=== PATIENT | female | born 1955 | race Caucasian/White ===

== ENCOUNTER 2024-11-07 11:38 | Emergency (ER) | payer MEDICARE, OTHER, SELFPAY ==
[2024-11-07 11:49] VITALS: BP 132/75; PULSE 93; RESP 18; TEMP 36.9; O2SAT 95; BMI 27.3
--- NOTE | 2024-11-07 11:53 | EKG_ITS ---
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
--- NOTE | 2024-11-07 11:53 | XR_ITS ---
Examination: AP lateral chest 2 views TECHNIQUE: Portable AP lateral chest 2 views Exam date and time: hours INDICATIONS: Shortness of breath coughing 3 months. FINDINGS: Mild accentuation basilar bronchovascular markings Normal heart size No pneumonia IMPRESSION:: Mild bibasilar bronchitis pattern
--- NOTE | 2024-11-07 11:54 | XR_ITS ---
Examination: Abdomen sonogram, Limited Date and time of exam: November 07, 2024 1227 hours INDICATIONS: Liver disease diagnosis, abdominal distention 2 months Technique: Real-time barros scale transabdominal sonographic images of the abdomen obtained. Findings: Minimal ascitic fluid IMPRESSION: Minimal ascitic fluid
--- NOTE | 2024-11-07 11:55 | XR_ITS ---
Examination: Venous duplex lower extremity sonogram, bilateral. Date and time of exam: November 07, 2024 1231 hours INDICATIONS: Bilateral leg swelling beginning 2 months ago Technique: Multiple sonographic images of the deep venous system have been obtained. B-mode/2-D grayscale imaging of vascular structures and Doppler spectral analysis (waveforms) and color performed Both legs are examined. Findings: Deep venous systems do not demonstrate abnormal echogenicity. All visualized deep veins exhibit compressibility. All visualized deep veins exhibit augmentation. Impression: Negative for deep vein thrombosis
--- NOTE | 2024-11-07 11:55 | PD.EDRME ---
Rapid Medical Screening Exam RME Arrival date/time: 11/07/24 11:38 69-year-old female presents emergency department complains of shortness of breath ongoing for months Chief Complaint: Shortness of Breath/Dyspnea Vital signs: Vital Signs Temperature 98.5 F 11/07/24 11:49 Pulse Rate 93 11/07/24 11:49 Respiratory Rate 18 11/07/24 11:49 Blood Pressure 132/75 H 11/07/24 11:49 Pulse Oximetry (%) 95 11/07/24 11:49 Oxygen Delivery Method Room Air 11/07/24 11:49
[2024-11-07 12:47] LABS: Basophils # (Auto) 0.1 Thou/mm3 (0.0-0.2); Basophils % (Auto) 1 % (0-2.5); Eosinophils # (Auto) 0.2 Thou/mm3 (0.0-0.5); Eosinophils % (Auto) 2 % (0-10); Hematocrit 39.3 % (36.0-46.0); Hemoglobin 14.2 g/dL (12.0-16.0); Immature Granulocytes % (Auto) 0 % (0-0); Immature Granulocytes Auto 0.03 Thou/mm3 (0.00-0.00); Lymphocytes # (Auto) 1.4 Thou/mm3 (1.0-4.8); Lymphocytes % (Auto) 17 % (10-50); Mean Corpuscular HGB Conc 36.1 g/dl (31.0-37.0); Mean Corpuscular Hemoglobin 32.9 pg (25.0-35.0); Mean Corpuscular Volume 91 fL (80-100); Monocytes # (Auto) 0.7 Thou/mm3 (0.0-0.8); Monocytes % (Auto) 8 % (0-12); Neutrophils # (Auto) 5.9 Thou/mm3 (1.8-7.7); Neutrophils % (Auto) 72 % (37-80); Nucleated Red Blood Cell % 0 /100 WBC (0); Platelet Count 263 Thou/mm3 (140-440); RDW Standard Deviation 43.8 fL (36.4-46.3); Red Blood Count 4.32 Miln/mm3 (4.00-5.20); White Blood Count 8.2 Thou/mm3 (3.6-11.0)
[2024-11-07 12:54] LABS: INR 1.2 (0.9-1.3); Partial Thromboplastin Time 35.5 Seconds (22.0-36.0); Prothrombin Time 12.7 Seconds (9.0-12.2)
[2024-11-07 13:09] LABS: Alanine Aminotransferase 22 U/L (10-49); Albumin, Serum 3.1 gm/dL (3.4-4.8); Albumin/Globulin Ratio 0.9 (1.2-2.2); Alkaline Phosphatase 177 U/L (46-116); Anion Gap 9 (7-16); Aspartate Amino Transferase 94 U/L (0-34); BUN/Creatinine Ratio 8 Ratio (12-20); Bilirubin,Total 2.9 mg/dL (0.3-1.2); Blood Urea Nitrogen < 5 mg/dL (9-23); Calcium 8.1 mg/dL (8.3-10.6); Calcium (Corrected) 8.8 mg/dL (8.5-10.1); Carbon Dioxide 26.4 mMol/L (20.0-31.0); Chloride 87 mMol/L (98-107); Creatinine (Component) 0.6 mg/dL (0.6-1.3); Estimated Creatinine Clearance 71.5 mL/min (>60); Globulin 3.5 gm/dL (2.3-3.5); Glucose 100 mg/dL (74-106); Magnesium 1.4 mg/dL (1.6-2.6); Osmolality,Calculated 243 (275-295); Potassium 3.3 mMol/L (3.4-5.1); Sodium 122 mMol/L (136-145); Total Protein 6.6 gm/dL (5.7-8.2); Troponin I < 0.002 ng/mL (0.0-0.045); eGFR > 60 See Note
[2024-11-07 13:47] LABS: Hepatitis A Antibody IgM Non Reactive (Non React); Hepatitis B Core Antibody IgM Non Reactive (Non React); Hepatitis B Surface Antigen Non Reactive (Non React); Hepatitis C Antibody Non Reactive (Non React)
[2024-11-07 14:02] LABS: Collection Type, Urine Clean Catch
[2024-11-07 14:13] LABS: Amphetamine/Methamp Scrn,U Negative (Negative); Barbiturate Screen,Urine Negative (Negative); Benzodiazepines Screen,Urine Negative (Negative); Benzoylecgonine Screen, Ur Negative (Negative); Fentanyl Screen,Urine Negative (Negative); Opiate Screen,Urine Negative (Negative); THC Screen,Urine Negative (Negative)
[2024-11-07 14:29] LABS: Bacteria,Urine 1+; Bilirubin,Urine Negative (Negative); Blood,Urine Negative (Negative); Clarity,Urine Clear (Clear/Hazy); Color,Urine Colorless (Lt Yel-Yel); Glucose, Urine Negative (Negative); Ketones,Urine Negative (Negative); Leukocyte Esterase,Urine Negative (Negative); Nitrite,Urine Negative (Negative); Protein,Urine Negative (Neg - Trace); RBC,Urine < 1 /hpf (0-3); Specific Gravity,Urine 1.005 (1.001-1.035); Squamous Epithelial Cell,Urine 1 /hpf (0-5); Urobilinogen,Urine Negative mg/dL (0.0-1.0); WBC,Urine < 1 /hpf (0-5)
[2024-11-07 14:47] LABS: B-Type Natriuretic Peptide 63 pg/mL (0-100)
--- NOTE | 2024-11-07 15:47 | PD.EDSOB ---
ED SOB =RME/HPI General Chief Complaint: Shortness of Breath/Dyspnea Stated Complaint: SHORTNESS OF BREATH Time Seen by Provider: 11/07/24 15:12 Arrival date/time: 11/07/24 11:38 RME / HPI RME / HPI Narrative: 69-year-old female patient with significant history of chronic alcoholism, currently drinking alcohol, came in for evaluation regarding worsening abdominal distention and shortness of breath severity mild. Patient denies any cough denies any other complaints except for bilateral lower extremity edema. Patient last alcohol intake was last night. Was seen by PCP and was given Lasix. Related Data Previous Rx's ?Medication ?Instructions ?Recorded magnesium oxide 500 mg capsule 500 mg PO BID #30 caps 11/07/24 sodium chloride 1,000 mg soluble 1,000 mg PO QDAY #14 tabs 11/07/24 tablet Allergies Allergy/AdvReac Type Severity Reaction Status Date / Time codeine Allergy Verified 11/07/24 11:43 Review of Systems Review of Systems Narrative Review of Systems: Review of system reviewed and within normal limits except mentioned in HPI ED Exam Narrative Physical exam: VITAL SIGNS: Reviewed. GENERAL APPEARANCE: Alert and interactive, follows commands, no acute distress, HEAD AND FACE: Non-traumatic. ENT: PERRL, pink conjunctivitis, eyelid no trauma, Mucous membrane moist. NECK: Supple, nontender, no nuchal rigidity. CHEST: No tenderness, no crepitus, no paradoxical movement, no retractions. LUNGS: Clear, well ventilated, symmetric, no rales, no wheezing, no ronchi, no stridor, good breath sounds bilaterally. HEART: Regular rate, regular rhythm, no murmur, no gallops. ABDOMEN: Soft, positive bowel sounds, abdominal slightly distended, nontender, negative fluid wave test no guarding, no rebound, no masses, RECTAL: Deferred. GENITAL: Deferred. NEUROLOGICAL: Gross motor function intact sensory function intact, Appropriate for age. MUSCULOSKELETAL: low back nontender, full range of motion. EXTREMITIES:+2 pitting edema, nontender, full range of motion. SKIN: Color pink, dry, no rash, no lacerations, no abrasions, no contusions. LYMPHATICS: Deferred. Course Quality Measures none Orders Category Date Time Status EKG (ED ONLY) *Do not use* NOW Care 11/07/24 11:53 Completed EKG (ED Only) Stat Exams 11/07/24 11:53 Draft US abdomen limited Stat Exams 11/07/24 11:54 Completed US venous doppler LE BI Stat Exams 11/07/24 11:55 Completed XR chest 2V Stat Exams 11/07/24 11:53 Completed B-Type Natriuretic Peptide Stat Lab 11/07/24 12:24 Completed CBC Stat Lab 11/07/24 12:24 Completed Comprehensive Metabolic Panel Stat Lab 11/07/24 12:24 Completed Drug Screen,Urine Stat Lab 11/07/24 13:43 Completed Hepatitis Acute Panel Stat Lab 11/07/24 12:24 Completed Magnesium Stat Lab 11/07/24 12:24 Completed Partial Thromboplastin Time Stat Lab 11/07/24 12:24 Completed Prothrombin Time with INR Stat Lab 11/07/24 12:24 Completed Troponin I Stat Lab 11/07/24 12:24 Completed Urinalysis Stat Lab 11/07/24 13:43 Completed Vital Signs Vital signs: Vital Signs Temperature 98.5 F 11/07/24 11:49 Pulse Rate 93 11/07/24 11:49 Respiratory Rate 18 11/07/24 11:49 Blood Pressure 132/75 H 11/07/24 11:49 Pulse Oximetry (%) 95 11/07/24 11:49 Oxygen Delivery Method Room Air 11/07/24 11:49 Shortness of Breath / Dyspnea MDM Narrative MDM Narrative:: 69-year-old female patient with significant history of chronic alcoholism, currently drinking alcohol, came in for evaluation regarding worsening abdominal distention and shortness of breath severity mild. Patient denies any cough denies any other complaints except for bilateral lower extremity edema. Patient last alcohol intake was last night. Was seen by PCP and was given Lasix. Patient has significant electrolyte abnormalities probably secondary to chronic alcoholism, sodium 122, magnesium 1.4. Potassium of 3.3. Total bili was also noted to be 2.9. AST of 94 ALT of 22. Alkaline phos 177. Urinalysis no UTI. Case discussed with my ED MD, Dr. Hicks, who told me electrolyte abnormalities is secondary to chronic alcoholism. Okay to be discharged home safely. advised the patient to stop drinking alcohol, and can be discharged home on sodium salt and magnesium. Plan of care discussed with the patient including stopping alcohol intake, due to liver abnormalities secondary to alcoholic liver cirrhosis. Patient agrees with the plan. Chest x-ray showed no infiltrates. Ultrasound of the extremity is negative for DVT. EKG shows sinus rhythm, ventricular rate of 88 bpm, no ST segment elevation depression noted. Patient data External records reviewed:: None Clinical information provided by:: patient Social determinants that could affect healthcare access:: none Patient has the following chronic illnesses:: Chronic alcohol abuse, alcohol liver cirrhosis How is presenting disease/condition affected by chronic disease/condition?: caused by Evaluation data The following diagnostics were reviewed and interpreted by me:: lab results, radiology exam(s) and EKG tracing(s) Lab and/or radiology exams considered but not ordered:: None Interpretation Summary: See results in MDM Medications / Prescriptions Medications or Prescriptions considered but not ordered:: None Medication administrations:: None Consultations Consultation(s) initiated? (list below): No Diagnosis Shortness of Breath Differential Diagnosis: acute exacerbation of chronic obstructive airways disease, congestive heart failure and community acquired pneumonia Most likely diagnosis given after review of the tests above:: Hyponatremia hypomagnesemia alcoholic liver cirrhosis Admission Indicated Admission indicated?: not indicated Explain why admission is indicated or not indicated:: None Admission Request Was there a request for admission?: No Disposition Plan Disposition Plan: Discharge Discharge Attestation Discharge Attestation: The patient was given an opportunity to ask questions and understood the discharge instructions. Discharge instructions specifically effects, indications for sooner follow up or return to the emergency department, and the expected course of current diagnosis. Patient condition: Stable Discharge Plan Plan Patient Disposition: HOME (Self Care) Disposition Comment: Stable Prescriptions/Referrals Prescriptions/Med Rec: New magnesium oxide 500 mg capsule 500 mg PO BID Qty: 30 0RF sodium chloride 1,000 mg tablet,soluble 1,000 mg PO QDAY Qty: 14 0RF Referrals: Deon Rushing NP [Primary Care Provider] - In 1 week Outpatient Orders: Sodium (Routine) Location: None Selected Ordered By: Kerry Fortune Problem List Clinical Impression: Alcoholic cirrhosis of liver, Hyponatremia Patient/Caregiver Discharge Instructions Discharge Activity: activity as tolerated Education Materials: Treating Cirrhosis, ED Hyponatremia Additional Instructions: Thank you for the opportunity for serving you today. You are stable for discharged . You are advised to: Follow-up with your PCP in 1 to 2 days Return to ED for worsening of symptoms Please stop drinking alcohol. As your PCP to refer you to a liver specialist Print Language: Amharic Stand Alone Forms: Mayuri Award Info., Patient Portal Info Letter
== END 2024-11-07 15:50 | disposition home or self-care (01) ==
PROVIDERS: Nurse Practitioner Primary Care; Emergency Provider Emergency Medicine; PCP Nurse Practitioner Adult Health
DX: K70.30 Alcoholic cirrhosis of liver without ascites (principal); E87.1 Hypo-osmolality and hyponatremia; R06.02 Shortness of breath; R05.9 Cough, unspecified; R94.31 Abnormal electrocardiogram [ECG] [EKG]; R60.0 Localized edema
CPT/HCPCS: 36415; 71046; 76705; 80053; 80074; 80307; 81001; 83735; 83880; 84484; 85025; 85610; 85730; 93005; 93970; 99284

== ENCOUNTER 2024-12-30 09:35 | Inpatient (IN) | payer MEDICARE, OTHER, SELFPAY ==
[2024-12-30] VITALS (9 sets, daily range): BP systolic 120–139; BP diastolic 76–94; PULSE 93–122; RESP 15–96; TEMP 36.5–37.1; O2SAT 94–98; BMI 26.4; BMI 27.3; BMI 36.2
--- NOTE | 2024-12-30 10:35 | PD.EDRME ---
Rapid Medical Screening Exam RME Arrival date/time: 12/30/24 09:35 69-year-old female with no known medical history presents to the emergency room with a chief complaint of generalized weakness and exhaustion x 1 month I have greeted and performed a focused initial assessment of this patient. A comprehensive ED assessment and evaluation of the patient, analysis of all test results, and completion of the medical decision making process will be conducted by additional ED providers. Chief Complaint: Weakness Vital signs reviewed by provider: Yes
[2024-12-30 11:04] LABS: Basophils % (Auto) 0 % (0-2.5); Eosinophils % (Auto) 0 % (0-10); Hematocrit 41.1 % (36.0-46.0); Hemoglobin 15.2 g/dL (12.0-16.0); Immature Granulocytes % (Auto) 1 % (0-0); Immature Granulocytes Auto 0.05 Thou/mm3 (0.00-0.00); Lymphocytes # (Auto) 1.3 Thou/mm3 (1.0-4.8); Lymphocytes % (Auto) 13 % (10-50); Mean Corpuscular Hemoglobin 33.2 pg (25.0-35.0); Mean Corpuscular Volume 90 fL (80-100); Monocytes # (Auto) 0.9 Thou/mm3 (0.0-0.8); Monocytes % (Auto) 9 % (0-12); Neutrophils # (Auto) 7.7 Thou/mm3 (1.8-7.7); Neutrophils % (Auto) 77 % (37-80); Nucleated Red Blood Cell % 0 /100 WBC (0); Platelet Count 177 Thou/mm3 (140-440); RDW Standard Deviation 41.9 fL (36.4-46.3); Red Blood Count 4.58 Miln/mm3 (4.00-5.20)
[2024-12-30 12:19] LABS: Alanine Aminotransferase 11 U/L (10-49); Albumin, Serum 2.9 gm/dL (3.4-4.8); Albumin/Globulin Ratio 0.9 (1.2-2.2); Alkaline Phosphatase 177 U/L (46-116); Anion Gap 8 (7-16); Aspartate Amino Transferase 37 U/L (0-34); BUN/Creatinine Ratio 8 Ratio (12-20); Bilirubin,Total 4.5 mg/dL (0.3-1.2); Blood Urea Nitrogen 5 mg/dL (9-23); Calcium 8.2 mg/dL (8.3-10.6); Calcium (Corrected) 9.1 mg/dL (8.5-10.1); Carbon Dioxide 37.1 mMol/L (20.0-31.0); Chloride 80 mMol/L (98-107); Creatine Kinase 50 U/L (34-171); Creatinine (Component) 0.6 mg/dL (0.6-1.3); Estimated Creatinine Clearance 74.7 mL/min (>60); Globulin 3.1 gm/dL (2.3-3.5); Glucose 108 mg/dL (74-106); Lipase 60 U/L (12-53); Osmolality,Calculated 249 (275-295); Sodium 125 mMol/L (136-145); eGFR > 60 See Note
[2024-12-30 12:22] LABS: Potassium 2.7 mMol/L (3.4-5.1)
--- NOTE | 2024-12-30 13:31 | EKG_ITS ---
[facility] Test Date: 2024-12-30 Pat Name: LISSETT EDWARDS Department: Room: - Gender: Female Cop: : 1955 Requested By: Roberto Dacosta Order Number: [id number] Reading MD: Roberto Dacosta Measurements Intervals [place] Rate: 115 P: AL: QRS: 10 QRSD: 72 T: 26 QT: 377 QTc: 523 Interpretive Statements ATRIAL FIBRILLATION WITH RAPID VENTRICULAR RESPONSE LOW QRS VOLTAGE IN PRECORDIAL LEADS [QRS DEFLECTION < 1.0 mV IN CHEST LEADS] POSSIBLE ANTERIOR MYOCARDIAL INFARCTION , PROBABLY OLD [30 ms Q WAVE IN V3/V4, OR R < 0.2 mV IN V4] ABNORMAL RHYTHM ECG Compared to ECG 11/07/2024 11:58:00 Sinus rhythm no longer present Myocardial infarct finding still present /store/S0/[id number]/ecg/[id number].pdf
--- NOTE | 2024-12-30 13:39 | EDNOTE_ITS ---
ED General RME/HPI General Chief complaint: Weakness Stated complaint: WEAKNESS [id number]; UNABLE TO WALK; NEEDS MRI Time Seen by Provider: 12/30/24 13:29 Arrival date/time: 12/30/24 09:35 CC: Acute on chronic fatigue HPI ongoing for the past 4 months with progressive increase in severity. The patient denies chest pain shortness of breath difficulty breathing nausea vomiting painful urination bloody urination. Patient admits to drinking wine on a daily basis. Patient noted, when asked, that the swelling in her lower extremities is the worst its ever been. Patient has no other complaints stating that she sleeps well at night but wakes up with no energy. RME / HPI RME / HPI narrative: 12/30/24 09:35 69-year-old female with no known medical history presents to the emergency room with a chief complaint of generalized weakness and exhaustion x 1 month I have greeted and performed a focused initial assessment of this patient. A comprehensive ED assessment and evaluation of the patient, analysis of all test results, and completion of the medical decision making process will be conducted by additional ED providers. Related Data Previous Rx's ?Medication ?Instructions ?Recorded magnesium oxide 500 mg capsule 500 mg PO BID #30 caps 11/07/24 sodium chloride 1,000 mg soluble 1,000 mg PO QDAY #14 tabs 11/07/24 tablet Allergies Allergy/AdvReac Type Severity Reaction Status Date / Time codeine Allergy Verified 12/30/24 09:39 Review of Systems Review of Systems Narrative Review of Systems: GEN: No fever, no chills, no weight loss EYES: No discharge, no visual changes, no pain HEENT: No ear pain, no congestion, no sore throat PULM: No shortness of breath, no cough, no congestion CV: No chest pain, no dyspnea on exertion, no palpitations GI: No nausea, no vomiting, no diarrhea, no pain, no constipation : No frequency, no urgency, no dysuria MUSC/SKEL: No joint pain, no back pain SKIN: No rash PSYCH: No hallucinations, no depression HEME/LYMPH: No easy bleeding or bruising tendencies NEURO: No weakness, no headache, + fatigue Past Medical History Social History SMOKING STATUS: Never smoker ED Exam Narrative Physical exam: [General: Anasarca not in any acute distress Head normocephalic HEENT: Eyes pupils are PERRLA EOMs are intact mouth pink moist membranes uvula is midline swallow symmetrical phonation is normal all other subsystems of HEENT are within acceptable limits Neck is supple nontender no JVD no edema Chest equal chest rise nontender to palpation Respiratory: Clear to auscultation no wheezes crackles or rubs CV: Rate rhythm is regular no murmurs rubs or clicks Abdomen is distended secondary to body habitus, with pitting edema, soft nonte nder no masses positive bowel sounds all 4 quadrants large surgical scars to the abdomen secondary to multiple surgeries for diverticulitis. Back: No CVA tenderness no spinous process tenderness from cervical spine thoracic and lumbar spine Skin: Intact no petechiae rash induration ulceration or crepitus Extremities: Moving all extremity against resistance cap refill less than 2 seconds neurosensory intact Neuro: Awake alert oriented x3 Glascow coma 15 no focal deficits] Course Course Course Narrative: Patient is hyponatremic hypokalemic, with a lower extremity edema as well as anasarca in the abdomen patient could benefit from diuresis even though she does not have any congestive heart failure however her potassium is 2.7, spoke to the resident for Dr. Tello, regarding the patient's condition At 1751 contacted the resident as I had not heard confirmation of admission. They are now recommending the patient get a CT abdomen pelvis to rule out the volume of ascites and to see if the patient had a biliary obstruction at which time the patient can be admitted if there is no biliary obstruction otherwise they recommend the patient be transferred for MRCP Quality Measures none Orders Category Date Time Status Place in Observation Status Routine Admission 12/30/24 20:48 Active COVID-19 Screening Questionnaire NOW Care 12/30/24 20:40 Active Decision to Admit X1 Care 12/30/24 20:39 Completed EKG (ED ONLY) *Do not use* NOW Care 12/30/24 13:31 Completed EKG (ED ONLY) *Do not use* NOW Care 12/30/24 15:33 Completed [place] [Insert IV] NOW Care 12/30/24 13:[address] abdomen pelvis wo con Stat Exams 12/30/24 17:50 Completed EKG (ED Only) Stat Exams 12/30/24 13:31 Draft EKG (ED Only) Stat Exams 12/30/24 15:32 Draft Alcohol, Blood Medical Stat Lab 12/30/24 16:15 Completed B-Type Natriuretic Peptide Stat Lab 12/30/24 10:47 Completed CBC Stat Lab 12/30/24 10:47 Completed CK [Creatine Kinase] Stat Lab 12/30/24 10:47 Completed CMP [Comprehensive Metabolic Panel] Stat Lab 12/30/24 10:47 Completed Drug Screen,Urine Stat Lab 12/30/24 14:18 Completed LDH (Lactate Dehydrogenase) Stat Lab 12/30/24 10:47 Completed Lipase Stat Lab 12/30/24 10:47 Completed Magnesium Stat Lab 12/30/24 10:47 Completed Partial Thromboplastin Time Stat Lab 12/30/24 10:47 Completed Prothrombin Time with INR Stat Lab 12/30/24 10:47 Completed Troponin I Stat Lab 12/30/24 10:47 Completed UA [Urinalysis] Stat Lab 12/30/24 10:35 Ordered Urinalysis Stat Lab 12/30/24 14:18 Completed Urine Culture Stat Lab 12/30/24 14:18 Received KCL 10% Liq UDC 15 ML Med 12/30/24 13:31 Discontinued 40 meq GT X1 ONE POTASSIUM CHL 10 mEq IVPB [Kcl Ivpb] Med 12/30/24 13:32 Discontinued 10 meq in 100 ml IV Q1H Vital Signs Vital signs: Vital Signs Temperature 98.0 F 12/30/24 10:44 Pulse Rate 112 H 12/30/24 10:44 Respiratory Rate 20 12/30/24 10:44 Blood Pressure 122/82 12/30/24 10:44 Pulse Oximetry (%) 97 12/30/24 10:44 Oxygen Delivery Method Room Air 12/30/24 10:44 Discharge Plan Plan Patient Disposition: Other Care w/in Hosp ([facility]Y) Patient condition on transfer: Stable Problem List Clinical Impression: Hypokalemia, Hyponatremia, Bilateral edema of lower extremity 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 EKG Interpretation EKG #1: EKG Interpretation: EKG performed 1342 shows a ventricular rate 115 QRS of 72 QTc 445 there is A-fib with RVR. When compared to old EKGs of August and September 2024 at that time it was sinus tachycardia EKG #2: EKG Interpretation: Performed at 1538 shows a ventricular rate of 110 IN interval 155 QRS of 63 QTc of 405 this shows clear P waves and is a sinus tachycardia Medication Administration(s) Medication Administration History Acetaminophen (Acetaminophen 325 Mg Tablet) 650 mg PO Q6H PRN PRN Reason: PAIN 1-3 OR FEVER > 101 Stop: 01/29/25 20:48 Furosemide (Furosemide Inj 10 Mg/Ml 4ml Vial) 40 mg IVP QDAY CHASIDY Stop: 01/30/25 08:59 Magnesium Sulfate (Magnesium Sulfate Ivpb) 2 gm in 50 mls @ 25 mls/hr IV X1 ONE Stop: 12/30/24 22:50 Last Admin: 12/30/24 21:42 Dose: 25 mls/hr Documented By: TOSIN Lorazepam (Lorazepam 0.5 Mg Tablet) 0.5 mg PO Q4HR PRN PRN Reason: CIWA Score 2-6 Stop: 01/04/25 21:50 Lorazepam (Lorazepam 2 Mg/Ml Vial) 1 mg IV X1 PRN PRN Reason: Breakthrough Agitation Lorazepam (Lorazepam 0.5 Mg Tablet) 1 mg PO Q4HR PRN PRN Reason: CIWA SCORE 7-11 Stop: 01/04/25 21:50 Lorazepam (Lorazepam 0.5 Mg Tablet) 2 mg PO Q4HR PRN PRN Reason: CIWA SCORE 12-15 Stop: 01/04/25 21:50 Ondansetron HCl (Ondansetron Inj 2 Mg/Ml Inj 2 Ml) 4 mg IV Q6H PRN; Protocol PRN Reason: NAUSEA OR VOMITING Stop: 01/29/25 20:48 Pantoprazole Sodium (Pantoprazole 40 Mg Tablet) 40 mg PO QDAY CHASIDY Stop: 01/30/25 08:59 Sennosides (Senna Tablet) 2 tab PO BID PRN; Protocol PRN Reason: CONSTIPATION Stop: 01/29/25 20:48 Sodium Chloride (Sodium Chloride 1 Gm Tablet) 1 gm PO QID CHASIDY Stop: 01/30/25 05:59 Discontinued Medications Alprazolam (Alprazolam 0.25 Mg Tablet) 1 mg PO X1 ONE Stop: 12/30/24 21:52 Potassium Chloride (Kcl Ivpb) 10 meq in 100 mls @ 100 mls/hr IV Q1H CHASIDY Stop: 12/30/24 15:31 Last Infusion: 12/30/24 17:52 Dose: Infused Documented By: Admin: 12/30/24 16:52 Dose: 100 mls/hr Documented By: Infusion: 12/30/24 15:03 Dose: Infused Documented By: Admin: 12/30/24 14:03 Dose: 100 mls/hr Documented By: DANIAL Potassium Chloride (Potassium Chloride 10% 20 Meq/15 Ml Udc) 40 meq GT X1 ONE Stop: 12/30/24 13:32 Last Admin: 12/30/24 14:22 Dose: 40 meq Documented By: DANIAL
[2024-12-30 14:00] LABS: INR 1.2 (0.9-1.3); Partial Thromboplastin Time 31.7 Seconds (22.0-36.0); Prothrombin Time 12.7 Seconds (9.0-12.2)
[2024-12-30 14:02] LABS: B-Type Natriuretic Peptide 71 pg/mL (0-100)
[2024-12-30] MEDS: POTASSIUM CHL 10 mEq IVPB 10 MEQ/100 ML BAG 100 MEQ IV ×2 (14:03→16:52)
[2024-12-30 14:13] LABS: Magnesium 1.5 mg/dL (1.6-2.6); Troponin I < 0.020 ng/mL (0.0-0.045)
[2024-12-30] MEDS: POTASSIUM CHLORIDE 10% 20 MEQ/15 ML UDC 40 MEQ GT (14:22)
[2024-12-30 14:29] LABS: Collection Type, Urine Clean Catch
[2024-12-30 14:30] LABS: LDH (Lactate Dehydrogenase) 240 U/L (120-246)
[2024-12-30 14:43] LABS: Bilirubin,Urine Negative (Negative); Blood,Urine 1+ (Negative); Clarity,Urine Clear (Clear/Hazy); Color,Urine Yellow (Lt Yel-Yel); Glucose, Urine Negative (Negative); Ketones,Urine Negative (Negative); Leukocyte Esterase,Urine Negative (Negative); Nitrite,Urine Negative (Negative); PH,Urine 5.5 (5.0-7.0); Protein,Urine Negative (Neg - Trace); RBC,Urine 1 /hpf (0-3); Squamous Epithelial Cell,Urine 1 /hpf (0-5); Urobilinogen,Urine Negative mg/dL (0.0-1.0); WBC,Urine 6 /hpf (0-5)
[2024-12-30 14:58] LABS: Amphetamine/Methamp Scrn,U Negative (Negative); Barbiturate Screen,Urine Negative (Negative); Benzodiazepines Screen,Urine Positive (Negative); Benzoylecgonine Screen, Ur Negative (Negative); Fentanyl Screen,Urine Negative (Negative); Opiate Screen,Urine Negative (Negative); THC Screen,Urine Negative (Negative)
--- NOTE | 2024-12-30 15:32 | EKG_ITS ---
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: : 1955 Requested By: Roberto Dacosta Order Number: [id number] Reading MD: Roberto Dacosta Measurements Intervals [place] Rate: 110 P: 26 MT: 155 QRS: -12 QRSD: 63 T: -6 QT: 340 QTc: 461 Interpretive Statements SINUS TACHYCARDIA WITH OCCASIONAL SUPRAVENTRICULAR PREMATURE COMPLEXES LOW QRS VOLTAGE IN PRECORDIAL LEADS [QRS DEFLECTION < 1.0 mV IN CHEST LEADS] ANTEROSEPTAL MYOCARDIAL INFARCTION , PROBABLY OLD [40+ ms Q WAVE IN V1-V4] Compared to ECG 12/30/2024 13:42:43 Atrial fibrillation no longer present Myocardial infarct finding still present /store/S0/[id number]/ecg/[id number].pdf
--- NOTE | 2024-12-30 16:41 | EVENTNT_ITS ---
Documentation for date of: 12/30/24 Event Note Event Note: Received call from ER 4 PM Attempted to reach back however unsuccessful. Vitals and labs reviewed, given the patient's history of liver disease and elevated T. bili 4.[address] abdomen pelvis to rule out any lauren lithiasis or CBD obstruction. Will review after imaging studies completed. Case discussed with my attending Dr. Elisha Becerra MD PGY-1
[2024-12-30 17:03] LABS: Alcohol, Blood Medical < 3.0 mg/dL (0-10.0)
--- NOTE | 2024-12-30 17:50 | XR_ITS ---
Examination: CT abdomen and pelvis without contrast. Coronal 3-D reconstructions. Sagittal 2-D reconstructions. Date and time of exam:December 30, 2024 1800 hours INDICATIONS: Mid abdominal pain beginning 2 months ago CTDI: vol (mGy): 9.36 DLP: (mGycm): 524 Technique: Axial images of the abdomen have been obtained, 3 mm slice thickness Intravenous contrast material has not been administered. Low dose protocols were performed. One or more of the following dose reduction techniques were used; automated exposure control, adjustment of the mA and/or KV according to patient size, use of iterative reconstruction technique. Findings: Cirrhosis, liver nodular in contour, 16 mm 8 mm 6 mm liver lesions Prominent ascites Absent gallbladder No splenomegaly No pancreatic or adrenal mass Upper pole 25 mm right renal cyst No renal or ureteral calculi, no hydronephrosis Normal appendix No bowel obstruction Anasarca Atrophic uterus No pelvic mass Urinary bladder is intact Advanced degenerative disc disease L3 L4, L4-L5 IMPRESSION: Cirrhosis, focal liver lesions, recommend MRI abdomen follow up pre and postcontrast to assess these liver lesions Prominent ascites Normal appendix No bowel obstruction
--- NOTE | 2024-12-30 20:53 | ESHP_ITS ---
<Statement entered by Alexx Dillard MD - 12/31/24 13:23> I have discussed and was present for the essential components of the history, physical examination, diagnosis, and treatment plan with the resident. I agree with the patient's care as documented by the resident and amended herein by me. Alexx Dillard MD FACP. Documentation for date of: 12/30/24 HPI History of Present Illness History of present illness: Patient is 69-year-old female with a past medical history of chronic lymphedema, alcohol abuse disorder, anxiety, who was directed to go to the emergency room by her primary care physician due to complaint of generalized weakness, The patient is complaining of chronic fatigue and difficulty walking for the past few months, but stated it has been getting worse now. Patient takes Lasix 40 mg every day for bilateral lower extremity swelling, there is also prescribed p.o. potassium but she takes it occasionally. Patient also admits to drinking wine on a daily basis, reported that she used to drink heavily in the past. Patient has a medical history of anxiety, and gets teary-eyed multiple times during the encounter, states he takes alprazolam at home for anxiety, has never been formally evaluated by psychiatrist for depression. Patient is unfamiliar with diagnosis of cirrhosis. Labs :CBC unremarkable, CMP shows hyponatremia, hypokalemia, metabolic alkalosis, and hypomagnesemia. Labs show hyperbilirubinemia, imaging Shows cirrhosis focal liver lesions, recommended MRI abdomen pre and postcontrast to assess these lesions, prominent ascites. Patient will be admitted to medical floor for observation, IV diuresis and electrolyte replacement. Past medical history: As noted above Social history: Denies smoking, reports excessive alcohol use. Review of Systems Review of Systems Narrative Review of Systems: General: Denies fevers or chills, patient is anxious, gets teary-eyed multiple times during the encounter, complaining of generalized weakness. HEENT: Denies congestion or sore throat Heart: Denies chest pain or palpitations Lungs: Denies shortness of breath or cough Abdomen: Denies diarrhea, nausea, vomiting, constipation, bright red blood per rectum or melena Genitourinary: Denies frequency, urgency, dysuria, or hematuria Musculoskeletal: Denies joint pain, denies muscular pain Neurology: Denies any numbness, tingling, complains of generalized weakness no focal neurological deficits. Review of systems otherwise negative except what is mentioned above. Past Medical History Past Medical History NEUROLOGIC: Negative Neurological Disorders CARDIAC: Negative Cardiac Disorders or Congestive Heart Failure RESPIRATORY: Positive Asthma; Negative Chronic Obstructive Pulmonary Disease (COPD) GASTROINTESTINAL: Negative Gastrointestinal Disorders GENITOURINARY: Negative Genitourinary Disorders or Renal Disease MUSCULOSKELETAL: Negative Musculoskeletal Disorders ENT: Negative History of ENT Problems ENDOCRINE: Negative Endocrine Disorders, Diabetes Mellitus Type 1 or Diabetes Mellitus Type 2 HEMATOLOGIC: Negative Blood Disorders OTHER HISTORY: Negative Autoimmune Disease, Organ Transplant, Clostridium Difficile or Cancer Family History FAMILY HISTORY: Negative Family Respiratory Disorders, Family Cardiac Disorders or Family Gastrointestinal Problems Surgical History SURGICAL: Negative Cardiac Surgery, Endocrine Surgery, Ear Surgery, Abdominal Surgery, Nephrectomy, Joint Replacement, Neurologic Surgery, Lumpectomy or Organ Transplant Social History SMOKING STATUS: Never smoker Exam Vital Signs Temp Pulse Resp BP Pulse Ox O2 Del Method 98.0 F 115 H 18 133/76 H 96 Room Air 12/30/24 20:39 12/30/24 20:39 12/30/24 20:39 12/30/24 20:39 12/30/24 20:39 12/30/24 20:39 Narrative Exam General: AOx3, cooperative but anxious, anasarca Skin: Intact, no cyanosis. 3+ pitting edema noted bilateral lower extremities extending up to lower abdomen. HEENT: Atraumatic/normocephalic, SEBAS, neck supple Heart: RRR, S1 and S2 without clicks or murmurs Lungs: Clear on auscultation bilaterally, no difficulty breathing Abdomen: Soft, nontender. Distended, bowel sounds present . Vascular: Peripheral pulses palpable Neuro: No focal neurological deficits noted. Results: Labs 12/30/24 10:47 12/30/24 10:47 Labs: Short CBC 12/30/24 Range/Units 10:47 WBC 10.0 (3.6-11.0) Thou/mm3 Hgb 15.2 (12.0-16.0) g/dL Hct 41.1 (36.0-46.0) % Plt Count 177 (140-440) Thou/mm3 BMP 12/30/24 10:47 Sodium 125 L Potassium 2.7 L* Chloride 80 L Carbon Dioxide 37.1 H BUN 5 L Creatinine 0.6 Glucose 108 H Calcium 8.2 L Cardiac Enzymes 12/30/24 Range/Units 10:47 Total Creatine Kinase 50 (34-171) U/L Troponin I < 0.020 (0.0-0.045) ng/mL Liver Function 12/30/24 Range/Units 10:47 Total Bilirubin 4.5 H (0.3-1.2) mg/dL AST 37 H (0-34) U/L ALT 11 (10-49) U/L Alkaline Phosphatase 177 H (46-116) U/L Albumin 2.9 L (3.4-4.8) gm/dL Urine 12/30/24 Range/Units 14:18 Urine Color Yellow (Lt Yel-Yel) Urine Clarity Clear (Clear/Hazy) Urine pH 5.5 (5.0-7.0) Ur Specific Alicia 1.010 (1.001-1.035) Urine Protein Negative (Neg - Trace) Urine Glucose (UA) Negative (Negative) Quality Measures Quality Measures VTE prophylaxis Advance care planning discussed with:: patient Medications Home Medications and Allergies Allergies Allergy/AdvReac Type Severity Reaction Status Date / Time codeine Allergy Verified 12/30/24 09:39 Visit Medications Acetaminophen (Acetaminophen 325 Mg Tablet) 650 mg PO Q6H PRN PRN Reason: PAIN 1-3 OR FEVER > 101 Stop: 01/29/25 20:48 Magnesium Sulfate (Magnesium Sulfate Ivpb) 2 gm in 50 mls @ 25 mls/hr IV X1 ONE Stop: 12/30/24 22:50 Ondansetron HCl (Ondansetron Inj 2 Mg/Ml Inj 2 Ml) 4 mg IV Q6H PRN; Protocol PRN Reason: NAUSEA OR VOMITING Stop: 01/29/25 20:48 Sennosides (Senna Tablet) 2 tab PO BID PRN; Protocol PRN Reason: CONSTIPATION Stop: 01/29/25 20:48 Discontinued Medications Potassium Chloride (Kcl Ivpb) 10 meq in 100 mls @ 100 mls/hr IV Q1H CHASIDY Stop: 12/30/24 15:31 Last Infusion: 12/30/24 17:52 Dose: Infused Potassium Chloride (Potassium Chloride 10% 20 Meq/15 Ml Udc) 40 meq GT X1 ONE Stop: 12/30/24 13:32 Last Admin: 12/30/24 14:22 Dose: 40 meq Assessment & Plan Plan Patient is 69-year-old female with a past medical history of chronic lymphedema, alcohol abuse disorder, anxiety, who was directed to go to the emergency room by her primary care physician due to complaint of generalized weakness, The patient is complaining of chronic fatigue and difficulty walking for the past few months, but stated it has been getting worse now. Patient will be admitted to medical floor for observation, IV diuresis and electrolyte replacement. #Anasarca #Bilateral lower extremity edema #Chronic lymphedema Patient reported history of chronic lymphedema since age 10, no worsening bilateral lower extreme edema, he is on p.o. diuresis at home, now worsening weakness and difficulty walking. Less likely concern for DVT, likely chronic lymphedema and cirrhosis leading to bilateral lower extremity swelling. Will get echocardiogram to rule out CHF. ? IV Lasix 40 mg daily ? Input output monitoring #Alcohol abuse disorder #Decompensated cirrhosis with ascites Madrey's discriminant function score 9, good prognosis no indications for steroids. no hepatic encephalopathy , ao x 3 ? Ordered ultrasound-guided paracentesis in the a.m. ? Following peritoneal fluid analysis ? Follow vital hepatitis panel. ? CIWA protocol ordered #Hyponatremia #Hypokalemia Hyponatremia likely secondary to hypervolemic status secondary to cirrhosis, hypokalemia likely secondary to diuretics. ? IV KCl replacement ? Fluid restriction ordered 1200 cc daily. Plan of care discussed with attending Dr. Rosa Dawkins PGY 2
[2024-12-30] MEDS: Magnesium Sulfate 2 GM Ivpb 2 GM/50 ML BAG IV (21:42)
--- NOTE | 2024-12-30 21:45 | ECHO_ITS ---
Transthoracic Echo Report Ht (in): 61 Wt (lb): 145 Exam Location: Echo Lab Status: Emergency Hide Inspector And Sorter: Cecilia Garcia Indications: Procedure Performed: BP: / HR: Technical Quality: Technically difficult study MEASUREMENTS (Male / Female) Normal Values 2D ECHO LV Diastolic Diameter PLAX 4.4 cm 4.2 - 5.9 / 3.9 - 5.3 cm LV Systolic Diameter PLAX 2.9 cm IVS Diastolic Thickness 1.0 cm 0.6 - 1.0 / 0.6 - 0.9 cm LVPW Diastolic Thickness 1.3 cm 0.6 - 1.0 / 0.6 - 0.9 cm LV Relative Wall Thickness 0.5 LVOT Diameter 1.5 cm Aortic Root Diameter 3.2 cm LA Systolic Diameter LX 2.9 cm 3.0 - 4.0 / 2.7 - 3.8 cm M-MODE AV Cusp Separation MM 1.2 cm DOPPLER AV Peak Velocity 257.0 cm/s AV Peak Gradient 26.4 mmHg AV Mean Gradient 13.3 mmHg AV Velocity Time Integral 46.0 cm LVOT Peak Velocity 121.0 cm/s LVOT Peak Gradient 5.9 mmHg LVOT Velocity Time Integral 26.3 cm AV Area Cont Eq vti 1.0 cm? AV Area Cont Eq pk 0.8 cm? MV Area PHT 4.6 cm? MR Peak Velocity 220.0 cm/s MR Peak Gradient 19.4 mmHg Mitral E Point Velocity 72.8 cm/s Mitral A Point Velocity 99.9 cm/s Mitral E to A Ratio 0.7 LV E' Lateral Velocity 6.6 cm/s Mitral E to LV E' Lateral Ratio 11.0 LV E' Septal Velocity 6.7 cm/s Mitral E to LV E' Septal Ratio 10.8 TR Peak Velocity 229.0 cm/s TR Peak Gradient 21.0 mmHg PV Peak Velocity 153.0 cm/s PV Peak Gradient 9.4 mmHg FINDINGS Left Ventricle Normal left ventricular size. Mild LVH. Hyperdynamic LV. There is grade I diastolic dysfunction of the left ventricle (impaired relaxation pattern). The ejection fraction is visually estimated at 75 %. Right Ventricle The right ventricle is normal in size and systolic function. Left Atrium The left atrium is normal by two-dimensional, color flow and Doppler imaging with no structural abnormalities, no thrombus formation present. Right Atrium The right atrium is normal by two-dimensional imaging, color flow and Doppler imaging with no structural abnormalities, no thrombus formation present. Atrial Septum The interatrial septum appears normal with no evidence of a shunt. Aorta The aorta is normal by two-dimensional, color flow and Doppler interrogation. Mitral Valve Mild mitral annular calcification. Trace mitral regurgitation. Aortic Valve Mild aortic valve regurgitation. Mild thickening of the aortic valve leaflets. Tricuspid Valve The tricuspid valve is normal by two-dimensional, color flow and Doppler interrogation. There is no significant tricuspid valve regurgitation. Pulmonic Valve The pulmonic valve is not well visualized. There is no significant pulmonic valve regurgitation. Vessels The pulmonary artery appears normal. The inferior vena cava pulmonary and hepatic veins appear normal. Pericardium The pericardium is normal by two-dimensional imaging. There is no significant pericardial effusion. CONCLUSIONS Indication: Lower extemity edema Normal LV size. Mild LVH. Hyperdynamic LV. Grade I diastolic dysfunction. Estimated EF > 70%. Normal RV size and systolic function. Trace TR and cannot estimate RVSP. Mild MAC. Trace MR. Mild AI. Mild AV sclerosis without stenosis. No evidence of any pericardial effusion. Renan Gardner (Electronically Signed) Final Date: 02 Jan 2025 00:56
[2024-12-30 22:17] LABS: Albumin, Serum 2.7 gm/dL (3.4-4.8); Anion Gap 8 (7-16); BUN/Creatinine Ratio 12 Ratio (12-20); Blood Urea Nitrogen 6 mg/dL (9-23); Calcium 7.5 mg/dL (8.3-10.6); Calcium (Corrected) 8.5 mg/dL (8.5-10.1); Carbon Dioxide 33.9 mMol/L (20.0-31.0); Chloride 82 mMol/L (98-107); Creatinine (Component) 0.5 mg/dL (0.6-1.3); Estimated Creatinine Clearance 89.6 mL/min (>60); Glucose 102 mg/dL (74-106); Osmolality,Calculated 247 (275-295); Phosphorous 2.5 mg/dL (2.4-5.1); Potassium 2.8 mMol/L (3.4-5.1); Sodium 124 mMol/L (136-145); eGFR > 60 See Note
[2024-12-30] MEDS: ALPRazoLAM 0.25 MG TABLET 1 MG PO (22:36)
[2024-12-30 23:18] LABS: Hepatitis A Antibody IgM Non Reactive (Non React); Hepatitis B Core Antibody IgM Non Reactive (Non React); Hepatitis B Surface Antigen Non Reactive (Non React); Hepatitis C Antibody Non Reactive (Non React)
[2024-12-31] VITALS (12 sets, daily range): BP systolic 115–131; BP diastolic 70–90; PULSE 88–143; RESP 17–96; TEMP 36.1–37.2; O2SAT 93–97; BMI 34.0
[2024-12-31] MEDS: POTASSIUM CHL 10 mEq IVPB 10 MEQ/100 ML BAG 100 MEQ IV ×4 (00:08→04:09)
[2024-12-31] MEDS: ACETAMINOPHEN 325 MG TABLET 650 MG PO (01:12)
[2024-12-31] MEDS: LORazepam 2 MG/ML VIAL 1 MG IV (01:23)
[2024-12-31 05:52] LABS: Basophils % (Auto) 0 % (0-2.5); Eosinophils # (Auto) 0.1 Thou/mm3 (0.0-0.5); Eosinophils % (Auto) 1 % (0-10); Hematocrit 35.6 % (36.0-46.0); Immature Granulocytes % (Auto) 0 % (0-0); Immature Granulocytes Auto 0.04 Thou/mm3 (0.00-0.00); Lymphocytes # (Auto) 1.6 Thou/mm3 (1.0-4.8); Lymphocytes % (Auto) 17 % (10-50); Mean Corpuscular HGB Conc 36.5 g/dl (31.0-37.0); Mean Corpuscular Hemoglobin 33.8 pg (25.0-35.0); Mean Corpuscular Volume 93 fL (80-100); Monocytes # (Auto) 0.9 Thou/mm3 (0.0-0.8); Monocytes % (Auto) 9 % (0-12); Neutrophils # (Auto) 6.9 Thou/mm3 (1.8-7.7); Neutrophils % (Auto) 72 % (37-80); Nucleated Red Blood Cell % 0 /100 WBC (0); Platelet Count 151 Thou/mm3 (140-440); RDW Standard Deviation 43.8 fL (36.4-46.3); Red Blood Count 3.85 Miln/mm3 (4.00-5.20); White Blood Count 9.6 Thou/mm3 (3.6-11.0)
[2024-12-31 06:29] LABS: INR 1.2 (0.9-1.3); Prothrombin Time 13.1 Seconds (9.0-12.2)
[2024-12-31 07:13] LABS: Albumin, Serum 2.4 gm/dL (3.4-4.8); Anion Gap 6 (7-16); Aspartate Amino Transferase 31 U/L (0-34); BUN/Creatinine Ratio 10 Ratio (12-20); Bilirubin,Direct 1.9 mg/dL (0.0-0.3); Bilirubin,Total 4.6 mg/dL (0.3-1.2); Blood Urea Nitrogen 5 mg/dL (9-23); Calcium 7.1 mg/dL (8.3-10.6); Carbon Dioxide 32.8 mMol/L (20.0-31.0); Cardiac Risk Estimate 3.1 RATIO (3.7-5.6); Chloride 84 mMol/L (98-107); Cholesterol 123 mg/dL (132-200); Creatinine (Component) 0.5 mg/dL (0.6-1.3); Estimated Creatinine Clearance 99.9 mL/min (>60); Glucose 93 mg/dL (74-106); HDL Cholesterol 40 mg/dL (40-60); LDL Cholesterol,Calculated 70 mg/dL (0-130); Magnesium 1.4 mg/dL (1.6-2.6); Osmolality,Calculated 244 (275-295); Phosphorous 2.5 mg/dL (2.4-5.1); Potassium 3.1 mMol/L (3.4-5.1); Sodium 123 mMol/L (136-145); Thyroid Stimulating Hormone 5.47 uIU/mL (0.55-4.78); Triglycerides 65 mg/dL (30-150); eGFR > 60 See Note
[2024-12-31 07:14] LABS: Alanine Aminotransferase 9 U/L (10-49); Alkaline Phosphatase 143 U/L (46-116)
--- NOTE | 2024-12-31 07:30 | PC.NURSE ---
MD frye notified of pts current HR of 127. Per MD will be changed to a higher level of care Telemetry
--- NOTE | 2024-12-31 08:00 | XR_ITS ---
Examination: Ultrasound-guided paracentesis Abdominal sonogram limited Date and time of exam: December 31, 2024 1338 hours INDICATIONS: Cirrhosis, increasing ascites and abdominal distention this week Informed consent provided. A timeout was completed verifying correct patient, procedure, site, positioning, and special adequate movement if applicable. Technique: Multiple sonographic images of the abdomen have been obtained. Appropriate area for paracentesis was marked. Local anesthesia is obtained with 1% lidocaine. Yueh catheter is successfully introduced. Findings: Abdominal sonographic images demonstrate sufficient ascitic fluid for paracentesis. After placing the Yueh catheter, 2950 cc of fluid were successfully removed. During and after completion of the procedure the patient appear in satisfactory and stable condition with no complications observed. Estimated blood loss 0 cc Impression: Abdominal ascites Successful ultrasound-guided paracentesis as described above
[2024-12-31] MEDS: Magnesium Sulfate 4 GM Ivpb 4 GM/50 ML BAG IV (08:37)
[2024-12-31] MEDS: FUROSEMIDE INJ 10 MG/ML 4ML VIAL 40 MG IVP (08:38)
--- NOTE | 2024-12-31 09:48 | ESPR_ITS ---
<Statement entered by Sara Tello MD - 01/10/25 14:59> I reviewed above note and agree with findings and plans. I have also personally examined the patient with medicine team and went over assessment and plan with medical team including data analysis intern and resident physician. <Statement entered by Jimy Mosher MD - 12/31/24 16:18> Patient examined and case discussed with the team including attending physician. Note reviewed, I agree with the care plan as documented. S/p Paracentesis 2.95L output. Albumin 25g x1 ordered for oncotic repletion. Diet resumed. EKG shows sinus tachycardia, low CIWA -> transfered to telemetry for closer monitoring. Please refer to the note below for further details. - Jimy Mosher MD, PGY 2 Disclaimer: The document may contain phonetic/typographic errors due to voice recognition software. These errors are purely due to imperfections in the software program and should not be misconstrued in any way to compromise the substance of the patient's medical care during this visit. Documentation for date of: 12/31/24 Subjective Subjective Interval history: Patient seen today at the bedside found awake, alert, orientedx3. No overnight events reported. No active complaints at this time. Vital signs and labs reviewed. Patient is pending paracentesis by IR services. Ammonia lvls ordered. Will continue to monitor. Exam Vital Signs Temp Pulse Resp BP Pulse Ox O2 Del Method 97.2 F 88 18 119/88 H 93 L Room Air 12/31/24 07:55 12/31/24 08:38 12/31/24 07:55 12/31/24 08:38 12/31/24 07:55 12/31/24 07:55 Narrative Exam Physical Exam GENERAL: NAD, AAOx3 HEENT: Moist mucosa. Eyes open, symmetrical, & clear CARDIO: Heart RRR, no obvious murmurs PULM: No noted coughing/dyspnea CTA B/L, no R/W/R GI: Abdomen soft, nondistended, no pain on palpation. BSx4 SKIN/MSK/EXT: No wounds/rashes/edema/amputations, no pain on palpation. Pedal pulses present B/L NEURO: AAOx3, no focal neuro deficits, able to move all 4 extremities Objective Labs 12/31/24 04:52 12/31/24 04:52 Labs: Laboratory Results - last 24 hr 12/30/24 12/30/24 12/30/24 10:47 14:18 16:15 WBC 10.0 RBC 4.58 Hgb 15.2 Hct 41.1 MCV 90 MCH 33.2 MCHC 37.0 RDW Std Deviation 41.9 Plt Count 177 Neut % (Auto) 77 Lymph % (Auto) 13 [place] % (Auto) 9 Eos % (Auto) 0 Baso % (Auto) 0 Neut # (Auto) 7.7 Lymph # (Auto) 1.3 [place] # (Auto) 0.9 H Eos # (Auto) 0.0 Baso # (Auto) 0.0 Immature Gran # (Auto) 0.05 H Absolute Nucleated RBC 0.00 Immature Gran % 1 H Nucleated RBC % 0 PT 12.7 H INR 1.2 APTT 31.7 Sodium 125 L Potassium 2.7 L* Chloride 80 L Carbon Dioxide 37.1 H Anion Gap 8 BUN 5 L Creatinine 0.6 Estim Creat Clear Calc 74.7 eGFR > 60 BUN/Creatinine Ratio 8 L Glucose 108 H Calculated Osmolality 249 L Calcium 8.2 L Corrected Calcium 9.1 Phosphorus Magnesium 1.5 L Total Bilirubin 4.5 H Direct Bilirubin AST 37 H ALT 11 Alkaline Phosphatase 177 H Lactate Dehydrogenase 240 Total Creatine Kinase 50 Troponin I < 0.020 B-Natriuretic Peptide 71 Total Protein 6.0 Albumin 2.9 L Globulin 3.1 Albumin/Globulin Ratio 0.9 L Triglycerides Cholesterol LDL Cholesterol, Calc HDL Cholesterol Cholesterol/HDL Ratio Lipase 60 H Tumor Marker AFP TSH Ur Collection Type Clean Catch Urine Color Yellow Urine Clarity Clear Urine pH 5.5 Ur Specific Mccloud 1.010 Urine Protein Negative Urine Glucose (UA) Negative Urine Ketones Negative Urine Blood 1+ A Urine Nitrite Negative Urine Bilirubin Negative Urine Urobilinogen (Auto) Negative Ur Leukocyte Esterase Negative Urine RBC 1 Urine WBC 6 H Ur Squamous Epith Cells 1 Urine Bacteria None Urine Opiates Screen Negative Urine Fentanyl Screen Negative Ur Barbiturates Screen Negative U Amphetamin/Meth Scrn Negative U Benzodiazepines Scrn Positive A U Cocaine Metab Screen Negative U Marijuana (THC) Screen Negative Ethyl Alcohol < 3.0 Hepatitis A IgM Ab Hep Bs Antigen Hep B Core IgM Ab Hepatitis C Antibody 12/30/24 12/31/24 21:35 04:52 WBC 9.6 RBC 3.85 L Hgb 13.0 D Hct 35.6 L MCV 93 MCH 33.8 MCHC 36.5 RDW Std Deviation 43.8 Plt Count 151 Neut % (Auto) 72 Lymph % (Auto) 17 [place] % (Auto) 9 Eos % (Auto) 1 Baso % (Auto) 0 Neut # (Auto) 6.9 Lymph # (Auto) 1.6 [place] # (Auto) 0.9 H Eos # (Auto) 0.1 Baso # (Auto) 0.0 Immature Gran # (Auto) 0.04 H Absolute Nucleated RBC 0.00 Immature Gran % 0 Nucleated RBC % 0 PT 13.1 H INR 1.2 APTT Sodium 124 L 123 L Potassium 2.8 L 3.1 L Chloride 82 L 84 L Carbon Dioxide 33.9 H 32.8 H Anion Gap 8 6 L BUN 6 L 5 L Creatinine 0.5 L 0.5 L Estim Creat Clear Calc 89.6 99.9 eGFR > 60 > 60 BUN/Creatinine Ratio 12 10 L Glucose 102 93 Calculated Osmolality 247 L 244 L Calcium 7.5 L 7.1 L Corrected Calcium 8.5 Phosphorus 2.5 2.5 Magnesium 1.4 L Total Bilirubin 4.6 H Direct Bilirubin 1.9 H AST 31 ALT 9 L Alkaline Phosphatase 143 H D Lactate Dehydrogenase Total Creatine Kinase Troponin I B-Natriuretic Peptide Total Protein 5.0 L Albumin 2.7 L 2.4 L Globulin Albumin/Globulin Ratio Triglycerides 65 Cholesterol 123 L LDL Cholesterol, Calc 70 HDL Cholesterol 40 Cholesterol/HDL Ratio 3.1 L Lipase Tumor Marker AFP 9.70 H TSH 5.47 H Ur Collection Type Urine Color Urine Clarity Urine pH Ur Specific Mccloud Urine Protein Urine Glucose (UA) Urine Ketones Urine Blood Urine Nitrite Urine Bilirubin Urine Urobilinogen (Auto) Ur Leukocyte Esterase Urine RBC Urine WBC Ur Squamous Epith Cells Urine Bacteria Urine Opiates Screen Urine Fentanyl Screen Ur Barbiturates Screen U Amphetamin/Meth Scrn U Benzodiazepines Scrn U Cocaine Metab Screen U Marijuana (THC) Screen Ethyl Alcohol Hepatitis A IgM Ab Non Reactive Hep Bs Antigen Non Reactive Hep B Core IgM Ab Non Reactive Hepatitis C Antibody Non Reactive Quality Measures Quality Measures none Advance care planning discussed with:: patient Assessment & Plan Assessment Current Active Medications: Generic Name Dose Route Start Last Admin Trade Name Freq PRN Reason Stop Dose Admin Acetaminophen 650 mg 12/30/24 20:49 12/31/24 01:12 Acetaminophen 325 Mg Tablet PO 01/29/25 20:48 650 mg Q6H PRN Administration PAIN 1-3 OR FEVER > 101 Furosemide 40 mg 12/31/24 09:00 12/31/24 08:38 Furosemide Inj 10 Mg/Ml 4ml Vial IVP 01/30/25 08:59 40 mg QDAY CHASIDY Administration Heparin Sodium (Porcine) 5,000 unit 12/31/24 14:00 Heparin Sod Inj 5000 Unit/Ml Vial SC 01/14/25 13:59 Q8HR CHASIDY Magnesium Sulfate 4 gm in 50 mls @ 12.5 mls/hr 12/31/24 07:55 12/31/24 08:37 Magnesium Sulfate Ivpb IV 12/31/24 11:54 12.5 mls/hr X1 ONE Administration Lorazepam 0.5 mg 12/30/24 21:51 Lorazepam 0.5 Mg Tablet PO 01/04/25 21:50 Q4HR PRN CIWA Score 2-6 Lorazepam 1 mg 12/30/24 21:51 Lorazepam 0.5 Mg Tablet PO 01/04/25 21:50 Q4HR PRN CIWA SCORE 7-11 Lorazepam 2 mg 12/30/24 21:51 Lorazepam 0.5 Mg Tablet PO 01/04/25 21:50 Q4HR PRN CIWA SCORE 12-15 Ondansetron HCl 4 mg 12/30/24 20:49 Ondansetron Inj 2 Mg/Ml Inj 2 Ml IV 01/29/25 20:48 Q6H PRN NAUSEA OR VOMITING Protocol Pantoprazole Sodium 40 mg 12/31/24 09:00 12/31/24 08:40 Pantoprazole 40 Mg Tablet PO 01/30/25 08:59 Not Given QDAY [facility] Sennosides 2 tab 12/30/24 20:49 Senna Tablet PO 01/29/25 20:48 BID PRN CONSTIPATION Protocol Sodium Chloride 1 gm 12/31/24 06:00 12/31/24 05:46 Sodium Chloride 1 Gm Tablet PO 01/30/25 05:59 Not Given QID CHASIDY Plan 69-year-old female with a past medical history of chronic lymphedema, alcohol abuse disorder, anxiety, who was directed to go to the emergency room by her primary care physician due to complaint of generalized weakness, The patient is complaining of chronic fatigue and difficulty walking for the past few months, but stated it has been getting worse now. Patient will be admitted to medical floor for observation, IV diuresis and electrolyte replacement. #Acute decompensated liver disease #Anasarca #Alcohol abuse disorder #Bilateral lower extremity edema #Chronic lymphedema Patient reported history of chronic lymphedema since age 10, no worsening bilateral lower extreme edema, he is on p.o. diuresis at home, now worsening weakness and difficulty walking. Less likely concern for DVT, likely chronic lymphedema and cirrhosis leading to bilateral lower extremity swelling. Will get echocardiogram to rule out CHF. Madrey's discriminant function score 9, good prognosis no indications for steroids. no hepatic encephalopathy Hepatitis panel negative ? IV Lasix 40 mg daily ? Input output monitoring ? pending paracentesis ? f/u ammonia lvls ? Following peritoneal fluid analysis ? CIWA protocol ordered #Hyponatremia #Hypokalemia Hyponatremia likely secondary to hypervolemic status secondary to cirrhosis, hypokalemia likely secondary to diuretics. ? IV KCl replacement ? Fluid restriction ordered 1200 cc daily ? on salt tabs Disposition: telemetry, ciwa, pending paracentesis Fluids: None Feeding: NPO Thrombo prophylaxis: heparin Gastric Ulcer prophylaxis: Pantoprazole CODE STATUS: Full code Case discussed with my senior Dr. Mosher and my attending Dr. Elisha Becerra MD PGY-1
[2024-12-31 11:07] LABS: Free T4 (Free Thyroxine) 0.96 ng/dL (0.89-1.76)
--- NOTE | 2024-12-31 11:18 | PC.SS ---
Initial assessment: patient is a 69 year old female. Patient was able to confirm demographic information. Patient informs she lives with spouse Jorge. Patient identified her as her emergency contact. Patient utilizes a walker to assist with ambulation at home. Patient followed by dwayne Burnett for primary care. Patient aligned with [facility] for pharmacy needs. Patient to return home upon discharge, inform her is able to transport home. No needs identified at this time. Community resource handout provided to the patient. D/c plan: Home Next of kin: spouse, Jorge
--- NOTE | 2024-12-31 12:01 | PC.NURSE ---
Dr. Mosher notified pt sustaining in the 130s new orders given for EKG. Pt comfortable no visible distress noted. Per pt no complains of chest pain or distress.
--- NOTE | 2024-12-31 12:11 | EKG_ITS ---
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
--- NOTE | 2024-12-31 12:48 | PC.NURSE ---
RR called due to pts current HR in the 140s sustaining. Pt comfortable no complains of chest pain or respiratory distress. Vs within normal range.
[2024-12-31] MEDS: LORazepam 0.5 MG TABLET PO (12:56)
--- NOTE | 2024-12-31 13:05 | PD.RESEVENT ---
Documentation for date of: 12/31/24 Event Note Event Note: rapid response called around noon due to tachycardia with rate in the 150s, was instructed to blow on a syringe which decreased rate to 100s-109s Patient denies chest pain, palpitations, shortness of breath. EKG showed sinus rhythm with some PVCs, adittional electrolyte replacement given as well. Case discussed with my attending Dr. Elisha Becerra MD PGY-1
[2024-12-31 13:07] LABS: Ammonia 28 uMol/L (11-32)
[2024-12-31] MEDS: SODIUM CHLORIDE 1 GM TABLET PO ×3 (13:15→21:40)
[2024-12-31] MEDS: POTASSIUM CHLORIDE 20 mEq TABCR 40 MEQ PO ×2 (13:15→22:13)
--- NOTE | 2024-12-31 13:18 | PC.NURSE ---
Dr Mosher updated on pts current HR 117 and status per MD cont with Paracenthesis procedure today. Will cont with MD orders.
--- NOTE | 2024-12-31 13:51 | PC.NURSE ---
Report given to Huma PEPE receiving telemetry. Pt will be transferred to tele after the paracenthesis.
--- NOTE | 2024-12-31 14:52 | PC.NURSE ---
PT trasferred via hospital bed to telemetry floor. Pt situated in room 260 aaox4 and stable. Receiving MY tucker.
[2024-12-31] MEDS: ALBUMIN HUMAN 25% IVPB 25 GM/100 ML BTL IV (16:07)
[2024-12-31 17:42] LABS: Albumin, Peritoneal Fluid < 1.0 gm/dL; Glucose,Peritoneal Fluid 99 mg/dL; LDH,Peritoneal Fluid 71 IU/L; Protein Total,Peritoneal Fluid < 2 g/dL
[2024-12-31 17:56] LABS: Peritoneal Fluid WBC 80 /cmm
[2024-12-31 17:58] LABS: Peritoneal Fluid Appearance Hazy; Peritoneal Fluid Color Yellow; RBC,Peritoneal Fluid 48 /cmm
[2024-12-31 17:59] LABS: Peritoneal Fluid Mononuclear 84 %; Peritoneal Fluid Polynuclear 16 %
[2024-12-31] MEDS: LORazepam 0.5 MG TABLET 1 MG PO (20:03)
[2024-12-31] MEDS: HEPARIN SOD INJ 5000 UNIT/ML VIAL SC (22:12)
[2024-12-31] MEDS: GABAPENTIN 100 MG CAPSULE 200 MG PO (22:13)
[2025-01-01] VITALS (8 sets, daily range): BP systolic 111–138; BP diastolic 77–93; PULSE 96–122; RESP 15–95; TEMP 36.6–37.1; O2SAT 96–97
[2025-01-01] MEDS: SODIUM CHLORIDE 1 GM TABLET PO ×3 (05:42→16:13)
[2025-01-01] MEDS: HEPARIN SOD INJ 5000 UNIT/ML VIAL SC ×2 (05:42→14:52)
[2025-01-01 05:51] LABS: Basophils # (Auto) 0.1 Thou/mm3 (0.0-0.2); Basophils % (Auto) 1 % (0-2.5); Eosinophils # (Auto) 0.1 Thou/mm3 (0.0-0.5); Eosinophils % (Auto) 2 % (0-10); Hematocrit 32.4 % (36.0-46.0); Hemoglobin 12.1 g/dL (12.0-16.0); Immature Granulocytes % (Auto) 0 % (0-0); Immature Granulocytes Auto 0.02 Thou/mm3 (0.00-0.00); Lymphocytes # (Auto) 1.5 Thou/mm3 (1.0-4.8); Lymphocytes % (Auto) 20 % (10-50); Mean Corpuscular HGB Conc 37.3 g/dl (31.0-37.0); Mean Corpuscular Hemoglobin 33.4 pg (25.0-35.0); Mean Corpuscular Volume 90 fL (80-100); Monocytes # (Auto) 0.8 Thou/mm3 (0.0-0.8); Monocytes % (Auto) 10 % (0-12); Neutrophils # (Auto) 5.3 Thou/mm3 (1.8-7.7); Neutrophils % (Auto) 68 % (37-80); Nucleated Red Blood Cell % 0 /100 WBC (0); Platelet Count 155 Thou/mm3 (140-440); Red Blood Count 3.62 Miln/mm3 (4.00-5.20); White Blood Count 7.7 Thou/mm3 (3.6-11.0)
[2025-01-01 06:38] LABS: Alanine Aminotransferase < 7 U/L (10-49); Albumin, Serum 2.6 gm/dL (3.4-4.8); Albumin/Globulin Ratio 1.1 (1.2-2.2); Alkaline Phosphatase 123 U/L (46-116); Anion Gap 7 (7-16); Aspartate Amino Transferase 25 U/L (0-34); BUN/Creatinine Ratio 10 Ratio (12-20); Bilirubin,Total 4.6 mg/dL (0.3-1.2); Blood Urea Nitrogen 6 mg/dL (9-23); Calcium 7.2 mg/dL (8.3-10.6); Calcium (Corrected) 8.3 mg/dL (8.5-10.1); Carbon Dioxide 34.8 mMol/L (20.0-31.0); Chloride 88 mMol/L (98-107); Creatinine (Component) 0.6 mg/dL (0.6-1.3); Estimated Creatinine Clearance 83.3 mL/min (>60); Globulin 2.3 gm/dL (2.3-3.5); Glucose 89 mg/dL (74-106); Magnesium 1.7 mg/dL (1.6-2.6); Osmolality,Calculated 257 (275-295); Phosphorous 2.6 mg/dL (2.4-5.1); Potassium 2.9 mMol/L (3.4-5.1); Sodium 130 mMol/L (136-145); Total Protein 4.9 gm/dL (5.7-8.2); eGFR > 60 See Note
--- NOTE | 2025-01-01 07:19 | XR_ITS ---
Examination: Abdomen sonogram, Limited Date and time of exam: January 01, 2025 0954 hours INDICATIONS: Elevated total bilirubin on laboratory examination today Technique: Real-time barros scale transabdominal sonographic images of the upper abdomen obtained. Findings: Gallbladder not visualized Common bile duct 0.3 cm Pancreas obscured by bowel gas Liver 15.1 cm nodular contour 18 mm left lobe liver cyst Moderate ascites Normal hepatopedal portal venous flow Patent IVC IMPRESSION: Normal common bile duct Cirrhosis Moderate ascites
[2025-01-01] MEDS: Magnesium Sulfate 4 GM Ivpb 4 GM/50 ML BAG IV (08:33)
[2025-01-01] MEDS: PANTOPRAZOLE 40 MG TABLET PO (08:33)
--- NOTE | 2025-01-01 08:38 | ESPR_ITS ---
<Statement entered by Sara Tello MD - 01/10/25 15:00> I reviewed above note and agree with findings and plans. I have also personally examined the patient with medicine team and went over assessment and plan with medical team including manufacturing intern and resident physician. Documentation for date of: 01/01/25 Subjective Subjective Interval history: Patient seen today at the bedside found awake, alert, orientedx3. No active complaints at this time. No overnight events reported. Vitals and labs reviewed. Patient is status post paracentesis with 3 L removal, pending fluid analysis. Abdomen on physical exam stills feels tense ordered KUB which showed mild small bowel ileus, however patient is having bowel movements. Liver ultrasound was ordered which showed cirrhosis and moderate ascites. Patient also encouraged to be up to chair with assistance. Exam Vital Signs Temp Pulse Resp BP Pulse Ox O2 Del Method 97.8 F 117 H 15 111/88 H 96 Room Air 01/01/25 08:00 01/01/25 08:00 01/01/25 08:00 01/01/25 08:00 01/01/25 08:00 01/01/25 08:00 Narrative Exam Physical Exam GENERAL: NAD, AAOx3 HEENT: Moist mucosa. Eyes open, symmetrical, & clear CARDIO: Heart RRR, no obvious murmurs PULM: No noted coughing/dyspnea CTA B/L, no R/W/R GI: Abdomen soft, distended some tension, no pain on palpation. BS+ SKIN/MSK/EXT: No wounds/rashes/edema/amputations, no pain on palpation. Pedal pulses present B/L NEURO: AAOx3, no focal neuro deficits, able to move all 4 extremities Objective Labs 01/01/25 05:15 01/01/25 05:15 Labs: Laboratory Results - last 24 hr 12/31/24 12/31/24 12/31/24 04:52 12:36 13:45 WBC RBC Hgb Hct MCV MCH MCHC RDW Std Deviation Plt Count Neut % (Auto) Lymph % (Auto) [place] % (Auto) Eos % (Auto) Baso % (Auto) Neut # (Auto) Lymph # (Auto) [place] # (Auto) Eos # (Auto) Baso # (Auto) Immature Gran # (Auto) Absolute Nucleated RBC Immature Gran % Nucleated RBC % Sodium Potassium Chloride Carbon Dioxide Anion Gap BUN Creatinine Estim Creat Clear Calc eGFR BUN/Creatinine Ratio Glucose Calculated Osmolality Calcium Corrected Calcium Phosphorus Magnesium Total Bilirubin AST ALT Alkaline Phosphatase Ammonia 28 Total Protein Albumin Globulin Albumin/Globulin Ratio Free T4 0.96 Peritoneal Color Yellow Peritoneal Appearance Hazy Peritoneal WBC 80 Peritoneal RBC 48 Periton Polynucl WBCs 16 Periton Mononucl WBCs 84 Peritoneal Tot Protein < 2 Peritoneal Albumin < 1.0 Peritoneal LDH 71 Peritoneal Glucose 99 01/01/25 05:15 WBC 7.7 RBC 3.62 L Hgb 12.1 Hct 32.4 L MCV 90 MCH 33.4 MCHC 37.3 H RDW Std Deviation 43.0 Plt Count 155 Neut % (Auto) 68 Lymph % (Auto) 20 [place] % (Auto) 10 Eos % (Auto) 2 Baso % (Auto) 1 Neut # (Auto) 5.3 Lymph # (Auto) 1.5 [place] # (Auto) 0.8 Eos # (Auto) 0.1 Baso # (Auto) 0.1 Immature Gran # (Auto) 0.02 H Absolute Nucleated RBC 0.00 Immature Gran % 0 Nucleated RBC % 0 Sodium 130 L Potassium 2.9 L Chloride 88 L Carbon Dioxide 34.8 H Anion Gap 7 BUN 6 L Creatinine 0.6 Estim Creat Clear Calc 83.3 eGFR > 60 BUN/Creatinine Ratio 10 L Glucose 89 Calculated Osmolality 257 L Calcium 7.2 L Corrected Calcium 8.3 L Phosphorus 2.6 Magnesium 1.7 Total Bilirubin 4.6 H AST 25 ALT < 7 L Alkaline Phosphatase 123 H D Ammonia Total Protein 4.9 L Albumin 2.6 L Globulin 2.3 Albumin/Globulin Ratio 1.1 L Free T4 Peritoneal Color Peritoneal Appearance Peritoneal WBC Peritoneal RBC Periton Polynucl WBCs Periton Mononucl WBCs Peritoneal Tot Protein Peritoneal Albumin Peritoneal LDH Peritoneal Glucose Quality Measures Quality Measures none Advance care planning discussed with:: patient Assessment & Plan Assessment Current Active Medications: Generic Name Dose Route Start Last Admin Trade Name Freq PRN Reason Stop Dose Admin Acetaminophen 650 mg 12/30/24 20:49 12/31/24 01:12 Acetaminophen 325 Mg Tablet PO 01/29/25 20:48 650 mg Q6H PRN Administration PAIN 1-3 OR FEVER > 101 Furosemide 40 mg 12/31/24 09:00 12/31/24 08:38 Furosemide Inj 10 Mg/Ml 4ml Vial IVP 01/30/25 08:59 40 mg QDAY CHASIDY Administration Heparin Sodium (Porcine) 5,000 unit 12/31/24 14:00 01/01/25 05:42 Heparin Sod Inj 5000 Unit/Ml Vial SC 01/14/25 13:59 5,000 unit Q8HR CHASIDY Administration Magnesium Sulfate 4 gm in 50 mls @ 12.5 mls/hr 01/01/25 07:16 01/01/25 08:33 Magnesium Sulfate Ivpb IV 01/01/25 11:15 12.5 mls/hr X1 ONE Administration Lorazepam 0.5 mg 12/30/24 21:51 12/31/24 12:56 Lorazepam 0.5 Mg Tablet PO 01/04/25 21:50 0.5 mg Q4HR PRN Administration CIWA Score 2-6 Lorazepam 1 mg 12/30/24 21:51 12/31/24 20:03 Lorazepam 0.5 Mg Tablet PO 01/04/25 21:50 1 mg Q4HR PRN Administration CIWA SCORE 7-11 Lorazepam 2 mg 12/30/24 21:51 Lorazepam 0.5 Mg Tablet PO 01/04/25 21:50 Q4HR PRN CIWA SCORE 12-15 Ondansetron HCl 4 mg 12/30/24 20:49 Ondansetron Inj 2 Mg/Ml Inj 2 Ml IV 01/29/25 20:48 Q6H PRN NAUSEA OR VOMITING Protocol Pantoprazole Sodium 40 mg 12/31/24 09:00 01/01/25 08:33 Pantoprazole 40 Mg Tablet PO 01/30/25 08:59 40 mg QDAY CHASIDY Administration Potassium Chloride 40 meq 01/01/25 11:00 Potassium Chloride 20 Meq Tabcr PO 01/01/25 11:01 X1 ONE Sennosides 2 tab 12/30/24 20:49 Senna Tablet PO 01/29/25 20:48 BID PRN CONSTIPATION Protocol Sodium Chloride 1 gm 12/31/24 06:00 01/01/25 05:42 Sodium Chloride 1 Gm Tablet PO 01/30/25 05:59 1 gm QID CHASIDY Administration Plan 69-year-old female with a past medical history of chronic lymphedema, alcohol abuse disorder, anxiety, who was directed to go to the emergency room by her primary care physician due to complaint of generalized weakness, The patient is complaining of chronic fatigue and difficulty walking for the past few months, but stated it has been getting worse now. Patient will be admitted to medical floor for observation, IV diuresis and electrolyte replacement. #Acute decompensated liver disease #Anasarca #Alcohol abuse disorder #Bilateral lower extremity edema #Chronic lymphedema Patient reported history of chronic lymphedema since age 10, no worsening bilateral lower extreme edema, he is on p.o. diuresis at home, now worsening weakness and difficulty walking. Less likely concern for DVT, likely chronic lymphedema and cirrhosis leading to bilateral lower extremity swelling. Will get echocardiogram to rule out CHF. Madrey's discriminant function score 9, good prognosis no indications for steroids. no hepatic encephalopathy Hepatitis panel negative Paracentesis was done and 3 L were removed, was given 25 g of albumin x 1 Ammonia levels negative ? IV Lasix 40 mg daily ? Input output monitoring ? Follow up peritoneal fluid analysis ? CIWA protocol ordered #Hyponatremia #Hypokalemia Hyponatremia likely secondary to hypervolemic status secondary to cirrhosis, hypokalemia likely secondary to diuretics. ? replete as necessary ? Fluid restriction ordered 1200 cc daily ? on salt tabs Disposition: telemetry, ciwa, pending fluid analysis Fluids: None Feeding: NPO Thrombo prophylaxis: heparin Gastric Ulcer prophylaxis: Pantoprazole CODE STATUS: Full code Case discussed with my attending Dr. Elisha Becerra MD PGY-1
[2025-01-01] MEDS: ONDANSETRON INJ 2 MG/ML INJ 2 ML 4 MG IV ×2 (09:02→16:31)
--- NOTE | 2025-01-01 11:20 | XR_ITS ---
Examination: Abdomen AP single view Technique: AP portable supine abdomen, single view Exam date and time: January 01, 2025 1131 hours INDICATIONS: Abdominal pain this week. FINDINGS: Mild small bowel ileus Multiple surgical clips right abdomen and pelvis No free air IMPRESSION: Small bowel ileus
[2025-01-01] MEDS: FUROSEMIDE INJ 10 MG/ML 4ML VIAL 40 MG IVP (11:23)
[2025-01-01] MEDS: POTASSIUM CHLORIDE 20 mEq TABCR 40 MEQ PO (11:23)
[2025-01-01] MEDS: LORazepam 0.5 MG TABLET PO ×2 (11:42→16:20)
--- NOTE | 2025-01-01 14:19 | PC.SS ---
Rounding Note: Physical therapy evaluation is pending. Patient might require SNF placement.
--- NOTE | 2025-01-01 17:56 | PC.NURSE ---
PATIENT ADAMANT ABOUT LEAVING AGAINST MEDICAL ADVICE. PATIENT IS AWAKE, ALERT AND ORIENTED TO PERSON, PLACE, AND SITUATION. PATIENT STATES I JUST WANT TO BE HOME WITH MY . PATIENT'S CARMINE AWARE OF HER DECISION AND HE ALSO TRIED TO TALK HER OUT OF IT, BUT PATIENT STILL WANTS TO GO HOME, CARMINE STATED HE WILL COME PICK HER UP. PATIENT WAS EXPLAINED THE CONSEQUENCE OF LEAVING AMA INCLUDING . PATIENT AND PATIENT VERBALIZED UNDERSTANDING. PATIENT AGAIN ENCOURAGED TO STAY, AND PATIENT CONTINUE TO REFUSE MEDICAL CARE. PATIENT ENCOURAGED TO RETURN TO NEAREST EMERGENCY ROOM AND SERVICES.
== END 2025-01-01 18:45 | disposition left against medical advice (07) | DRG 433 ==
LOC: SERX 17:41 → SERHOLD 12-31 07:42 → S3NX 12-31 07:42 → S2NX 12-31 15:07
PROVIDERS: Nurse Practitioner Family; Registered Nurse General Practice; Student in an Organized Health Care Education/Training Program; Admitting Provider Internal Medicine; Emergency Provider Emergency Medicine; PCP Family Medicine; Referring Provider Emergency Medicine; Visit Provider Internal Medicine
DX: K74.60 Unspecified cirrhosis of liver (principal); E87.1 Hypo-osmolality and hyponatremia; R18.8 Other ascites; K57.32 Diverticulitis of large intestine without perforation or abscess without bleeding; I48.91 Unspecified atrial fibrillation; F10.10 Alcohol abuse, uncomplicated; F41.9 Anxiety disorder, unspecified; E87.6 Hypokalemia; E83.42 Hypomagnesemia; E87.70 Fluid overload, unspecified; I89.0 Lymphedema, not elsewhere classified; R00.0 Tachycardia, unspecified; I49.3 Ventricular premature depolarization; Z88.5 Allergy status to narcotic agent
CPT/HCPCS: 36415; 74018; 74176; 76705; 80048; 80053; 80061; 80069; 80074; 80076; 80307; 80320; 81001; 82042; 82105; 82140; 82550; 82945; 83615; 83690; 83735; 83880; 84100; 84157; 84439; 84443; 84484; 85025; 85610; 85730; 87070; 87075; 87081; 87086; 87205; 89051; 93005; 93306; 96365; 96366; 96367; 99285; C1729; G0378; J1644; J1938; J2060; J2405; J3475; J3480; P9047; A9270; G0480

== ENCOUNTER 2025-01-11 04:11 | Inpatient (IN) | payer MEDICARE, OTHER, SELFPAY ==
[2025-01-11] VITALS (39 sets, daily range): BP systolic 96–139; BP diastolic 65–93; PULSE 98–153; RESP 13–21; TEMP 36.4–36.9; O2SAT 92–100; BMI 33.6
--- NOTE | 2025-01-11 05:04 | EDNOTE_ITS ---
ED Abdominal Pain RME/HPI General Chief Complaint: Abdominal Pain Stated complaint: ABD PAIN Time seen by provider: 01/11/25 05:04 Arrival date/time: 01/11/25 04:11 RME / HPI RME / HPI narrative: This section includes all my notes and documentations, including HPI, PE, and ED course. Cr Lo MD HPI: 69 y/o female with Hx of severe liver cirrhosis, Asthma and HTN presents to ED BIBA from home c/o worsening BLE swelling and abdominal pain and distention and dyspnea. Has history of heavy alcohol use in the past. Currently she reports drinking only a glass of wine daily. No fever. Has severe headache with slight nausea. No other complaints. ROS: All negative except as documented in HPI. Physical Exam: General: Alert and oriented. Appears uncomfortable. Eyes: Conjunctivae and lids clear. EOMI. PERRL. ENT: No nasal congestion. Pharynx normal. Tympanic membrane normal bilaterally. Neck: Supple. No carotid bruit. No JVD. Heart: Tachycardia noted. Lungs: No respiratory distress. Good air movement with bibasilar rales. Abdomen: Soft with diffuse tenderness and distention. Normal bowel sounds. No rebound or guarding. Back: No CVA tenderness. Legs: Severe edema bilaterally. Skin: Warm and dry. Neuro: Alert and oriented X 3. I reviewed EMS. I ordered Lasix 40 mg IV and Zofran 4 mg IV and morphine 4 mg IV and diagnostic tests. At 6 AM on 01/11/2025, the care of the patient was transferred to Dr. FLAHERTY. Cr Lo MD Related Data Home Medications ?Medication ?Instructions ?Recorded ?Confirmed alprazolam 0.5 mg tablet 0.5 mg PO HS 12/31/24 furosemide 20 mg tablet 20 mg PO QDAY 12/31/2412/31 Allergies Allergy/AdvReac Type Severity Reaction Status Date / Time codeine Allergy Verified 12/30/24 09:39 Review of Systems Review of Systems Systems Reviewed: All systems reviewed, normal except as documented Past Medical History Past Medical History CARDIAC: Positive Cardiac Disorders and Hypertension RESPIRATORY: Positive Asthma Surgical History SURGICAL: Positive Hysterectomy ED Exam Narrative Physical exam: Refer to HPI above Course Quality Measures none Orders Category Date Time Status Bedside COVID-19 Antigen Test NOW Care 01/11/25 05:13 Active Bedside Influenza A&B Antigen Test NOW Care 01/11/25 05:[address] Screening NOW Care 01/11/25 05:15 Active EKG (ED ONLY) *Do not use* NOW Care 01/11/25 05:14 Active Saline [Insert IV] NOW Care 01/11/25 05:13 Active Straight [In and Out Catheter] X1 Care 01/11/25 05:[address] abdomen pelvis w con Stat Exams 01/11/25 05:[address] angio chest Stat Exams 01/11/25 05:[address] head/brain wo con Stat Exams 01/11/25 05:15 Ordered EKG (ED Only) Stat Exams 01/11/25 05:14 Ordered US abdomen Stat Exams 01/11/25 05:14 Ordered XR chest 1V portable Stat Exams 01/11/25 05:14 Ordered Alcohol, Blood Medical Stat Lab 01/11/25 05:16 Ordered Amylase Stat Lab 01/11/25 05:16 Ordered BNP [B-Type Natriuretic Peptide] Stat Lab 01/11/25 05:16 Ordered Bilirubin,Direct Stat Lab 01/11/25 05:16 Ordered Blood Culture (Lab) Stat Lab 01/11/25 05:16 Ordered CBC Stat Lab 01/11/25 05:16 Ordered CMP [Comprehensive Metabolic Panel] Stat Lab 01/11/25 05:16 Ordered CRP [C-Reactive Protein] Stat Lab 01/11/25 05:16 Ordered D-Dimer Stat Lab 01/11/25 05:16 Ordered Drug Screen,Urine Stat Lab 01/11/25 05:16 Ordered ESR [Sed Rate (ESR)] Stat Lab 01/11/25 05:16 Ordered Free T4 (Free Thyroxine) Stat Lab 01/11/25 05:16 Ordered Lactate (Lactic Acid) Stat Lab 01/11/25 05:16 Ordered Lipase Stat Lab 01/11/25 05:16 Ordered Magnesium Stat Lab 01/11/25 05:16 Ordered PT [Prothrombin Time with INR] Stat Lab 01/11/25 05:16 Ordered PTT [Partial Thromboplastin Time] Stat Lab 01/11/25 05:16 Ordered Procalcitonin Stat Lab 01/11/25 05:16 Ordered TSH [Thyroid Stimulating Hormone] Stat Lab 01/11/25 05:16 Ordered Troponin I Stat Lab 01/11/25 05:16 Ordered UA, C/S IF [Urinalysis, C/S if Indicated] Stat Lab 01/11/25 05:16 Ordered Furosemide Inj [Lasix Inj] Med 01/11/25 05:13 Discontinued 40 mg IVP X1 ONE Morphine Inj Med 01/11/25 05:13 Pending 4 mg IVP X1 ONE Ondansetron Inj [Zofran Inj] Med 01/11/25 05:13 Discontinued 4 mg IVP X1 ONE Vital Signs Vital signs: Vital Signs Temperature 98.4 F 01/11/25 04:22 Pulse Rate 119 H 01/11/25 04:22 Respiratory Rate 17 01/11/25 04:22 Blood Pressure 121/85 H 01/11/25 04:22 Pulse Oximetry (%) 97 01/11/25 04:22 Oxygen Delivery Method Room Air 01/11/25 04:22 Abdominal Pain MDM MDM Narrative MDM Narrative:: Scribe Attestation: Maryam Hill am scribing for and in the presence of Dr. Lo. Provider Notation: Although this document has been carefully reviewed, there may still be some phonetic and other typographical errors.? These errors are purely grammatical due to imperfections in the software program and should not be construed in any way to? compromise the substance of the patient's medical care during this visit. 69 y/o female with Hx of severe liver cirrhosis, Asthma and HTN presents to ED BIBA from home c/o BLE swelling and abdominal pain and distention. Patient is more short of breath than usual and has a splitting headache. Patient normally retains fluid and was drained approximately 1 week ago. No other complaints. Patient data External records reviewed:: [facility] previous records (Reviewed prior ED records from 12/30/24. Patient was seen for Bilateral edema of lower extremity.) and EMS form Clinical information provided by:: patient and EMS Social determinants that could affect healthcare access:: none Patient has the following chronic illnesses:: Asthma, Liver Cirrhosis, HTN How is presenting disease/condition affected by chronic disease/condition?: exacerbated by Evaluation data The following diagnostics were reviewed and interpreted by me:: lab results, radiology exam(s) and EKG tracing(s) Lab and/or radiology exams considered but not ordered:: None Interpretation Summary: Diagnostic tests pending Medications / Prescriptions Medications or Prescriptions considered but not ordered:: None Medication administrations:: Medication Administration History Morphine Sulfate (Morphine Sulf Inj 10 Mg/Ml Vial) 4 mg IVP X1 ONE Stop: 01/11/25 05:14 Discontinued Medications Furosemide (Furosemide Inj 10 Mg/Ml 4ml Vial) 40 mg IVP X1 ONE Stop: 01/11/25 05:14 Ondansetron HCl (Ondansetron Inj 2 Mg/Ml Inj 2 Ml) 4 mg IVP X1 ONE; Protocol Stop: 01/11/25 05:14 I ordered Zofran, Morphine, Lasix. Consultations Consultation(s) initiated? (list below): No Diagnosis Differential diagnosis abdominal pain: abdominal pain, acute appendicitis, calculus of kidney, constipation, diverticulitis, gastroenteritis, pancreatitis, small bowel obstruction and other (CHF, COPD, CO, ascites) Most likely diagnosis given after review of the tests above:: Diagnostic tests are pending. Admission Indicated Admission indicated?: not indicated Explain why admission is indicated or not indicated:: Diagnostic tests are pending. Admission Request Was there a request for admission?: No Disposition Plan Disposition Plan: other (specify) (Care of the patient was transferred to Dr. FLAHERTY.) Discharge Plan Prescriptions/Referrals Prescriptions/Med Rec: No Action alprazolam 0.5 mg tablet 0.5 mg PO HS Patient Comments: TAKE 1 TABLET BY MOUTH EVERY DAY FOR 30 DAYS furosemide 20 mg tablet 20 mg PO QDAY Problem List Clinical Impression: Abdominal pain Patient/Caregiver Discharge Instructions Print Language: Australian
--- NOTE | 2025-01-11 05:14 | XR_ITS ---
Examination: Abdomen sonogram, complete Date and time of exam: January 11, 2025 0720 hours INDICATIONS: Cirrhosis, ascites, history liver lesions. Technique: Multiple real-time grayscale transabdominal sonographic images of the abdomen have been obtained. Findings: Hands and gallbladder Normal common bile duct 0.4 cm Pancreatic head 2.0 cm Aorta proximally visualized nonenlarged Liver lobulated in contour with multiple cysts Normal hepatopedal portal venous flow Patent IVC Right kidney 10.1 cm cortex 1.8 cm 9 mm mid pole calculus 22 mm upper pole cyst Left kidney 8.7 cm renal cortex 2.8 cm Spleen 9.8 cm Mild ascites IMPRESSION: Cirrhosis Liver cysts Small left kidney with moderate left renal parenchymal scar formation Mild ascites
--- NOTE | 2025-01-11 05:14 | XR_ITS ---
Examination: AP chest single view TECHNIQUE: Upright AP portable chest single view Exam date and time: 83, 2024, 0550 hours INDICATIONS: Abdominal pain and dyspnea today. FINDINGS: Minimal opacity left base obscuring detail of left hemidiaphragm No pulmonary edema Normal heart size The osseous structures are intact IMPRESSION: Suspicious for mild left base pneumonia
--- NOTE | 2025-01-11 05:15 | XR_ITS ---
Examination: CT abdomen with intravenous contrast CT pelvis with intravenous contrast 2-D coronal reconstructions 2-D sagittal reconstructions Date and time of exam:January 11, 2025, 0757 hrs. Abdominal pain and distention several days. CTDI: vol (mGy) 27.7 DLP: (mGycm) 607 Technique: Multiple axial sections of the abdomen and pelvis have been obtained. 64 slice high-resolution scanner used. 3 mm axial sections have been obtained, post intravenous injection 100 cc Isovue-370 2-D sagittal, coronal reconstructions obtained. Low dose protocols were performed. One or more of the following dose reduction techniques were used; automated exposure control, adjustment of the mA and/or KV according to patient size, use of iterative reconstruction technique. Findings: Cirrhosis, 15 mm 6 mm low-density liver lesions Prominent ascites Absent gallbladder Spleen not enlarged No pancreatic mass Significant scarring both kidneys No bowel obstruction Diffuse thickening of the colonic hernandez No pelvic mass Urinary bladder intact Advanced degenerative disc disease upper 4 lumbar levels Impression: Cirrhosis, focal low-density liver lesions, recommend elective MRI abdomen liver follow-up pre and postcontrast Prominent ascites No bowel obstruction Hepatic colopathy
--- NOTE | 2025-01-11 05:15 | XR_ITS ---
Examination: CT brain head without contrast. 2-D sagittal coronal reconstructions Date and time of exam:January 11, 2025 0755 hrs. Indications: Onset severe headache beginning last night CTDI: vol (mGy):49.4 DLP: (mGycm):985 Technique: Multiple CT axial sections of the brain have been obtained, 5 mm slice thickness. Contrast has not been administered. 2-D sagittal, coronal reconstructions have been obtained Low dose protocols were performed. One or more of the following dose reduction techniques were used; automated exposure control, adjustment of the mA and/or KV according to patient size, use of iterative reconstruction technique. Findings: No significant ventricular enlargement. Intra-axial or extra-axial hemorrhage density is not seen. No mass effect or midline shift Basal cisterns are not remarkable. Fourth ventricle is midline. Cranial vault intact. Impression: Negative for acute hemorrhage, mass effect or midline shift
--- NOTE | 2025-01-11 05:15 | XR_ITS ---
Examination: CTA chest with intravenous contrast 2-D reconstructions 3-D reconstructions, vascular Date and time of exam: January 11, 2025 0757 hrs. Indications: Chest and abdominal pain today CTDI: vol (mGy) 12.58 DLP: (mGycm) 380 Technique: Multiple axial sections of the thorax have been obtained. 3 mm slice thickness, from below the hemidiaphragms to above the apices of the lungs. Mediastinal and lung density settings have been obtained. 2-D sagittal and coronal reconstructions. 3-D angiographic renderings, 3-D volume renderings, 3D post processing, vascular maximum intensity projections obtained. Contrast administered is 100 cc Isovue-370. Low dose protocols were performed. One or more of the following dose reduction techniques were used; automated exposure control, adjustment of the mA and/or KV according to patient size, use of iterative reconstruction technique. Findings: AP dimension ascending thoracic aorta 3.9 cm No pulmonary artery filling defects No paratracheal tracheobronchial or bronchopulmonary adenopathy Moderate vascular congestion No lobar pneumonia or pulmonary edema Impression: Negative for pulmonary artery emboli No mediastinal lymphadenopathy Moderate vascular congestion. No pneumonia, pulmonary edema or pleural disease
[2025-01-11 05:54] LABS: Lactate (Lactic Acid) 1.3 mMol/L (0.4-2.0)
[2025-01-11 06:19] LABS: Basophils # (Auto) 0.1 Thou/mm3 (0.0-0.2); Basophils % (Auto) 0 % (0-2.5); Eosinophils # (Auto) 0.1 Thou/mm3 (0.0-0.5); Eosinophils % (Auto) 1 % (0-10); Hematocrit 39.5 % (36.0-46.0); Hemoglobin 14.7 g/dL (12.0-16.0); Immature Granulocytes % (Auto) 1 % (0-0); Immature Granulocytes Auto 0.06 Thou/mm3 (0.00-0.00); Lymphocytes # (Auto) 1.8 Thou/mm3 (1.0-4.8); Lymphocytes % (Auto) 15 % (10-50); Mean Corpuscular HGB Conc 37.2 g/dl (31.0-37.0); Mean Corpuscular Hemoglobin 33.9 pg (25.0-35.0); Mean Corpuscular Volume 91 fL (80-100); Monocytes # (Auto) 1.1 Thou/mm3 (0.0-0.8); Monocytes % (Auto) 9 % (0-12); Neutrophils # (Auto) 9.1 Thou/mm3 (1.8-7.7); Neutrophils % (Auto) 75 % (37-80); Nucleated Red Blood Cell % 0 /100 WBC (0); Platelet Count 291 Thou/mm3 (140-440); RDW Standard Deviation 43.8 fL (36.4-46.3); Red Blood Count 4.33 Miln/mm3 (4.00-5.20); White Blood Count 12.1 Thou/mm3 (3.6-11.0)
[2025-01-11 06:26] LABS: INR 1.2 (0.9-1.3); Partial Thromboplastin Time 32.8 Seconds (22.0-36.0)
[2025-01-11 06:40] LABS: Alanine Aminotransferase 12 U/L (10-49); Albumin, Serum 2.8 gm/dL (3.4-4.8); Alcohol, Blood Medical < 3.0 mg/dL (0-10.0); Alkaline Phosphatase 171 U/L (46-116); Amylase 48 U/L (30-118); Anion Gap 10 (7-16); Aspartate Amino Transferase 39 U/L (0-34); BUN/Creatinine Ratio 10 Ratio (12-20); Bilirubin,Direct 1.5 mg/dL (0.0-0.3); Bilirubin,Total 3.2 mg/dL (0.3-1.2); Blood Urea Nitrogen 6 mg/dL (9-23); C-Reactive Protein 5.8 mg/dL (0.0-0.9); Calcium 7.6 mg/dL (8.3-10.6); Calcium (Corrected) 8.6 mg/dL (8.5-10.1); Carbon Dioxide 31.4 mMol/L (20.0-31.0); Chloride 87 mMol/L (98-107); Creatinine (Component) 0.6 mg/dL (0.6-1.3); Estimated Creatinine Clearance 79.5 mL/min (>60); Free T4 (Free Thyroxine) 1.13 ng/dL (0.89-1.76); Globulin 2.7 gm/dL (2.3-3.5); Glucose 87 mg/dL (74-106); Lipase 66 U/L (12-53); Magnesium 1.4 mg/dL (1.6-2.6); Osmolality,Calculated 253 (275-295); Sodium 128 mMol/L (136-145); Thyroid Stimulating Hormone 5.31 uIU/mL (0.55-4.78); Total Protein 5.5 gm/dL (5.7-8.2); Troponin I < 0.020 ng/mL (0.0-0.045); eGFR > 60 See Note
[2025-01-11 06:41] LABS: Potassium 2.6 mMol/L (3.4-5.1)
[2025-01-11 06:43] LABS: Sed Rate (ESR) 19 mm/hr (0-30)
[2025-01-11 06:45] LABS: B-Type Natriuretic Peptide 55 pg/mL (0-100)
[2025-01-11 06:54] LABS: Collection Type, Urine Clean Catch
[2025-01-11 06:59] LABS: Bilirubin,Urine Negative (Negative); Blood,Urine Negative (Negative); Clarity,Urine Clear (Clear/Hazy); Color,Urine Yellow (Lt Yel-Yel); Culture Indicated,Urine Not Indicated; Glucose, Urine Negative (Negative); Hyaline Casts,Urine < 1 /hpf (0-1); Ketones,Urine Negative (Negative); Leukocyte Esterase,Urine Negative (Negative); Nitrite,Urine Negative (Negative); Protein,Urine Negative (Neg - Trace); RBC,Urine < 1 /hpf (0-3); Specific Gravity,Urine 1.008 (1.001-1.035); Squamous Epithelial Cell,Urine 1 /hpf (0-5); Urobilinogen,Urine Negative mg/dL (0.0-1.0); WBC,Urine 1 /hpf (0-5)
[2025-01-11 07:03] LABS: D-Dimer 1420 ng/mL (<600)
[2025-01-11 07:07] LABS: Amphetamine/Methamp Scrn,U Negative (Negative); Barbiturate Screen,Urine Negative (Negative); Benzodiazepines Screen,Urine Positive (Negative); Benzoylecgonine Screen, Ur Negative (Negative); Fentanyl Screen,Urine Negative (Negative); Opiate Screen,Urine Negative (Negative); THC Screen,Urine Negative (Negative)
[2025-01-11] MEDS: ONDANSETRON INJ 2 MG/ML INJ 2 ML 4 MG IVP ×2 (07:49→18:47)
[2025-01-11] MEDS: fentaNYL CIT INJ 50 mCg/ML AMP 2ML IVP ×2 (07:49→11:54)
--- NOTE | 2025-01-11 08:45 | PRELIM_ITS ---
CT scan of the head without intravenous contrast (axial sections with sagittal and coronal reformats) January 11, 2025 0755 hours Clinical history: severe headache Comparison: No prior study is available for comparison. Findings: There is no evidence of intracranial hemorrhage, mass effect or midline shift. There are periventricular white matter hypodensities, compatible with chronic small vessel ischemia. There is moderate volume loss. The calvarium is unremarkable. The mastoid air cells and the visualized paranasal sinuses are clear. Impression: No evidence of intracranial hemorrhage, mass effect or midline shift. Periventricular chronic small vessel ischemia and volume loss. Report Electronically Signed By: Berry Lopez 01/11/2025 8:45:18 AM [EST]
[2025-01-11] MEDS: SPIRONOLACTONE 25 MG TABLET PO (09:00)
[2025-01-11] MEDS: POTASSIUM CHL 10 mEq IVPB 10 MEQ/100 ML BAG 100 MEQ IV ×3 (09:15→12:02)
[2025-01-11] MEDS: Magnesium Sulfate 2 GM Ivpb 2 GM/50 ML BAG IV ×2 (09:16→19:35)
[2025-01-11] MEDS: POTASSIUM CHL 10 mEq IVPB 10 MEQ/100 ML BAG IV (10:01)
[2025-01-11] MEDS: POTASSIUM CHLORIDE 10% 20 MEQ/15 ML UDC 40 MEQ PO (10:03)
--- NOTE | 2025-01-11 13:48 | PC.NURSE ---
Lasix was given by previous nurse on facility designer
--- NOTE | 2025-01-11 14:19 | EDNOTE_ITS ---
Emergency Room Addendum Addendum Narrative: 0600: Care assumed from Dr. Lo, the previous shift emergency physician. Past medical, surgical, social and family history reviewed. Vitals and home medications reviewed. I will assume the care of the patient at this time, pending CT reports. Please refer to the emergency department record for history and examination from initial visit.?The following addendum documentation note is intended to reflect any pending information, findings, or radiology results not included in the patient?s initial chart. 1048: On reassessment, the patient complains of abdominal pain. 1552: We reviewed all the results. Patient reports feeling shaky and concerned she may start withdrawing from alcohol. States her last drink was last night. Denies any history of withdrawal seizures. Patient additionally complains of abdominal discomfort and last paracentesis was 3 weeks ago. 1618: I spoke with resident Dr. East working with Dr. Santiago regarding admission. Discussed patients PMHx, HPI, ED course, exam findings, labs, and radiology results. The hospitalist agree to accept the patient for admission. RADIOLOGY Ordering Physician: Cr Lo MD Date of Service: 01/11/25 Procedure(s): US abdomen Accession Number(s): [id number] cc: Cr Lo MD; Jackson Berumen MD; Ted Burnett MD~ Examination: Abdomen sonogram, complete Date and time of exam: January 11, 2025 0720 hours INDICATIONS: Cirrhosis, ascites, history liver lesions. Technique: Multiple real-time grayscale transabdominal sonographic images of the abdomen have been obtained. Findings: Hands and gallbladder Normal common bile duct 0.4 cm Pancreatic head 2.0 cm Aorta proximally visualized nonenlarged Liver lobulated in contour with multiple cysts Normal hepatopedal portal venous flow Patent IVC Right kidney 10.1 cm cortex 1.8 cm 9 mm mid pole calculus 22 mm upper pole cyst Left kidney 8.7 cm renal cortex 2.8 cm Spleen 9.8 cm Mild ascites IMPRESSION: Cirrhosis Liver cysts Small left kidney with moderate left renal parenchymal scar formation Mild ascites Dictated By: Jackson Berumen MD Signed By: <Electronically signed by Jackson Berumen MD in OV> 01/11/25 0756 Ordering Physician: Cr Lo MD Date of Service: 01/11/25 Procedure(s): XR chest 1V portable Accession Number(s): [id number] cc: Cr Lo MD; Jackson Berumen MD; Ted Burnett MD~ Examination: AP chest single view TECHNIQUE: Upright AP portable chest single view Exam date and time: 831, 2025, 0550 hours INDICATIONS: Abdominal pain and dyspnea today. FINDINGS: Minimal opacity left base obscuring detail of left hemidiaphragm No pulmonary edema Normal heart size The osseous structures are intact IMPRESSION: Suspicious for mild left base pneumonia Dictated By: Jackson Berumen MD Signed By: <Electronically signed by Jackson Berumen MD in OV> 01/11/25 0639 ===== Ordering Physician: Cr Lo MD Date of Service: 01/11/25 Procedure(s): CT abdomen pelvis w con Accession Number(s): [id number] cc: Cr Lo MD; Jackson Berumen MD; Ted Burnett MD~ Examination: CT abdomen with intravenous contrast CT pelvis with intravenous contrast 2-D coronal reconstructions 2-D sagittal reconstructions Date and time of exam:January 11, 2025, 0757 hrs. Abdominal pain and distention several days. CTDI: vol (mGy) 27.7 DLP: (mGycm) 607 Technique: Multiple axial sections of the abdomen and pelvis have been obtained. 64 slice high-resolution scanner used. 3 mm axial sections have been obtained, post intravenous injection 100 cc Isovue-370 2-D sagittal, coronal reconstructions obtained. Low dose protocols were performed. One or more of the following dose reduction techniques were used; automated exposure control, adjustment of the mA and/or KV according to patient size, use of iterative reconstruction technique. Findings: Cirrhosis, 15 mm 6 mm low-density liver lesions Prominent ascites Absent gallbladder Spleen not enlarged No pancreatic mass Significant scarring both kidneys No bowel obstruction Diffuse thickening of the colonic hernandez No pelvic mass Urinary bladder intact Advanced degenerative disc disease upper 4 lumbar levels Impression: Cirrhosis, focal low-density liver lesions, recommend elective MRI abdomen liver follow-up pre and postcontrast Prominent ascites No bowel obstruction Hepatic colopathy Dictated By: Jackson Berumen MD Signed By: <Electronically signed by Jackson Berumen MD in OV> 01/11/25 1006 Ordering Physician: Cr Lo MD Date of Service: 01/11/25 Procedure(s): CT angio chest Accession Number(s): [id number] cc: Cr Lo MD; Jackson Berumen MD; Ted Burnett MD~ Examination: CTA chest with intravenous contrast 2-D reconstructions 3-D reconstructions, vascular Date and time of exam: January 11, 2025 0757 hrs. Indications: Chest and abdominal pain today CTDI: vol (mGy) 12.58 DLP: (mGycm) 380 Technique: Multiple axial sections of the thorax have been obtained. 3 mm slice thickness, from below the hemidiaphragms to above the apices of the lungs. Mediastinal and lung density settings have been obtained. 2-D sagittal and coronal reconstructions. 3-D angiographic renderings, 3-D volume renderings, 3D post processing, vascular maximum intensity projections obtained. Contrast administered is 100 cc Isovue-370. Low dose protocols were performed. One or more of the following dose reduction techniques were used; automated exposure control, adjustment of the mA and/or KV according to patient size, use of iterative reconstruction technique. Findings: AP dimension ascending thoracic aorta 3.9 cm No pulmonary artery filling defects No paratracheal tracheobronchial or bronchopulmonary adenopathy Moderate vascular congestion No lobar pneumonia or pulmonary edema Impression: Negative for pulmonary artery emboli No mediastinal lymphadenopathy Moderate vascular congestion. No pneumonia, pulmonary edema or pleural disease Dictated By: Jackson Berumen MD Signed By: <Electronically signed by Jackson Berumen MD in OV> 01/11/25 1008 Ordering Physician: Cr Lo MD Date of Service: 01/11/25 Procedure(s): CT head/brain wo [facility] Accession Number(s): [id number] cc: Cr Lo MD; Jackson Berumen MD; Ted Burnett MD~ Examination: CT brain head without contrast. 2-D sagittal coronal reconstructions Date and time of exam:January 11, 2025 0755 hrs. Indications: Onset severe headache beginning last night CTDI: vol (mGy):49.4 DLP: (mGycm):985 Technique: Multiple CT axial sections of the brain have been obtained, 5 mm slice thickness. Contrast has not been administered. 2-D sagittal, coronal reconstructions have been obtained Low dose protocols were performed. One or more of the following dose reduction techniques were used; automated exposure control, adjustment of the mA and/or KV according to patient size, use of iterative reconstruction technique. Findings: No significant ventricular enlargement. Intra-axial or extra-axial hemorrhage density is not seen. No mass effect or midline shift Basal cisterns are not remarkable. Fourth ventricle is midline. Cranial vault intact. Impression: Negative for acute hemorrhage, mass effect or midline shift Dictated By: Jackson Berumen MD Signed By: <Electronically signed by Jackson Berumen MD in OV> 01/11/25 1007
--- NOTE | 2025-01-11 17:14 | PD.RESHP ---
Documentation for date of: 01/11/25 HPI History of Present Illness Chief complaint: Abdominal pain History of present illness: 69-year-old female with a past medical history of decompensated liver cirrhosis with ascites, chronic lymphedema, alcohol use disorder, psychiatric disorders including anxiety presenting to the ED on 01/11 with episodes of abdominal pain and distention. Of note, patient recently left [facility] from the hospital for similar presentation. Patient states that for the past several days she has not been able to take her prescription medications and has continued drinking alcohol but has cut down on her usual amount. Patient states that her last drink was on 01/10 when she drank 1 glass of wine. Patient denies any chest pain, shortness of breath, palpitations, dizziness or new headaches. During interview process, patient is emotional and states that she does not know what is wrong with her and that she is trying to quit alcohol but it is very hard. Patient does not follow GI specialist outpatient for her liver cirrhosis and has not followed up with PCP since leaving [facility] from the hospital. Medical history: As stated above Surgical history: Denies Allergies: Codeine Medications: Pending official med rec Family history: Noncontributory Social history: Patient actively drinks alcohol 2 to 3 glasses of wine a day, denies any tobacco or illicit substance use. Patient currently unemployed and lives with her ROS: All 12 systems assessed and the patient denies unless otherwise stated in HPI In the ED, patient presented mildly hypertensive 121/85, tachycardic heart rate of 119, respiratory 17, afebrile satting 97 on room air. Pertinent lab findings include WBC 12.1, hemoglobin 14.7 with MCV of 91, PT of 13.0 seconds, sodium 128, potassium 2.6, BUN 6, creatinine 0.6, lactic acid 1.3, magnesium 1.4, T. bili 1.5, AST 39, T. bili 32, ALT 812, alk phos 171, troponin within normal limits and BNP of 55. Patient's lipase is 66 TSH 5.31 with a free T4 of 1.13, urinalysis shows no signs of infection. U tox is positive for benzodiazepines. Head CT shows no acute findings, chest CTA positive for moderate vascular congestion otherwise negative, CT abdomen pelvis shows cirrhosis, prominent ascites but no obstruction, chest x-ray shows mild left base pneumonia abdominal ultrasound confirms cirrhosis, liver cysts, small left kidney with moderate left renal parenchymal scar formation and mild ascites. Patient will be admitted for decompensated liver cirrhosis requiring paracentesis on 01/13 along with [facility] protocol for anxiety secondary to alcohol use disorder. Exam Vital Signs Temp Pulse Resp BP Pulse Ox O2 Del Method 98.4 F 106 H 16 124/88 H 96 Room Air 01/11/25 14:16 01/11/25 14:16 01/11/25 14:16 01/11/25 14:16 01/11/25 14:16 01/11/25 14:16 Narrative Exam Physical Exam: GENERAL: Awake, emotional, answering questions appropriately, appears stated age HEENT: Moist mucosa. Eyes open, symmetrical, & clear CARDIO: Heart RRR, no obvious murmurs PULM: No noted coughing/dyspnea CTA B/L, no R/W/R GI: Abdomen soft, markedly distended some tension, no pain on palpation. BS+ SKIN/MSK/EXT: No wounds/rashes/edema/amputations, no pain on palpation. Pedal pulses present B/L NEURO: AAOx3, no focal neuro deficits, able to move all 4 extremities Results: Labs 01/12/25 04:42 01/12/25 04:42 Labs: Short CBC 01/11/25 Range/Units 05:45 WBC 12.1 H (3.6-11.0) Thou/mm3 Hgb 14.7 (12.0-16.0) g/dL Hct 39.5 (36.0-46.0) % Plt Count 291 D (140-440) Thou/mm3 BMP 01/11/25 05:45 Sodium 128 L Potassium 2.6 L* Chloride 87 L Carbon Dioxide 31.4 H BUN 6 L Creatinine 0.6 Glucose 87 Calcium 7.6 L Cardiac Enzymes 01/11/25 Range/Units 05:45 Troponin I < 0.020 (0.0-0.045) ng/mL Liver Function 01/11/25 Range/Units 05:45 Total Bilirubin 3.2 H (0.3-1.2) mg/dL Direct Bilirubin 1.5 H (0.0-0.3) mg/dL AST 39 H (0-34) U/L ALT 12 (10-49) U/L Alkaline Phosphatase 171 H (46-116) U/L Albumin 2.8 L (3.4-4.8) gm/dL Urine 01/11/25 Range/Units 06:03 Urine Color Yellow (Lt Yel-Yel) Urine Clarity Clear (Clear/Hazy) Urine pH 5.0 (5.0-7.0) Ur Specific [place] 1.008 (1.001-1.035) Urine Protein Negative (Neg - Trace) Urine Glucose (UA) Negative (Negative) Quality Measures Quality Measures none Advance care planning discussed with:: patient Medications Home Medications and Allergies Home Medications ?Medication ?Instructions ?Recorded ?Confirmed ?Type alprazolam 0.5 mg tablet 0.5 mg PO HS 12/31/24 01/12/25 History furosemide 20 mg tablet 20 mg PO QDAY 12/31/24 01/12/25 History buspirone 10 mg tablet 10 mg PO QDAY 01/12/25 01/12/25 History estradiol 0.05 mg/24 hr semiweekly 0.05 mg topical .twice a week 01/12/25 01/12/25 History transdermal patch metoprolol tartrate 25 mg tablet 25 mg PO BID 01/12/25 01/12/25 History thyroid (pork) 120 mg tablet 120 mg PO QDAY 01/12/25 01/12/25 History ([place] Thyroid) Allergies Allergy/AdvReac Type Severity Reaction Status Date / Time codeine Allergy Verified 12/30/24 09:39 Visit Medications Folic Acid (Folic Acid 1 Mg Tablet) 1 mg PO BID [facility] Stop: 01/16/25 20:59 Lactulose (Lactulose Syrup 20 Gm/30 Ml Udc) 10 gm PO QDAY CHAS[facility]; Protocol Stop: 02/11/25 08:59 Lorazepam (Lorazepam 0.5 Mg Tablet) 0.5 mg PO Q4HR PRN PRN Reason: CIWA Score 2-6 Stop: 01/16/25 17:09 Lorazepam (Lorazepam 0.5 Mg Tablet) 1 mg PO Q4HR PRN PRN Reason: CIWA SCORE 7-11 Stop: 01/16/25 17:09 Lorazepam (Lorazepam 0.5 Mg Tablet) 2 mg PO Q4HR PRN PRN Reason: CIWA SCORE 12-15 Stop: 01/16/25 17:09 Lorazepam (Lorazepam 2 Mg/Ml Vial) 1 mg IV Q2HR PRN PRN Reason: CIWA SCORE 16-19 Stop: 01/16/25 17:09 Lorazepam (Lorazepam 2 Mg/Ml Vial) 2 mg IV Q2HR PRN PRN Reason: CIWA SCORE 20-25 Stop: 01/16/25 17:09 Ondansetron HCl (Ondansetron Inj 2 Mg/Ml Inj 2 Ml) 4 mg IVP Q6H PRN; Protocol PRN Reason: NAUSEA OR VOMITING Stop: 02/10/25 17:09 Thiamine HCl (Thiamine 100 Mg Tablet) 100 mg PO BID [facility] Stop: 01/16/25 20:59 Discontinued Medications Fentanyl Citrate (Fentanyl Cit Inj 50 Mcg/Ml Amp 2ml) 50 mcg IVP X1 ONE Stop: 01/11/25 07:29 Last Admin: 01/11/25 07:49 Dose: 50 mcg Fentanyl Citrate (Fentanyl Cit Inj 50 Mcg/Ml Amp 2ml) 50 mcg IVP X1 ONE Stop: 01/11/25 10:27 Last Admin: 01/11/25 11:54 Dose: 50 mcg Furosemide (Furosemide Inj 10 Mg/Ml 4ml Vial) 40 mg IVP X1 ONE Stop: 01/11/25 05:14 Last Admin: 01/11/25 13:47 Dose: Not Given Potassium Chloride (Kcl Ivpb) 10 meq in 100 mls @ 100 mls/hr IV Q1H CHASIDY Stop: 01/11/25 10:46 Last Infusion: 01/11/25 13:16 Dose: Infused Magnesium Sulfate (Magnesium Sulfate Ivpb) 2 gm in 50 mls @ 25 mls/hr IV X1 ONE Stop: 01/11/25 08:47 Last Infusion: 01/11/25 10:15 Dose: Infused Morphine Sulfate (Morphine Sulf Inj 10 Mg/Ml Vial) 4 mg IVP X1 ONE Stop: 01/11/25 05:14 Last Admin: 01/11/25 13:46 Dose: Not Given Ondansetron HCl (Ondansetron Inj 2 Mg/Ml Inj 2 Ml) 4 mg IVP X1 ONE; Protocol Stop: 01/11/25 05:14 Last Admin: 01/11/25 07:49 Dose: 4 mg Potassium Chloride (Potassium Chloride 10% 20 Meq/15 Ml Udc) 40 meq PO X1 ONE Stop: 01/11/25 06:45 Last Admin: 01/11/25 10:03 Dose: 40 meq Spironolactone (Spironolactone 25 Mg Tablet) 25 mg PO X1 ONE Stop: 01/11/25 06:46 Last Admin: 01/11/25 09:00 Dose: 25 mg Assessment & Plan Plan 69-year-old female with a past medical history of decompensated liver cirrhosis with ascites, chronic lymphedema, alcohol use disorder, psychiatric disorders including anxiety presenting to the ED on 01/11 with episodes of abdominal pain and distention will be admitted for decompensated liver cirrhosis requiring paracentesis on 01/13 along with [facility] protocol for anxiety secondary to alcohol use disorder. #Acute decompensated liver disease #Anasarca #Alcohol use disorder Patient presenting with abdominal distention and pain History of alcohol induced liver cirrhosis with decompensation 10?points Child Class C Life Expectancy : 1-3 years Abdominal surgery trevor-operative mortality: 82% Madrey's discriminant function score 12.4, good prognosis no indications for steroids. no hepatic encephalopathy Hepatitis panel negative from prior visit Lipase mildly elevated at 66 Urine alcohol less than 3.0, U tox positive for benzodiazepine Head CT shows no acute findings, chest CTA positive for moderate vascular congestion otherwise negative CT abdomen pelvis shows cirrhosis, prominent ascites but no obstruction Abdominal ultrasound confirms cirrhosis, liver cysts, small left kidney with moderate left renal parenchymal scar formation and mild ascites. Plan: IV Lasix 40 mg twice daily IV ceftriaxone 1 g for SBP prophylaxis Spironolactone 25 mg IV daily Coreg 3.125 twice daily for esophageal varices prophylaxis Strict I's and O's To order paracentesis to be completed on 01/13, may consult registered diet technician on 01/12 if possible [facility] protocol ordered Thiamine and folate supplementation #Pneumonia? Patient on minimal supplemental oxygen, denies having any cough, shortness of breath WBC of 12.1 Chest x-ray shows mild left base pneumonia Plan: On IV ceftriaxone as above Initiated IV azithromycin for 3 days as well for pneumonia coverage #Electrolyte abnormalities Presenting to the ED with multiple electrolyte derangements likely secondary to decompensated liver cirrhosis Plan: Replete electrolytes as necessary Follow-up morning labs #Bilateral lower extremity edema #Chronic lymphedema Patient reported history of chronic lymphedema since age 10, no worsening bilateral lower extreme edema On p.o. diuresis at home, now worsening weakness and difficulty walking. Less likely concern for DVT, likely chronic lymphedema and cirrhosis leading to bilateral lower extremity swelling ECHO from 12/30/24 shows: Normal LV size. Mild LVH. Hyperdynamic LV. Grade I diastolic dysfunction. Estimated EF > 70%. Normal RV size and systolic function. Trace TR and cannot estimate RVSP. Mild MAC. Trace MR. Mild AI. Mild AV sclerosis without stenosis. No evidence of any pericardial effusion. Plan: Monitor for any acute changes Health Maintenance: Lines: PIV Diet: Cardiac Bowel: Lactulose GI prophylaxis: Not needed DVT prophylaxis: SCD Dispo: Pending paracentesis on 01/13, [facility] protocol, IV diuretics for anasarca and ascites Code: Full Patient seen and assessed with attending Dr. Pamela East, PGY-1 Internal Medicine - [facility] Attending Provider Attestation/Addendum I attest that I was physically present for the evaluation, physical examination, lab and imaging review of the patient with the residents. I discussed the case with the residents and agree with the findings and plans of care as documented above. Patient is a 69 years old female with past medical history of liver cirrhosis with ascites, chronic lymphedema, alcohol use disorder, psychiatric disorders including anxiety who presented to the ED with complaint of abdominal pain and distention. Patient had recently left [facility] after being managed for similar symptoms. Following her discharge, patient had patient has continued to drink alcohol but states that she has been trying to cut down. She also has not been able to take all her prescription medications. At bedside, she complains of abdominal pain, discomfort but denied any chest pain, shortness of breath, palpitations, dizziness or headache. On exam, patient has abdominal distention with tenderness, she also has 3+ bilateral pedal edema. Her vitals are significant for tachycardia. Lab results show WBC of 12.1, sodium 128, potassium 2.6, magnesium 1.4, total bilirubin 1.5. Urine toxicology is positive for benzodiazepines. Head CT was obtained, negative for acute hemorrhage, mass effect or midline shift. Chest CTA showed moderate vascular congestion. CT abdomen/pelvis shows cirrhosis, prominent ascites. After examination of the patient and review of the clinical data I feel that this patient needs admission to the hospital for further treatment/evaluation of anasarca likely secondary to acute decompensated liver cirrhosis in setting of chronic alcohol abuse. We will start her on IV Lasix, spironolactone, Coreg. Patient has abdominal pain and tenderness, we will start IV Rocephin with concern for SBP. We will obtain paracentesis. Also started CIWA protocol in anticipation of alcohol withdrawal. Patient's chest x-ray was concerning for mild left base pneumonia, we will add azithromycin. Patient has multiple electrolyte imbalances, which were repleted accordingly. Mihir Santiago MD
[2025-01-11] MEDS: cefTRIAXone/D5w 1gm IV premix 1 GM/50 ML BAG IV (18:16)
[2025-01-11] MEDS: AZITHROMYCIN INJ 500 MG in SODIUM CHLORIDE 0.9% 250 ML 250 ML 250 MG IV (18:16)
[2025-01-11] MEDS: FUROSEMIDE INJ 10 MG/ML 4ML VIAL 40 MG IVP (18:17)
[2025-01-11 18:32] LABS: Albumin, Serum 2.8 gm/dL (3.4-4.8); Anion Gap 10 (7-16); BUN/Creatinine Ratio 12 Ratio (12-20); Blood Urea Nitrogen 6 mg/dL (9-23); Calcium 7.8 mg/dL (8.3-10.6); Calcium (Corrected) 8.8 mg/dL (8.5-10.1); Carbon Dioxide 29.2 mMol/L (20.0-31.0); Chloride 88 mMol/L (98-107); Creatinine (Component) 0.5 mg/dL (0.6-1.3); Estimated Creatinine Clearance 95.4 mL/min (>60); Glucose 83 mg/dL (74-106); Osmolality,Calculated 251 (275-295); Phosphorous 3.5 mg/dL (2.4-5.1); Potassium 3.4 mMol/L (3.4-5.1); Sodium 127 mMol/L (136-145); eGFR > 60 See Note
[2025-01-11] MEDS: LORazepam 2 MG/ML VIAL IV (18:48)
[2025-01-11] MEDS: FOLIC ACID 1 MG TABLET PO (20:37)
[2025-01-11] MEDS: THIAMINE 100 MG TABLET PO (20:37)
[2025-01-11] MEDS: POTASSIUM CHLORIDE 20 mEq TABCR 40 MEQ PO (20:37)
[2025-01-12] VITALS (15 sets, daily range): BP systolic 88–124; BP diastolic 66–90; PULSE 83–127; RESP 14–20; TEMP 36.3–36.8; O2SAT 93–97; BMI 33.3
[2025-01-12] MEDS: FUROSEMIDE INJ 10 MG/ML 4ML VIAL 40 MG IVP ×2 (05:16→17:13)
[2025-01-12 06:28] LABS: Basophils # (Auto) 0.1 Thou/mm3 (0.0-0.2); Basophils % (Auto) 1 % (0-2.5); Eosinophils # (Auto) 0.1 Thou/mm3 (0.0-0.5); Eosinophils % (Auto) 1 % (0-10); Hematocrit 36.9 % (36.0-46.0); Hemoglobin 13.2 g/dL (12.0-16.0); Immature Granulocytes % (Auto) 1 % (0-0); Immature Granulocytes Auto 0.06 Thou/mm3 (0.00-0.00); Lymphocytes # (Auto) 1.2 Thou/mm3 (1.0-4.8); Lymphocytes % (Auto) 12 % (10-50); Mean Corpuscular HGB Conc 35.8 g/dl (31.0-37.0); Mean Corpuscular Hemoglobin 33.9 pg (25.0-35.0); Mean Corpuscular Volume 95 fL (80-100); Monocytes % (Auto) 9 % (0-12); Neutrophils # (Auto) 7.9 Thou/mm3 (1.8-7.7); Neutrophils % (Auto) 77 % (37-80); Nucleated Red Blood Cell % 0 /100 WBC (0); Platelet Count 283 Thou/mm3 (140-440); RDW Standard Deviation 48.2 fL (36.4-46.3); Red Blood Count 3.89 Miln/mm3 (4.00-5.20); White Blood Count 10.3 Thou/mm3 (3.6-11.0)
[2025-01-12 06:42] LABS: INR 1.2 (0.9-1.3)
[2025-01-12 06:58] LABS: Glucose Estimated Average 80 mg/dL (80-131); Hemoglobin A1C 4.4 % Hgb (4.8-6.0)
[2025-01-12 07:21] LABS: Alanine Aminotransferase 10 U/L (10-49); Albumin, Serum 2.4 gm/dL (3.4-4.8); Alkaline Phosphatase 146 U/L (46-116); Anion Gap 12 (7-16); Aspartate Amino Transferase 34 U/L (0-34); BUN/Creatinine Ratio 11 Ratio (12-20); Bilirubin,Total 3.2 mg/dL (0.3-1.2); Blood Urea Nitrogen 8 mg/dL (9-23); Calcium 7.7 mg/dL (8.3-10.6); Carbon Dioxide 28.7 mMol/L (20.0-31.0); Chloride 92 mMol/L (98-107); Creatinine (Component) 0.7 mg/dL (0.6-1.3); Estimated Creatinine Clearance 67.8 mL/min (>60); Globulin 2.5 gm/dL (2.3-3.5); Glucose 70 mg/dL (74-106); Magnesium 1.9 mg/dL (1.6-2.6); Osmolality,Calculated 262 (275-295); Phosphorous 3.6 mg/dL (2.4-5.1); Potassium 3.9 mMol/L (3.4-5.1); Sodium 133 mMol/L (136-145); Total Protein 4.9 gm/dL (5.7-8.2); eGFR > 60 See Note
--- NOTE | 2025-01-12 07:46 | ESPR_ITS ---
<Statement entered by Tushar Aggarwal MD - 01/13/25 07:26> I discussed with and supervised the business services intern physician involved in the care of this patient. Patient assessment and plan was discussed with entire medicine team, including my attending. I agree with the assessment and plan as documented by business services intern doctor. Patient care was discussed with my attending physician Dr.Bishwakarma Tushar Aggarwal, PGY-2 Documentation for date of: 01/12/25 Subjective Subjective Interval history: No acute overnight events. Examined at bedside. Denies fever, chills, headaches, chest pain, sob, cough, GI or urinary symptoms. Has moderate abdominal pain to palpitation throughout. Afebrile, vitals stable. Labs stable, no leukocytosis. GI on board for liver cirrhosis, currently pending paracentesis. Exam Vital Signs Temp Pulse Resp BP Pulse Ox O2 Del Method 97.3 F 120 H 19 98/69 97 Room Air 01/12/25 07:27 01/12/25 07:27 01/12/25 07:27 01/12/25 07:27 01/12/25 07:27 01/12/25 07:27 Narrative Exam GENERAL * Normal appearing adult female, NAD HEENT * NCAT.?SEBAS. Oral mucosa is moist. Patent Nares NECK * Supple, nontender, no thyromegaly, no meningismus, no JVD, no step offs CHEST * RRR, no m/g/r * CTAB, no w/r/r. Symmetrical chest rise. No intercostal subcostal retraction * Atraumatic, nontender, no crepitus, symmetrical expansion. ABDOMEN * Moderately tender throughout, soft, tender to palpation throughout * Bowel sounds presents EXTREMITIES * 2+ bilateral lower extremity edema SKIN * Warm and dry, no jaundice/rashes. NEUROMUSCULAR * No lumbar or midline, no CVA, no paraspinal muscle spasm or tenderness. * Moves all 4 extremities well, with full ROM and good CSM. * STREETER x4, CN II-XII grossly intact. * No focal neurologic deficits. PSYCHIATRY * Normal mood and affect, cooperative, no SI or HI or hallucinations. Objective Labs 01/13/25 04:37 01/13/25 04:37 Labs: Laboratory Results - last 24 hr 01/11/25 01/12/25 17:50 04:42 WBC 10.3 RBC 3.89 L Hgb 13.2 Hct 36.9 MCV 95 MCH 33.9 MCHC 35.8 RDW Std Deviation 48.2 H Plt Count 283 Neut % (Auto) 77 Lymph % (Auto) 12 [place] % (Auto) 9 Eos % (Auto) 1 Baso % (Auto) 1 Neut # (Auto) 7.9 H Lymph # (Auto) 1.2 [place] # (Auto) 1.0 H Eos # (Auto) 0.1 Baso # (Auto) 0.1 Immature Gran # (Auto) 0.06 H Absolute Nucleated RBC 0.00 Immature Gran % 1 H Nucleated RBC % 0 PT 13.0 H INR 1.2 Sodium 127 L 133 L Potassium 3.4 D 3.9 D Chloride 88 L 92 L Carbon Dioxide 29.2 28.7 Anion Gap 10 12 BUN 6 L 8 L Creatinine 0.5 L 0.7 Estim Creat Clear Calc 95.4 67.8 eGFR > 60 > 60 BUN/Creatinine Ratio 12 11 L Glucose [address] Glu mg/dL 80 Hemoglobin A1c 4.4 L Calculated Osmolality 251 L 262 L Calcium 7.8 L 7.7 L Corrected Calcium 8.8 9.0 Phosphorus 3.5 3.6 Magnesium 1.9 Total Bilirubin 3.2 H AST 34 ALT 10 Alkaline Phosphatase 146 H D Total Protein 4.9 L Albumin 2.8 L 2.4 L Globulin 2.5 Albumin/Globulin Ratio 1.0 L Quality Measures Quality Measures none Advance care planning discussed with:: patient Assessment & Plan Assessment Current Active Medications: Generic Name Dose Route Start Last Admin Trade Name Freq PRN Reason Stop Dose Admin Carvedilol 3.125 mg 01/12/25 08:00 Carvedilol 3.125 Mg Tablet PO 02/11/25 07:59 BIDWM CHASIDY Folic Acid 1 mg 01/11/25 21:00 01/11/25 20:37 Folic Acid 1 Mg Tablet PO 01/16/25 20:59 1 mg BID CHASIDY Administration Furosemide 40 mg 01/11/25 18:00 01/12/25 05:16 Furosemide Inj 10 Mg/Ml 4ml Vial IVP 02/10/25 17:59 40 mg BIDD CHASIDY Administration Ceftriaxone Sodium/Dextrose 1 gm in 50 mls @ 100 mls/hr 01/11/25 17:40 01/11/25 19:16 Rocephin/D5w 1gm Iv Premix IV 01/18/25 17:39 Infused QDAY CHASIDY Infusion Azithromycin 500 mg/ Sodium 250 mls @ 250 mls/hr 01/12/25 09:00 Chloride IV 01/19/25 08:59 QDAY CHASIDY Lactulose 10 gm 01/12/25 09:00 Lactulose Syrup 20 Gm/30 Ml Udc PO 02/11/25 08:59 QDAY CHASIDY Protocol Lorazepam 0.5 mg 01/11/25 17:10 Lorazepam 0.5 Mg Tablet PO 01/16/25 17:09 Q4HR PRN CIWA Score 2-6 Lorazepam 1 mg 01/11/25 17:10 Lorazepam 0.5 Mg Tablet PO 01/16/25 17:09 Q4HR PRN CIWA SCORE 7-11 Lorazepam 2 mg 01/11/25 17:10 Lorazepam 0.5 Mg Tablet PO 01/16/25 17:09 Q4HR PRN CIWA SCORE 12-15 Lorazepam 1 mg 01/11/25 17:10 Lorazepam 2 Mg/Ml Vial IV 01/16/25 17:09 Q2HR PRN CIWA SCORE 16-19 Lorazepam 2 mg 01/11/25 17:10 01/11/25 18:48 Lorazepam 2 Mg/Ml Vial IV 01/16/25 17:09 2 mg Q2HR PRN Administration CIWA SCORE 20-25 Ondansetron HCl 4 mg 01/11/25 17:10 01/11/25 18:47 Ondansetron Inj 2 Mg/Ml Inj 2 Ml IVP 02/10/25 17:09 4 mg Q6H PRN Administration NAUSEA OR VOMITING Protocol Spironolactone 25 mg 01/12/25 09:00 Spironolactone 25 Mg Tablet PO 02/11/25 08:59 QDAY CHASIDY Thiamine HCl 100 mg 01/11/25 21:00 01/11/25 20:37 Thiamine 100 Mg Tablet PO 01/16/25 20:59 100 mg BID CHASIDY Administration Plan 68-year-old female with PMHx of liver cirrhosis with recurrent ascites, chronic lymphedema, alcohol use disorder, psych and anxiety disorder, presented on 01/11 with abdominal pain and distention, admitted for decompensated liver cirrhosis with significant ascites, continued on CIWA protocol. Appreciate recommendations from GI team. Acute decompensated liver disease Anasarca Alcohol use disorder Presented with abdominal distention and pain. Has chronic alcohol related liver cirrhosis with recurrent decompensation. CT abdomen redemonstrated cirrhosis along with prominent ascites, no bowel obstruction. Normal ultrasound also showed liver cirrhosis with prominent cystic liver, small left kidneys and moderate left renal parenchymal scarring, as well as ascites. TB 3.2, AST 34, ALT 10, ALP 146, ALBUMIN 2.4. Lipase negative. U tox positive for alcohol. 10?points Child Class C Life Expectancy : 1-3 years Abdominal surgery trevor- operative mortality: 82% Madrey's discriminant function score 12.4, good prognosis no indications for steroids. No signs or symptoms of hepatic encephalopathy. Hepatitis panel negative on previous visit. Continued on LASIX 40 mg and SPIRONOLACTONE 25 mg daily, urine output poor, 400 cc. ? Continue LASIX 40 mg BID ? Continue SPIRONOLACTONE 25 mg IV daily ? Continue COREG 3.125 mg daily for variceal prophylaxis. ? Continue CEFTRIAXONE 1 g for SBP prophylaxis (01/12 to present) ? Continue CIWA protocol ? THIAMINE and folate supplements on board ? Pending paracentesis on 01/13 Pneumonia? He is on minimal oxygen supplement, denies cough or shortness of breath. Came with mild leukocytosis which has resolved since. CXR showed mild left base pneumonia. Remains asymptomatic. ? Continue CEFTRIAXONE as above ? Continue AZITHROMYCIN (01/12 to present) Electrolyte abnormalities Presenting to the ED with multiple electrolyte derangements likely secondary to decompensated liver cirrhosis ? Daily labs ? Replete as needed Bilateral lower extremity edema Chronic lymphedema Patient reported history of chronic lymphedema since age 10, no worsening bilateral lower extreme edema On p.o. diuresis at home, now worsening weakness and difficulty walking. Less likely concern for DVT, likely chronic lymphedema and cirrhosis leading to bilateral lower extremity swelling ECHO from 12/30/24 shows: Normal LV size. Mild LVH. Hyperdynamic LV. Grade I diastolic dysfunction. Estimated EF > 70%. Normal RV size and systolic function. Trace TR and cannot estimate RVSP. Mild MAC. Trace MR. Mild AI. Mild AV sclerosis without stenosis. No evidence of any pericardial effusion. ? Continue monitoring Health maintenance Diet: Cardiac GI prophylaxis: LACTULOSE DVT prophylaxis: SCD Antibiotics: CEFTRIAXONE, AZITHROMYCIN CODE STATUS: Full code Disposition: Pending paracentesis Case was discussed with attending physician and senior resident. Abdi Hanoun, DO PGYI Attending Provider Attestation/Addendum I attest that I was physically present for the evaluation, physical examination, lab and imaging review of the patient with the residents. I discussed the case with the residents and agree with the findings and plans of care as documented above. At bedside today, patient states she feels similar to yesterday. Continues to have abdominal distention and discomfort. Vital signs are stable. Lab results show WBC of 10.3 from 12.1 yesterday. Awaiting paracentesis with IR. Sodium level has improved to 133, potassium to 3.9. Liver function is stable, bilirubin 3.2 today. Gastroenterology consulted, agrees with large-volume paracentesis, recommended to start patient on IV Lasix, spironolactone and fluid restriction, appreciate recommendations. Continues to be on azithromycin and Rocephin for pneumonia and possible SBP. Continues to be on CIWA protocol, score of 9 this afternoon. Will continue to monitor closely. Mihir Santiago MD
[2025-01-12] MEDS: cefTRIAXone/D5w 1gm IV premix 1 GM/50 ML BAG IV (08:13)
[2025-01-12] MEDS: LACTULOSE SYRUP 20 GM/30 ML UDC 10 GM PO (08:14)
[2025-01-12] MEDS: THIAMINE 100 MG TABLET PO ×2 (08:14→20:17)
[2025-01-12] MEDS: SPIRONOLACTONE 25 MG TABLET PO (08:14)
[2025-01-12] MEDS: FOLIC ACID 1 MG TABLET PO ×2 (08:14→20:17)
[2025-01-12] MEDS: LORazepam 0.5 MG TABLET 1 MG PO ×2 (08:31→12:13)
[2025-01-12] MEDS: AZITHROMYCIN INJ 500 MG in SODIUM CHLORIDE 0.9% 250 ML 250 ML 250 MG IV (09:23)
--- NOTE | 2025-01-12 10:51 | PC.SS ---
BUSINESS INVESTOR conducted bedside contact with the patient to conduct initial assessment and to discuss discharge planning.? Patient resides at home with spouse, Jorge King .? Patient is retired.? Patient utilizes a walker to assist with ambulation.? Patient does not utilize home oxygen.? Patient describes ability to complete ADL?s independently.? Patient identified spouse, Jorge King; as surrogate medical decision maker.? Patient?s PCP is Dr. Carlee Burnett.? The patient does not possess any specialty providers.? Patient does not participate with dialysis.? Patient possesses a history of anxiety.? Medication includes Xanax.? Patient possesses history of alcohol use disorder.? surgical services assistant to provide community resources to patient prior to discharge.? Patient utilizes [facility] for medication services.? Plan is for the patient to return home at the time of discharge.? Spouse will provide transportation on behalf of the patient. ?No further discharge needs identified by the patient.? No further intervention required at this time, renal social worker will be available to address any further concerns.? Next of Kin: Jorge King D/C Plan: Home
--- NOTE | 2025-01-12 12:09 | PD.IMCONS ---
HPI Data of Consult Requesting Physician: Mihir Santiago MD Primary Care Provider: Ted Burnett MD Consult Narrative Reason for consult: Pain abdomen abdominal distention History of present illness: 69 years old female presented to the hospital with chief complaints abdominal pain abdominal distention she continues to drink about 2 to [address] glasses of wine daily CT scan of the abdomen pelvis with contrast showed cirrhotic liver disease primarily ascites and 2 lesions in the liver 15 mm and 16 mm CTA chest was negative CT head was negative Patient was subsequently admitted cc:: cc: Mihir Santiago MD Review of Systems Review of Systems Systems Reviewed: All systems reviewed, normal except as documented Meds Home Medications and Allergies Home Medications ?Medication ?Instructions ?Recorded ?Confirmed ?Type alprazolam 0.5 mg tablet 0.5 mg PO HS 12/31/24 01/12/25 History furosemide 20 mg tablet 20 mg PO QDAY 12/31/24 01/12/25 History buspirone 10 mg tablet 10 mg PO QDAY 01/12/25 01/12/25 History estradiol 0.05 mg/24 hr semiweekly 0.05 mg topical .twice a week 01/12/25 01/12/25 History transdermal patch metoprolol tartrate 25 mg tablet 25 mg PO BID 01/12/25 01/12/25 History thyroid (pork) 120 mg tablet 120 mg PO QDAY 01/12/25 01/12/25 History ([place] Thyroid) Allergies Allergy/AdvReac Type Severity Reaction Status Date / Time codeine Allergy Verified 12/30/24 09:39 Exam Vital Signs Temp Pulse Resp BP Pulse Ox O2 Del Method 97.3 F 98 19 118/90 H 97 Room Air 01/12/25 12:00 01/12/25 12:00 01/12/25 12:00 01/12/25 12:00 01/12/25 12:00 01/12/25 12:00 Constitutional Comments: Chronically ill-appearing Routine Respiratory Exam Comments: Normal to auscultation Routine Abdominal Exam Comments: Distended with ascites Results Labs 01/12/25 04:42 01/12/25 04:42 Labs: Short CBC 01/12/25 Range/Units 04:42 WBC 10.3 (3.6-11.0) Thou/mm3 Hgb 13.2 (12.0-16.0) g/dL Hct 36.9 (36.0-46.0) % Plt Count 283 (140-440) Thou/mm3 BMP 01/11/25 01/12/25 17:50 04:42 Sodium 127 L 133 L Potassium 3.4 D 3.9 D Chloride 88 L 92 L Carbon Dioxide 29.2 28.7 BUN 6 L 8 L Creatinine 0.5 L 0.7 Glucose 83 70 L Calcium 7.8 L 7.7 L Liver Function 01/11/25 01/12/25 Range/Units 17:50 04:42 Total Bilirubin 3.2 H (0.3-1.2) mg/dL AST 34 (0-34) U/L ALT 10 (10-49) U/L Alkaline Phosphatase 146 H D (46-116) U/L Albumin 2.8 L 2.4 L (3.4-4.8) gm/dL Assessment and Plan Additional Assessment & Plan Additional Plan: # Decompensated liver disease secondary to alcohol with advanced portal hypertension intractable ascites in a noncompliant patient plan recommend large-volume paracentesis ultrasound-guided IV Lasix 40 mg once a day Spironolactone p.o. 25 mg twice daily Strict input and output chart 1 L p.o. fluid restriction in 24 hours Daily weight Advised the patient to be completely abstain from alcohol Prognosis is guarded and poor Will do an upper endoscopy prior to discharge once patient's ascites and other medical issues are taken care of Thank you very much for the opportunity to participate in care of this patient Other medical problems include IDDM Hypothyroidism
--- NOTE | 2025-01-12 15:41 | PC.NURSE ---
Patient on THERON SURE for safety. Found patient hanging off the bed, screaming had to use the restroom. BSC used patient had a bowel movement.
[2025-01-12] MEDS: carVEDILOL 3.125 MG TABLET PO (17:13)
[2025-01-12] MEDS: LORazepam 0.5 MG TABLET PO (20:17)
[2025-01-12] MEDS: ONDANSETRON INJ 2 MG/ML INJ 2 ML 4 MG IVP (20:17)
[2025-01-13] VITALS (13 sets, daily range): BP systolic 97–119; BP diastolic 68–80; PULSE 78–106; RESP 17–30; TEMP 36.1–36.8; O2SAT 93–98; BMI 33.2; BMI 33.4
[2025-01-13] MEDS: LORazepam 0.5 MG TABLET PO ×3 (04:50→18:40)
[2025-01-13] MEDS: FUROSEMIDE INJ 10 MG/ML 4ML VIAL 40 MG IVP ×2 (05:09→17:22)
[2025-01-13 05:37] LABS: Basophils # (Auto) 0.1 Thou/mm3 (0.0-0.2); Basophils % (Auto) 1 % (0-2.5); Eosinophils # (Auto) 0.3 Thou/mm3 (0.0-0.5); Eosinophils % (Auto) 3 % (0-10); Hematocrit 33.8 % (36.0-46.0); Hemoglobin 12.4 g/dL (12.0-16.0); Immature Granulocytes % (Auto) 1 % (0-0); Immature Granulocytes Auto 0.06 Thou/mm3 (0.00-0.00); Lymphocytes # (Auto) 1.7 Thou/mm3 (1.0-4.8); Lymphocytes % (Auto) 18 % (10-50); Mean Corpuscular HGB Conc 36.7 g/dl (31.0-37.0); Mean Corpuscular Hemoglobin 33.5 pg (25.0-35.0); Mean Corpuscular Volume 91 fL (80-100); Monocytes # (Auto) 1.1 Thou/mm3 (0.0-0.8); Monocytes % (Auto) 12 % (0-12); Neutrophils % (Auto) 65 % (37-80); Nucleated Red Blood Cell % 0 /100 WBC (0); Platelet Count 288 Thou/mm3 (140-440); RDW Standard Deviation 44.9 fL (36.4-46.3); White Blood Count 9.1 Thou/mm3 (3.6-11.0)
[2025-01-13 06:00] LABS: Alanine Aminotransferase 8 U/L (10-49); Albumin, Serum 2.3 gm/dL (3.4-4.8); Alkaline Phosphatase 130 U/L (46-116); Anion Gap 9 (7-16); Aspartate Amino Transferase 29 U/L (0-34); BUN/Creatinine Ratio 13 Ratio (12-20); Bilirubin,Total 2.2 mg/dL (0.3-1.2); Blood Urea Nitrogen 9 mg/dL (9-23); Calcium 7.3 mg/dL (8.3-10.6); Calcium (Corrected) 8.7 mg/dL (8.5-10.1); Carbon Dioxide 31.4 mMol/L (20.0-31.0); Chloride 91 mMol/L (98-107); Creatinine (Component) 0.7 mg/dL (0.6-1.3); Estimated Creatinine Clearance 67.8 mL/min (>60); Globulin 2.3 gm/dL (2.3-3.5); Glucose 82 mg/dL (74-106); Magnesium 1.4 mg/dL (1.6-2.6); Osmolality,Calculated 260 (275-295); Phosphorous 3.3 mg/dL (2.4-5.1); Potassium 2.8 mMol/L (3.4-5.1); Sodium 131 mMol/L (136-145); Total Protein 4.6 gm/dL (5.7-8.2); eGFR > 60 See Note
--- NOTE | 2025-01-13 07:55 | ESPR_ITS ---
Documentation for date of: 01/13/25 Subjective Subjective Interval history: No acute overnight events. Denies new symptoms or worsening of symptoms. Vitals are stable. Labs relatively stable with exception of calcium 2.8, magnesium 1.4 which were repleted. Exam Vital Signs Temp Pulse Resp BP Pulse Ox O2 Del Method 98.3 F 84 17 102/80 94 L Room Air 01/13/25 04:00 01/13/25 05:09 01/13/25 04:00 01/13/25 05:09 01/13/25 04:00 01/13/25 04:00 Narrative Exam GENERAL * Normal appearing adult female, NAD HEENT * NCAT.?SEBAS. Oral mucosa is moist. Patent Nares NECK * Supple, nontender, no thyromegaly, no meningismus, no JVD, no step offs CHEST * RRR, no m/g/r * CTAB, no w/r/r. Symmetrical chest rise. No intercostal subcostal retraction * Atraumatic, nontender, no crepitus, symmetrical expansion. ABDOMEN * Moderately tender throughout, soft, tender to palpation throughout * Bowel sounds presents EXTREMITIES * 2+ bilateral lower extremity edemaSKIN * Warm and dry, no jaundice/rashes. NEUROMUSCULAR * No lumbar or midline, no CVA, no paraspinal muscle spasm or tenderness. * Moves all 4 extremities well, with full ROM and good CSM. * STREETER x4, CN II-XII grossly intact. * No focal neurologic deficits. PSYCHIATRY * Normal mood and affect, cooperative, no SI or HI or hallucinations. Objective Labs 01/13/25 04:37 01/13/25 04:37 Labs: Laboratory Results - last 24 hr 01/13/25 04:37 WBC 9.1 RBC 3.70 L Hgb 12.4 Hct 33.8 L MCV 91 MCH 33.5 MCHC 36.7 RDW Std Deviation 44.9 Plt Count 288 Neut % (Auto) 65 Lymph % (Auto) 18 [place] % (Auto) 12 Eos % (Auto) 3 Baso % (Auto) 1 Neut # (Auto) 6.0 Lymph # (Auto) 1.7 [place] # (Auto) 1.1 H Eos # (Auto) 0.3 Baso # (Auto) 0.1 Immature Gran # (Auto) 0.06 H Absolute Nucleated RBC 0.00 Immature Gran % 1 H Nucleated RBC % 0 Sodium 131 L Potassium 2.8 L D Chloride 91 L Carbon Dioxide 31.4 H Anion Gap 9 BUN 9 Creatinine 0.7 Estim Creat Clear Calc 67.8 eGFR > 60 BUN/Creatinine Ratio 13 Glucose 82 Calculated Osmolality 260 L Calcium 7.3 L Corrected Calcium 8.7 Phosphorus 3.3 Magnesium 1.4 L Total Bilirubin 2.2 H D AST 29 ALT 8 L Alkaline Phosphatase 130 H Total Protein 4.6 L Albumin 2.3 L Globulin 2.3 Albumin/Globulin Ratio 1.0 L Quality Measures Quality Measures none Advance care planning discussed with:: patient Assessment & Plan Assessment Current Active Medications: Generic Name Dose Route Start Last Admin Trade Name Freq PRN Reason Stop Dose Admin Carvedilol 3.125 mg 01/12/25 08:00 01/12/25 17:13 Carvedilol 3.125 Mg Tablet PO 02/11/25 07:59 3.125 mg BIDWM CHASIDY Administration Folic Acid 1 mg 01/11/25 21:00 01/12/25 20:17 Folic Acid 1 Mg Tablet PO 01/16/25 20:59 1 mg BID CHASIDY Administration Furosemide 40 mg 01/11/25 18:00 01/13/25 05:09 Furosemide Inj 10 Mg/Ml 4ml Vial IVP 02/10/25 17:59 40 mg BIDD CHASIDY Administration Ceftriaxone Sodium/Dextrose 1 gm in 50 mls @ 100 mls/hr 01/11/25 17:40 01/12/25 08:13 Rocephin/D5w 1gm Iv Premix IV 01/18/25 17:39 100 mls/hr QDAY CHASIDY Administration Azithromycin 500 mg/ Sodium 250 mls @ 250 mls/hr 01/12/25 09:00 01/12/25 09:23 Chloride IV 01/19/25 08:59 250 mls/hr QDAY CHASIDY Administration Lactulose 10 gm 01/12/25 09:00 01/12/25 08:14 Lactulose Syrup 20 Gm/30 Ml Udc PO 02/11/25 08:59 10 gm QDAY CHASIDY Administration Protocol Lorazepam 0.5 mg 01/11/25 17:10 01/12/25 20:17 Lorazepam 0.5 Mg Tablet PO 01/16/25 17:09 0.5 mg Q4HR PRN Administration CIWA Score 2-6 Lorazepam 1 mg 01/11/25 17:10 01/12/25 12:13 Lorazepam 0.5 Mg Tablet PO 01/16/25 17:09 1 mg Q4HR PRN Administration CIWA SCORE 7-11 Lorazepam 2 mg 01/11/25 17:10 Lorazepam 0.5 Mg Tablet PO 01/16/25 17:09 Q4HR PRN CIWA SCORE 12-15 Lorazepam 1 mg 01/11/25 17:10 Lorazepam 2 Mg/Ml Vial IV 01/16/25 17:09 Q2HR PRN CIWA SCORE 16-19 Lorazepam 2 mg 01/11/25 17:10 01/11/25 18:48 Lorazepam 2 Mg/Ml Vial IV 01/16/25 17:09 2 mg Q2HR PRN Administration CIWA SCORE 20-25 Ondansetron HCl 4 mg 01/11/25 17:10 01/12/25 20:17 Ondansetron Inj 2 Mg/Ml Inj 2 Ml IVP 02/10/25 17:09 4 mg Q6H PRN Administration NAUSEA OR VOMITING Protocol Spironolactone 25 mg 01/12/25 09:00 01/12/25 08:14 Spironolactone 25 Mg Tablet PO 02/11/25 08:59 25 mg QDAY CHASIDY Administration Thiamine HCl 100 mg 01/11/25 21:00 01/12/25 20:17 Thiamine 100 Mg Tablet PO 01/16/25 20:59 100 mg BID CHASIDY Administration Plan 68-year-old female with PMHx of liver cirrhosis with recurrent ascites, chronic lymphedema, alcohol use disorder, psych and anxiety disorder, presented on 01/11 with abdominal pain and distention, admitted for decompensated liver cirrhosis with significant ascites, continued on CIWA protocol. vitals ok, urine 930, K 2.8, mag 1.4 repleated remainder labs including CBC stable NPO for paracentesis today Appreciate recommendations from GI team. Acute decompensated liver disease Anasarca Alcohol use disorder Presented with abdominal distention and pain. Has chronic alcohol related liver cirrhosis with recurrent decompensation. CT abdomen redemonstrated cirrhosis along with prominent ascites, no bowel obstruction. Normal ultrasound also showed liver cirrhosis with prominent cystic liver, small left kidneys and moderate left renal parenchymal scarring, as well as ascites. TB 3.2, AST 34, ALT 10, ALP 146, ALBUMIN 2.4. Lipase negative. U tox positive for alcohol. 10?points Child Class C Life Expectancy : 1-3 years Abdominal surgery trevor- operative mortality: 82% Madrey's discriminant function score 12.4, good prognosis no indications for steroids. No signs or symptoms of hepatic encephalopathy. Hepatitis panel negative on previous visit. Continued on LASIX 40 mg and SPIRONOLACTONE 25 mg daily, urine output poor but acceptable Completed uncomplicated paracentesis with 2600 cc fluid removed. ? Continue LASIX 40 mg BID ? Continue SPIRONOLACTONE 25 mg IV daily ? Continue COREG 3.125 mg daily for variceal prophylaxis. ? Continue CEFTRIAXONE 1 g for SBP prophylaxis (01/12 to present) ? Continue CIWA protocol ? THIAMINE and folate supplements on board Pneumonia He is on minimal oxygen supplement, denies cough or shortness of breath. Came with mild leukocytosis which has resolved since. CXR showed mild left base pneumonia. Remains asymptomatic, afebrile, no leukocytosis, 48H blood cx negative, MRSA swap neg. ? Continue CEFTRIAXONE as above ? Continue AZITHROMYCIN (01/12 to present) Electrolyte abnormalities Presenting to the ED with multiple electrolyte derangements likely secondary to decompensated liver cirrhosis ? Daily labs ? Replete as needed Bilateral lower extremity edema Chronic lymphedema Patient reported history of chronic lymphedema since age 10, no worsening bilateral lower extreme edema On p.o. diuresis at home, now worsening weakness and difficulty walking. Less likely concern for DVT, likely chronic lymphedema and cirrhosis leading to bilateral lower extremity swelling ECHO from 12/30/24 shows: Normal LV size. Mild LVH. Hyperdynamic LV. Grade I diastolic dysfunction. Estimated EF > 70%. Normal RV size and systolic function. Trace TR and cannot estimate RVSP. Mild MAC. Trace MR. Mild AI. Mild AV sclerosis without stenosis. No evidence of any pericardial effusion. ? Continue monitoring Health maintenance Diet: Cardiac GI prophylaxis: LACTULOSE DVT prophylaxis: SCD Antibiotics: CEFTRIAXONE, AZITHROMYCIN CODE STATUS: Full code Disposition: Pending paracentesis Case was discussed with attending physician and senior resident. Abdi Dowell DO PGYI Attending Provider Attestation/Addendum I have discussed and was present for the essential components of the history, physical examination, diagnosis, and treatment plan with the resident. I agree with the patient's care as documented by the resident and amended herein by me. Melchor Mcelroy DO. Patient scheduled for paracentesis today, will need outpatient follow-up for MRI for incidental finding of liver lesions. Will continue on CIWA protocol, likely DC home in 1 to 2 days. I strenuously counseled the patient on the need to follow-up with hepatobiliary specialist and complete cessation of alcohol, she was emotional however understood the end, her was at bedside and also understood. Although this document has been carefully reviewed, there may still be some phonetic and other typographical errors. These errors are purely grammatical due to imperfections in the software program and should not be construed in any way to compromise the substance of the patient's medical care during this visit.
[2025-01-13] MEDS: POTASSIUM CHLORIDE 20 mEq TABCR 40 MEQ PO (08:22)
[2025-01-13] MEDS: THIAMINE 100 MG TABLET PO ×2 (08:23→20:44)
[2025-01-13] MEDS: SPIRONOLACTONE 25 MG TABLET PO (08:23)
[2025-01-13] MEDS: FOLIC ACID 1 MG TABLET PO ×2 (08:23→20:44)
[2025-01-13] MEDS: carVEDILOL 3.125 MG TABLET PO ×2 (08:23→17:21)
[2025-01-13] MEDS: LACTULOSE SYRUP 20 GM/30 ML UDC 10 GM PO (08:24)
[2025-01-13] MEDS: cefTRIAXone/D5w 1gm IV premix 1 GM/50 ML BAG IV (08:25)
[2025-01-13] MEDS: Magnesium Sulfate 4 GM Ivpb 4 GM/50 ML BAG IV (08:29)
[2025-01-13] MEDS: POTASSIUM CHL 10 mEq IVPB 10 MEQ/100 ML BAG 100 MEQ IV ×2 (08:30→10:06)
--- NOTE | 2025-01-13 09:41 | ESPR_ITS ---
Documentation for date of: 01/13/25 Subjective Subjective Interval history: Patient underwent large-volume paracentesis 2600 cc of fluid was obtained Patient on diuretics Will schedule upper endoscopy for tomorrow morning for prophylactic band ligation of esophageal varices Exam Vital Signs Temp Pulse Resp BP Pulse Ox O2 Del Method 97.6 F 85 18 111/70 93 L Room Air 01/13/25 08:00 01/13/25 08:23 01/13/25 08:00 01/13/25 08:23 01/13/25 08:00 01/13/25 08:00 Objective Labs 01/13/25 04:37 01/13/25 04:37 Labs: Laboratory Results - last 24 hr 01/13/25 04:37 WBC 9.1 RBC 3.70 L Hgb 12.4 Hct 33.8 L MCV 91 MCH 33.5 MCHC 36.7 RDW Std Deviation 44.9 Plt Count 288 Neut % (Auto) 65 Lymph % (Auto) 18 [place] % (Auto) 12 Eos % (Auto) 3 Baso % (Auto) 1 Neut # (Auto) 6.0 Lymph # (Auto) 1.7 [place] # (Auto) 1.1 H Eos # (Auto) 0.3 Baso # (Auto) 0.1 Immature Gran # (Auto) 0.06 H Absolute Nucleated RBC 0.00 Immature Gran % 1 H Nucleated RBC % 0 Sodium 131 L Potassium 2.8 L D Chloride 91 L Carbon Dioxide 31.4 H Anion Gap 9 BUN 9 Creatinine 0.7 Estim Creat Clear Calc 67.8 eGFR > 60 BUN/Creatinine Ratio 13 Glucose 82 Calculated Osmolality 260 L Calcium 7.3 L Corrected Calcium 8.7 Phosphorus 3.3 Magnesium 1.4 L Total Bilirubin 2.2 H D AST 29 ALT 8 L Alkaline Phosphatase 130 H Total Protein 4.6 L Albumin 2.3 L Globulin 2.3 Albumin/Globulin Ratio 1.0 L Impressions Impression: Decompensated liver disease secondary to alcohol Advanced portal hypertension with intractable ascites Plan Fiberoptic esophagogastroduodenoscopy with possible therapeutic intervention under intravenous moderate sedation scheduled for a.m. Consent obtained . N.p.o. midnight tonight Assessment & Plan A&P Narrative # Decompensated liver disease secondary to alcohol with advanced portal hypertension intractable ascites in a noncompliant patient plan recommend large-volume paracentesis ultrasound-guided IV Lasix 40 mg once a day Spironolactone p.o. 25 mg twice daily Strict input and output chart 1 L p.o. fluid restriction in 24 hours Daily weight Advised the patient to be completely abstain from alcohol Prognosis is guarded and poor Will do an upper endoscopy prior to discharge once patient's ascites and other medical issues are taken care of Thank you very much for the opportunity to participate in care of this patient Other medical problems include IDDM Hypothyroidism Time Spent With Patient Time: Total time spent is greater than 50% in coordination of care (as documented) at patient's floor/unit and/or counseling patient:
--- NOTE | 2025-01-13 10:10 | PC.NURSE ---
's Navi, Jasen Dowell, & Dmitry in to see pt and pt
[2025-01-13] MEDS: AZITHROMYCIN INJ 500 MG in SODIUM CHLORIDE 0.9% 250 ML 250 ML 250 MG IV (10:11)
[2025-01-13] MEDS: ACETAMINOPHEN 325 MG TABLET PO (11:33)
[2025-01-13] MEDS: POTASSIUM CHL 10 mEq IVPB 10 MEQ/100 ML BAG 75 MEQ IV ×2 (11:34→15:09)
--- NOTE | 2025-01-13 13:54 | XR_ITS ---
Examination: Ultrasound-guided paracentesis Abdominal sonogram limited Date and time of exam: January 13, 2025 1409 hours INDICATIONS: Cirrhosis, increasing ascites and abdominal distention history Informed consent provided. A timeout was completed verifying correct patient, procedure, site, positioning, and special adequate movement if applicable. Technique: Multiple sonographic images of the abdomen have been obtained. Appropriate area for paracentesis was marked. Local anesthesia is obtained with 1% lidocaine. Yueh catheter is successfully introduced. Findings: Abdominal sonographic images demonstrate sufficient ascitic fluid for paracentesis. After placing the Yueh catheter, 2600 cc of fluid were successfully removed. During and after completion of the procedure the patient appear in satisfactory and stable condition with no complications observed. Estimated blood loss 0 cc Impression: Abdominal ascites Successful ultrasound-guided paracentesis as described above
[2025-01-13 15:21] LABS: Albumin, Peritoneal Fluid < 1.0 gm/dL; Amylase,Peritoneal Fluid < 20 IU/L; Glucose,Peritoneal Fluid 131 mg/dL; LDH,Peritoneal Fluid 64 IU/L; Protein Total,Peritoneal Fluid < 2 g/dL
[2025-01-13 15:32] LABS: Peritoneal Fluid WBC 70 /cmm; RBC,Peritoneal Fluid 0 /cmm
[2025-01-13 15:44] LABS: Peritoneal Fluid Appearance Clear; Peritoneal Fluid Color Yellow; Peritoneal Fluid Mononuclear 86 %; Peritoneal Fluid Polynuclear 14 %
--- NOTE | 2025-01-13 16:07 | PC.SS ---
rounding note: Patient pending a paracentesis. D/c 1-2 days
[2025-01-14] VITALS (19 sets, daily range): BP systolic 99–126; BP diastolic 56–88; PULSE 71–97; RESP 15–19; TEMP 36.1–36.8; O2SAT 94–99; BMI 32.6
[2025-01-14 05:41] LABS: Basophils # (Auto) 0.1 Thou/mm3 (0.0-0.2); Basophils % (Auto) 1 % (0-2.5); Eosinophils # (Auto) 0.2 Thou/mm3 (0.0-0.5); Eosinophils % (Auto) 3 % (0-10); Hematocrit 34.4 % (36.0-46.0); Hemoglobin 12.6 g/dL (12.0-16.0); Immature Granulocytes % (Auto) 1 % (0-0); Immature Granulocytes Auto 0.04 Thou/mm3 (0.00-0.00); Lymphocytes # (Auto) 1.8 Thou/mm3 (1.0-4.8); Lymphocytes % (Auto) 21 % (10-50); Mean Corpuscular HGB Conc 36.6 g/dl (31.0-37.0); Mean Corpuscular Volume 93 fL (80-100); Monocytes % (Auto) 11 % (0-12); Neutrophils # (Auto) 5.6 Thou/mm3 (1.8-7.7); Neutrophils % (Auto) 65 % (37-80); Nucleated Red Blood Cell % 0 /100 WBC (0); Platelet Count 250 Thou/mm3 (140-440); RDW Standard Deviation 44.5 fL (36.4-46.3); Red Blood Count 3.71 Miln/mm3 (4.00-5.20); White Blood Count 8.7 Thou/mm3 (3.6-11.0)
[2025-01-14] MEDS: FUROSEMIDE INJ 10 MG/ML 4ML VIAL 40 MG IVP ×2 (05:56→17:38)
[2025-01-14 06:13] LABS: Alanine Aminotransferase < 7 U/L (10-49); Albumin, Serum 2.1 gm/dL (3.4-4.8); Alkaline Phosphatase 121 U/L (46-116); Anion Gap 10 (7-16); Aspartate Amino Transferase 29 U/L (0-34); BUN/Creatinine Ratio 13 Ratio (12-20); Blood Urea Nitrogen 8 mg/dL (9-23); Calcium 7.2 mg/dL (8.3-10.6); Calcium (Corrected) 8.7 mg/dL (8.5-10.1); Carbon Dioxide 30.4 mMol/L (20.0-31.0); Chloride 92 mMol/L (98-107); Creatinine (Component) 0.6 mg/dL (0.6-1.3); Estimated Creatinine Clearance 78.2 mL/min (>60); Globulin 2.2 gm/dL (2.3-3.5); Glucose 81 mg/dL (74-106); Magnesium 1.6 mg/dL (1.6-2.6); Osmolality,Calculated 261 (275-295); Phosphorous 3.2 mg/dL (2.4-5.1); Sodium 132 mMol/L (136-145); Total Protein 4.3 gm/dL (5.7-8.2); eGFR > 60 See Note
[2025-01-14] MEDS: LACTULOSE SYRUP 20 GM/30 ML UDC 10 GM PO (08:40)
[2025-01-14] MEDS: cefTRIAXone/D5w 1gm IV premix 1 GM/50 ML BAG IV (08:40)
[2025-01-14] MEDS: POTASSIUM CHL 10 mEq IVPB 10 MEQ/100 ML BAG 100 MEQ IV (08:40)
[2025-01-14] MEDS: SPIRONOLACTONE 25 MG TABLET 100 MG PO (08:41)
[2025-01-14] MEDS: FOLIC ACID 1 MG TABLET PO ×2 (08:41→20:46)
[2025-01-14] MEDS: THIAMINE 100 MG TABLET PO ×2 (08:41→20:46)
[2025-01-14] MEDS: carVEDILOL 3.125 MG TABLET PO (08:41)
[2025-01-14] MEDS: AZITHROMYCIN 250 MG TABLET 500 MG PO (08:41)
[2025-01-14] MEDS: ACETAMINOPHEN 325 MG TABLET PO (08:51)
[2025-01-14] MEDS: Magnesium Sulfate 4 GM Ivpb 4 GM/50 ML BAG IV (08:51)
[2025-01-14] MEDS: ONDANSETRON INJ 2 MG/ML INJ 2 ML 4 MG IVP (08:52)
[2025-01-14] MEDS: POTASSIUM CHLORIDE 20 mEq TABCR 40 MEQ PO (08:52)
[2025-01-14] MEDS: LORazepam 0.5 MG TABLET PO ×2 (09:04→15:49)
[2025-01-14] MEDS: POTASSIUM CHL 10 mEq IVPB 10 MEQ/100 ML BAG 75 MEQ IV ×3 (11:17→14:28)
--- NOTE | 2025-01-14 11:46 | ESPR_ITS ---
<Statement entered by Tushar Aggarwal MD - 01/15/25 07:19> I discussed with and supervised the international guest coordinator physician involved in the care of this patient. Patient assessment and plan was discussed with entire medicine team, including my attending. I agree with the assessment and plan as documented by international guest coordinator doctor. Patient care was discussed with my attending physician Dr. Navi Aggarwal, PGY-2 Documentation for date of: 01/14/25 Subjective Subjective Interval history: No acute overnight events. Feels better today. Denies new symptoms or worsening of symptoms. Vitals remained stable. Labs remarkable for potassium 3.0, magnesium 1.6 which were repleted. Remainder CMP relatively unchanged. CBC stable, no leukocytosis. Paracentesis yesterday 2.6 L removed, tolerated well. Peritoneal fluid analysis suggest portal hypertension versus cirrhosis, WBC/PMN relatively low. Abdomen is soft, nontender, lower extremity edema appears slightly worse, urine output 550 cc despite diuresis. Currently n.p.o. for EGD later today to evaluate for esophageal varices. Exam Vital Signs Temp Pulse Resp BP Pulse Ox O2 Del Method 97.4 F 79 17 105/68 99 Room Air 01/14/25 08:00 01/14/25 08:41 01/14/25 08:00 01/14/25 08:41 01/14/25 08:00 01/14/25 08:00 Narrative Exam GENERAL * Normal appearing adult female, NAD HEENT * NCAT.?SEBAS. Oral mucosa is moist. Patent Nares NECK * Supple, nontender, no thyromegaly, no meningismus, no JVD, no step offs CHEST * RRR, no m/g/r * CTAB, no w/r/r. Symmetrical chest rise. No intercostal subcostal retraction * Atraumatic, nontender, no crepitus, symmetrical expansion. ABDOMEN * Minimally tender throughout, soft, minimally distended. * Bowel sounds presents EXTREMITIES * 3+ bilateral lower extremity edema SKIN * Warm and dry, no jaundice/rashes. NEUROMUSCULAR * No lumbar or midline, no CVA, no paraspinal muscle spasm or tenderness. * Moves all 4 extremities well, with full ROM and good CSM. * STREETER x4, CN II-XII grossly intact. * No focal neurologic deficits. PSYCHIATRY * Normal mood and affect, cooperative, no SI or HI or hallucinations. Objective Labs 01/14/25 04:57 01/14/25 04:57 Labs: Laboratory Results - last 24 hr 01/13/25 01/14/25 14:23 04:57 WBC 8.7 RBC 3.71 L Hgb 12.6 Hct 34.4 L MCV 93 MCH 34.0 MCHC 36.6 RDW Std Deviation 44.5 Plt Count 250 D Neut % (Auto) 65 Lymph % (Auto) 21 [place] % (Auto) 11 Eos % (Auto) 3 Baso % (Auto) 1 Neut # (Auto) 5.6 Lymph # (Auto) 1.8 [place] # (Auto) 1.0 H Eos # (Auto) 0.2 Baso # (Auto) 0.1 Immature Gran # (Auto) 0.04 H Absolute Nucleated RBC 0.00 Immature Gran % 1 H Nucleated RBC % 0 Sodium 132 L Potassium 3.0 L Chloride 92 L Carbon Dioxide 30.4 Anion Gap 10 BUN 8 L Creatinine 0.6 Estim Creat Clear Calc 78.2 eGFR > 60 BUN/Creatinine Ratio 13 Glucose 81 Calculated Osmolality 261 L Calcium 7.2 L Corrected Calcium 8.7 Phosphorus 3.2 Magnesium 1.6 Total Bilirubin 2.0 H AST 29 ALT < 7 L Alkaline Phosphatase 121 H Total Protein 4.3 L Albumin 2.1 L Globulin 2.2 L Albumin/Globulin Ratio 1.0 L Peritoneal Color Yellow Peritoneal Appearance Clear Peritoneal WBC 70 Peritoneal RBC 0 Periton Polynucl WBCs 14 Periton Mononucl WBCs 86 Peritoneal Tot Protein < 2 Peritoneal Albumin < 1.0 Peritoneal LDH 64 Peritoneal Glucose 131 Peritoneal Amylase < 20 Quality Measures Quality Measures none Advance care planning discussed with:: patient Assessment & Plan Assessment Current Active Medications: Generic Name Dose Route Start Last Admin Trade Name Freq PRN Reason Stop Dose Admin Acetaminophen 325 mg 01/13/25 11:26 01/14/25 08:51 Acetaminophen 325 Mg Tablet PO 02/12/25 11:24 325 mg Q4HR PRN Administration MILD PAIN 1-3 Azithromycin 500 mg 01/14/25 09:00 01/14/25 08:41 Azithromycin 250 Mg Tablet PO 01/19/25 08:59 500 mg QDAY CHASIDY Administration Carvedilol 3.125 mg 01/12/25 08:00 01/14/25 08:41 Carvedilol 3.125 Mg Tablet PO 02/11/25 07:59 3.125 mg BIDWM CHASIDY Administration Folic Acid 1 mg 01/11/25 21:00 01/14/25 08:41 Folic Acid 1 Mg Tablet PO 01/16/25 20:59 1 mg BID CHASIDY Administration Furosemide 40 mg 01/11/25 18:00 01/14/25 05:56 Furosemide Inj 10 Mg/Ml 4ml Vial IVP 02/10/25 17:59 40 mg BIDD CHASIDY Administration Ceftriaxone Sodium/Dextrose 1 gm in 50 mls @ 100 mls/hr 01/11/25 17:40 01/14/25 08:40 Rocephin/D5w 1gm Iv Premix IV 01/18/25 17:39 100 mls/hr QDAY CHASIDY Administration Potassium Chloride 10 meq in 100 mls @ 100 mls/hr 01/14/25 08:00 01/14/25 11:17 Kcl Ivpb IV 01/14/25 11:59 75 mls/hr Q1H CHASIDY Administration Magnesium Sulfate 4 gm in 50 mls @ 12.5 mls/hr 01/14/25 07:57 01/14/25 08:51 Magnesium Sulfate Ivpb IV 01/14/25 11:56 12.5 mls/hr X1 ONE Administration Albumin Human 25 gm in 100 mls @ 100 mls/hr 01/14/25 10:52 Albuminar-25 Ivpb IV 01/14/25 11:51 QDAY ONE Lactulose 10 gm 01/12/25 09:00 01/14/25 08:40 Lactulose Syrup 20 Gm/30 Ml Udc PO 02/11/25 08:59 10 gm QDAY CHASIDY Administration Protocol Lorazepam 0.5 mg 01/11/25 17:10 01/14/25 09:04 Lorazepam 0.5 Mg Tablet PO 01/16/25 17:09 0.5 mg Q4HR PRN Administration CIWA Score 2-6 Lorazepam 1 mg 01/11/25 17:10 01/12/25 12:13 Lorazepam 0.5 Mg Tablet PO 01/16/25 17:09 1 mg Q4HR PRN Administration CIWA SCORE 7-11 Lorazepam 2 mg 01/11/25 17:10 Lorazepam 0.5 Mg Tablet PO 01/16/25 17:09 Q4HR PRN CIWA SCORE 12-15 Lorazepam 1 mg 01/11/25 17:10 Lorazepam 2 Mg/Ml Vial IV 01/16/25 17:09 Q2HR PRN CIWA SCORE 16-19 Lorazepam 2 mg 01/11/25 17:10 01/11/25 18:48 Lorazepam 2 Mg/Ml Vial IV 01/16/25 17:09 2 mg Q2HR PRN Administration CIWA SCORE 20-25 Ondansetron HCl 4 mg 01/11/25 17:10 01/14/25 08:52 Ondansetron Inj 2 Mg/Ml Inj 2 Ml IVP 02/10/25 17:09 4 mg Q6H PRN Administration NAUSEA OR VOMITING Protocol Spironolactone 100 mg 01/14/25 09:00 01/14/25 08:41 Spironolactone 25 Mg Tablet PO 02/13/25 08:59 100 mg QDAY CHASIDY Administration Thiamine HCl 100 mg 01/11/25 21:00 01/14/25 08:41 Thiamine 100 Mg Tablet PO 01/16/25 20:59 100 mg BID CHASIDY Administration Plan 68-year-old female with PMHx of liver cirrhosis with recurrent ascites, chronic lymphedema, alcohol use disorder, psych and anxiety disorder, presented on 01/11 with abdominal pain and distention, admitted for decompensated liver cirrhosis with significant ascites, continued on CIWA protocol. Appreciate recommendations from GI team. Acute decompensated liver disease Anasarca Alcohol use disorder Presented with abdominal distention and pain. Has chronic alcohol related liver cirrhosis with recurrent decompensation. CT abdomen redemonstrated cirrhosis along with prominent ascites, no bowel obstruction. Normal ultrasound also showed liver cirrhosis with prominent cystic liver, small left kidneys and moderate left renal parenchymal scarring, as well as ascites. TB 3.2, AST 34, ALT 10, ALP 146, ALBUMIN 2.4. Lipase negative. U tox positive for alcohol. 10?points Child Class C Life Expectancy : 1-3 years Abdominal surgery trevor- operative mortality: 82% Madrey's discriminant function score 12.4, good prognosis no indications for steroids. No signs or symptoms of hepatic encephalopathy. Hepatitis panel negative on previous visit. Completed uncomplicated paracentesis with 2600 cc fluid removed. Abdomen soft, minimally distended, nontender. SAAG 1.1, peritoneal protein <2.5, suggesting portal hypertension versus cirrhosis as expected. Peritoneal WBC and PMN low, remains afebrile, no leukocytosis, low suspicion for SBP. Urine output remains poor despite diuresis. Has persistent lower extremity edema, but she does have lymphedema at baseline. ALBUMIN 2.0, repleted. Will continue with diuresis for now. May need another paracentesis eventually. ? Continue LASIX 40 mg BID ? Continue SPIRONOLACTONE 25 mg IV daily ? Continue COREG 3.125 mg daily for variceal prophylaxis. ? Continue CEFTRIAXONE 1 g for SBP prophylaxis (01/12 to present) ? Given ALBUMIN 25 mg x 1 ? Continue CIWA protocol ? THIAMINE and folate supplements on board ? Strict ANAY's ? Fluid restrictions Pneumonia He is on minimal oxygen supplement, denies cough or shortness of breath. Came with mild leukocytosis which has resolved since. CXR showed mild left base pneumonia. Remains asymptomatic, afebrile, no leukocytosis, 48H blood cx negative, MRSA swap neg. ? Continue CEFTRIAXONE as above ? Continue AZITHROMYCIN (01/12 to present) Electrolyte abnormalities Presenting to the ED with multiple electrolyte derangements likely secondary to decompensated liver cirrhosis ? Daily labs ? Replete as needed Bilateral lower extremity edema Chronic lymphedema Patient reported history of chronic lymphedema since age 10, no worsening bilateral lower extreme edema On p.o. diuresis at home, now worsening weakness and difficulty walking. Less likely concern for DVT, likely chronic lymphedema and cirrhosis leading to bilateral lower extremity swelling ECHO from 12/30/24 shows: Normal LV size. Mild LVH. Hyperdynamic LV. Grade I diastolic dysfunction. Estimated EF > 70%. Normal RV size and systolic function. Trace TR and cannot estimate RVSP. Mild MAC. Trace MR. Mild AI. Mild AV sclerosis without stenosis. No evidence of any pericardial effusion. ? Continue monitoring Health maintenance Diet: Cardiac GI prophylaxis: LACTULOSE DVT prophylaxis: SCD Antibiotics: CEFTRIAXONE, AZITHROMYCIN CODE STATUS: Full code Disposition: Pending paracentesis Case was discussed with attending physician and senior resident. Abdi Dowell DO PGYI Attending Provider Attestation/Addendum I have discussed and was present for the essential components of the history, physical examination, diagnosis, and treatment plan with the resident. I agree with the patient's care as documented by the resident and amended herein by me. Melchor Mcelroy DO. Patient seen and evaluated in the morning. Vital signs stable, patient afebrile overnight, significant labs include a potassium of 3 which has been repleted. 2.6 L removed yesterday from paracentesis, fluid studies pending however SAAG indicating portal hypertension. EGD pending with Dr. Tavares for prophylactic banding of potential varices. Will continue Lasix and spironolactone for now, ceftriaxone azithromycin for pneumonia, as stated in previous documentation, patient will need outpatient MRI for liver lesion follow-up. Will continue to monitor closely while she is here, may need another paracentesis prior to discharge as she is still quite distended however abdomen soft. Although this document has been carefully reviewed, there may still be some phonetic and other typographical errors. These errors are purely grammatical due to imperfections in the software program and should not be construed in any way to compromise the substance of the patient's medical care during this visit.
[2025-01-14] MEDS: ALBUMIN HUMAN 25% IVPB 25 GM/100 ML BTL IV (14:28)
--- NOTE | 2025-01-14 15:54 | PC.SS ---
Rounding note: pending EGD.
--- NOTE | 2025-01-14 19:00 | SUR.PHASEI ---
Arrived to [facility] [place] [facility] via [facility]. Report received from [facility]. Resting with eyes closed but responds to name. Responding appropriately to questions and commands. No c/o pain or discomfort. No s/o distress. Respirations even and unlabored.
--- NOTE | 2025-01-14 19:40 | SUR.PHASEI ---
Taken to room 353 via gurney. Transferred to bed and made comfortable. MY Horton and YOSELYN at bedside. No s/o distress or discomfort.
--- NOTE | 2025-01-14 19:45 | PC.NURSE ---
Pt back to room from endo via [facility].
[2025-01-15] VITALS (10 sets, daily range): BP systolic 91–108; BP diastolic 54–76; PULSE 78–91; RESP 15–19; TEMP 36.2–36.3; O2SAT 94–95
[2025-01-15 05:44] LABS: Basophils # (Auto) 0.1 Thou/mm3 (0.0-0.2); Basophils % (Auto) 1 % (0-2.5); Eosinophils # (Auto) 0.2 Thou/mm3 (0.0-0.5); Eosinophils % (Auto) 3 % (0-10); Hematocrit 36.1 % (36.0-46.0); Hemoglobin 12.9 g/dL (12.0-16.0); Immature Granulocytes % (Auto) 1 % (0-0); Immature Granulocytes Auto 0.06 Thou/mm3 (0.00-0.00); Lymphocytes # (Auto) 1.7 Thou/mm3 (1.0-4.8); Lymphocytes % (Auto) 19 % (10-50); Mean Corpuscular HGB Conc 35.7 g/dl (31.0-37.0); Mean Corpuscular Hemoglobin 33.8 pg (25.0-35.0); Mean Corpuscular Volume 95 fL (80-100); Monocytes % (Auto) 12 % (0-12); Neutrophils # (Auto) 5.7 Thou/mm3 (1.8-7.7); Neutrophils % (Auto) 65 % (37-80); Nucleated Red Blood Cell % 0 /100 WBC (0); Platelet Count 266 Thou/mm3 (140-440); RDW Standard Deviation 44.9 fL (36.4-46.3); Red Blood Count 3.82 Miln/mm3 (4.00-5.20); White Blood Count 8.7 Thou/mm3 (3.6-11.0)
[2025-01-15 06:36] LABS: Alanine Aminotransferase 8 U/L (10-49); Albumin, Serum 2.4 gm/dL (3.4-4.8); Alkaline Phosphatase 114 U/L (46-116); Anion Gap 9 (7-16); Aspartate Amino Transferase 31 U/L (0-34); BUN/Creatinine Ratio 12 Ratio (12-20); Bilirubin,Total 1.8 mg/dL (0.3-1.2); Blood Urea Nitrogen 7 mg/dL (9-23); Calcium 7.5 mg/dL (8.3-10.6); Calcium (Corrected) 8.8 mg/dL (8.5-10.1); Carbon Dioxide 31.2 mMol/L (20.0-31.0); Chloride 92 mMol/L (98-107); Creatinine (Component) 0.6 mg/dL (0.6-1.3); Estimated Creatinine Clearance 78.5 mL/min (>60); Globulin 2.3 gm/dL (2.3-3.5); Glucose 76 mg/dL (74-106); Osmolality,Calculated 261 (275-295); Potassium 3.4 mMol/L (3.4-5.1); Sodium 132 mMol/L (136-145); Total Protein 4.7 gm/dL (5.7-8.2); eGFR > 60 See Note
--- NOTE | 2025-01-15 07:46 | XR_ITS ---
Examination: Abdomen sonogram, Limited Date and time of exam: January 15, 2025 1208 hours INDICATIONS: Increasing abdominal distention this week Technique: Real-time barros scale transabdominal sonographic images of the upper abdomen obtained. Findings: Minimal ascitic fluid IMPRESSION: Minimal ascitic fluid
--- NOTE | 2025-01-15 07:51 | PD.RESPRO ---
Documentation for date of: 01/15/25 Exam Vital Signs Temp Pulse Resp BP Pulse Ox O2 Del Method O2 Flow Rate 97.3 F 83 15 100/61 94 L Room Air 3 01/15/25 04:00 01/15/25 05:21 01/15/25 04:00 01/15/25 05:21 01/15/25 04:00 01/15/25 04:00 01/14/25 19:00 Objective Labs 01/15/25 04:33 01/15/25 04:33 Labs: Laboratory Results - last 24 hr 01/15/25 04:33 WBC 8.7 RBC 3.82 L Hgb 12.9 Hct 36.1 MCV 95 MCH 33.8 MCHC 35.7 RDW Std Deviation 44.9 Plt Count 266 Neut % (Auto) 65 Lymph % (Auto) 19 [place] % (Auto) 12 Eos % (Auto) 3 Baso % (Auto) 1 Neut # (Auto) 5.7 Lymph # (Auto) 1.7 [place] # (Auto) 1.0 H Eos # (Auto) 0.2 Baso # (Auto) 0.1 Immature Gran # (Auto) 0.06 H Absolute Nucleated RBC 0.00 Immature Gran % 1 H Nucleated RBC % 0 Sodium 132 L Potassium 3.4 Chloride 92 L Carbon Dioxide 31.2 H Anion Gap 9 BUN 7 L Creatinine 0.6 Estim Creat Clear Calc 78.5 eGFR > 60 BUN/Creatinine Ratio 12 Glucose 76 Calculated Osmolality 261 L Calcium 7.5 L Corrected Calcium 8.8 Total Bilirubin 1.8 H AST 31 ALT 8 L Alkaline Phosphatase 114 Total Protein 4.7 L Albumin 2.4 L Globulin 2.3 Albumin/Globulin Ratio 1.0 L Quality Measures Quality Measures none Assessment & Plan Assessment Current Active Medications: Generic Name Dose Route Start Last Admin Trade Name Freq PRN Reason Stop Dose Admin Acetaminophen 325 mg 01/13/25 11:26 01/14/25 08:51 Acetaminophen 325 Mg Tablet PO 02/12/25 11:24 325 mg Q4HR PRN Administration MILD PAIN 1-3 Azithromycin 500 mg 01/14/25 09:00 01/14/25 08:41 Azithromycin 250 Mg Tablet PO 01/19/25 08:59 500 mg QDAY CHASIDY Administration Calcium Carbonate 600 mg 01/15/25 09:00 Calcium Carbonate 600 Mg Tablet PO 02/14/25 08:59 QDAY CHASIDY Carvedilol 3.125 mg 01/12/25 08:00 01/14/25 17:35 Carvedilol 3.125 Mg Tablet PO 02/11/25 07:59 Not Given BIDWM CHASIDY Folic Acid 1 mg 01/11/25 21:00 01/14/25 20:46 Folic Acid 1 Mg Tablet PO 01/16/25 20:59 1 mg BID CHASIDY Administration Furosemide 40 mg 01/11/25 18:00 01/15/25 05:21 Furosemide Inj 10 Mg/Ml 4ml Vial IVP 02/10/25 17:59 Not Given BIDD CHASIDY Ceftriaxone Sodium/Dextrose 1 gm in 50 mls @ 100 mls/hr 01/11/25 17:40 01/14/25 08:40 Rocephin/D5w 1gm Iv Premix IV 01/18/25 17:39 100 mls/hr QDAY CHASIDY Administration Magnesium Sulfate 2 gm in 50 mls @ 25 mls/hr 01/15/25 07:49 Magnesium Sulfate Ivpb IV 01/15/25 09:48 X1 ONE Lactulose 10 gm 01/12/25 09:00 01/14/25 08:40 Lactulose Syrup 20 Gm/30 Ml Udc PO 02/11/25 08:59 10 gm QDAY CHASIDY Administration Protocol Lorazepam 0.5 mg 01/11/25 17:10 01/14/25 15:49 Lorazepam 0.5 Mg Tablet PO 01/16/25 17:09 0.5 mg Q4HR PRN Administration CIWA Score 2-6 Lorazepam 1 mg 01/11/25 17:10 01/12/25 12:13 Lorazepam 0.5 Mg Tablet PO 01/16/25 17:09 1 mg Q4HR PRN Administration CIWA SCORE 7-11 Lorazepam 2 mg 01/11/25 17:10 Lorazepam 0.5 Mg Tablet PO 01/16/25 17:09 Q4HR PRN CIWA SCORE 12-15 Lorazepam 1 mg 01/11/25 17:10 Lorazepam 2 Mg/Ml Vial IV 01/16/25 17:09 Q2HR PRN CIWA SCORE 16-19 Lorazepam 2 mg 01/11/25 17:10 01/11/25 18:48 Lorazepam 2 Mg/Ml Vial IV 01/16/25 17:09 2 mg Q2HR PRN Administration CIWA SCORE 20-25 Ondansetron HCl 4 mg 01/11/25 17:10 01/14/25 08:52 Ondansetron Inj 2 Mg/Ml Inj 2 Ml IVP 02/10/25 17:09 4 mg Q6H PRN Administration NAUSEA OR VOMITING Protocol Potassium Chloride 40 meq 01/15/25 07:49 Potassium Chloride 20 Meq Tabcr PO 01/15/25 07:50 X1 ONE Spironolactone 100 mg 01/14/25 09:00 01/14/25 08:41 Spironolactone 25 Mg Tablet PO 02/13/25 08:59 100 mg QDAY CHASIDY Administration Thiamine HCl 100 mg 01/11/25 21:00 01/14/25 20:46 Thiamine 100 Mg Tablet PO 01/16/25 20:59 100 mg BID CHASIDY Administration Plan 68-year-old female with PMHx of liver cirrhosis with recurrent ascites, chronic lymphedema, alcohol use disorder, psych and anxiety disorder, presented on 01/11 with abdominal pain and distention, admitted for decompensated liver cirrhosis with significant ascites, continued on CIWA protocol. Appreciate recommendations from GI team. Acute decompensated liver disease Anasarca Alcohol use disorder Presented with abdominal distention and pain. Has chronic alcohol related liver cirrhosis with recurrent decompensation. CT abdomen redemonstrated cirrhosis along with prominent ascites, no bowel obstruction. Normal ultrasound also showed liver cirrhosis with prominent cystic liver, small left kidneys and moderate left renal parenchymal scarring, as well as ascites. TB 3.2, AST 34, ALT 10, ALP 146, ALBUMIN 2.4. Lipase negative. U tox positive for alcohol. 10?points Child Class C Life Expectancy : 1-3 years Abdominal surgery trevor-operative mortality: 82% Madrey's discriminant function score 12.4, good prognosis no indications for steroids. No signs or symptoms of hepatic encephalopathy. Hepatitis panel negative on previous visit. Completed uncomplicated paracentesis with 2600 cc fluid removed. Abdomen soft, minimally distended, nontender. SAAG 1.1, peritoneal protein <2.5, suggesting portal hypertension versus cirrhosis as expected. Peritoneal WBC and PMN low, remains afebrile, no leukocytosis, low suspicion for SBP. Urine output remains poor despite diuresis. Has persistent lower extremity edema, but she does have lymphedema at baseline. ALBUMIN 2.0, repleted. Will continue with diuresis for now. May need another paracentesis eventually. ? Continue LASIX 40 mg BID ? Continue SPIRONOLACTONE 25 mg IV daily ? Continue COREG 3.125 mg daily for variceal prophylaxis. ? Continue CEFTRIAXONE 1 g for SBP prophylaxis (01/12 to present) ? Given ALBUMIN 25 mg x 1 ? Continue CIWA protocol ? THIAMINE and folate supplements on board ? Strict ANAY's ? Fluid restrictions Pneumonia He is on minimal oxygen supplement, denies cough or shortness of breath. Came with mild leukocytosis which has resolved since. CXR showed mild left base pneumonia. Remains asymptomatic, afebrile, no leukocytosis, 48H blood cx negative, MRSA swap neg. ? Continue CEFTRIAXONE as above ? Continue AZITHROMYCIN (01/12 to present) Grade I esophageal varices (w/o bleed) Esophageal ulcers Seen on EGD 01/14/25, no active bleed. GI recs as below: ? Electrolyte abnormalities Presenting to the ED with multiple electrolyte derangements likely secondary to decompensated liver cirrhosis ? Daily labs ? Replete as needed Bilateral lower extremity edema Chronic lymphedema Patient reported history of chronic lymphedema since age 10, no worsening bilateral lower extreme edema On p.o. diuresis at home, now worsening weakness and difficulty walking. Less likely concern for DVT, likely chronic lymphedema and cirrhosis leading to bilateral lower extremity swelling ECHO from 12/30/24 shows: Normal LV size. Mild LVH. Hyperdynamic LV. Grade I diastolic dysfunction. Estimated EF > 70%. Normal RV size and systolic function. Trace TR and cannot estimate RVSP. Mild MAC. Trace MR. Mild AI. Mild AV sclerosis without stenosis. No evidence of any pericardial effusion. ? Continue monitoring Health maintenance Diet: Cardiac GI prophylaxis: LACTULOSE DVT prophylaxis: SCD Antibiotics: CEFTRIAXONE, AZITHROMYCIN CODE STATUS: Full code Disposition: Pending paracentesis Case was discussed with attending physician and senior resident. Abdi Dowell DO PGYI Attending Provider Attestation/Addendum I have discussed and was present for the essential components of the history, physical examination, diagnosis, and treatment plan with the resident. I agree with the patient's care as documented by the resident and amended herein by me. Melchor Mcelroy DO. Patient seen and evaluated in the morning. Vital signs stable, patient afebrile overnight, significant labs include a potassium of 3 which has been repleted. 2.6 L removed yesterday from paracentesis, fluid studies pending however SAAG indicating portal hypertension. EGD pending with Dr. Tavares for prophylactic banding of potential varices. Will continue Lasix and spironolactone for now, ceftriaxone azithromycin for pneumonia, as stated in previous documentation, patient will need outpatient MRI for liver lesion follow-up. Will continue to monitor closely while she is here, may need another paracentesis prior to discharge as she is still quite distended however abdomen soft. Although this document has been carefully reviewed, there may still be some phonetic and other typographical errors. These errors are purely grammatical due to imperfections in the software program and should not be construed in any way to compromise the substance of the patient's medical care during this visit.
[2025-01-15 08:59] LABS: INR 1.2 (0.9-1.3); Partial Thromboplastin Time 36.2 Seconds (22.0-36.0); Prothrombin Time 12.9 Seconds (9.0-12.2)
[2025-01-15] MEDS: Magnesium Sulfate 2 GM Ivpb 2 GM/50 ML BAG IV (09:12)
[2025-01-15] MEDS: cefTRIAXone/D5w 1gm IV premix 1 GM/50 ML BAG IV (09:12)
[2025-01-15] MEDS: AZITHROMYCIN 250 MG TABLET 500 MG PO (09:13)
[2025-01-15] MEDS: carVEDILOL 3.125 MG TABLET PO (09:13)
[2025-01-15] MEDS: FOLIC ACID 1 MG TABLET PO (09:13)
[2025-01-15] MEDS: POTASSIUM CHLORIDE 20 mEq TABCR 40 MEQ PO (09:13)
[2025-01-15] MEDS: SPIRONOLACTONE 25 MG TABLET 100 MG PO (09:13)
[2025-01-15] MEDS: LACTULOSE SYRUP 20 GM/30 ML UDC 10 GM PO (09:13)
[2025-01-15] MEDS: THIAMINE 100 MG TABLET PO (09:35)
[2025-01-15] MEDS: CALCIUM CARBONATE 600 MG TABLET PO (09:35)
[2025-01-15] MEDS: LORazepam 0.5 MG TABLET 1 MG PO (09:35)
--- NOTE | 2025-01-15 13:31 | PD.IMPROG ---
Documentation for date of: 01/15/25 Subjective Subjective Interval history: Upper endoscopy showed 1+ esophageal varices not large enough for medication Distal esophageal ulcerations and gastritis Hemoglobin hematocrit 12.9 and 36.1 Exam Vital Signs Temp Pulse Resp BP Pulse Ox O2 Del Method O2 Flow Rate 97.3 F 83 17 97/54 L 94 L Room Air 3 01/15/25 12:00 01/15/25 12:00 01/15/25 12:00 01/15/25 12:00 01/15/25 12:00 01/15/25 12:00 01/14/25 19:00 Objective Labs 01/15/25 04:33 01/15/25 04:33 Labs: Laboratory Results - last 24 hr 01/15/25 01/15/25 04:33 04:38 WBC 8.7 RBC 3.82 L Hgb 12.9 Hct 36.1 MCV 95 MCH 33.8 MCHC 35.7 RDW Std Deviation 44.9 Plt Count 266 Neut % (Auto) 65 Lymph % (Auto) 19 [place] % (Auto) 12 Eos % (Auto) 3 Baso % (Auto) 1 Neut # (Auto) 5.7 Lymph # (Auto) 1.7 [place] # (Auto) 1.0 H Eos # (Auto) 0.2 Baso # (Auto) 0.1 Immature Gran # (Auto) 0.06 H Absolute Nucleated RBC 0.00 Immature Gran % 1 H Nucleated RBC % 0 PT 12.9 H INR 1.2 APTT 36.2 H Sodium 132 L Potassium 3.4 Chloride 92 L Carbon Dioxide 31.2 H Anion Gap 9 BUN 7 L Creatinine 0.6 Estim Creat Clear Calc 78.5 eGFR > 60 BUN/Creatinine Ratio 12 Glucose 76 Calculated Osmolality 261 L Calcium 7.5 L Corrected Calcium 8.8 Total Bilirubin 1.8 H AST 31 ALT 8 L Alkaline Phosphatase 114 Total Protein 4.7 L Albumin 2.4 L Globulin 2.3 Albumin/Globulin Ratio 1.0 L Impressions Impression: # Linear distal esophageal ulcers # 1+ esophageal varices not large enough for band ligation # Gastritis Continue current management Assessment & Plan A&P Narrative # Decompensated liver disease secondary to alcohol with advanced portal hypertension intractable ascites in a noncompliant patient plan recommend large-volume paracentesis ultrasound-guided IV Lasix 40 mg once a day Spironolactone p.o. 25 mg twice daily Strict input and output chart 1 L p.o. fluid restriction in 24 hours Daily weight Advised the patient to be completely abstain from alcohol Prognosis is guarded and poor Will do an upper endoscopy prior to discharge once patient's ascites and other medical issues are taken care of Thank you very much for the opportunity to participate in care of this patient Other medical problems include IDDM Hypothyroidism Time Spent With Patient Time: Total time spent is greater than 50% in coordination of care (as documented) at patient's floor/unit and/or counseling patient:
--- NOTE | 2025-01-15 13:55 | ESDS_ITS ---
<Statement entered by Tushar Aggarwal MD - 01/16/25 07:13> I discussed with and supervised the diversity intern physician involved in the care of this patient. Patient assessment and plan was discussed with entire medicine team, including my attending. I agree with the assessment and plan as documented by diversity intern doctor. Patient care was discussed with my attending physician Dr. Navi Aggarwal, PGY-2 Planned Discharge Date 01/15/25 DS: Providers Provider Date of admission: 01/11/25 17:10 Primary care physician: Ted Burnett MD Admitting Provider: Mihir Santiago MD Attending Provider on Admission: Hernán Mcelroy DO Consults: 01/12/25 10:05 Consult to Gastroenterology Routine Comment: decomp alcoholic liver cirrhosis Consulting Provider: Adenike Tavares Attending Provider on DC: Hernán Mcelroy DO Discharging Provider: Hernán Mcelroy DO DS: Diagnosis Problem List Completed Was Problem List Reviewed/Reconciled?: Yes Hospital Course Hospital Course Hospital course: This is a 68-year-old female with PMHx of alcoholic, decomponsated liver cirrhosis with recurrent ascites, chronic lymphedema, alcohol use disorder, ps ych and anxiety disorder, presented on 01/11 with abdominal pain and distention, admitted for decompensated liver cirrhosis with significant ascites. She remained ANO x 4, no signs of hepatic encephalopathy. She continued on LASIX and SPIRONOLACTONE, COREG, and CEFTRIAXONE for SBP prophylaxis. She underwent paracentesis with roughly 2.6L removed. Repeat abdominal ultrasound on the day of discharge showed no significant fluid to remove. Pleural fluid analysis indicated portal hypertension versus liver cirrhosis as expected. Pleural cytology ruled out SBP. EGD was performed showing grade I esophageal varices with esophageal ulcers, no signs of active bleed. GI recommended PROTONIX and sodium restrictions 2 g daily. In addition, she completed a course of ABX for pneumonia seen on imaging. She remained asymptomatic without cough, chest pain or sob. Patient was stable at the time of discharge and was discharged home. 10?points Child Class C Life Expectancy: 1-3 years Abdominal surgery trevor- operative mortality: 82% Madrey's discriminant function score 12.4, good prognosis no indications for steroids. IMAGE FINDINGS: * Initial abdominal ultrasound showed cirrhosis, with persistent, mild left kidney with moderate left renal parenchymal scarring, mild ascites. * CXR showed mild left basilar pneumonia. * CT abdominal pelvis showed cirrhosis, focal low-density liver lesion, prominent ascites, no bowel obstruction, hepatic colopathy. * Chest CTA showed moderate vascular congestion, no pneumonia, no edema, no pleural disease, no PE, no mediastinal lymphadenopathy. * Head CT was negative for acute hemorrhage, mass effect or midline shift. * Repeat abdominal ultrasound on the day of discharge showed no significant fluid to drain safely. PATIENT INSTRUCTIONS: Follow-up with PCP within 1-2 weeks of discharge. Follow-up with PCP regarding liver lesion as noted in image findings above. Follow-up with GI within 1-2 weeks of discharge. Avoid NSAIDs including IBUPROFEN/ADVIL indefinitely. Limit salt restriction to 2 g daily. Limit total fluid intake to <2 L daily. Return to Emergency Room if symptoms persist, worsen, or new symptoms develop. Continue taking medications as prescribed below. ADMISSION DIAGNOSES: Acute decompensated liver disease Anasarca Alcohol use disorder Pneumonia (resolved) Electrolyte abnormalities (resolved) Bilateral lower extremity edema 2/2 chronic lymphedema (improved) Case was discussed with attending physician and senior resident. Abdi Dowell DO PGYI Status at Discharge Functional status at discharge: independent ambulation Overall status at discharge: patient is back to baseline Time Spent with Patient Time attestation: Total time spent providing and/or coordinating discharge services: Greater than 35 minutes. Time spent: Greater than 30 minutes Exam Vital Signs Temp Pulse Resp BP Pulse Ox O2 Del Method O2 Flow Rate 97.3 F 83 17 97/54 L 94 L Room Air 3 01/15/25 12:01/15/25 12:01/15/25 12:01/15/25 12:01/15/25 12:01/15/25 12:01/14/25 19:00 Narrative Exam GENERAL * Normal appearing adult female, NAD HEENT * NCAT.?SEBAS. Oral mucosa is moist. Patent Nares NECK * Supple, nontender, no thyromegaly, no meningismus, no JVD, no step offs CHEST * RRR, no m/g/r * CTAB, no w/r/r. Symmetrical chest rise. No intercostal subcostal retraction * Atraumatic, nontender, no crepitus, symmetrical expansion. ABDOMEN * soft, minimally distended. * Bowel sounds presents EXTREMITIES * 2+ bilateral lower extremity edema SKIN * Warm and dry, no jaundice/rashes. NEUROMUSCULAR * No lumbar or midline, no CVA, no paraspinal muscle spasm or tenderness. * Moves all 4 extremities well, with full ROM and good CSM. * STREETER x4, CN II-XII grossly intact. * No focal neurologic deficits. PSYCHIATRY * Normal mood and affect, cooperative, no SI or HI or hallucinations. Discharge Plan Plan Patient Disposition: HOME (Self Care) Care Plan Goals: Follow-up with PCP within 1-2 weeks of discharge. Follow-up with PCP regarding liver lesion as noted in image findings above. Follow-up with GI within 1-2 weeks of discharge. Avoid NSAIDs including IBUPROFEN/ADVIL indefinitely. Limit salt restriction to 2 g daily. Limit total fluid intake to <2 L daily. Return to Emergency Room if symptoms persist, worsen, or new symptoms develop. Continue taking medications as prescribed below. Highly recommended alcohol cessation, close follow-up with GI in order to qualify for liver transplant after 6 months of alcohol cessation. Prescriptions/Referrals Prescriptions/Med Rec: New spironolactone 25 mg Tablet 100 mg PO QDAY Qty: 120 0RF Rx Instructions: Take 4 tablets (total 100 mg) daily carvedilol 3.125 mg tablet 3.125 mg PO BID Qty: 60 0RF Rx Instructions: must administer with a meal/food furosemide [Lasix] 20 mg tablet 20 mg PO QDAY Qty: 30 0RF pantoprazole [Protonix] [address] for susp in packet 40 mg PO QDAY Qty: 30 0RF Continued thyroid (pork) [[place] Thyroid] 120 mg tablet 120 mg PO QDAY buspirone 10 mg tablet 10 mg PO QDAY Patient Comments: TAKE 1 TABLET BY MOUTH EVERY DAY FOR 30 DAYS estradiol 0.05 mg/24 hr patch semiweekly 0.05 mg TOPICAL .twice a week Patient Comments: APPLY 1 PATCH TOPICALLY TO THE SKIN 2 TIMES A WEEK alprazolam 0.5 mg tablet 0.5 mg PO HS Patient Comments: TAKE 1 TABLET BY MOUTH EVERY DAY FOR 30 DAYS Discontinued metoprolol tartrate 25 mg tablet 25 mg PO BID furosemide 20 mg tablet 20 mg PO QDAY Referrals: Ted Burnett MD [Primary Care Provider] - Patient/Caregiver Discharge Instructions Education Materials: Esophageal Varices, Paracentesis Dc, Upper GI Endoscopy, Taking a Diuretic Print Language: Polish Stand Alone Forms: Mayuri Award Info., Patient Portal Info Letter Discharge Order Discharge Orders: Discharge (Routine); Ordered 01/15/25 Ordered By: Abdi Dowell Quality Discharge Quality Measures VTE prophylaxis Attestestation Attestation I have discussed and was present for the essential components of the discharge history, physical examination, diagnosis, and discharge treatment plan with the resident. I agree with the patient's discharge care as documented by the resident and amended herein by me. Melchor Mcelroy, . The patient understood all discharge instructions, all questions were answered satisfactorily. The patient was instructed to return to the Emergency Department is symptoms worsened or persisted. Patient significantly improved on day of discharge, the patient did have an endoscopy which demonstrated grade 1 esophageal varices, gastritis, esophageal ulcers. Recommended continuing PPI, 2 g sodium diet and fluid restriction for 24 hours and the avoidance of NSAIDs. We also performed a repeat ultrasound on 01/15 to assess for any reaccumulation of ascites fluid however there was only minimal fluid demonstrated hence no repeat paracentesis needed. The patient will need follow-up with hepatobiliary specialist in the future, this was explained to her and she did understand. Patient will also need to follow-up with her primary care physician within 5 to 7 days of discharge. Patient also completed a course of broad-spectrum IV antibiotics for pneumonia for total of 5 days. The patient's peritoneal cultures are still pending at time of discharge however ascites fluid cell count was negative for any SBP which is highly sensitive. All questions were answered satisfactorily, the patient understood follow-up instructions. Patient was stable, afebrile, tolerating p.o. intake and ambulatory at time of discharge home. Although this document has been carefully reviewed, there may still be some phonetic and other typographical errors. These errors are purely grammatical due to imperfections in the software program and should not be construed in any way to compromise the substance of the patient's medical care during this visit.
== END 2025-01-15 16:15 | disposition home or self-care (01) | DRG 432 ==
LOC: SERX 12:12 → SERHOLD 17:22 → S3NX 01-12 03:49
PROVIDERS: Emergency Medicine; Specialist; Admitting Provider Student in an Organized Health Care Education/Training Program; Emergency Provider Emergency Medicine; PCP Family Medicine; Visit Provider Student in an Organized Health Care Education/Training Program
PROC: (CPT 43239; principal; 2025-01-14 19:30)
DX: K70.31 Alcoholic cirrhosis of liver with ascites (principal); J18.9 Pneumonia, unspecified organism; F10.139 Alcohol abuse with withdrawal, unspecified; I85.10 Secondary esophageal varices without bleeding; K76.6 Portal hypertension; K22.10 Ulcer of esophagus without bleeding; I89.0 Lymphedema, not elsewhere classified; F41.9 Anxiety disorder, unspecified; I10 Essential (primary) hypertension; K76.89 Other specified diseases of liver; E03.9 Hypothyroidism, unspecified; E11.9 Type 2 diabetes mellitus without complications; J45.909 Unspecified asthma, uncomplicated; Z79.4 Long term (current) use of insulin; Z79.899 Other long term (current) drug therapy; Z91.199 Patient's noncompliance with other medical treatment and regimen due to unspecified reason
CPT/HCPCS: 36415; 70450; 71045; 71275; 74177; 76700; 76705; 80053; 80069; 80307; 80320; 81001; 82042; 82150; 82248; 82945; 83036; 83605; 83615; 83690; 83735; 83880; 84100; 84145; 84157; 84439; 84443; 84484; 85025; 85379; 85610; 85652; 85730; 86140; 87040; 87070; 87075; 87081; 87205; 87400; 87811; 89051; 93005; 93225; 96365; 96366; 96367; 96368; 96375; 99285; A4649; C1729; J0456; J0696; J1200; J1938; J2060; J2250; J2405; J3010; J3475; J3480; J7050; P9047; Q9967; A9270; G0480

== ENCOUNTER 2025-02-06 10:36 | Inpatient (IN) | payer MEDICARE, OTHER, SELFPAY ==
[2025-02-06] VITALS (8 sets, daily range): BP systolic 115–132; BP diastolic 74–89; PULSE 103–119; RESP 18–100; TEMP 36.3–36.8; O2SAT 95–100; BMI 29.3; BMI 33.4
--- NOTE | 2025-02-06 11:16 | PD.EDRME ---
Rapid Medical Screening Exam RME Arrival date/time: 02/06/25 10:36 Chief Complaint: Abdominal Pain Time Seen by Provider: 02/06/25 11:00 Vital signs: Vital Signs Temperature 97.6 F 02/06/25 10:53 Pulse Rate 115 H 02/06/25 10:53 Respiratory Rate 18 02/06/25 10:53 Blood Pressure 132/89 H 02/06/25 10:53 Pulse Oximetry (%) 96 02/06/25 10:53 Oxygen Delivery Method Room Air 02/06/25 10:53 Vital signs reviewed by provider: Yes RME Narrative: 69-year-old female with past medical history of cirrhosis presents for evaluation of abdominal distention and lower extremity edema. She reports intermittent dyspnea and nonproductive cough. Patient denies chest pain, nausea, vomiting, abdominal pain, fever.
--- NOTE | 2025-02-06 11:17 | EKG_ITS ---
[facility] Test Date: 2025-02-06 Pat Name: LISSETT EDWARDS Department: Room: - Gender: Female Recreation Officer: : 1955 Requested By: Patel Coe Order Number: [id number] Reading MD: Patel Coe Measurements Intervals Dinosaur Rate: 87 P: LA: QRS: 203 QRSD: 68 T: 192 QT: 311 QTc: 376 Interpretive Statements ATRIAL FIBRILLATION POSSIBLE RIGHT VENTRICULAR HYPERTROPHY [SOME/ALL OF: PROMINENT R IN V1, LATE TRANSITION, RAD, ZENON, SSS] POSSIBLE ANTERIOR MYOCARDIAL INFARCTION , OF INDETERMINATE AGE [30 ms Q WAVE IN V3/V4, OR R < 0.2 mV IN V4] INFERIOR MYOCARDIAL INFARCTION , OF INDETERMINATE AGE [40+ ms Q WAVE AND/OR ST/T ABNORMALITY IN II/aVF] Compared to ECG 12/31/2024 12:23:07 Sinus tachycardia no longer present Myocardial infarct finding still present /store/S0/[id number]/ecg/[id number].pdf
--- NOTE | 2025-02-06 11:17 | XR_ITS ---
Examination: PA lateral chest 2 views TECHNIQUE: Upright PA lateral chest 2 views Date and time: February 06, 2025 1208 hours INDICATIONS: Chest pain beginning 3 days ago. FINDINGS: Normal heart size No lobar pneumonia or pulmonary edema Moderate osteopenia IMPRESSION: No lobar pneumonia or pulmonary edema
[2025-02-06 12:03] LABS: Basophils # (Auto) 0.1 Thou/mm3 (0.0-0.2); Basophils % (Auto) 1 % (0-2.5); Eosinophils # (Auto) 0.1 Thou/mm3 (0.0-0.5); Eosinophils % (Auto) 1 % (0-10); Hematocrit 43.9 % (36.0-46.0); Hemoglobin 13.9 g/dL (12.0-16.0); Immature Granulocytes % (Auto) 0 % (0-0); Immature Granulocytes Auto 0.04 Thou/mm3 (0.00-0.00); Lymphocytes # (Auto) 1.4 Thou/mm3 (1.0-4.8); Lymphocytes % (Auto) 14 % (10-50); Mean Corpuscular HGB Conc 31.7 g/dl (31.0-37.0); Mean Corpuscular Hemoglobin 34.8 pg (25.0-35.0); Mean Corpuscular Volume 110 fL (80-100); Monocytes % (Auto) 10 % (0-12); Neutrophils # (Auto) 7.4 Thou/mm3 (1.8-7.7); Neutrophils % (Auto) 74 % (37-80); Nucleated Red Blood Cell % 0 /100 WBC (0); Platelet Count 244 Thou/mm3 (140-440); RDW Standard Deviation 57.7 fL (36.4-46.3); White Blood Count 9.9 Thou/mm3 (3.6-11.0)
[2025-02-06 12:23] LABS: INR 1.1 (0.9-1.3); Partial Thromboplastin Time 32.2 Seconds (22.0-36.0); Prothrombin Time 12.1 Seconds (9.0-12.2)
[2025-02-06 12:25] LABS: Ammonia 19 uMol/L (11-32)
[2025-02-06 12:26] LABS: B-Type Natriuretic Peptide 63 pg/mL (0-100)
[2025-02-06 12:28] LABS: Alanine Aminotransferase 11 U/L (10-49); Albumin, Serum 2.6 gm/dL (3.4-4.8); Albumin/Globulin Ratio 0.9 (1.2-2.2); Alkaline Phosphatase 182 U/L (46-116); Anion Gap 7 (7-16); Aspartate Amino Transferase 33 U/L (0-34); BUN/Creatinine Ratio 9 Ratio (12-20); Bilirubin,Total 2.6 mg/dL (0.3-1.2); Blood Urea Nitrogen 6 mg/dL (9-23); Calcium 8.1 mg/dL (8.3-10.6); Calcium (Corrected) 9.2 mg/dL (8.5-10.1); Carbon Dioxide 29.1 mMol/L (20.0-31.0); Chloride 93 mMol/L (98-107); Creatinine (Component) 0.7 mg/dL (0.6-1.3); Estimated Creatinine Clearance 63.5 mL/min (>60); Glucose 113 mg/dL (74-106); LDH (Lactate Dehydrogenase) 225 U/L (120-246); Osmolality,Calculated 257 (275-295); Potassium 3.5 mMol/L (3.4-5.1); Sodium 129 mMol/L (136-145); Total Protein 5.6 gm/dL (5.7-8.2); Troponin I < 0.020 ng/mL (0.0-0.045); eGFR > 60 See Note
[2025-02-06 13:31] LABS: Collection Type, Urine Clean Catch
[2025-02-06 13:37] LABS: Bacteria,Urine 1+; Bilirubin,Urine Negative (Negative); Blood,Urine Negative (Negative); Color,Urine Yellow (Lt Yel-Yel); Glucose, Urine Negative (Negative); Hyaline Casts,Urine < 1 /hpf (0-1); Ketones,Urine Negative (Negative); Leukocyte Esterase,Urine Negative (Negative); Nitrite,Urine Negative (Negative); PH,Urine 6.5 (5.0-7.0); Protein,Urine Trace (Neg - Trace); RBC,Urine 1 /hpf (0-3); Specific Gravity,Urine 1.021 (1.001-1.035); Squamous Epithelial Cell,Urine 14 /hpf (0-5); WBC,Urine 2 /hpf (0-5)
[2025-02-06 13:42] LABS: Clarity,Urine Hazy (Clear/Hazy)
[2025-02-06 13:43] LABS: Amphetamine/Methamp Scrn,U Negative (Negative); Barbiturate Screen,Urine Negative (Negative); Benzodiazepines Screen,Urine Positive (Negative); Benzoylecgonine Screen, Ur Negative (Negative); Fentanyl Screen,Urine Negative (Negative); Opiate Screen,Urine Negative (Negative); THC Screen,Urine Negative (Negative)
--- NOTE | 2025-02-06 16:24 | PD.EDABDPN ---
ED Abdominal Pain RME/HPI General Chief Complaint: Abdominal Pain Stated complaint: Abdominal distention X 2 weeks Time seen by provider: 02/06/25 11:00 Arrival date/time: 02/06/25 10:36 Limitations: no limitations RME / HPI RME / HPI narrative: 69-year-old female with past medical history of cirrhosis presents for evaluation of abdominal distention and lower extremity edema. She reports intermittent dyspnea and nonproductive cough. Patient denies chest pain, nausea, vomiting, abdominal pain, fever. DR. SANCHEZ MAIN ED EVALUATION: 69 year old female with history of hypertension, liver cirrhosis with ascites, chronic lymphedema, alcohol use disorder (drinks 1-2 glasses or wine/day) presents to the ED for evaluation of abdominal distention and leg swelling today. Reportedly abdominal swelling began 2 weeks ago and gradually worsening. States last night she had difficulty sleeping due feeling short of breath. Denies any associated pain, fevers, chills, chest pain, n/v/d, or urinary symptoms. Patient mentioned she was evaluated here 1 month ago for similar abdominal distention and was admitted. During admission says she had a paracentesis performed with improvement. Mentioned she was discharged home with Lasix which she has taken with little improvement. Related Data Home Medications ?Medication ?Instructions ?Recorded ?Confirmed alprazolam 0.5 mg tablet 0.5 mg PO HS 12/31/24 01/12/25 buspirone 10 mg tablet 10 mg PO QDAY 01/12/25 01/12/25 estradiol 0.05 mg/24 hr semiweekly 0.05 mg topical .twice a week 01/12/25 01/12/25 transdermal patch thyroid (pork) 120 mg tablet 120 mg PO QDAY 01/12/25 01/12/25 ([place] Thyroid) Previous Rx's ?Medication ?Instructions ?Recorded carvedilol 3.125 mg tablet 3.125 mg PO BID #60 tabs 01/15/25 furosemide 20 mg tablet (Lasix) 20 mg PO QDAY #30 tabs 01/15/25 pantoprazole 40 mg granules 40 mg PO QDAY #30 ea 01/15/25 delayed-release for susp in packet (Protonix) spironolactone 25 mg tablet 100 mg (4 x 25 mg) PO QDAY #120 01/15/25 tabs Allergies Allergy/AdvReac Type Severity Reaction Status Date / Time codeine Allergy Verified 02/06/25 10:42 Review of Systems Review of Systems Systems Reviewed: All systems reviewed, normal except as documented Past Medical History Past Medical History CARDIAC: Positive Hypercholesterolemia, Edema, Hypertension and Hypotension RESPIRATORY: Positive Asthma GASTROINTESTINAL: Positive Obesity REPRODUCTIVE: Positive Previous Pregnancies MUSCULOSKELETAL: Positive Arthritis ENDOCRINE: Positive Hypothyroidism OTHER HISTORY: Positive Hospitalization Family History FAMILY HISTORY: Positive Family Surgery Surgical History SURGICAL: Positive Hysterectomy Social History SMOKING STATUS: Former smoker ED Exam General Limitations: Present no limitations General appearance: Present alert and in no apparent distress Head Head exam: Present atraumatic and normocephalic Eye Eye exam: Present normal appearance, PERRL and EOMI ENT ENT exam: Present normal exam, normal oropharynx and mucous membranes moist Neck Neck exam: Present normal inspection, full ROM and trachea midline Chest Chest inspection: Present normal inspection and symmetric chest wall rise Respiratory Respiratory exam: Present normal lung sounds bilaterally Cardiovascular Cardiovascular exam: Present regular rate, normal rhythm and normal heart sounds Abdominal Exam Abdominal exam: Present soft, distention, normal bowel sounds and other (Large ascites abdomen, obese ) Extremities Exam Extremities exam: Present full ROM and other (3+ edema BLE ) Back Exam Back exam: Present normal inspection and full ROM Neurological Exam Neurological exam: Present alert, oriented X3 and CN II-XII intact Psychiatric Psychiatric exam: Present normal affect and normal mood Skin Skin exam: Present warm, dry, intact and normal color Course Quality Measures none Orders Category Date Time Status COVID-19 Screening Questionnaire NOW Care 02/06/25 16:39 Active Decision to Admit X1 Care 02/06/25 16:39 Active EKG (ED ONLY) *Do not use* NOW Care 02/06/25 11:17 Completed EKG (ED Only) Stat Exams 02/06/25 11:17 Draft XR chest 2V Stat Exams 02/06/25 11:17 Completed Ammonia Stat Lab 02/06/25 11:45 Completed B-Type Natriuretic Peptide Stat Lab 02/06/25 11:45 Completed CBC Stat Lab 02/06/25 11:45 Completed Comprehensive Metabolic Panel Stat Lab 02/06/25 11:45 Completed Drug Screen,Urine Stat Lab 02/06/25 13:23 Completed LDH (Lactate Dehydrogenase) Stat Lab 02/06/25 11:45 Completed Magnesium Stat Lab 02/06/25 11:45 Completed Partial Thromboplastin Time Stat Lab 02/06/25 11:45 Completed Prothrombin Time with INR Stat Lab 02/06/25 11:45 Completed Troponin I Stat Lab 02/06/25 11:45 Completed Urinalysis Stat Lab 02/06/25 13:23 Completed Vital Signs Vital signs: Vital Signs Temperature 97.6 F 02/06/25 10:53 Pulse Rate 115 H 02/06/25 10:53 Respiratory Rate 18 02/06/25 10:53 Blood Pressure 132/89 H 02/06/25 10:53 Pulse Oximetry (%) 96 02/06/25 10:53 Oxygen Delivery Method Room Air 02/06/25 10:53 Pulse ox is 96% on room air which is adequate. Abdominal Pain MDM MDM Narrative MDM Narrative:: [place] am scribing for and in the presence of Dr. Sanchez. Patient presented with significant abdominal distention consistent with large volume ascites, most likely from advanced liver disease, ascites, with associated portal hypertension. Treatment: Admission for further evaluation and management, paracentesis, IV albumin, restart the patient on Lasix and Spiranolactone, leg elevation and low sodium diet. Patient data External records reviewed:: [facility] previous records (I reviewed admission from 01/11/2025 through 01/15/2025 ) Clinical information provided by:: patient Social determinants that could affect healthcare access:: alcohol use (drinks 1-2 glasses of wine a day ) Patient has the following chronic illnesses:: hypertension, liver cirrhosis with ascites, chronic lymphedema, alcohol use disorder (drinks 1-2 glasses or wine/day) How is presenting disease/condition affected by chronic disease/condition?: exacerbated by Evaluation data The following diagnostics were reviewed and interpreted by me:: lab results, radiology exam(s) and EKG tracing(s) (02/06/2025 @ 11:30 AM. Normal sinus rhythm, rate 87, no axis deviation, poor R-wave progression, low voltage QRS, most likely pericardial effusion, no ischemia. ) Lab and/or radiology exams considered but not ordered:: None Interpretation Summary: Ordering Physician: Patel Mayes PA-C Date of Service: 02/06/25 Procedure(s): XR chest 2V Accession Number(s): [id number] cc: Patel Mayes PA-C; Jackson Berumen MD; Ted Burnett MD~ Examination: PA lateral chest 2 views TECHNIQUE: Upright PA lateral chest 2 views Date and time: February 06, 2025 1208 hours INDICATIONS: Chest pain beginning 3 days ago. FINDINGS: Normal heart size No lobar pneumonia or pulmonary edema Moderate osteopenia IMPRESSION: No lobar pneumonia or pulmonary edema Dictated By: Jackson Berumen MD Signed By: <Electronically signed by Jackson Berumen MD in OV> 02/06/25 1225 Medications / Prescriptions Medications or Prescriptions considered but not ordered:: None Medication administrations:: See above Consultations Consultation(s) initiated? (list below): No Diagnosis Differential diagnosis abdominal pain: abdominal pain, constipation, diverticulitis and other (liver cirrhosis, ascites ) Most likely diagnosis given after review of the tests above:: large ascites alcohol liver cirrhosis severe lower extremity edema hypoalbuminemia Admission Indicated Admission indicated?: indicated Admission Request Was there a request for admission?: Yes Admission Attestation Admission request attestation: Discussed case with [] from Hospitalist service regarding admission. Discussed patients ED course, exam findings, labs, and radiology results. The Hospitalist [agrees,declines] to accept the patient for admission. Disposition Plan Disposition Plan: Admit Discharge Plan Plan Patient Disposition: Admit Acute Care w/in Hospital Prescriptions/Referrals Prescriptions/Med Rec: No Action thyroid (pork) [[place] Thyroid] 120 mg tablet 120 mg PO QDAY buspirone 10 mg tablet 10 mg PO QDAY Patient Comments: TAKE 1 TABLET BY MOUTH EVERY DAY FOR 30 DAYS estradiol 0.05 mg/24 hr patch semiweekly 0.05 mg TOPICAL .twice a week Patient Comments: APPLY 1 PATCH TOPICALLY TO THE SKIN 2 TIMES A WEEK spironolactone 25 mg Tablet 100 mg PO QDAY Qty: 120 0RF Rx Instructions: Take 4 tablets (total 100 mg) daily carvedilol 3.125 mg tablet 3.125 mg PO BID Qty: 60 0RF Rx Instructions: must administer with a meal/food furosemide [Lasix] 20 mg tablet 20 mg PO QDAY Qty: 30 0RF pantoprazole [Protonix] [address] for susp in packet 40 mg PO QDAY Qty: 30 0RF alprazolam 0.5 mg tablet 0.5 mg PO HS Patient Comments: TAKE 1 TABLET BY MOUTH EVERY DAY FOR 30 DAYS Referrals: Ted Burnett MD [Primary Care Provider] - In 1 week Problem List Clinical Impression: Ascites, Bilateral lower extremity edema, Alcoholic cirrhosis of liver, Hypoalbuminemia Patient/Caregiver Discharge Instructions Print Language: Moldovan Stand Alone Forms: Mayuri Award Info., Patient Portal Info Letter
--- NOTE | 2025-02-06 18:00 | PC.NURSE ---
Patient was sent from PCP office to ED. Patient states due to liver problems. Patient has and extensive hx of daily wine use. Patient states that she has 3 months only drinking 2 glasses per day. POC updated. Patient denies withdrawal symptoms at this time.
--- NOTE | 2025-02-06 18:10 | PD.RESHP ---
Documentation for date of: 02/06/25 [facility] History of Present Illness History of present illness: Ms. King is a 69-year-old female with past medical history significant for decompensated liver cirrhosis with ascites (requiring paracentesis regularly), chronic lymphedema, alcohol abuse disorder and anxiety presented to the ED complaining of distended abdomen and abdominal pain as well as lower extremity edema. Patient was recently hospitalized for similar complaint and was discharged home after a paracentesis and endoscopy on 01/15/25. Patient states that although she has remained compliant with her Lasix however she has been noncompliant with taking spironolactone regularly. Patient continues to drink 1 glass of wine daily. Patient is very emotional she states she is very uncomfortable, noticed the abdominal distention and swelling yesterday in the evening and was difficult for her to ambulate. Patient denies any nausea, vomiting, fever or chills. Patient denies any diarrhea, melena, or hematochezia. Patient states she does have shortness of breath and feels like she is unable to take deep breaths in. ED course In the ED blood pressure is 132/89, pulse 115, respirations 18, patient saturating 96% on room air CBC and coagulopathy is not significant CMP is significant for sodium 129, total bilirubin 2.6, albumin 2.6 In the ED patient received Zofran 4 mg x 1 PMH: ESLD, chronic lymphedema, alcohol abuse disorder and anxiety PSH: No known surgical history other than paracenthesis SH: Hx of alcohol abuse but now drinks glass of wine daily, denies tobacco or illicit substance use Allergies: Codeine Review of Systems Review of Systems Systems Reviewed: All systems reviewed, normal except as documented Exam Vital Signs Temp Pulse Resp BP Pulse Ox O2 Del Method 98.0 F 107 H 18 128/89 H 100 Room Air 02/06/25 17:46 02/06/25 17:56 02/06/25 17:56 02/06/25 17:46 02/06/25 17:46 02/06/25 15:28 Narrative Exam GENERAL: A&Ox3 . Awake, tearful female, appears uncomfortable but Not in acute distress NEURO: no focal neurological deficits HEENT: Atraumatic, Normocephalic. mucous membranes moist. Eyes open, symmetrical, & clear HEART: Normal Heart Sounds LUNGS: Clear to auscultation with no wheezing or crackles. ABDOMEN: soft, diffuse abdominal distension and tenderness SKIN: No Rash or ecchymoses EXTREMITIES: 3+ pitting edema bilaterally in LE extending upto the abdomen, tenderness, able to move all 4 extremities, pedal pulses palpated Results: Labs 02/07/25 04:45 02/07/25 04:45 Labs: Short CBC 02/06/25 Range/Units 11:45 WBC 9.9 (3.6-11.0) Thou/mm3 Hgb 13.9 (12.0-16.0) g/dL Hct 43.9 (36.0-46.0) % Plt Count 244 (140-440) Thou/mm3 BMP 02/06/25 11:45 Sodium 129 L Potassium 3.5 Chloride 93 L Carbon Dioxide 29.1 BUN 6 L Creatinine 0.7 Glucose 113 H Calcium 8.1 L Cardiac Enzymes 02/06/25 Range/Units 11:45 Troponin I < 0.020 (0.0-0.045) ng/mL Liver Function 02/06/25 Range/Units 11:45 Total Bilirubin 2.6 H (0.3-1.2) mg/dL AST 33 (0-34) U/L ALT 11 (10-49) U/L Alkaline Phosphatase 182 H (46-116) U/L Albumin 2.6 L (3.4-4.8) gm/dL Urine 02/06/25 Range/Units 13:23 Urine Color Yellow (Lt Yel-Yel) Urine Clarity Hazy (Clear/Hazy) Urine pH 6.5 (5.0-7.0) Ur Specific [place] 1.021 (1.001-1.035) Urine Protein Trace (Neg - Trace) Urine Glucose (UA) Negative (Negative) Quality Measures Quality Measures none Advance care planning discussed with:: patient Medications Home Medications and Allergies Home Medications ?Medication ?Instructions ?Recorded ?Confirmed ?Type alprazolam 0.5 mg tablet 0.5 mg PO HS 12/31/24 02/07/25 History buspirone 10 mg tablet 10 mg PO QDAY 01/12/25 02/07/25 History thyroid (pork) 120 mg tablet 120 mg PO QDAY 01/12/25 02/07/25 History ([place] Thyroid) Allergies Allergy/AdvReac Type Severity Reaction Status Date / Time codeine Allergy Verified 02/06/25 10:42 Visit Medications Acetaminophen (Acetaminophen 325 Mg Tablet) 325 mg PO Q6H PRN PRN Reason: Fever >101.5 Stop: 03/08/25 17:55 Furosemide (Furosemide Inj 10 Mg/Ml 4ml Vial) 40 mg IVP QDAY CHASIDY Stop: 03/08/25 18:04 Heparin Sodium (Porcine) (Heparin Sod Inj 5000 Unit/Ml Vial) 5,000 unit SC Q8HR CHASIDY Stop: 02/20/25 21:59 Albumin Human (Albuminar-25 Ivpb) 25 gm in 100 mls @ 100 mls/hr IV QDAY CHASIDY Stop: 02/09/25 18:05 Ceftriaxone Sodium 1 gm/ (Sodium Chloride) 50 mls @ 100 mls/hr IV QDAY CHASIDY Stop: 02/13/25 18:05 Ondansetron HCl (Ondansetron Inj 2 Mg/Ml Inj 2 Ml) 4 mg IVP Q6H PRN; Protocol PRN Reason: NAUSEA OR VOMITING Stop: 03/08/25 17:55 Pantoprazole Sodium (Pantoprazole Inj 40 Mg Vial) 40 mg IVP QDAY CHASIDY Stop: 03/09/25 08:59 Assessment & Plan Plan Ms. King is a 69-year-old female with past medical history significant for decompensated liver cirrhosis with ascites (requiring paracentesis regularly), chronic lymphedema, alcohol abuse disorder and anxiety presented to the ED complaining of distended abdomen and abdominal pain as well as lower extremity edema. #Acute decompensated liver disease #Hyperbilirubinemia #Anasarca #Alcohol use disorder -Pt presented with diffuse abdominal distention and pain. Has chronic alcohol related liver cirrhosis with recurrent decompensation. -No signs or symptoms of hepatic encephalopathy. -Total bilirubin 2.6, LFTs within normal limits Plan: -Lasix 40 Qdaily with Spironolactone 100mg daily -Started ceftriaxone 1 g for SBP prophylaxis 02/06- -Started albumin 25mg daily -Strict ANAY's with Fluid restrictions -Low sodium diet 2gm -Strict ANAY's -Fluid restrictions -IR paracenthesis ordered -Peritoneal fluid analysis ordered #Bilateral lower extremity edema #Chronic lymphedema -Patient reported history of chronic lymphedema since age 10 -Presented with worsening bilateral 3+ pitting edema in the lower extremities Plan: -Lasix 40mg daily ordered -fluid restrictions to 1500cc #Anxiety disorder -Pending med rec Health Maintenance Disposition: Medsurg DVT Prophylaxis: Heparin 5000 units SC Q8 hrs GI Prophylaxis: Pantoprozol-40 IV Qday Diet: low sodium diet, 2gm with fluid restriction of 1500cc Lines: Peripheral lines Code status: Full Assessment and plan discussed with my attending physician Dr. Navi Arndt (PGY-1)- Internal medicine resident Attending Provider Attestation/Addendum I have discussed and was present for the essential components of the history, physical examination, diagnosis, and treatment plan with the resident. I agree with the patient's care as documented by the resident and amended herein by me. Melchor Mcelroy DO. Although this document has been carefully reviewed, there may still be some phonetic and other typographical errors. These errors are purely grammatical due to imperfections in the software program and should not be construed in any way to compromise the substance of the patient's medical care during this visit.
[2025-02-06] MEDS: ONDANSETRON INJ 2 MG/ML INJ 2 ML 4 MG IVP (18:37)
[2025-02-06] MEDS: FUROSEMIDE INJ 10 MG/ML 4ML VIAL 40 MG IVP (18:39)
[2025-02-06] MEDS: cefTRIAXone 1 GM in SODIUM CHLORIDE 0.9% (Popper) 50 ML IV (18:42)
[2025-02-06] MEDS: ACETAMINOPHEN 325 MG TABLET PO (18:43)
--- NOTE | 2025-02-06 21:54 | PC.NURSE ---
Report received, pt arrived to room 361 via gurney, able to slide self over. Oriented pt to room call light placed within reach
[2025-02-06] MEDS: ALBUMIN HUMAN 25% IVPB 25 GM/100 ML BTL IV (22:08)
--- NOTE | 2025-02-06 22:31 | PC.NURSE ---
Unable to verify home medications, pt states does recall some dosages but not all, called , stated will call back tomorrow in morning to provide with medication list.
[2025-02-07] VITALS (16 sets, daily range): BP systolic 102–124; BP diastolic 64–83; PULSE 82–114; RESP 18–98; TEMP 36.3–36.6; O2SAT 96–100
[2025-02-07] MEDS: ACETAMINOPHEN 325 MG TABLET PO (03:11)
--- NOTE | 2025-02-07 03:18 | PC.NURSE ---
accessed pt's chart to assist main RN.
[2025-02-07] MEDS: ACETAMINOPHEN 325 MG TABLET 650 MG PO ×2 (03:34→21:38)
[2025-02-07 05:24] LABS: Basophils # (Auto) 0.1 Thou/mm3 (0.0-0.2); Basophils % (Auto) 1 % (0-2.5); Eosinophils # (Auto) 0.2 Thou/mm3 (0.0-0.5); Eosinophils % (Auto) 2 % (0-10); Hematocrit 32.6 % (36.0-46.0); Hemoglobin 11.6 g/dL (12.0-16.0); Immature Granulocytes % (Auto) 0 % (0-0); Immature Granulocytes Auto 0.04 Thou/mm3 (0.00-0.00); Lymphocytes # (Auto) 1.6 Thou/mm3 (1.0-4.8); Lymphocytes % (Auto) 17 % (10-50); Mean Corpuscular HGB Conc 35.6 g/dl (31.0-37.0); Mean Corpuscular Hemoglobin 33.7 pg (25.0-35.0); Mean Corpuscular Volume 95 fL (80-100); Monocytes % (Auto) 11 % (0-12); Neutrophils # (Auto) 6.3 Thou/mm3 (1.8-7.7); Neutrophils % (Auto) 69 % (37-80); Nucleated Red Blood Cell % 0 /100 WBC (0); Platelet Count 213 Thou/mm3 (140-440); RDW Standard Deviation 45.7 fL (36.4-46.3); Red Blood Count 3.44 Miln/mm3 (4.00-5.20); White Blood Count 9.2 Thou/mm3 (3.6-11.0)
[2025-02-07 05:57] LABS: Alanine Aminotransferase 8 U/L (10-49); Albumin, Serum 2.6 gm/dL (3.4-4.8); Albumin/Globulin Ratio 1.1 (1.2-2.2); Alkaline Phosphatase 135 U/L (46-116); Anion Gap 6 (7-16); Aspartate Amino Transferase 25 U/L (0-34); BUN/Creatinine Ratio 10 Ratio (12-20); Bilirubin,Total 2.2 mg/dL (0.3-1.2); Blood Urea Nitrogen 6 mg/dL (9-23); Calcium 7.9 mg/dL (8.3-10.6); Carbon Dioxide 30.9 mMol/L (20.0-31.0); Chloride 95 mMol/L (98-107); Creatinine (Component) 0.6 mg/dL (0.6-1.3); Estimated Creatinine Clearance 79.2 mL/min (>60); Globulin 2.4 gm/dL (2.3-3.5); Glucose 101 mg/dL (74-106); Magnesium 1.7 mg/dL (1.6-2.6); Osmolality,Calculated 262 (275-295); Phosphorous 3.6 mg/dL (2.4-5.1); Potassium 3.3 mMol/L (3.4-5.1); Sodium 132 mMol/L (136-145); eGFR > 60 See Note
[2025-02-07] MEDS: LORazepam 0.5 MG TABLET PO ×3 (06:59→21:33)
--- NOTE | 2025-02-07 08:00 | XR_ITS ---
Examination: Ultrasound-guided paracentesis Abdominal sonogram limited Date and time of exam: February 07, 2025 1031 hours INDICATIONS: Cirrhosis, increasing ascites and abdominal distention this week Informed consent provided. A timeout was completed verifying correct patient, procedure, site, positioning, and special adequate movement if applicable. Technique: Multiple sonographic images of the abdomen have been obtained. Appropriate area for paracentesis was marked. Local anesthesia is obtained with 1% lidocaine. Yueh catheter is successfully introduced. Findings: Abdominal sonographic images demonstrate sufficient ascitic fluid for paracentesis. After placing the Yueh catheter, 4100 cc of fluid were successfully removed. During and after completion of the procedure the patient appear in satisfactory and stable condition with no complications observed. Estimated blood loss 0 cc Impression: Abdominal ascites Successful ultrasound-guided paracentesis as described above
[2025-02-07] MEDS: FOLIC ACID 1 MG TABLET PO ×2 (08:31→21:31)
[2025-02-07] MEDS: Furosemide 40 MG TABLET PO (08:31)
[2025-02-07] MEDS: SPIRONOLACTONE 25 MG TABLET 100 MG PO (08:32)
[2025-02-07] MEDS: PANTOPRAZOLE INJ 40 MG VIAL IVP (08:33)
[2025-02-07] MEDS: THIAMINE 100 MG TABLET PO ×2 (08:33→21:31)
[2025-02-07] MEDS: ALBUMIN HUMAN 25% IVPB 25 GM/100 ML BTL IV (08:34)
--- NOTE | 2025-02-07 09:05 | PC.SS ---
Follow up note: Paracentesis today. On IV diuresis.
--- NOTE | 2025-02-07 09:17 | EKG_ITS ---
[facility] Test Date: 2025-02-07 Pat Name: LISSETT EDWARDS Department: Room: S361A Gender: Female Buyer Assistant: RUBEN : 1955 Requested By: Cecile Arndt Order Number: [id number] Reading MD: Cecile Arndt Measurements Intervals [place] Rate: 104 P: 31 NC: 147 QRS: -9 QRSD: 82 T: -11 QT: 329 QTc: 435 Interpretive Statements SINUS TACHYCARDIA WITH OCCASIONAL SUPRAVENTRICULAR PREMATURE COMPLEXES LOW QRS VOLTAGE IN PRECORDIAL LEADS POSSIBLE ANTERIOR MYOCARDIAL INFARCTION , OF INDETERMINATE AGE POSSIBLE INFERIOR MYOCARDIAL INFARCTION , PROBABLY OLD Compared to ECG 02/06/2025 11:30:19 Low QRS voltage now present Atrial fibrillation no longer present Myocardial infarct finding still present /store/S0/[id number]/[id number].pdf
[2025-02-07] MEDS: cefTRIAXone/D5w 1gm IV premix 1 GM/50 ML BAG IV (09:55)
[2025-02-07] MEDS: ALBUTEROL/IPRATROPIUM (Duoneb) RT SOL 3 ML NEBU INH (10:08)
[2025-02-07] MEDS: POTASSIUM CHLORIDE 20 mEq TABCR PO (11:51)
--- NOTE | 2025-02-07 12:43 | PC.SS ---
SS met with patient regarding her d/c plan. Pt is alert/oriented. Pt was admitted for Decompendated Liver Cirrhosis. Pt confirmed demographic and contact information is correct on facesheet. Pt resides with . Pt ambulates independently without assistance or DME inside the home. Pt utilizes a 2 wheel walker outside the home. Pt is ok with all ADLs. Patient?s pharmacy of choice is [facility] in [place]. Pt named her , Jorge King medical decision maker if she is unable. SS provided verbal choices for d/c to home or SNF. Patient?s choice is to return home upon d/c. Pt states she hasan advance directive at home. Pt states she is followed by [facility] and is requesting to continue with them. Pt followed up with PCP couple of days prior to being hospitalized. will provide transportation home. D/C plan: Return home Next of Kin: Jorge King, , phone# [phone] or [phone] PCP: Ted Burnett Address: Correct on facesheet Home Health: [facility]
[2025-02-07] MEDS: HEPARIN SOD INJ 5000 UNIT/ML VIAL SC ×3 (13:11→21:30)
--- NOTE | 2025-02-07 16:36 | PC.PT ---
PT eval only. patient is I with transfers and ambulation without AD.
[2025-02-07] MEDS: LORazepam 2 MG/ML VIAL 0.5 MG IV (17:16)
--- NOTE | 2025-02-07 17:33 | ESPR_ITS ---
Documentation for date of: 02/07/25 Subjective Subjective Interval history: Overnight team reported patient was anxious therefore CIWA protocol was started. Patient seen and examined at bedside this morning. Patient is very emotional and is tearful and feels very uncomfortable and short of breath due to the fluid abdomen. Patient states she has been very uncomfortable because of how distended her abdomen is and would like to get the paracentesis as soon as possible. Patient scheduled to undergo paracentesis this morning. Patient seen after paracentesis Approximately 4 L of fluid has been removed. Vitals are stable and labs are reviewed electrolytes are repleted will continue to monitor. Exam Vital Signs Temp Pulse Resp BP Pulse Ox O2 Del Method 97.8 F 95 18 116/66 97 Room Air 02/07/25 12:00 02/07/25 16:00 02/07/25 12:00 02/07/25 12:00 02/07/25 12:00 02/07/25 08:00 Narrative Exam GENERAL: A&Ox3 . Awake, tearful female, appears uncomfortable but Not in acute distress NEURO: no focal neurological deficits HEENT: Atraumatic, Normocephalic. mucous membranes moist. Eyes open, symmetrical, & clear HEART: Normal Heart Sounds LUNGS: Clear to auscultation with no wheezing or crackles. ABDOMEN: soft, diffuse abdominal distension and tenderness SKIN: No Rash or ecchymoses EXTREMITIES: 3+ pitting edema bilaterally in LE extending upto the abdomen, tenderness, able to move all 4 extremities, pedal pulses palpated Objective Labs 02/07/25 04:45 02/07/25 04:45 Labs: Laboratory Results - last 24 hr 02/07/25 04:45 WBC 9.2 RBC 3.44 L Hgb 11.6 L D Hct 32.6 L D MCV 95 MCH 33.7 MCHC 35.6 RDW Std Deviation 45.7 Plt Count 213 D Neut % (Auto) 69 Lymph % (Auto) 17 [place] % (Auto) 11 Eos % (Auto) 2 Baso % (Auto) 1 Neut # (Auto) 6.3 Lymph # (Auto) 1.6 [place] # (Auto) 1.0 H Eos # (Auto) 0.2 Baso # (Auto) 0.1 Immature Gran # (Auto) 0.04 H Absolute Nucleated RBC 0.00 Immature Gran % 0 Nucleated RBC % 0 Sodium 132 L Potassium 3.3 L Chloride 95 L Carbon Dioxide 30.9 Anion Gap 6 L BUN 6 L Creatinine 0.6 Estim Creat Clear Calc 79.2 eGFR > 60 BUN/Creatinine Ratio 10 L Glucose 101 Calculated Osmolality 262 L Calcium 7.9 L Corrected Calcium 9.0 Phosphorus 3.6 Magnesium 1.7 Total Bilirubin 2.2 H AST 25 ALT 8 L Alkaline Phosphatase 135 H D Total Protein 5.0 L Albumin 2.6 L Globulin 2.4 Albumin/Globulin Ratio 1.1 L Quality Measures Quality Measures none Advance care planning discussed with:: patient Assessment & Plan Assessment Current Active Medications: Generic Name Dose Route Start Last Admin Trade Name Freq PRN Reason Stop Dose Admin Acetaminophen 650 mg 02/07/25 03:24 02/07/25 03:34 Acetaminophen 325 Mg Tablet PO 03/08/25 17:55 325 mg Q6H PRN Administration Fever > 100.4 OR mild pain 1-3 Albuterol/Ipratropium 3 ml 02/07/25 09:58 02/07/25 10:08 Albuterol/Ipratropium (Duoneb) Rt Elza 3 Ml Nebu INH 03/09/25 09:57 3 ml Q2HR PRN Administration SHORTNESS OF BREATH OR WHEEZE Folic Acid 1 mg 02/07/25 09:00 02/07/25 08:31 Folic Acid 1 Mg Tablet PO 02/12/25 08:59 1 mg BID CHASIDY Administration Furosemide 40 mg 02/07/25 09:00 02/07/25 08:31 Furosemide 40 Mg Tablet PO 03/09/25 08:59 40 mg QDAY CHASIDY Administration Heparin Sodium (Porcine) 5,000 unit 02/06/25 22:00 02/07/25 13:11 Heparin Sod Inj 5000 Unit/Ml Vial SC 02/20/25 21:59 5,000 unit Q8HR CHASIDY Administration Albumin Human 25 gm in 100 mls @ 100 mls/hr 02/06/25 18:06 02/07/25 08:34 Albuminar-25 Ivpb IV 02/09/25 18:05 100 mls/hr QDAY CHASIDY Administration Ceftriaxone Sodium/Dextrose 1 gm in 50 mls @ 100 mls/hr 02/07/25 09:15 02/07/25 09:55 Rocephin/D5w 1gm Iv Premix IV 02/14/25 09:14 100 mls/hr QDAY CHASIDY Administration Lorazepam 0.5 mg 02/07/25 03:21 02/07/25 14:55 Lorazepam 0.5 Mg Tablet PO 02/12/25 03:20 0.5 mg Q4HR PRN Administration CIWA Score 2-6 Lorazepam 1 mg 02/07/25 03:21 Lorazepam 2 Mg/Ml Vial IV 02/12/25 03:20 Q2HR PRN CIWA SCORE 14-19 Lorazepam 2 mg 02/07/25 03:21 Lorazepam 2 Mg/Ml Vial IV 02/12/25 03:20 Q2HR PRN CIWA SCORE 20-25 Lorazepam 0.5 mg 02/07/25 08:48 02/07/25 17:16 Lorazepam 2 Mg/Ml Vial IV 02/12/25 03:20 0.5 mg Q2HR PRN Administration CIWA SCORE 7-13 Ondansetron HCl 4 mg 02/06/25 17:56 02/06/25 18:37 Ondansetron Inj 2 Mg/Ml Inj 2 Ml IVP 03/08/25 17:55 4 mg Q6H PRN Administration NAUSEA OR VOMITING Protocol Pantoprazole Sodium 40 mg 02/07/25 09:00 02/07/25 08:33 Pantoprazole Inj 40 Mg Vial IVP 03/09/25 08:59 40 mg QDAY CHASIDY Administration Pantoprazole Sodium 40 mg 02/08/25 09:00 Pantoprazole 40 Mg Tablet PO 03/09/25 08:59 QDAY CHASIDY Spironolactone 100 mg 02/07/25 09:00 02/07/25 08:32 Spironolactone 25 Mg Tablet PO 03/09/25 08:59 100 mg QDAY CHASIDY Administration Thiamine HCl 100 mg 02/07/25 09:00 02/07/25 08:33 Thiamine 100 Mg Tablet PO 02/12/25 08:59 100 mg BID CHASIDY Administration Plan Ms. King is a 69-year-old female with past medical history significant for decompensated liver cirrhosis with ascites (requiring paracentesis regularly), chronic lymphedema, alcohol abuse disorder and anxiety presented to the ED complaining of distended abdomen and abdominal pain as well as lower extremity edema. #Acute decompensated liver disease #Hyperbilirubinemia #Anasarca #Alcohol use disorder -Pt presented with diffuse abdominal distention and pain. Has chronic alcohol related liver cirrhosis with recurrent decompensation. -No signs or symptoms of hepatic encephalopathy. -Total bilirubin 2.6, LFTs within normal limits Plan: -Lasix 40 Qdaily with Spironolactone 100mg daily -Started ceftriaxone 1 g for SBP prophylaxis 02/06- -Started albumin 25mg daily -Strict ANAY's with Fluid restrictions -Low sodium diet 2gm -Strict ANAY's -Fluid restrictions -IR paracenthesis on 02/07- removed 4L -Peritoneal fluid analysis ordered -CIWA protocol ordered #Bilateral lower extremity edema #Chronic lymphedema -Patient reported history of chronic lymphedema since age 10 -Presented with worsening bilateral 3+ pitting edema in the lower extremities Plan: -Lasix 40mg daily ordered -fluid restrictions to 1500cc #Anxiety disorder -Pending med rec Health Maintenance Disposition: Medsur DVT Prophylaxis: Heparin 5000 units SC Q8 hrs GI Prophylaxis: Pantoprozol-40 IV Qday Diet: low sodium diet, 2gm with fluid restriction of 1500cc Lines: Peripheral lines Code status: Full Assessment and plan discussed with my attending physician Dr. Navi Arndt (PGY-1)- Internal medicine resident Attending Provider Attestation/Addendum I have discussed and was present for the essential components of the history, physical examination, diagnosis, and treatment plan with the resident. I agree with the patient's care as documented by the resident and amended herein by me. Melchor Mcelroy DO. Patient seen and evaluated this AM. No acute events overnight, vital signs stable, patient afebrile, labs largely unremarkable, potassium slightly low at 3.3. Patient did undergo IR paracentesis today, approximately 4 L removed. Patient's abdomen still distended, may need more fluid removed, will reassess with bedside ultrasound tomorrow. Will continue spironolactone and Lasix for now as blood pressure will tolerate, likely discharge tomorrow 02/08 patient continues to improve. Will replete electrolytes as needed Although this document has been carefully reviewed, there may still be some phonetic and other typographical errors. These errors are purely grammatical due to imperfections in the software program and should not be construed in any way to compromise the substance of the patient's medical care during this visit.
[2025-02-08] VITALS (9 sets, daily range): BP systolic 105–118; BP diastolic 58–81; PULSE 77–105; RESP 13–95; TEMP 36.2–36.8; O2SAT 95–97
[2025-02-08] MEDS: HEPARIN SOD INJ 5000 UNIT/ML VIAL SC ×2 (05:39→13:25)
[2025-02-08 06:36] LABS: Basophils # (Auto) 0.1 Thou/mm3 (0.0-0.2); Basophils % (Auto) 1 % (0-2.5); Eosinophils # (Auto) 0.3 Thou/mm3 (0.0-0.5); Eosinophils % (Auto) 3 % (0-10); Hematocrit 34.5 % (36.0-46.0); Hemoglobin 12.4 g/dL (12.0-16.0); Immature Granulocytes % (Auto) 0 % (0-0); Immature Granulocytes Auto 0.03 Thou/mm3 (0.00-0.00); Lymphocytes % (Auto) 26 % (10-50); Mean Corpuscular HGB Conc 35.9 g/dl (31.0-37.0); Mean Corpuscular Hemoglobin 33.9 pg (25.0-35.0); Mean Corpuscular Volume 94 fL (80-100); Monocytes # (Auto) 0.8 Thou/mm3 (0.0-0.8); Monocytes % (Auto) 10 % (0-12); Neutrophils # (Auto) 4.5 Thou/mm3 (1.8-7.7); Neutrophils % (Auto) 59 % (37-80); Nucleated Red Blood Cell % 0 /100 WBC (0); Platelet Count 239 Thou/mm3 (140-440); RDW Standard Deviation 45.4 fL (36.4-46.3); Red Blood Count 3.66 Miln/mm3 (4.00-5.20); White Blood Count 7.7 Thou/mm3 (3.6-11.0)
[2025-02-08 07:20] LABS: Alanine Aminotransferase 8 U/L (10-49); Albumin, Serum 2.7 gm/dL (3.4-4.8); Albumin/Globulin Ratio 1.1 (1.2-2.2); Alkaline Phosphatase 120 U/L (46-116); Anion Gap 9 (7-16); Aspartate Amino Transferase 21 U/L (0-34); BUN/Creatinine Ratio 10 Ratio (12-20); Bilirubin,Total 2.1 mg/dL (0.3-1.2); Blood Urea Nitrogen 7 mg/dL (9-23); Calcium 7.9 mg/dL (8.3-10.6); Calcium (Corrected) 8.9 mg/dL (8.5-10.1); Carbon Dioxide 27.5 mMol/L (20.0-31.0); Chloride 96 mMol/L (98-107); Creatinine (Component) 0.7 mg/dL (0.6-1.3); Estimated Creatinine Clearance 67.9 mL/min (>60); Globulin 2.4 gm/dL (2.3-3.5); Glucose 79 mg/dL (74-106); Magnesium 1.6 mg/dL (1.6-2.6); Osmolality,Calculated 261 (275-295); Phosphorous 3.5 mg/dL (2.4-5.1); Potassium 3.2 mMol/L (3.4-5.1); Sodium 132 mMol/L (136-145); Total Protein 5.1 gm/dL (5.7-8.2); eGFR > 60 See Note
[2025-02-08] MEDS: cefTRIAXone/D5w 1gm IV premix 1 GM/50 ML BAG IV (08:12)
[2025-02-08] MEDS: ALBUMIN HUMAN 25% IVPB 25 GM/100 ML BTL IV (08:12)
[2025-02-08] MEDS: SPIRONOLACTONE 25 MG TABLET 100 MG PO (08:13)
[2025-02-08] MEDS: PANTOPRAZOLE 40 MG TABLET PO (08:13)
[2025-02-08] MEDS: Furosemide 40 MG TABLET PO (08:14)
[2025-02-08] MEDS: THIAMINE 100 MG TABLET PO (08:14)
[2025-02-08] MEDS: FOLIC ACID 1 MG TABLET PO (08:14)
[2025-02-08] MEDS: POTASSIUM CHLORIDE 20 mEq TABCR 40 MEQ PO (09:49)
--- NOTE | 2025-02-08 12:12 | ESDS_ITS ---
Planned Discharge Date 02/08/25 DS: Providers Provider Date of admission: 02/06/25 17:56 Primary care physician: Ted Burnett MD Admitting Provider: Hernán Mcelroy DO Attending Provider on Admission: Hernán Mcelroy DO Consults: 02/07/25 08:00 Referral Infection Control Routine Comment: Reason for Infection Control Referral: Readmitted within 30 days Referral Physical Therapy Routine Comment: Physician Instructions: Attending Provider on DC: Cecile Arndt MD Discharging Provider: Cecile Arndt MD DS: Diagnosis Problem List Completed Was Problem List Reviewed/Reconciled?: Yes Hospital Course Hospital Course Hospital course: Ms. Sinclair a 68-year-old female with PMHx of alcoholic, decomponsated liver cirrhosis with recurrent ascites, chronic lymphedema, alcohol use disorder and anxiety disorder, presented on 02/06/25 with shortness of breath, abdominal pain and distention, admitted for decompensated liver cirrhosis with significant ascites. She shows no signs of hepatic encephalopathy. She admits to non compliance with spironolactone and lasix, Pt also admits to drinking 1 glass of wine daily. She underwent paracentesis with roughly 4L removed. Repeat abdominal ultrasound on the day of discharge showed no significant fluid to remove. Patient is informed she will likely need recurrent paracentesis which may not need hospital admission and can safely be done in the ED and or outpatient appointment with IR. Patient is is instructed her Lasix dose is increased to 40 mg daily and continue the remainder of her medications as directed. Patient is stable, afebrile, tolerating oral diet endorses to resolution of her symptoms and is discharged home to self-care. Discharge Recommendations Please follow-up with your primary care provider within 1 week of discharge Will need to follow-up with a hepatobiliary specialist for continued evaluation of liver disease Continue to take medications as directed, we have changed your Lasix to 40 mg daily, continue to take spironolactone 100 mg daily. If you feel lightheaded, please follow-up with your primary care provider soon as possible as the dosages may need to be adjusted. There is no change in your other medications Please return to the emergency department if symptoms worsen or persist, you most likely will need recurrent paracentesis which likely can be accomplished in the emergency department without admission. Hospitalization Diagnosis #Acute decompensated liver disease #Hyperbilirubinemia #Anasarca #Alcohol use disorder #Bilateral lower extremity edema #Chronic lymphedema #Anxiety disorder Assessment and plan discussed with my attending physician Dr. Navi Arndt (PGY-1)- Internal medicine resident Time Spent with Patient Time attestation: Total time spent providing and/or coordinating discharge services: Time spent: Greater than 30 minutes Home Health Home Health Referral Orders: 02/08/25 12:07 Home Health Referral Routine Reason For Exam: debility Home-Bound The patient must either because of illness or injury, need the aid of supportive devices such as crutches, canes, wheelchairs, and walkers; the use of special transportation; or the assistance of another person in order to leave their place of residence; OR have a condition such that leaving his or her home is medically contraindicated. In addition, the patient also meets the following criteria: patient is normally unable to leave the home and leaving home requires considerable taxing effort. Addendum to Home Health Certification Practitioner's Certification: I certify that the patient has been under my care in the hospital and the care of attending physician (see below). We had a [id number] encounter on (see date below). My clinical findings indicate that the patient is home bound per the above criteria and the Home Health Services noted in these orders are medically necessary. The primary reason for the [id number] encounter is related to the fact that the patient requires home health services. Date Certifying [id number]-[id number] Physician Encounter: 02/06/25 Physician's Name who will Assume Oversight for Services: Ted Burnett Physician's Phone No.who will Assume Oversight for Service: OCCUPATIONAL HEALTH PHYSIOTHERAPIST - Community Resources: No PT to Evaluate: Yes PT to evaluate and provide a treatmnet plan to increase patient's mobility and strength. Wound Care: No IV Therapy: No Discontinue PICC Line Once Treatment Complete: No RN Safety Evaluation: Yes RN to evaluate and create a plan of care that will produce positive outcomes. Palliative Treatment: No Palliative treatment and evaluate the need for hospice. Home Health Aide - Personal Care: No Home Health Aide to assist with any ADL's. Exam Vital Signs Temp Pulse Resp BP Pulse Ox O2 Del Method 97.6 F 101 H 18 113/72 95 Room Air 02/08/25 08:00 02/08/25 08:14 02/08/25 08:00 02/08/25 08:14 02/08/25 08:00 02/08/25 08:00 Narrative Exam GENERAL: A&Ox3 . Awake, tearful female, appears uncomfortable but Not in acute distress NEURO: no focal neurological deficits HEENT: Atraumatic, Normocephalic. mucous membranes moist. Eyes open, symmetrical, & clear HEART: Normal Heart Sounds LUNGS: Clear to auscultation with no wheezing or crackles. ABDOMEN: soft, diffuse abdominal distension and tenderness SKIN: No Rash or ecchymoses EXTREMITIES: 3+ pitting edema bilaterally in LE extending upto the abdomen, tenderness, able to move all 4 extremities, pedal pulses palpated Discharge Plan Plan Patient Disposition: HOME (Self Care) Patient condition on transfer: Stable Care Plan Goals: Please follow-up with your primary care provider within 1 week of discharge Will need to follow-up with a hepatobiliary specialist for continued evaluation of liver disease Continue to take medications as directed, we have changed your Lasix to 40 mg daily, continue to take spironolactone 100 mg daily. If you feel lightheaded, please follow-up with your primary care provider soon as possible as the dosages may need to be adjusted. There is no change in your other medications Please return to the emergency department if symptoms worsen or persist, you most likely will need recurrent paracentesis which likely can be accomplished in the emergency department without admission. Prescriptions/Referrals Prescriptions/Med Rec: New furosemide 40 mg Tablet 40 mg PO QDAY 30 Days Qty: 30 0RF Continued thyroid (pork) [[place] Thyroid] 120 mg tablet 120 mg PO QDAY buspirone 10 mg tablet 10 mg PO QDAY Patient Comments: TAKE 1 TABLET BY MOUTH EVERY DAY FOR 30 DAYS carvedilol 3.125 mg tablet 3.125 mg PO BID Qty: 60 0RF Rx Instructions: must administer with a meal/food alprazolam 0.5 mg tablet 0.5 mg PO HS Patient Comments: TAKE 1 TABLET BY MOUTH EVERY DAY FOR 30 DAYS spironolactone 25 mg Tablet 100 mg PO QDAY Qty: 120 0RF Rx Instructions: Take 4 tablets (total 100 mg) daily Discontinued furosemide [Lasix] 20 mg tablet 20 mg PO QDAY Qty: 30 0RF Referrals: Ted Burnett MD [Primary Care Provider] - Patient/Caregiver Discharge Instructions Education Materials: Paracentesis, Paracentesis Dc Print Language: Nepali Stand Alone Forms: Mayuri Award Info., Patient Portal Info Letter Discharge Order Discharge Orders: Discharge (Routine); Ordered 02/08/25 Ordered By: Cecile Arndt Quality Discharge Quality Measures VTE prophylaxis Attestestation Attestation I have discussed and was present for the essential components of the discharge history, physical examination, diagnosis, and discharge treatment plan with the resident. I agree with the patient's discharge care as documented by the resident and amended herein by me. Melchor Mcelroy, . Patient stable for discharge today, vital signs stable at time of discharge, patient on room air, SpO2 95%. Patient did have 4 L removed with therapeutic paracentesis yesterday on 02/07 without issue. Patient has been normotensive today. Patient will continue her outpatient medications, to include Lasix and spironolactone however I am going to uptitrate her dose of Lasix to 40 mg daily and continue her spironolactone at 100 mg daily. I did emphasize the importance of medication compliance. I also let her know that if she starts feeling lightheaded to see her PCP DIXIE for dosage adjustments. Patient will also need to see a hepatobiliary specialist which she is states has been in the works with her PCP. If the patient comes back to the emergency department for abdominal distention, she can likely get a therapeutic paracentesis then be sent home. We again strongly advised the patient against complete cessation of alcohol and she said she has not had a drink since just prior to her last admission in early January. Patient was stable, afebrile, tolerating p.o. intake and ambulatory at time of discharge home. Of note, home health for physical therapy was ordered for the patient The patient understood all discharge instructions, all questions were answered satisfactorily. The patient was instructed to return to the Emergency Department is symptoms worsened or persisted. Although this document has been carefully reviewed, there may still be some phonetic and other typographical errors. These errors are purely grammatical due to imperfections in the software program and should not be construed in any way to compromise the substance of the patient's medical care during this visit.
--- NOTE | 2025-02-08 16:07 | PC.SS ---
late entry: SS learned of pt discharge after left; confirmed with medical team no needs
--- NOTE | 2025-02-09 07:58 | PC.CC ---
Addendum entered by Neelam Irving RN 02/09/25 13:24: [facility] accepted and booked. MALATHI is 02/11 Original Note: HH Ref sent to [facility] for MALATHI, waiting for response
== END 2025-02-08 14:06 | disposition home or self-care (01) | DRG 434 ==
LOC: SERX 17:15 → SERHOLD 18:18 → S3NX 02-07 06:27
PROVIDERS: Physician Assistant; Admitting Provider Student in an Organized Health Care Education/Training Program; Emergency Provider Emergency Medicine; PCP Family Medicine; Visit Provider Student in an Organized Health Care Education/Training Program
DX: K70.31 Alcoholic cirrhosis of liver with ascites (principal); F10.10 Alcohol abuse, uncomplicated; F41.9 Anxiety disorder, unspecified; I10 Essential (primary) hypertension; Z91.199 Patient's noncompliance with other medical treatment and regimen due to unspecified reason; R60.0 Localized edema; Z88.5 Allergy status to narcotic agent; Z79.899 Other long term (current) drug therapy; R60.1 Generalized edema
CPT/HCPCS: 36415; 71046; 80053; 80307; 81001; 82042; 82140; 82150; 82945; 83615; 83735; 83880; 84100; 84157; 84484; 85025; 85610; 85730; 87070; 87075; 87081; 87205; 89051; 93005; 93225; 94640; 96374; 96375; 97162; 99285; A9270; C1729; J0696; J1644; J1938; J2060; J2405; J2470; J7050; P9047

== ENCOUNTER → 2025-02-18 | Outpatient (CLI) | payer MEDICARE, OTHER, SELFPAY ==
--- NOTE | 2025-02-18 13:00 | XR_ITS ---
Examination: Ultrasound-guided paracentesis Abdominal sonogram limited Date and time of exam: February 18, 2025 1204 hours INDICATIONS: Cirrhosis, increasing ascites and abdominal distention this week Informed consent provided. A timeout was completed verifying correct patient, procedure, site, positioning, and special adequate movement if applicable. Technique: Multiple sonographic images of the abdomen have been obtained. Appropriate area for paracentesis was marked. Local anesthesia is obtained with 1% lidocaine. Yueh catheter is successfully introduced. Findings: Abdominal sonographic images demonstrate sufficient ascitic fluid for paracentesis. After placing the Yueh catheter, 4150 cc of fluid were successfully removed. During and after completion of the procedure the patient appear in satisfactory and stable condition with no complications observed. Estimated blood loss 0 cc Impression: Abdominal ascites Successful ultrasound-guided paracentesis as described above
== END | disposition home or self-care (01) ==
PROVIDERS: PCP Family Medicine; Referring Provider Family Medicine; Visit Provider Family Medicine
DX: K70.31 Alcoholic cirrhosis of liver with ascites (principal)
CPT/HCPCS: 49083

== ENCOUNTER → 2025-03-05 | Outpatient (CLI) | payer MEDICARE, OTHER, SELFPAY ==
--- NOTE | 2025-03-05 11:30 | XR_ITS ---
Examination: Ultrasound-guided paracentesis Abdominal sonogram limited Date and time of exam: March 05, 2025 12 noon INDICATIONS: Cirrhosis, increasing ascites and abdominal distention this week Informed consent provided. A timeout was completed verifying correct patient, procedure, site, positioning, and special adequate movement if applicable. Technique: Multiple sonographic images of the abdomen have been obtained. Appropriate area for paracentesis was marked. Local anesthesia is obtained with 1% lidocaine. Yueh catheter is successfully introduced. Findings: Abdominal sonographic images demonstrate sufficient ascitic fluid for paracentesis. After placing the Yueh catheter, 5550 cc of fluid were successfully removed. During and after completion of the procedure the patient appear in satisfactory and stable condition with no complications observed. Estimated blood loss 0 cc Impression: Abdominal ascites Successful ultrasound-guided paracentesis as described above
[2025-03-05 11:41] LABS: Basophils # (Auto) 0.1 Thou/mm3 (0.0-0.2); Basophils % (Auto) 1 % (0-2.5); Eosinophils # (Auto) 0.2 Thou/mm3 (0.0-0.5); Eosinophils % (Auto) 2 % (0-10); Hematocrit 36.7 % (36.0-46.0); Hemoglobin 13.1 g/dL (12.0-16.0); Immature Granulocytes Auto 0.03 Thou/mm3 (0.00-0.00); Lymphocytes # (Auto) 1.4 Thou/mm3 (1.0-4.8); Lymphocytes % (Auto) 16 % (10-50); Mean Corpuscular HGB Conc 35.7 g/dl (31.0-37.0); Mean Corpuscular Hemoglobin 32.0 pg (25.0-35.0); Mean Corpuscular Volume 90 fL (80-100); Monocytes # (Auto) 0.9 Thou/mm3 (0.0-0.8); Monocytes % (Auto) 10 % (0-12); Neutrophils # (Auto) 6.1 Thou/mm3 (1.8-7.7); Neutrophils % (Auto) 70 % (37-80); Nucleated Red Blood Cell # 0.00 Thou/mm3 (0.00-0.00); Nucleated Red Blood Cell % 0 /100 WBC (0); Platelet Count 331 Thou/mm3 (140-440); RDW Standard Deviation 38.7 fL (36.4-46.3); Red Blood Count 4.09 Miln/mm3 (4.00-5.20); White Blood Count 8.6 Thou/mm3 (3.6-11.0)
[2025-03-05 11:48] LABS: INR 1.1 (0.9-1.3); Partial Thromboplastin Time 34.7 Seconds (22.0-36.0); Prothrombin Time 12.3 Seconds (9.0-12.2)
[2025-03-05 11:59] LABS: Alanine Aminotransferase 7 U/L (10-49); Albumin, Serum 2.9 gm/dL (3.4-4.8); Albumin/Globulin Ratio 1.3 (1.2-2.2); Alkaline Phosphatase 158 U/L (46-116); Anion Gap 8 (7-16); Aspartate Amino Transferase 26 U/L (0-34); BUN/Creatinine Ratio 12 Ratio (12-20); Bilirubin,Total 1.3 mg/dL (0.3-1.2); Blood Urea Nitrogen 7 mg/dL (9-23); Calcium 8.6 mg/dL (8.3-10.6); Calcium (Corrected) 9.5 mg/dL (8.5-10.1); Carbon Dioxide 29.4 mMol/L (20.0-31.0); Chloride 96 mMol/L (98-107); Creatinine (Component) 0.6 mg/dL (0.6-1.3); Globulin 2.3 gm/dL (2.3-3.5); Glucose 111 mg/dL (74-106); Osmolality,Calculated 265 (275-295); Potassium 3.3 mMol/L (3.4-5.1); Sodium 133 mMol/L (136-145); Total Protein 5.2 gm/dL (5.7-8.2); eGFR > 60 See Note
[2025-03-05 14:07] LABS: Misc Fld, Color Yellow; Misc Fld, Source ASCITES; Miscellaneous Fld, Appearance CLEAR
[2025-03-05 14:08] LABS: Misc Fluid, Mononuclear WBC 95 %; Misc Fluid, Polynuclear 5 %
[2025-03-05 14:21] LABS: Albumin, Peritoneal Fluid < 1.0 gm/dL; Glucose,Peritoneal Fluid 113 mg/dL; LDH,Misc Fluid 72 IU/L; Protein Total,Misc Fluid < 2.0 g/dL
[2025-03-05 14:53] LABS: Misc Fluid, RBC 45 /cmm; Misc Fluid, WBC 73 /cmm
== END | disposition home or self-care (01) ==
PROVIDERS: PCP Family Medicine; Referring Provider Internal Medicine; Visit Provider Internal Medicine
DX: K70.31 Alcoholic cirrhosis of liver with ascites (principal)
CPT/HCPCS: 49083; 36415; 80053; 82042; 82945; 83615; 84157; 85025; 85610; 85730; 87070; 87205; 89051; C1729

== ENCOUNTER → 2025-03-14 | Outpatient (CLI) | payer MEDICARE, OTHER, SELFPAY ==
--- NOTE | 2025-03-14 09:30 | XR_ITS ---
Examination: Ultrasound-guided paracentesis Abdominal sonogram limited Date and time of exam: March 14, 2025 1015 hours INDICATIONS: Cirrhosis, increasing ascites and abdominal distention this week Informed consent provided. A timeout was completed verifying correct patient, procedure, site, positioning, and special adequate movement if applicable. Technique: Multiple sonographic images of the abdomen have been obtained. Appropriate area for paracentesis was marked. Local anesthesia is obtained with 1% lidocaine. Yueh catheter is successfully introduced. Findings: Abdominal sonographic images demonstrate sufficient ascitic fluid for paracentesis. After placing the Yueh catheter, 4500 cc of fluid were successfully removed. During and after completion of the procedure the patient appear in satisfactory and stable condition with no complications observed. Estimated blood loss 0 cc Impression: Abdominal ascites Successful ultrasound-guided paracentesis as described above
== END | disposition home or self-care (01) ==
PROVIDERS: PCP Family Medicine; Referring Provider Family Medicine; Visit Provider Family Medicine
DX: K70.31 Alcoholic cirrhosis of liver with ascites (principal)
CPT/HCPCS: 49083; C1729

== ENCOUNTER → 2025-03-27 | Outpatient (CLI) | payer MEDICARE, OTHER, SELFPAY ==
[2025-03-27 10:40] LABS: Basophils # (Auto) 0.1 Thou/mm3 (0.0-0.2); Basophils % (Auto) 1 % (0-2.5); Eosinophils # (Auto) 0.1 Thou/mm3 (0.0-0.5); Eosinophils % (Auto) 1 % (0-10); Hematocrit 41.3 % (36.0-46.0); Hemoglobin 14.8 g/dL (12.0-16.0); Immature Granulocytes Auto 0.05 Thou/mm3 (0.00-0.00); Lymphocytes # (Auto) 1.2 Thou/mm3 (1.0-4.8); Lymphocytes % (Auto) 13 % (10-50); Mean Corpuscular HGB Conc 35.8 g/dl (31.0-37.0); Mean Corpuscular Hemoglobin 31.2 pg (25.0-35.0); Mean Corpuscular Volume 87 fL (80-100); Monocytes # (Auto) 0.8 Thou/mm3 (0.0-0.8); Monocytes % (Auto) 8 % (0-12); Neutrophils # (Auto) 7.3 Thou/mm3 (1.8-7.7); Neutrophils % (Auto) 77 % (37-80); Nucleated Red Blood Cell # 0.00 Thou/mm3 (0.00-0.00); Nucleated Red Blood Cell % 0 /100 WBC (0); Platelet Count 331 Thou/mm3 (140-440); RDW Standard Deviation 38.8 fL (36.4-46.3); Red Blood Count 4.75 Miln/mm3 (4.00-5.20); White Blood Count 9.5 Thou/mm3 (3.6-11.0)
[2025-03-27 10:49] LABS: INR 1.1 (0.9-1.3); Partial Thromboplastin Time 33.0 Seconds (22.0-36.0); Prothrombin Time 12.1 Seconds (9.0-12.2)
--- NOTE | 2025-03-27 13:00 | XR_ITS ---
Examination: Ultrasound-guided paracentesis Abdominal sonogram limited Date and time of exam: March 27, 2025 1253 hours INDICATIONS: Cirrhosis, increasing ascites and abdominal distention this week Informed consent provided. A timeout was completed verifying correct patient, procedure, site, positioning, and special adequate movement if applicable. Technique: Multiple sonographic images of the abdomen have been obtained. Appropriate area for paracentesis was marked. Local anesthesia is obtained with 1% lidocaine. Yueh catheter is successfully introduced. Findings: Abdominal sonographic images demonstrate sufficient ascitic fluid for paracentesis. After placing the Yueh catheter, 5400 cc of fluid were successfully removed. During and after completion of the procedure the patient appear in satisfactory and stable condition with no complications observed. Estimated blood loss 0 cc Impression: Abdominal ascites Successful ultrasound-guided paracentesis as described above
== END | disposition home or self-care (01) ==
PROVIDERS: PCP Family Medicine; Referring Provider Family Medicine; Visit Provider Family Medicine
DX: K70.31 Alcoholic cirrhosis of liver with ascites (principal)
CPT/HCPCS: 49083; 36415; 85025; 85610; 85730; C1729

== ENCOUNTER → 2025-04-21 | Outpatient (CLI) | payer MEDICARE, OTHER, SELFPAY ==
[2025-04-21 10:30] LABS: Basophils # (Auto) 0.1 Thou/mm3 (0.0-0.2); Basophils % (Auto) 1 % (0-2.5); Eosinophils # (Auto) 0.1 Thou/mm3 (0.0-0.5); Eosinophils % (Auto) 1 % (0-10); Hematocrit 39.2 % (36.0-46.0); Hemoglobin 13.9 g/dL (12.0-16.0); Immature Granulocytes Auto 0.05 Thou/mm3 (0.00-0.00); Lymphocytes # (Auto) 1.0 Thou/mm3 (1.0-4.8); Lymphocytes % (Auto) 11 % (10-50); Mean Corpuscular HGB Conc 35.5 g/dl (31.0-37.0); Mean Corpuscular Hemoglobin 30.1 pg (25.0-35.0); Mean Corpuscular Volume 85 fL (80-100); Monocytes # (Auto) 0.7 Thou/mm3 (0.0-0.8); Monocytes % (Auto) 8 % (0-12); Neutrophils # (Auto) 7.4 Thou/mm3 (1.8-7.7); Neutrophils % (Auto) 80 % (37-80); Nucleated Red Blood Cell # 0.00 Thou/mm3 (0.00-0.00); Nucleated Red Blood Cell % 0 /100 WBC (0); Platelet Count 352 Thou/mm3 (140-440); RDW Standard Deviation 39.8 fL (36.4-46.3); Red Blood Count 4.62 Miln/mm3 (4.00-5.20); White Blood Count 9.3 Thou/mm3 (3.6-11.0)
[2025-04-21 10:43] LABS: INR 1.2 (0.9-1.3); Partial Thromboplastin Time 35.0 Seconds (22.0-36.0); Prothrombin Time 12.9 Seconds (9.0-12.2)
--- NOTE | 2025-04-21 11:30 | XR_ITS ---
Examination: Ultrasound-guided paracentesis Abdominal sonogram limited Date and time of exam: April 21, 2025 1150 hours INDICATIONS: Cirrhosis, increasing ascites and abdominal distention this week Informed consent provided. A timeout was completed verifying correct patient, procedure, site, positioning, and special adequate movement if applicable. Technique: Multiple sonographic images of the abdomen have been obtained. Appropriate area for paracentesis was marked. Local anesthesia is obtained with 1% lidocaine. Yueh catheter is successfully introduced. Findings: Abdominal sonographic images demonstrate sufficient ascitic fluid for paracentesis. After placing the Yueh catheter, 4150 cc of fluid were successfully removed. During and after completion of the procedure the patient appear in satisfactory and stable condition with no complications observed. Estimated blood loss 0 cc Impression: Abdominal ascites Successful ultrasound-guided paracentesis as described above
== END | disposition home or self-care (01) ==
PROVIDERS: PCP Family Medicine; Referring Provider Family Medicine; Visit Provider Family Medicine
DX: K70.31 Alcoholic cirrhosis of liver with ascites (principal)
CPT/HCPCS: 49083; 36415; 85025; 85610; 85730; C1729

== ENCOUNTER 2025-05-05 06:14 | Inpatient (IN) | payer MEDICARE, OTHER, SELFPAY ==
[2025-05-05] VITALS (9 sets, daily range): BP systolic 93–127; BP diastolic 65–80; PULSE 80–112; RESP 17–19; TEMP 36.2–36.7; O2SAT 93–99; BMI 29.2
--- NOTE | 2025-05-05 06:25 | EKG_ITS ---
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[id number] Requested By: Shadi Mccullough Order Number: [id number] Reading MD: Shadi Mccullough Measurements Intervals [place] Rate: 92 P: 4 [place]: 155 QRS: 2 QRSD: 61 T: -3 QT: 289 QTc: 358 Interpretive Statements SINUS RHYTHM WITH OCCASIONAL VENTRICULAR PREMATURE COMPLEXES WITH OCCASIONAL SUPRAVENTRICULAR PREMATURE COMPLEXES LOW QRS VOLTAGE IN PRECORDIAL LEADS [QRS DEFLECTION < 1.0 mV IN CHEST LEADS] ANTEROSEPTAL MYOCARDIAL INFARCTION , OF INDETERMINATE AGE [40+ ms Q WAVE IN V1-V4] Compared to ECG 02/07/2025 09:25:05 Ventricular premature complex(es) now present Sinus tachycardia no longer present Myocardial infarct finding still present /store/S0/[id number].pdf
--- NOTE | 2025-05-05 06:25 | XR_ITS ---
Examination: AP chest single view Technique: AP portable upright chest single view Date and time: May 05, 2025 0711 hrs. Indications: Chest pain today Findings: Normal heart size Lungs are clear. The osseous structures are intact Impression: No active disease
--- NOTE | 2025-05-05 06:25 | PD.EDRME ---
Rapid Medical Screening Exam RME Arrival date/time: 05/05/25 06:14 69-year-old female with a history of anxiety, hypertension, alcoholic liver cirrhosis, presents to the emergency room with a chief complaint of bilateral lower extremity swelling and abdominal distention x 1 week. Patient states she is very anxious and that is what brings her into the emergency room. I have greeted and performed a focused initial assessment of this patient. A comprehensive ED assessment and evaluation of the patient, analysis of all test results, and completion of the medical decision making process will be conducted by additional ED providers. Chief Complaint: Extremity Injury, Lower Vital signs reviewed by provider: Yes
--- NOTE | 2025-05-05 07:14 | PD.EDWEAK ---
ED Weakness RME/HPI General Chief complaint: Extremity Injury, Lower Stated complaint: LEG SWELLING Time Seen by Provider: 05/05/25 06:54 Arrival date/time: 05/05/25 06:14 Limitations: no limitations RME / HPI RME / HPI Narrative: 05/05/25 06:14 69-year-old female with a history of anxiety, hypertension, alcoholic liver cirrhosis, presents to the emergency room with a chief complaint of bilateral lower extremity swelling and abdominal distention x 1 week. Patient states she is very anxious and that is what brings her into the emergency room. I have greeted and performed a focused initial assessment of this patient. A comprehensive ED assessment and evaluation of the patient, analysis of all test results, and completion of the medical decision making process will be conducted by additional ED providers. Dr. Becerra evaluation: Patient is a 69-year-old female with medical history notable for alcohol related cirrhosis that is in the emergency department feeling anxious. Denies chest pain palpitations abdominal pain shortness of breath dysuria hematuria melena bloody stools. Denies drugs alcohol smoking. Patient intermittently take spironolactone and furosemide. Does not take it as prescribed. Patient has a prescription for buspirone that she did not know was for anxiety and so she has not been taking it. Denies recent travel sick contacts. Related Data Home Medications ?Medication ?Instructions ?Recorded ?Confirmed alprazolam 0.5 mg tablet 0.5 mg PO HS 12/31/24 02/07/25 buspirone 10 mg tablet 10 mg PO QDAY 01/12/25 02/07/25 thyroid (pork) 120 mg tablet 120 mg PO QDAY 01/12/25 02/07/25 ([place] Thyroid) Previous Rx's ?Medication ?Instructions ?Recorded carvedilol 3.125 mg tablet 3.125 mg PO BID #60 tabs 01/15/25 spironolactone 25 mg tablet 100 mg (4 x 25 mg) PO QDAY #120 02/08/25 tabs Allergies Allergy/AdvReac Type Severity Reaction Status Date / Time codeine Allergy Verified 02/06/25 10:42 ED Exam General Limitations: Present no limitations General appearance: Present alert and anxious Head Head exam: Present atraumatic and normocephalic Eye Eye exam: Present normal appearance, PERRL and EOMI; Absent scleral icterus ENT ENT exam: Present normal exam and normal oropharynx; Absent mucous membranes moist Neck Neck exam: Present normal inspection and full ROM Chest Chest inspection: Present normal inspection and symmetric chest wall rise Respiratory Respiratory exam: Present normal lung sounds bilaterally; Absent respiratory distress, wheezes or stridor Cardiovascular Cardiovascular exam: Present regular rate and normal rhythm Abdominal Exam Abdominal exam: Present soft and distention (Positive fluid wave, no tenderness to palpation no guarding no rebound) Extremities Exam Extremities exam: Present other (Bilateral lower extremity swelling, chronic symmetric) Neurological Exam Neurological exam: Present alert, oriented X3 and other (No focal neurodeficits) Psychiatric Psychiatric exam: Present other (Teary-eyed, labile mood) Skin Skin exam: Present warm, dry and intact Course Quality Measures none Orders Category Date Time Status EKG (ED ONLY) *Do not use* NOW Care 05/05/25 06:25 Completed EKG (ED Only) Stat Exams 05/05/25 06:25 Draft XR chest 1V portable Stat Exams 05/05/25 06:25 Completed Ammonia Stat Lab 05/05/25 07:25 Completed B-Type Natriuretic Peptide Stat Lab 05/05/25 07:25 Completed CBC Stat Lab 05/05/25 07:25 Completed Comprehensive Metabolic Panel Stat Lab 05/05/25 07:25 Completed Drug Screen,Urine Stat Lab 05/05/25 08:20 Completed Magnesium Stat Lab 05/05/25 07:25 Completed Partial Thromboplastin Time Stat Lab 05/05/25 07:25 Completed Prothrombin Time with INR Stat Lab 05/05/25 07:25 Completed Troponin I Stat Lab 05/05/25 07:25 Completed Urinalysis, C/S if Indicated Stat Lab 05/05/25 08:20 Received LORazepam [Ativan] Med 05/05/25 07:14 Discontinued 0.5 mg PO X1 ONE Magnesium Sulfate 1 gm Ivpb [Magnesium Sulfate Ivpb] Med 05/05/25 08:46 Active 1 gm in 100 ml IV X1 POTASSIUM CHL 10 mEq IVPB [Kcl Ivpb] Med 05/05/25 08:44 Active 10 meq in 100 ml IV Q1H Potassium Chloride [K-Dur] Med 05/05/25 08:43 Discontinued 40 meq PO X1 ONE Sodium Chloride 0.9% 500 ml [Ns] 500 ml Med 05/05/25 08:57 Ordered IV 80 mls/hr Vital Signs Vital signs: Vital Signs Temperature 98.1 F 05/05/25 06:37 Pulse Rate 96 05/05/25 06:37 Respiratory Rate 18 05/05/25 06:37 Blood Pressure 115/72 05/05/25 06:37 Pulse Oximetry (%) 98 05/05/25 06:37 Oxygen Delivery Method Room Air 05/05/25 06:37 Weakness MDM Narrative MDM Narrative:: Patient is a 69-year-old female seen emerged primary concerns for feeling anxious, weak and lower extremity swelling. Vital signs and exam as listed. Concern for ACS arrhythmia electrolyte abnormality metabolic derangement among others. Patient is breathing room air, not in respiratory distress. After labs EKG chest x-ray after medication for symptom relief. EKG performed today at 6:31 AM notable for sinus rhythm, occasional PVCs, heart rate 82, normal intervals, nonspecific T wave changes, not a cardiac alert. Troponin not elevated. Labs w/o any acute hematologic abnormality, patient with potassium 2.0. Chas replete oral and IV. Magnesium is 1.2. Will also replete. Patient without significant transaminitis. T. bili is 1.3. Patient abdomen distended with positive fluid wave however not tender. Given lack of fever no leukocytosis no abdominal pain less likely SBP. Patient ammonia not elevated. Chest x-ray unremarkable. Patient is breathing room air. Given how low patient's potassium is, will discuss case with hospitalist service. 8:51a discussed case with hospital service Patient data External records reviewed:: [facility] previous records and EMS form Clinical information provided by:: patient and EMS Social determinants that could affect healthcare access:: mental health Patient has the following chronic illnesses:: See MDM How is presenting disease/condition affected by chronic disease/condition?: exacerbated by Evaluation data The following diagnostics were reviewed and interpreted by me:: lab results, radiology exam(s) and EKG tracing(s) Lab and/or radiology exams considered but not ordered:: None Interpretation Summary: See MDM Medications / Prescriptions Medications or Prescriptions considered but not ordered:: None Medication administrations:: Medication Administration History Potassium Chloride (Kcl Ivpb) 10 meq in 100 mls @ 100 mls/hr IV Q1H CHASIDY Stop: 05/05/25 12:43 Magnesium Sulfate/Dextrose (Magnesium Sulfate Ivpb) 1 gm in 100 mls @ 100 mls/hr IV X1 ONE Stop: 05/05/25 09:45 Sodium Chloride (Ns) 500 mls @ 80 mls/hr IV .Q6H15M ONE Stop: 05/05/25 15:11 Discontinued Medications Lorazepam (Lorazepam 0.5 Mg Tablet) 0.5 mg PO X1 ONE Stop: 05/05/25 07:15 Last Admin: 05/05/25 07:44 Dose: 0.5 mg Documented By: VL Potassium Chloride (Potassium Chloride 20 Meq Tabcr) 40 meq PO X1 ONE Stop: 05/05/25 08:44 See above Consultations Consultation(s) initiated? (list below): Yes Consultation #1 (Physician, Specialty, Details): see mdm Diagnosis Weakness Differential Diagnosis: other Most likely diagnosis given after review of the tests above:: See [facility] Admission Indicated Admission indicated?: indicated Admission Request Was there a request for admission?: Yes Admission Attestation Admission request attestation: Discussed case with Hospitalist service regarding admission. Discussed patients ED course, exam findings, labs, and radiology results. The Hospitalist [agrees] to accept the patient for admission. Disposition Plan Disposition Plan: Admit Critical Care Time Critical Care Time Critical Care Time: Yes Total Critical Care Time (min.): 45 Attestation: I spent 45 minutes of critical care time with this patient not including reportable procedures. There was an acute impairment of an organ system with a high probability of imminent or life threatening deterioration in the patient's condition. Interventions and changes required in the course of therapy are located in the chart. Time involved was spent in direct patient care, reviewing ancillary data, old records, consulting with decision makers, EMS, other doctors, giving orders and documenting. Discharge Plan Plan Patient Disposition: Admit Acute Care w/in Hospital Prescriptions/Referrals Prescriptions/Med Rec: No Action thyroid (pork) [[place] Thyroid] 120 mg tablet 120 mg PO QDAY buspirone 10 mg tablet 10 mg PO QDAY Patient Comments: TAKE 1 TABLET BY MOUTH EVERY DAY FOR 30 DAYS carvedilol 3.125 mg tablet 3.125 mg PO BID Qty: 60 0RF Rx Instructions: must administer with a meal/food alprazolam 0.5 mg tablet 0.5 mg PO HS Patient Comments: TAKE 1 TABLET BY MOUTH EVERY DAY FOR 30 DAYS spironolactone 25 mg Tablet 100 mg PO QDAY Qty: 120 0RF Rx Instructions: Take 4 tablets (total 100 mg) daily Referrals: Reece Burnett MD [Primary Care Provider, Family Practice] - In 1 week Problem List Clinical Impression: Hypokalemia Patient/Caregiver Discharge Instructions Print Language: Polish Stand Alone Forms: Mayuri Award Info., Patient Portal Info Letter
[2025-05-05 07:36] LABS: Basophils # (Auto) 0.1 Thou/mm3 (0.0-0.2); Basophils % (Auto) 1 % (0-2.5); Eosinophils # (Auto) 0.1 Thou/mm3 (0.0-0.5); Eosinophils % (Auto) 1 % (0-10); Hematocrit 37.1 % (36.0-46.0); Hemoglobin 13.3 g/dL (12.0-16.0); Immature Granulocytes Auto 0.02 Thou/mm3 (0.00-0.00); Lymphocytes # (Auto) 1.2 Thou/mm3 (1.0-4.8); Lymphocytes % (Auto) 17 % (10-50); Mean Corpuscular HGB Conc 35.8 g/dl (31.0-37.0); Mean Corpuscular Hemoglobin 30.6 pg (25.0-35.0); Mean Corpuscular Volume 86 fL (80-100); Monocytes # (Auto) 0.8 Thou/mm3 (0.0-0.8); Monocytes % (Auto) 11 % (0-12); Neutrophils # (Auto) 5.0 Thou/mm3 (1.8-7.7); Neutrophils % (Auto) 70 % (37-80); Nucleated Red Blood Cell # 0.00 Thou/mm3 (0.00-0.00); Nucleated Red Blood Cell % 0 /100 WBC (0); Platelet Count 227 Thou/mm3 (140-440); RDW Standard Deviation 42.9 fL (36.4-46.3); Red Blood Count 4.34 Miln/mm3 (4.00-5.20); White Blood Count 7.1 Thou/mm3 (3.6-11.0)
[2025-05-05 07:50] LABS: Ammonia 18 uMol/L (11-32)
[2025-05-05 07:55] LABS: B-Type Natriuretic Peptide 75 pg/mL (0-100)
[2025-05-05 08:19] LABS: Alanine Aminotransferase < 7 U/L (10-49); Albumin, Serum 2.4 gm/dL (3.4-4.8); Albumin/Globulin Ratio 0.8 (1.2-2.2); Alkaline Phosphatase 176 U/L (46-116); Anion Gap 8 (7-16); Aspartate Amino Transferase 31 U/L (0-34); BUN/Creatinine Ratio 12 Ratio (12-20); Bilirubin,Total 1.3 mg/dL (0.3-1.2); Blood Urea Nitrogen 7 mg/dL (9-23); Calcium 7.4 mg/dL (8.3-10.6); Calcium (Corrected) 8.7 mg/dL (8.5-10.1); Carbon Dioxide 32.6 mMol/L (20.0-31.0); Chloride 89 mMol/L (98-107); Creatinine (Component) 0.6 mg/dL (0.6-1.3); Estimated Creatinine Clearance 77.1 mL/min (>60); Globulin 2.9 gm/dL (2.3-3.5); Glucose 94 mg/dL (74-106); Magnesium 1.2 mg/dL (1.6-2.6); Osmolality,Calculated 258 (275-295); Sodium 130 mMol/L (136-145); Total Protein 5.3 gm/dL (5.7-8.2); Troponin I < 0.020 ng/mL (0.0-0.045); eGFR > 60 See Note
[2025-05-05 08:28] LABS: Collection Type, Urine Clean Catch
[2025-05-05 08:31] LABS: Potassium 2.0 mMol/L (3.4-5.1)
[2025-05-05 08:36] LABS: INR 1.2 (0.9-1.3); Partial Thromboplastin Time 33.1 Seconds (22.0-36.0); Prothrombin Time 12.6 Seconds (9.0-12.2)
[2025-05-05 08:56] LABS: Amphetamine/Methamp Scrn,U Negative (Negative); Barbiturate Screen,Urine Negative (Negative); Benzodiazepines Screen,Urine Negative (Negative); Benzoylecgonine Screen, Ur Negative (Negative); Fentanyl Screen,Urine Negative (Negative); Opiate Screen,Urine Negative (Negative); THC Screen,Urine Positive (Negative)
[2025-05-05 09:04] LABS: Bilirubin,Urine Negative (Negative); Blood,Urine 1+ (Negative); Clarity,Urine Turbid (Clear/Hazy); Color,Urine Yellow (Lt Yel-Yel); Culture Indicated,Urine Not Indicated; Glucose, Urine Negative (Negative); Hyaline Casts,Urine < 1 /hpf (0-1); Ketones,Urine Negative (Negative); Leukocyte Esterase,Urine Negative (Negative); Nitrite,Urine Negative (Negative); PH,Urine 6.0 (5.0-7.0); Protein,Urine Trace (Neg - Trace); RBC,Urine 3 /hpf (0-3); Specific Gravity,Urine 1.027 (1.001-1.035); Squamous Epithelial Cell,Urine 10 /hpf (0-5); Transitional Epi Cells,Urine 9 /hpf (0-5); Urobilinogen,Urine Negative mg/dL (0.0-1.0); WBC,Urine 1 /hpf (0-5)
[2025-05-05] MEDS: POTASSIUM CHL 10 mEq IVPB 10 MEQ/100 ML BAG 100 MEQ IV ×4 (09:06→13:51)
[2025-05-05] MEDS: SODIUM CHLORIDE 0.9% 500 ML 500 ML 80 ML IV (09:06)
[2025-05-05 11:30] LABS: Free T4 (Free Thyroxine) 0.65 ng/dL (0.89-1.76); Thyroid Stimulating Hormone 20.57 uIU/mL (0.55-4.78)
--- NOTE | 2025-05-05 12:09 | PC.NURSE ---
@[phone] Report received from [employer] Ralph.
--- NOTE | 2025-05-05 12:28 | PC.NURSE ---
@[id number] Patient to room via gurney from ER. Stable condition.
--- NOTE | 2025-05-05 13:13 | XR_ITS ---
Examination: Ultrasound-guided paracentesis Abdominal sonogram limited Date and time of exam: May 05, 2025 1416 hours INDICATIONS: Cirrhosis increasing ascites and abdominal distention this week Informed consent provided. A timeout was completed verifying correct patient, procedure, site, positioning, and special adequate movement if applicable. Technique: Multiple sonographic images of the abdomen have been obtained. Appropriate area for paracentesis was marked. Local anesthesia is obtained with 1% lidocaine. Yueh catheter is successfully introduced. Findings: Abdominal sonographic images demonstrate sufficient ascitic fluid for paracentesis. After placing the Yueh catheter, 4800 cc of fluid were successfully removed. During and after completion of the procedure the patient appear in satisfactory and stable condition with no complications observed. Estimated blood loss 0 cc Impression: Abdominal ascites Successful ultrasound-guided paracentesis as described above
--- NOTE | 2025-05-05 13:18 | ESHP_ITS ---
<Statement entered by Holland Us MD - 05/05/25 16:23> Patient is very anxious and crying when examining at the bedside. A 69-year-old female with significant past medical history of severe anxiety disorder, liver cirrhosis, ascites with paracentesis in the ED, chronic hypokalemia, hypothyroidism presented to the hospital with chief complaints of anxiety. Vitals are stable. Routine labs done at the time is significant for sodium 130, potassium 2.0, total bilirubin 1.3. TSH 20.57, free T40.65. Patient reported that she is absolutely fine until this morning and around 3 AM she woke up and noted to have severe anxiety for which she came to the hospital. Patient was admitted and the hospital for observation in view of severe hypokalemia and also noted to have palpitations, EKG changes including multiple PVCs. On physical examination, patient was noted to have severe abdominal distention and pedal edema extending up to the knees, 4+ pitting. Ultrasound guided ascitic tap was done. Fluid was sent for analysis. During the acetic tap, patient endorsed suicidal ideation to the technology teacher for which patient was kept on 5150 hold with one-on-one sitter. Patient was given potassium supplementation to mouth and IV with total of 80 mEq. Repeat potassium was ordered later in the day, will follow-up with results and replete accordingly. Patient was started on spironolactone, furosemide. Albumin was given in view of large-volume paracentesis for about 4.8 L. Will reevaluate tomorrow and if the patient is stable, we will discharge in the next 24 hours. I have personally seen and examined the patient, agree with residents assessment and plan Patient plan of care was discussed with the attending physician, Dr. Monty Us, PGY2 Documentation for date of: 05/05/25 HPI History of Present Illness History of present illness: Patient is a 69-year-old female with past medical history of cirrhosis secondary to alcohol use, anxiety, hypothyroidism, chronic lymphedema who presents on 05/05 for chief complaint of anxiety since 3 AM this morning. Reports that she was prescribed Xanax but has not been taking it recently, reports that she has been taking buspirone instead. Was found to have potassium level 2.0 and sodium 130 in ED, likely iatrogenic. Patient reports she is taking furosemide 20 mg daily as well as spironolactone 25 mg daily. Per chart review she is supposed be taking spironolactone 100 mg daily, was discontinued on furosemide. Denies recent diarrhea, nausea, vomiting. Patient also has history of chronic cirrhosis, has had multiple paracenteses within the past couple of months. Reports last drink was 3 days ago. ED Course: -Initial vitals were stable, pulse 96. -Labs significant for sodium 130, potassium 2.0, chloride 89, bicarb 32.6, magnesium 1.2, bilirubin 1.3, alk phos 176, TSH 20.57, free T4 0.65. UA showed blood +1 with 10 squamous epithelial cells, no bacteria. U tox positive for marijuana only, negative for benzodiazepine. EKG showed sinus rhythm with flat T waves, no U waves observed. -In the ED, patient was given lorazepam 0.5 mg x 1, KCl 40mEq x 1, KCl 10mEq x1 -Patient was admitted for hypokalemia. Review of Systems Review of systems otherwise negative except what is mentioned above. Past Medical History: As above Family History: Noncontributory Surgical History: Denied surgical history other than paracentesis Social History: Drank 1 to 2 glasses of wine daily since 16, now drinks 1 to 2 glasses of gin tonic daily for the past week. Denies history of smoking, denies recreational or illicit drug use Current Medications: Buspirone 10 mg daily, carvedilol 3.125 twice daily, furosemide 20 mg daily, spironolactone (x 25 mg), [place] Thyroid 120 mg daily (Source: [employer] rec) Allergies: No known drug allergies Exam Vital Signs Temp Pulse Resp BP Pulse Ox O2 Del Method 97.8 F 99 19 127/78 98 Room Air 05/05/25 07:30 05/05/25 07:30 05/05/25 07:30 05/05/25 07:30 05/05/25 07:30 05/05/25 07:30 Narrative Exam Physical Exam General: Awake, in mild distress due to anxiety. Conversational and non-toxic appearing. Intermittently tearful. HEENT: Normocephalic, atraumatic, mucous membranes moist. Heart: Regular rate and rhythm, normal S1 and S2, no murmurs. Lungs: Clear to auscultation with no wheezing or crackles. Abdomen: Soft, nondistended, nontender, positive bowel sounds. No guarding or rebound tenderness. Neurologic: Alert and oriented x3, no gross neurological deficit, and patient able to move all 4 extremities. Extremities: 2+ pitting edema bilaterally, chronic. Skin: No rash or ecchymoses. Results: Labs 05/05/25 07:25 05/05/25 16:14 Labs: Short CBC 05/05/25 Range/Units 07:25 WBC 7.1 (3.6-11.0) Thou/mm3 Hgb 13.3 (12.0-16.0) g/dL Hct 37.1 (36.0-46.0) % Plt Count 227 D (140-440) Thou/mm3 BMP 05/05/25 07:25 Sodium 130 L Potassium 2.0 L* Chloride 89 L Carbon Dioxide 32.6 H BUN 7 L Creatinine 0.6 Glucose 94 Calcium 7.4 L Cardiac Enzymes 05/05/25 Range/Units 07:25 Troponin I < 0.020 (0.0-0.045) ng/mL Liver Function 05/05/25 Range/Units 07:25 Total Bilirubin 1.3 H (0.3-1.2) mg/dL AST 31 (0-34) U/L ALT < 7 L (10-49) U/L Alkaline Phosphatase 176 H (46-116) U/L Albumin 2.4 L (3.4-4.8) gm/dL Urine 05/05/25 Range/Units 08:20 Urine Color Yellow (Lt Yel-Yel) Urine Clarity Turbid A (Clear/Hazy) Urine pH 6.0 (5.0-7.0) Ur Specific Ray 1.027 (1.001-1.035) Urine Protein Trace (Neg - Trace) Urine Glucose (UA) Negative (Negative) Quality Measures Quality Measures none Advance care planning discussed with:: patient Medications Home Medications and Allergies Home Medications ?Medication ?Instructions ?Recorded ?Confirmed ?Type alprazolam 0.5 mg tablet 0.5 mg PO HS 12/31/24 History buspirone 10 mg tablet 10 mg PO QDAY 01/12/2505/05 History thyroid (pork) 120 mg tablet 120 mg PO QDAY 01/12/25 0 05/05/25 History ([place] Thyroid) furosemide 20 mg tablet 20 mg PO DAILY 05/05/25/10/08 History Allergies Allergy/AdvReac Type Severity Reaction Status Date / Time codeine Allergy Verified 02/06/25 10:42 Visit Medications Acetaminophen (Acetaminophen 325 Mg Tablet) 500 mg PO Q6H PRN PRN Reason: Fever >101.5 Stop: 06/04/25 09:14 Alprazolam (Alprazolam 0.25 Mg Tablet) 0.5 mg PO HS CHASIDY Stop: 05/10/25 20:59 Carvedilol (Carvedilol 3.125 Mg Tablet) 3.125 mg PO BIDWM CHASIDY Stop: 06/04/25 17:29 Sodium Chloride (Ns) 500 mls @ 80 mls/hr IV .Q6H15M ONE Stop: 05/05/25 15:11 Last Admin: 05/05/25 09:06 Dose: 80 mls/hr Albumin Human (Albuminar-25 Ivpb) 25 gm in 100 mls @ 100 mls/hr IV QDAY CHASIDY Stop: 05/08/25 13:17 Lactulose (Lactulose Syrup 20 Gm/30 Ml Udc) 10 gm PO QDAY CHASIDY; Protocol Stop: 06/05/25 08:59 Ondansetron HCl (Ondansetron Inj 2 Mg/Ml Inj 2 Ml) 4 mg IVP Q6H PRN; Protocol PRN Reason: NAUSEA OR VOMITING Stop: 06/04/25 09:14 Pantoprazole Sodium (Pantoprazole 40 Mg Tablet) 40 mg PO QDAY CHASIDY Stop: 06/05/25 08:59 Spironolactone (Spironolactone 25 Mg Tablet) 100 mg PO QDAY CHASIDY Stop: 06/04/25 13:14 Discontinued Medications Potassium Chloride (Kcl Ivpb) 10 meq in 100 mls @ 100 mls/hr IV Q1H CHASIDY Stop: 05/05/25 12:43 Last Admin: 05/05/25 12:12 Dose: 100 mls/hr Magnesium Sulfate/Dextrose (Magnesium Sulfate Ivpb) 1 gm in 100 mls @ 100 mls/hr IV X1 ONE Stop: 05/05/25 09:45 Lorazepam (Lorazepam 0.5 Mg Tablet) 0.5 mg PO X1 ONE Stop: 05/05/25 07:15 Last Admin: 05/05/25 07:44 Dose: 0.5 mg Potassium Chloride (Potassium Chloride 20 Meq Tabcr) 40 meq PO X1 ONE Stop: 05/05/25 08:44 Last Admin: 05/05/25 09:07 Dose: 40 meq Assessment & Plan Plan Patient is a 69-year-old female with past medical history of cirrhosis secondary to alcohol use, anxiety, hypothyroidism, chronic lymphedema who presents on 05/05 for chief complaint of anxiety, admitted for hypokalemia. #Hypokalemia, likely iatrogenic #Hyponatremia #Hypomagnesemia #Metabolic alkalosis Presented with potassium 2.0, sodium 130, chloride 89, magnesium 1.2, bicarb 32.6. Likely secondary to continued use of Lasix, despite discontinuation noted previously on chart review. Denies diarrhea, nausea, vomiting. S/p potassium chloride 60 mEq in ED. 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 S/p paracentesis 05/05, removed 4.5 L. Hepatitis panel negative as of 12/30/2024. Patient reports last drink was 3 days ago, low concern for alcohol withdrawal. Denies history of alcohol withdrawal seizures. Endorses headache but no tremors on exam, denied hallucinations. Scores: Child Betancourt 9, class B; indication for transplant eval, trevor-operative mortality 30% MELD score 9, 6.0% estimated 3 month mortality Plan: - IV albumin - Counseled on alcohol cessation - No CIWA protocol at this time #Anxiety #Suicidal ideation ? Is prescribed Xanax nightly but has not been taking it recently per patient. Also prescribed buspirone 10 mg daily which she reports taking. On admission, patient was very anxious. Given lorazepam 0.5 x 1 in ED with some relief. Noted to have suicidal thoughts by staff, now placed on 5150 hold. Patient denied thoughts of self harm or suicidal ideation upon interview. Plan: - Xanax 0.25 mg - Consider switching back to buspirone 10 mg daily, uptitrate as needed - CTM for SI #Hypothyroidism Taking [place] Thyroid 120 mcg daily at home. However TSH 20.57, free T4 0.65, appears to be undertreated. Unclear if patient is even taking medication or taking correctly. -Start levothyroxine 100 mcg tomorrow morning -Will need to follow-up thyroid hormones in 2 weeks, likely outpatient #Chronic lymphedema Likely secondary to alcoholic cirrhosis with refractory ascites. - Spiranolactone as above - Consider compression stockings outpatient #Marijuana use Denies use of marijuana herself but reports that her uses. Utox positive for marijuana. 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 Us, and attending physician, Dr. Millan. Fadumo Bro, PGY-1 Attending Provider Attestation/Addendum I have examined the patient, reviewed labs and imaging findings, discussed the case with the resident(s), and reviewed entered orders. I agree with the plan of care as outlined in this note, with these additional summaries/recommendations: After examination of the patient and review of the clinical data, I feel that this patient needs admission to the hospital for further treatment and evaluation. Patient is a 69-year-old female with a medical history of liver cirrhosis with ascites, alcohol use, anxiety, primary hypertension, and hypothyroidism presents to [facility] emergency department on 05/05/2025 with nonspecific chief complaints of bilateral lower extremity swelling, abdominal distention, generalized weakness, and severe anxiety. Patient seen at bedside. She is endorsing severe anxiety. She reports she has been hospitalized for anxiety in the past and has had panic attacks. She denies any suicidal ideations. Patient was given benzodiazepine in the emergency room with improvement in anxiety. Continue home buspirone. She denies any significant life stressors or changes in her day-to-day activities. She does have a history of hypothyroidism and takes [place] Thyroid. We will obtain thyroid studies as I suspect patient's thyroid disease may be contributing to her anxiety. After thyroid studies are obtained patient would likely benefit from being transition to levothyroxine with a consistent dose. Patient also diagnosed with decompensated cirrhosis and fluid overload. She has 2+ bilateral lower extremity edema and significant ascites. Continue home spironolactone and start IV diuresis. Order paracentesis. No evidence of GI bleed at this time. Mild hyponatremia likely secondary to underlying cirrhosis. Patient was also found to have acute on chronic/intractable hypokalemia. Etiology unknown but likely multifactorial secondary to poor oral intake and diuresis. We will continue to aggressively replete potassium. Hypomagnesia present and replacement given. Repeat hematology and chemistry panel in AM. Please see residents note for additional details and management. Dr. Monty MD
--- NOTE | 2025-05-05 14:14 | PC.NURSE ---
Patient to ultrasound via w/c in stable condition.
--- NOTE | 2025-05-05 15:54 | PD.EVENT ---
Documentation for date of: 05/05/25 Event Note Event Note: US TECH- PT EXPRESSED SUICIDAL THOUGHTS DURING US GUIDED PARACENTESIS PROCEDURE MULTIPLE TIMES - FEELING HOPELESS AND THAT SHE WAS NOT GOING TO LIVE LIKE THIS AND SHE WAS GOING TO END IT - CALLED NEW CLIENT BANKING SERVICES CLERK NIC AND INFORMED HER OF PTS STATEMENTS - SOCIAL WORK NIC ASKED ME TO PUT IN EVENT NOTE -
[2025-05-05] MEDS: SPIRONOLACTONE 25 MG TABLET 100 MG PO (16:03)
--- NOTE | 2025-05-05 16:23 | PC.SS ---
SS received a call from cardiopulmonary technologist chief that patient had verbalized 4 times today while getting a paracentesis that she wanted to kill herself. Patient stating she doesn't want to live like this. Patient is being admitted to med/surg. SS updated SOCIAL SCIENCES RESEARCH SCIENTIST. Charge nurse and attending aware. Patient will be evaluated by ASW once medically cleared.
--- NOTE | 2025-05-05 16:29 | PC.SS ---
PILOT CAN ROUTER informed by digital sales planner that patient had made statements of engaging in self harm behavior while down in the radiology department. Patient disclosed statement in presence of radiology staff. PILOT CAN ROUTER contacted charge nurse of patient's disclosure and need for safety precautions. PILOT CAN ROUTER informed residential team of the patient's disclosure. Mental health evaluation to be conducted once patient is medically cleared.
[2025-05-05] MEDS: ALBUMIN HUMAN 25% IVPB 25 GM/100 ML BTL IV ×2 (16:46→18:19)
[2025-05-05 16:53] LABS: Potassium 2.4 mMol/L (3.4-5.1)
--- NOTE | 2025-05-05 17:01 | PC.NURSE ---
Called Dr. Campos for critical potassium 2.4. No new orders received at this time.
--- NOTE | 2025-05-05 17:03 | PC.CM ---
Spoke to US Joycelyn herrera who reports that the patient made statements of wanting to end her life and having a plan. automated equipment engineer technician reports patient made these statements several times and was also emotional.
[2025-05-05] MEDS: POTASSIUM CHLORIDE 10% 20 MEQ/15 ML UDC 40 MEQ PO ×2 (17:41→18:19)
[2025-05-05 18:36] LABS: Peritoneal Fluid WBC 30 /cmm
[2025-05-05 19:00] LABS: Peritoneal Fluid Appearance Clear; Peritoneal Fluid Color Straw; Peritoneal Fluid Mononuclear 97 %; Peritoneal Fluid Polynuclear 3 %; RBC,Peritoneal Fluid 40 /cmm
[2025-05-05 19:52] LABS: Albumin, Peritoneal Fluid < 1.0 gm/dL; Amylase,Peritoneal Fluid < 20 IU/L; Glucose,Peritoneal Fluid 114 mg/dL; LDH,Peritoneal Fluid 52 IU/L; Protein Total,Peritoneal Fluid < 2 g/dL
[2025-05-05] MEDS: MELATONIN 3 MG TABLET PO (20:38)
[2025-05-05 21:38] LABS: Creatinine,Random Urine 97 mg/dL (30-125); Potassium,Urine Random 83 mMol/L (12-62)
[2025-05-05 21:40] LABS: Alcohol, Urine Negative (Negative)
[2025-05-05 23:29] LABS: Potassium 3.3 mMol/L (3.4-5.1)
[2025-05-05 23:57] LABS: Magnesium 1.4 mg/dL (1.6-2.6)
[2025-05-06] VITALS (13 sets, daily range): BP systolic 90–102; BP diastolic 55–64; PULSE 67–86; RESP 17–18; TEMP 36.2–36.6; O2SAT 93–100
[2025-05-06] MEDS: Magnesium Sulfate 4 GM Ivpb 4 GM/50 ML BAG IV (02:52)
[2025-05-06] MEDS: POTASSIUM CHL 10 mEq IVPB 10 MEQ/100 ML BAG 100 MEQ IV ×3 (03:09→07:33)
[2025-05-06] MEDS: ACETAMINOPHEN 325 MG TABLET 500 MG PO (03:18)
[2025-05-06] MEDS: LEVOTHYROXINE SODIUM 100 MCG TABLET PO (05:12)
[2025-05-06] MEDS: ALBUMIN HUMAN 25% IVPB 25 GM/100 ML BTL IV (08:39)
[2025-05-06] MEDS: LACTULOSE SYRUP 20 GM/30 ML UDC 10 GM PO (08:39)
[2025-05-06] MEDS: PANTOPRAZOLE 40 MG TABLET PO (08:39)
[2025-05-06] MEDS: SPIRONOLACTONE 25 MG TABLET 100 MG PO (08:40)
[2025-05-06 08:47] LABS: Basophils # (Auto) 0.1 Thou/mm3 (0.0-0.2); Basophils % (Auto) 1 % (0-2.5); Eosinophils # (Auto) 0.2 Thou/mm3 (0.0-0.5); Eosinophils % (Auto) 3 % (0-10); Hematocrit 32.6 % (36.0-46.0); Hemoglobin 11.6 g/dL (12.0-16.0); Immature Granulocytes Auto 0.02 Thou/mm3 (0.00-0.00); Lymphocytes # (Auto) 1.4 Thou/mm3 (1.0-4.8); Lymphocytes % (Auto) 25 % (10-50); Mean Corpuscular HGB Conc 35.6 g/dl (31.0-37.0); Mean Corpuscular Hemoglobin 30.9 pg (25.0-35.0); Mean Corpuscular Volume 87 fL (80-100); Monocytes # (Auto) 0.5 Thou/mm3 (0.0-0.8); Monocytes % (Auto) 9 % (0-12); Neutrophils # (Auto) 3.5 Thou/mm3 (1.8-7.7); Neutrophils % (Auto) 62 % (37-80); Nucleated Red Blood Cell # 0.00 Thou/mm3 (0.00-0.00); Nucleated Red Blood Cell % 0 /100 WBC (0); Platelet Count 183 Thou/mm3 (140-440); RDW Standard Deviation 44.1 fL (36.4-46.3); Red Blood Count 3.76 Miln/mm3 (4.00-5.20); White Blood Count 5.7 Thou/mm3 (3.6-11.0)
[2025-05-06 09:40] LABS: Alanine Aminotransferase < 7 U/L (10-49); Albumin, Serum 2.3 gm/dL (3.4-4.8); Albumin/Globulin Ratio 1.2 (1.2-2.2); Alkaline Phosphatase 118 U/L (46-116); Anion Gap 6 (7-16); Aspartate Amino Transferase 22 U/L (0-34); BUN/Creatinine Ratio 15 Ratio (12-20); Bilirubin,Total 2.2 mg/dL (0.3-1.2); Blood Urea Nitrogen 6 mg/dL (9-23); Calcium 7.5 mg/dL (8.3-10.6); Calcium (Corrected) 8.9 mg/dL (8.5-10.1); Carbon Dioxide 30.2 mMol/L (20.0-31.0); Chloride 94 mMol/L (98-107); Creatinine (Component) 0.4 mg/dL (0.6-1.3); Estimated Creatinine Clearance 117.7 mL/min (>60); Globulin 2.0 gm/dL (2.3-3.5); Glucose 82 mg/dL (74-106); Magnesium 1.8 mg/dL (1.6-2.6); Osmolality,Calculated 257 (275-295); Potassium 3.4 mMol/L (3.4-5.1); Sodium 130 mMol/L (136-145); Total Protein 4.3 gm/dL (5.7-8.2); eGFR > 60 See Note
[2025-05-06] MEDS: POTASSIUM CHLORIDE 10% 20 MEQ/15 ML UDC PO (09:46)
[2025-05-06] MEDS: MIDODRINE 5 MG TABLET 10 MG PO ×2 (12:26→21:06)
--- NOTE | 2025-05-06 14:09 | ESPR_ITS ---
Documentation for date of: 05/06/25 Subjective Subjective Interval history: Overnight, potassium improved to 3.3, 3.4 this morning, repleted with another 40 mEq. Continues to have severe lymphedema, 4+ pitting edema bilaterally. Net positive +660 mL. Started on 1500 cc fluid restriction. Sodium persistently low, likely hypervolemic hypotonic hyponatremia in setting of cirrhosis with recurrent ascites. Appears to be chronic per chart review. Attempted to diurese with IV Lasix today but blood pressure continued to be low despite midodrine 10 mg. Will start on midodrine 10 TID and will hold carvedilol and spironolactone at this time. Continue to monitor BP, will diurese accordingly. Strict ins and out. Patient continues to be on 5150 hold due to suicidal ideation expressed yesterday. Denies thoughts of self-harm or suicidal ideation. Will need crisis evaluation prior to discharge. Exam Vital Signs Temp Pulse Resp BP Pulse Ox O2 Del Method 97.4 F 75 18 98/64 98 Room Air 05/06/25 13:35 05/06/25 13:35 05/06/25 13:35 05/06/25 13:35 05/06/25 13:35 05/06/25 13:35 Narrative Exam Physical Exam General: Awake, in mild distress due to anxiety. Conversational and non-toxic appearing. Intermittently tearful. HEENT: Normocephalic, atraumatic, mucous membranes moist. Heart: Regular rate and rhythm, normal S1 and S2, no murmurs. Lungs: Clear to auscultation with no wheezing or crackles. Abdomen: Soft, nondistended, nontender, positive bowel sounds. No guarding or rebound tenderness. Neurologic: Alert and oriented x3, no gross neurological deficit, and patient able to move all 4 extremities. Extremities: 4+ pitting edema bilaterally, chronic. Skin: No rash or ecchymoses. Objective Labs 05/07/25 04:36 05/07/25 04:36 Labs: Laboratory Results - last 24 hr 05/05/25 05/05/25 05/05/25 14:41 16:14 18:50 WBC RBC Hgb Hct MCV MCH MCHC RDW Std Deviation Plt Count Neut % (Auto) Lymph % (Auto) Haines % (Auto) Eos % (Auto) Baso % (Auto) Neut # (Auto) Lymph # (Auto) Haines # (Auto) Eos # (Auto) Baso # (Auto) Immature Gran # (Auto) Absolute Nucleated RBC Immature Gran % Nucleated RBC % Sodium Potassium 2.4 L* Chloride Carbon Dioxide Anion Gap BUN Creatinine Estim Creat Clear Calc eGFR BUN/Creatinine Ratio Glucose Calculated Osmolality Calcium Corrected Calcium Magnesium Total Bilirubin AST ALT Alkaline Phosphatase Total Protein Albumin Globulin Albumin/Globulin Ratio Ur Random Creatinine 97 Ur Random Potassium 83 H Peritoneal Color Straw Peritoneal Appearance Clear Peritoneal WBC 30 Peritoneal RBC 40 Periton Polynucl WBCs 3 Periton Mononucl WBCs 97 Peritoneal Tot Protein < 2 Peritoneal Albumin < 1.0 Peritoneal LDH 52 Peritoneal Glucose 114 Peritoneal Amylase < 20 Urine Alcohol Negative 05/05/25 05/06/25 22:44 08:10 WBC 5.7 RBC 3.76 L Hgb 11.6 L Hct 32.6 L MCV 87 MCH 30.9 MCHC 35.6 RDW Std Deviation 44.1 Plt Count 183 D Neut % (Auto) 62 Lymph % (Auto) 25 Haines % (Auto) 9 Eos % (Auto) 3 Baso % (Auto) 1 Neut # (Auto) 3.5 Lymph # (Auto) 1.4 Haines # (Auto) 0.5 Eos # (Auto) 0.2 Baso # (Auto) 0.1 Immature Gran # (Auto) 0.02 H Absolute Nucleated RBC 0.00 Immature Gran % 0 Nucleated RBC % 0 Sodium 130 L Potassium 3.3 L D 3.4 Chloride 94 L Carbon Dioxide 30.2 Anion Gap 6 L BUN 6 L Creatinine 0.4 L Estim Creat Clear Calc 117.7 eGFR > 60 BUN/Creatinine Ratio 15 Glucose 82 Calculated Osmolality 257 L Calcium 7.5 L Corrected Calcium 8.9 Magnesium 1.4 L 1.8 Total Bilirubin 2.2 H D AST 22 ALT < 7 L Alkaline Phosphatase 118 H D Total Protein 4.3 L Albumin 2.3 L Globulin 2.0 L Albumin/Globulin Ratio 1.2 Ur Random Creatinine Ur Random Potassium Peritoneal Color Peritoneal Appearance Peritoneal WBC Peritoneal RBC Periton Polynucl WBCs Periton Mononucl WBCs Peritoneal Tot Protein Peritoneal Albumin Peritoneal LDH Peritoneal Glucose Peritoneal Amylase Urine Alcohol Quality Measures Quality Measures none Advance care planning discussed with:: patient Assessment & Plan Assessment Current Active Medications: Generic Name Dose Route Start Last Admin Trade Name Freq PRN Reason Stop Dose Admin Acetaminophen 500 mg 05/05/25 09:15 05/06/25 03:18 Acetaminophen 325 Mg Tablet PO 06/04/25 09:14 500 mg Q6H PRN Administration Fever >101.5 Alprazolam 0.25 mg 05/05/25 21:00 05/05/25 20:38 Alprazolam 0.25 Mg Tablet PO 05/10/25 20:59 0.25 mg HS CHASIDY Administration Carvedilol 3.125 mg 05/05/25 17:30 05/06/25 08:39 Carvedilol 3.125 Mg Tablet PO 06/04/25 17:29 3.125 mg On Hold: 05/06/25 12:17 BIDWM CHASIDY Administration Albumin Human 25 gm in 100 mls @ 100 mls/hr 05/05/25 13:18 05/06/25 08:39 Albuminar-25 Ivpb IV 05/08/25 13:17 100 mls/hr QDAY CHASIDY Administration Lactulose 10 gm 05/06/25 09:00 05/06/25 08:39 Lactulose Syrup 20 Gm/30 Ml Udc PO 06/05/25 08:59 10 gm QDAY CHASIDY Administration Protocol Levothyroxine Sodium 100 mcg 05/06/25 06:00 05/06/25 05:12 Levothyroxine Sodium 100 Mcg Tablet PO 06/05/25 05:59 100 mcg ACBR CHASIDY Administration Melatonin 3 mg 05/05/25 21:00 05/05/25 20:38 Melatonin 3 Mg Tablet PO 06/04/25 20:59 3 mg HS CHASIDY Administration Midodrine 10 mg 05/06/25 12:25 05/06/25 12:26 Midodrine 5 Mg Tablet PO 06/05/25 12:24 10 mg TID CHASIDY Administration Ondansetron HCl 4 mg 05/05/25 09:15 Ondansetron Inj 2 Mg/Ml Inj 2 Ml IVP 06/04/25 09:14 Q6H PRN NAUSEA OR VOMITING Protocol Pantoprazole Sodium 40 mg 05/06/25 09:00 05/06/25 08:39 Pantoprazole 40 Mg Tablet PO 06/05/25 08:59 40 mg QDAY CHASIDY Administration Spironolactone 100 mg 05/05/25 13:15 05/06/25 08:40 Spironolactone 25 Mg Tablet PO 06/04/25 13:14 100 mg On Hold: 05/06/25 12:18 QDAY CHASIDY Administration Plan Patient is a 69-year-old female with past medical history of cirrhosis secondary to alcohol use, anxiety, hypothyroidism, chronic lymphedema who presents on 05/05 for chief complaint of anxiety, admitted for hypokalemia. #Alcoholic cirrhosis 2/2 #Hx alcohol use #Ascites #S/p paracentesis #Hx of grade 1 esophageal varices penitentiary history of alcoholic cirrhosis, comes in for paracentesis regularly. S/p paracentesis 05/05, removed 4.5 L. Hepatitis panel negative as of 12/30/2024. Patient reports last drink was 3 days prior to admission, low concern for alcohol withdrawal. Denies history of alcohol withdrawal seizures. Endorses headache but no tremors on exam, denied hallucinations. Of note, patient has history of grade 1 esophageal varices and esophageal ulcers on endoscopy in 01/14/2025. Did not require banding. Scores: Child Betancourt 9, class B; indication for transplant eval, trevor-operative mortality 30% MELD score 9, 6.0% estimated 3 month mortality Plan: - IV albumin - Hold spironolactone and Coreg as above - Counseled on alcohol cessation - No CIWA protocol at this time #Chronic lymphedema Likely secondary to alcoholic cirrhosis with refractory ascites. On exam has 4+ pitting edema bilaterally. Has been net positive. - IV Lasix as above - Strict I's and O's - Consider compression stockings outpatient - Keep legs elevated #Hyponatremia, hypervolemic Likely secondary to Lasix and hx of cirrhosis with recurrent ascites. Appears to be chronic per chart review (usually 122-130). Asymptomatic - Fluid restriction 1500 cc - IV Lasix 40 when SBP >110 #Hypotension Secondary to cirrhosis. - Midodrine 10 mg TID - Hold spiranolactone and Coreg #Hypokalemia, likely iatrogenic, resolved #Hypomagnesemia, improving #Metabolic alkalosis Presented with potassium 2.0, sodium 130, chloride 89, magnesium 1.2, bicarb 32.6. Likely secondary to continued use of Lasix, despite discontinuation noted previously on chart review. Likely for diuresis of chronic lymphedema. Denies diarrhea, nausea, vomiting. Persistent hyponatremia also likely secondary to cirrhosis. S/p potassium chloride 60 mEq in ED. Plan: - Will likely need potassium supplementation outpatient - CTM electrolytes and replete accordingly - Fluid restriction 1500 cc #Anxiety #Suicidal ideation ? Is prescribed Xanax nightly but has not been taking it recently per patient. Also prescribed buspirone 10 mg daily which she reports taking. On admission, patient was very anxious. Given lorazepam 0.5 x 1 in ED with some relief. Noted to have suicidal thoughts by staff, now placed on 5150 hold. Patient denied thoughts of self harm or suicidal ideation upon interview. Plan: - Xanax 0.25 mg - Consider switching back to buspirone 10 mg daily, uptitrate as needed - CTM for SI - Crisis evaluation prior to discharge #Hypothyroidism Taking Austin Thyroid 120 mcg daily at home. However TSH 20.57, free T4 0.65, appears to be undertreated. Unclear if patient is even taking medication or taking correctly. -Levothyroxine 100 mcg -Will need to follow-up thyroid hormones in 2 weeks, likely outpatient - Educate patient on proper administration #Marijuana use Denies use of marijuana herself but reports that her uses. Utox positive for marijuana. - Law Firm Receptionist on cessation/avoidance Health Maintenance Disposition: med surg DVT prophylaxis: none needed, patient ambulatory GI prophylaxis: protonix Diet: low sodium CODE STATUS: Full Patient plan of care was discussed with the attending physician, Dr. Mcelroy. Fadumo Bro, PGY-1 Attending Provider Attestation/Addendum I have discussed and was present for the essential components of the history, physical examination, diagnosis, and treatment plan with the resident. I agree with the patient's care as documented by the resident and amended herein by me. Melchor Mcelroy DO. Although this document has been carefully reviewed, there may still be some phonetic and other typographical errors. These errors are purely grammatical due to imperfections in the software program and should not be construed in any way to compromise the substance of the patient's medical care during this visit.
[2025-05-06] MEDS: MIDODRINE 5 MG TABLET PO (15:17)
[2025-05-06] MEDS: MELATONIN 3 MG TABLET PO (20:07)
[2025-05-06 20:24] LABS: Iron 100 mcg/dL (50-170); Percent Iron Saturation 55 % (20-55); Total Iron Binding Capacity 179 mcg/dL (250-425); Unsaturated Iron Binding 79 (225-295)
[2025-05-07] VITALS (15 sets, daily range): BP systolic 93–120; BP diastolic 55–66; PULSE 60–90; RESP 15–19; TEMP 36.1–36.4; O2SAT 96–100; BMI 30.3
[2025-05-07] MEDS: ALBUTEROL/IPRATROPIUM (Duoneb) RT SOL 3 ML NEBU INH (01:43)
[2025-05-07] MEDS: MELATONIN 3 MG TABLET 6 MG PO (03:47)
[2025-05-07] MEDS: MIDODRINE 5 MG TABLET 10 MG PO (05:30)
[2025-05-07] MEDS: LEVOTHYROXINE SODIUM 100 MCG TABLET PO (05:31)
[2025-05-07 05:49] LABS: Basophils # (Auto) 0.1 Thou/mm3 (0.0-0.2); Basophils % (Auto) 1 % (0-2.5); Eosinophils # (Auto) 0.2 Thou/mm3 (0.0-0.5); Eosinophils % (Auto) 4 % (0-10); Hematocrit 34.7 % (36.0-46.0); Hemoglobin 12.2 g/dL (12.0-16.0); Immature Granulocytes Auto 0.02 Thou/mm3 (0.00-0.00); Lymphocytes # (Auto) 1.4 Thou/mm3 (1.0-4.8); Lymphocytes % (Auto) 23 % (10-50); Mean Corpuscular HGB Conc 35.2 g/dl (31.0-37.0); Mean Corpuscular Hemoglobin 30.8 pg (25.0-35.0); Mean Corpuscular Volume 88 fL (80-100); Monocytes # (Auto) 0.6 Thou/mm3 (0.0-0.8); Monocytes % (Auto) 9 % (0-12); Neutrophils # (Auto) 3.8 Thou/mm3 (1.8-7.7); Neutrophils % (Auto) 63 % (37-80); Nucleated Red Blood Cell # 0.00 Thou/mm3 (0.00-0.00); Nucleated Red Blood Cell % 0 /100 WBC (0); Platelet Count 209 Thou/mm3 (140-440); RDW Standard Deviation 45.1 fL (36.4-46.3); Red Blood Count 3.96 Miln/mm3 (4.00-5.20); White Blood Count 6.1 Thou/mm3 (3.6-11.0)
[2025-05-07 06:27] LABS: Alanine Aminotransferase < 7 U/L (10-49); Albumin, Serum 2.5 gm/dL (3.4-4.8); Albumin/Globulin Ratio 1.2 (1.2-2.2); Alkaline Phosphatase 113 U/L (46-116); Anion Gap 8 (7-16); Aspartate Amino Transferase 22 U/L (0-34); BUN/Creatinine Ratio 12 Ratio (12-20); Bilirubin,Total 2.3 mg/dL (0.3-1.2); Blood Urea Nitrogen 6 mg/dL (9-23); Calcium 7.9 mg/dL (8.3-10.6); Calcium (Corrected) 9.1 mg/dL (8.5-10.1); Carbon Dioxide 27.0 mMol/L (20.0-31.0); Chloride 94 mMol/L (98-107); Creatinine (Component) 0.5 mg/dL (0.6-1.3); Estimated Creatinine Clearance 94.2 mL/min (>60); Globulin 2.1 gm/dL (2.3-3.5); Glucose 110 mg/dL (74-106); Magnesium 1.6 mg/dL (1.6-2.6); Osmolality,Calculated 257 (275-295); Potassium 3.3 mMol/L (3.4-5.1); Sodium 129 mMol/L (136-145); Total Protein 4.6 gm/dL (5.7-8.2); eGFR > 60 See Note
[2025-05-07] MEDS: PANTOPRAZOLE 40 MG TABLET PO (08:25)
[2025-05-07] MEDS: LACTULOSE SYRUP 20 GM/30 ML UDC 10 GM PO (08:25)
[2025-05-07] MEDS: POTASSIUM CHLORIDE 10% 20 MEQ/15 ML UDC 40 MEQ PO ×2 (08:25→12:53)
[2025-05-07] MEDS: ALBUMIN HUMAN 25% IVPB 25 GM/100 ML BTL IV (08:31)
[2025-05-07] MEDS: Magnesium Sulfate 4 GM Ivpb 4 GM/50 ML BAG IV (09:10)
[2025-05-07] MEDS: MIDODRINE 5 MG TABLET PO (09:30)
[2025-05-07] MEDS: SPIRONOLACTONE 25 MG TABLET 50 MG PO (12:53)
--- NOTE | 2025-05-07 13:15 | ESDS_ITS ---
Planned Discharge Date 05/07/25 DS: Providers Provider Date of admission: 05/06/25 14:13 Primary care physician: Reece Burnett MD Admitting Provider: Milo Millan MD Attending Provider on Admission: Hernán Mcelroy DO Attending Provider on DC: Hernán Mcelroy DO Discharging Provider: Fadumo Bro DO DS: Diagnosis Problem List Completed Was Problem List Reviewed/Reconciled?: Yes Hospital Course Hospital Course Hospital course: Summary: Patient is a 69-year-old female with past medical history of cirrhosis secondary to alcohol use, anxiety, hypothyroidism, chronic lymphedema who presents on 05/05 for chief complaint of anxiety, admitted for persistent anxiety and hypokalemia. In the ER, patient underwent paracentesis, removed 4800 cc of ascitic fluid, repleted with IV albumin. Per chart review, patient appears to undergo paracentesis every 2 weeks. Electrolytes were repleted accordingly, of note patient does have chronic electrolyte abnormalities due to chronic alcoholic cirrhosis. Was counseled on alcohol cessation. Was started on midodrine due to persistent hypotension also from cirrhosis, was diuresed for chronic lymphedema bilaterally as tolerated. Patient will be discharged with new medications: furosemide 40 mg daily, spironolactone 50 mg daily, midodrine 10 mg 3 times a day for low blood pressure, along with potassium supplement. Was also instructed on how to properly take thyroid medication. Counseled extensively on importance of alcohol cessation. Patient was cleared by crisis evaluation prior to discharge. She was medically stable upon discharge. ED Course: -Initial vitals were stable, pulse 96. -Labs significant for sodium 130, potassium 2.0, chloride 89, bicarb 32.6, magnesium 1.2, bilirubin 1.3, alk phos 176, TSH 20.57, free T4 0.65. UA showed blood +1 with 10 squamous epithelial cells, no bacteria. U tox positive for marijuana only, negative for benzodiazepine. EKG showed sinus rhythm with flat T waves, no U waves observed. -In the ED, patient was given lorazepam 0.5 mg x 1, KCl 40mEq x 1, KCl 10mEq x1 Discharge Recommendations: Please take furosemide 40 mg tablet and spironolactone 50 mg tablet by mouth once a day for cirrhosis Please take midodrine 10 mg tablet three times a day for low blood pressure Please stop taking Irvona Thyroid and instead take Synthroid 125mcg by mouth before breakfast (at least 30 minutes before any other medicine or food) Continue all other home medications as prescribed Please follow-up with your PCP within 1 week of discharge or follow-up at the [facility] [address] [place], [place] [id number] Please ask your PCP to refer you to a deputy program manager as you have liver cirrhosis If your symptoms worsen or if you develop new chest pain, shortness of breath, dizziness or bleeding - please come back to the ED immediately. Hospital Diagnoses: #Alcoholic cirrhosis 2/2 #Hx alcohol use #Ascites #S/p paracentesis #Hx of grade 1 esophageal varices #Chronic lymphedema #Hyponatremia, hypervolemic #Hypotension #Hypokalemia, likely iatrogenic, resolved #Hypomagnesemia, improving #Metabolic alkalosis #Anxiety #Suicidal ideation ? #Hypothyroidism #Marijuana use Disposition: Safe discharge to home. Patient plan of care was discussed with the attending physician, Dr. Mcelroy. Fadumo Bro, PGY-1 Time Spent with Patient Time attestation: Total time spent providing and/or coordinating discharge services: Time spent: Greater than 30 minutes Exam Vital Signs Temp Pulse Resp BP Pulse Ox O2 Del Method 97.3 F 60 18 114/60 99 Room Air 05/07/25 12:00 05/07/25 12:53 05/07/25 12:00 05/07/25 12:53 05/07/25 12:00 05/07/25 12:00 Narrative Exam Physical Exam General: Awake, in mild distress due to anxiety. Conversational and non-toxic appearing. Intermittently tearful. HEENT: Normocephalic, atraumatic, mucous membranes moist. Heart: Regular rate and rhythm, normal S1 and S2, no murmurs. Lungs: Clear to auscultation with no wheezing or crackles. Abdomen: Soft, nondistended, nontender, positive bowel sounds. No guarding or rebound tenderness. Neurologic: Alert and oriented x3, no gross neurological deficit, and patient able to move all 4 extremities. Extremities: 4+ pitting edema bilaterally, chronic. Skin: No rash or ecchymoses. Discharge Plan Plan Patient Disposition: HOME (Self Care) Patient condition on transfer: Stable Care Plan Goals: Please take furosemide 40 mg tablet and spironolactone 50 mg tablet by mouth once a day for cirrhosis Please take midodrine 10 mg tablet three times a day for low blood pressure Take Potassium 20meq once daily Please stop taking Irvona Thyroid and instead take Synthroid 125mcg by mouth b efore breakfast (at least 30 minutes before any other medicine or food) Continue all other home medications as prescribed Recommended to stop alcohol completely and close follow up with PCP within 1 week for adjustment of medication based on potassium levels Please follow-up with your PCP within 1 week of discharge or follow-up at the [facility] [address] [place] [address] Please ask your PCP to refer you to a deputy program manager as you have liver cirrhosis If your symptoms worsen or if you develop new chest pain, shortness of breath, dizziness or bleeding - please come back to the ED immediately. Prescriptions/Referrals Prescriptions/Med Rec: New levothyroxine 125 mcg Tablet 125 mcg PO ACBR 30 Days Qty: 30 1RF midodrine 10 mg tablet 10 mg PO TID 30 Days Qty: 90 0RF Rx Instructions: do not give last dose of day after 6PM or within 4 hrs of bedtime furosemide 40 mg tablet 40 mg PO QDAY 30 Days Qty: 30 0RF spironolactone 50 mg tablet 50 mg PO QDAY 30 Days Qty: 30 0RF potassium chloride 20 mEq tablet extended release 20 meq PO QDAY Qty: 30 0RF Continued buspirone 10 mg tablet 10 mg PO QDAY Patient Comments: TAKE 1 TABLET BY MOUTH EVERY DAY FOR 30 DAYS carvedilol 3.125 mg tablet 3.125 mg PO BID 30 Days Qty: 60 0RF Rx Instructions: must administer with a meal/food Discontinued thyroid (pork) [Irvona Thyroid] 120 mg tablet 120 mg PO QDAY furosemide 20 mg tablet 20 mg PO DAILY Patient Comments: TAKE 1 TABLET BY MOUTH EVERY DAY alprazolam 0.5 mg tablet 0.5 mg PO HS Patient Comments: TAKE 1 TABLET BY MOUTH EVERY DAY FOR 30 DAYS spironolactone 25 mg Tablet 100 mg PO QDAY Qty: 120 0RF Rx Instructions: Take 4 tablets (total 100 mg) daily Referrals: Reece Burnett MD [Primary Care Provider, Family Practice] Patient/Caregiver Discharge Instructions Education Materials: Tests for Liver Disease, Paracentesis, Treating Cirrhosis, Understanding Cirrhosis Print Language: Occitan Stand Alone Forms: Mayuri Award Info., Patient Portal Info Letter, Work/Release Restrictions Discharge Order Discharge Orders: Discharge (Routine); Ordered 05/07/25 Ordered By: Fadumo Bro Quality Discharge Quality Measures VTE prophylaxis Attestestation Attestation I have discussed and was present for the essential components of the discharge history, physical examination, diagnosis, and discharge treatment plan with the resident. I agree with the patient's discharge care as documented by the resident and amended herein by me. Melchor Mcelroy, . The patient understood all discharge instructions, all questions were answered satisfactorily. The patient was instructed to return to the Emergency Department is symptoms worsened or persisted. Patient was stable, afebrile, tolerant p.o. intake and ambulatory at time of discharge home. Patient will need frequent paracentesis in the future due to end-stage liver disease, discharged with Lasix and a spironolactone, blood pressure within normal limits at time of discharge. Personally evaluation has cleared patient with no concern for future SI. Although this document has been carefully reviewed, there may still be some phonetic and other typographical errors. These errors are purely grammatical due to imperfections in the software program and should not be construed in any way to compromise the substance of the patient's medical care during this visit.
--- NOTE | 2025-05-07 14:30 | PC.SS ---
ETHERNET NETWORK ARCHITECT conducted bedside contact with the patient conduct initial assessment and to discuss discharge planning.? Patient confirmed demographic information.? Patient resides at home with spouse, Jorge King .? Patient is retired.? Patient does not utilize any form of DME to assist with ambulation.? Patient does not utilize home oxygen.? Patient describes the ability to complete ADL?s independently.? Patient identified spouse, Jorge King; as medical surrogate decision maker.? Patient?s PCP is Dr. Burnett.? Patient does not participate with dialysis.? Patient does not possess any specialty providers.? Patient utilizes [facility] pharmacy for medication services.? Patient has been cleared for mental health evaluation due to patient expressing to engage in self-harm behaviors.? If patient is cleared following mental health evaluation plan is for the patient to return home.? Patient?s spouse will provide transportation on behalf of the patient.? No further intervention required at this time, director social welfare will be available to address any further concerns.? Next of Kin: Kalani King D/C Plan: Home
--- NOTE | 2025-05-07 14:30 | PC.SS ---
Rounding Note: Patient has been medically cleared for mental health evaluation.
--- NOTE | 2025-05-07 14:31 | PC.SS ---
FOOD ORDER EXPEDITER notified ED coordinator that patient has been medically cleared for mental health evaluation.
--- NOTE | 2025-05-07 15:40 | PC.SS ---
Patient is a 69 year old female presenting to the hospital for hypokalemia. Provider requested a mental health evaluation as patient made SI comments to [facility] staff of wanting to end her life and having a plan. brewery technician reports patient made these statements several times and was also emotional. NHAN Alvarez and PHOTOGRAPHIC PLATEMAKER Victoria met with patient at bedside introduced selves, roles, and reason for visit. Patient presents as alert and oriented to self, location, and situation. ASW disclosed limits of confidentiality as well. Patient made appropriate eye contact with scenario writer. Patient?s mood appeared to be euthymic and remained calm through assessment. Patient had good insight and judgment. Patients thought process was linear and organized. No signs of delusions, paranoid or v/h. Patient reports that she has a history of alcohol use but denies current use. Patient denies any past and current SI attempts, HI, denies mental health history but stated she has taken Xanax in the past. Patient reports she has never been hospitalized. Patient disclosed that she did make comments but stated she was joking. Patient does not have a plan and never had a plan or thoughts or hurting herself or others. Patient denies weapons in the home. Patient disclosed that when she made those statements she was upset about her current medical diagnosis and said that comment as a joke. Patient reported that she grew up with her brothers and frequently engaged with playful joking and stated she is aware that making those type of comments in a hospital setting can be taken seriously. During assessment ASW inquired what patient has to live for patient stated that she has her , family and friends to live for. Patient became annoyed with questions and stated that she is not suicidal and wants to return home. Patient stated that she has a lot of support in her life from her brothers, , and friends. Patient stated that she has no weapons in the home and her will be present in the home for the next two days, patients was agreeable to stay with patient. NHAN Alvarez discussed case with DAINA Howard and patient will d/c home with a safety plan. ASW contact Dr. Mcelroy and made him aware of safety plan. Dr. Mcelroy verbalized understanding. ASW notified bedside nurse Gissell of safety plan.
== END 2025-05-07 16:00 | disposition home or self-care (01) | DRG 433 ==
LOC: SERX 08:58 → SERHOLD 09:34 → S3SX 13:33
PROVIDERS: Nurse Practitioner Family; Admitting Provider Student in an Organized Health Care Education/Training Program; Emergency Provider Emergency Medicine; PCP Family Medicine; Visit Provider Student in an Organized Health Care Education/Training Program
DX: K70.31 Alcoholic cirrhosis of liver with ascites (principal); E87.1 Hypo-osmolality and hyponatremia; R45.851 Suicidal ideations; E87.3 Alkalosis; E87.6 Hypokalemia; I10 Essential (primary) hypertension; F41.9 Anxiety disorder, unspecified; E03.9 Hypothyroidism, unspecified; I89.0 Lymphedema, not elsewhere classified; E83.42 Hypomagnesemia; F10.90 Alcohol use, unspecified, uncomplicated; F12.90 Cannabis use, unspecified, uncomplicated; I95.89 Other hypotension; Z79.899 Other long term (current) drug therapy; Z88.5 Allergy status to narcotic agent
CPT/HCPCS: 36415; 71045; 80053; 80307; 80320; 81001; 82042; 82140; 82150; 82570; 82945; 83540; 83550; 83615; 83735; 83880; 84132; 84133; 84157; 84439; 84443; 84484; 85025; 85610; 85730; 89051; 93005; 94640; 96127; 96365; 99284; A9270; C1729; G0378; J1938; J3475; J3480; J7999; P9047; G0480

== ENCOUNTER → 2025-05-14 | Outpatient (CLI) | payer MEDICARE, OTHER, SELFPAY ==
--- NOTE | 2025-05-14 13:52 | XR_ITS ---
Examination: Ultrasound-guided paracentesis Abdominal sonogram limited Date and time of exam: May 14, 2025, 1402 hours INDICATIONS: Cirrhosis, increasing ascites and abdominal distention this week Informed consent provided. A timeout was completed verifying correct patient, procedure, site, positioning, and special adequate movement if applicable. Technique: Multiple sonographic images of the abdomen have been obtained. Appropriate area for paracentesis was marked. Local anesthesia is obtained with 1% lidocaine. Yueh catheter is successfully introduced. Findings: Abdominal sonographic images demonstrate sufficient ascitic fluid for paracentesis. After placing the Yueh catheter, 4400 cc of fluid were successfully removed. During and after completion of the procedure the patient appear in satisfactory and stable condition with no complications observed. Estimated blood loss 0 cc Impression: Abdominal ascites Successful ultrasound-guided paracentesis as described above
[2025-05-14 14:44] LABS: Basophils # (Auto) 0.1 Thou/mm3 (0.0-0.2); Basophils % (Auto) 1 % (0-2.5); Eosinophils # (Auto) 0.3 Thou/mm3 (0.0-0.5); Eosinophils % (Auto) 3 % (0-10); Hematocrit 38.2 % (36.0-46.0); Hemoglobin 13.2 g/dL (12.0-16.0); Immature Granulocytes Auto 0.02 Thou/mm3 (0.00-0.00); Lymphocytes # (Auto) 1.3 Thou/mm3 (1.0-4.8); Lymphocytes % (Auto) 14 % (10-50); Mean Corpuscular HGB Conc 34.6 g/dl (31.0-37.0); Mean Corpuscular Hemoglobin 30.6 pg (25.0-35.0); Mean Corpuscular Volume 88 fL (80-100); Monocytes # (Auto) 1.0 Thou/mm3 (0.0-0.8); Monocytes % (Auto) 11 % (0-12); Neutrophils # (Auto) 6.5 Thou/mm3 (1.8-7.7); Neutrophils % (Auto) 72 % (37-80); Nucleated Red Blood Cell # 0.00 Thou/mm3 (0.00-0.00); Nucleated Red Blood Cell % 0 /100 WBC (0); Platelet Count 261 Thou/mm3 (140-440); RDW Standard Deviation 47.2 fL (36.4-46.3); Red Blood Count 4.32 Miln/mm3 (4.00-5.20); White Blood Count 9.1 Thou/mm3 (3.6-11.0)
[2025-05-14 15:19] LABS: Alanine Aminotransferase < 7 U/L (10-49); Albumin, Serum 2.9 gm/dL (3.4-4.8); Albumin/Globulin Ratio 1.0 (1.2-2.2); Alkaline Phosphatase 166 U/L (46-116); Anion Gap 11 (7-16); Aspartate Amino Transferase 32 U/L (0-34); BUN/Creatinine Ratio 17 Ratio (12-20); Bilirubin,Total 1.8 mg/dL (0.3-1.2); Blood Urea Nitrogen 10 mg/dL (9-23); Calcium 8.2 mg/dL (8.3-10.6); Calcium (Corrected) 9.1 mg/dL (8.5-10.1); Carbon Dioxide 27.9 mMol/L (20.0-31.0); Chloride 97 mMol/L (98-107); Creatinine (Component) 0.6 mg/dL (0.6-1.3); Free T4 (Free Thyroxine) 1.23 ng/dL (0.89-1.76); Globulin 2.8 gm/dL (2.3-3.5); Glucose 101 mg/dL (74-106); Magnesium 1.5 mg/dL (1.6-2.6); Osmolality,Calculated 270 (275-295); Potassium 3.0 mMol/L (3.4-5.1); Sodium 136 mMol/L (136-145); Thyroid Stimulating Hormone 6.44 uIU/mL (0.55-4.78); Total Protein 5.7 gm/dL (5.7-8.2); eGFR > 60 See Note
== END | disposition home or self-care (01) ==
LOC: SLAB 13:56 → SIRX 14:02
PROVIDERS: PCP Student in an Organized Health Care Education/Training Program; Referring Provider Student in an Organized Health Care Education/Training Program; Visit Provider Radiology Diagnostic Radiology
DX: K70.31 Alcoholic cirrhosis of liver with ascites (principal); I10 Essential (primary) hypertension; E03.9 Hypothyroidism, unspecified
CPT/HCPCS: 49083; 36415; 80053; 83735; 84439; 84443; 85025; C1729

== ENCOUNTER → 2025-05-30 | Outpatient (CLI) | payer MEDICARE, OTHER, SELFPAY ==
--- NOTE | 2025-05-30 11:00 | XR_ITS ---
Examination: Ultrasound-guided paracentesis Abdominal sonogram limited Date and time of exam: 1724, 11:54 a.m. INDICATION: Ascites Informed consent provided. A timeout was completed verifying correct patient, procedure, site, positioning, and special adequate movement if applicable. Technique: Multiple sonographic images of the abdomen have been obtained. Appropriate area for paracentesis was marked. Local anesthesia is obtained with 1% lidocaine. Yueh catheter is successfully introduced. Findings: Abdominal sonographic images demonstrate sufficient ascitic fluid for paracentesis. After placing the Yueh catheter, 4200 cc of fluid were successfully removed. During and after completion of the procedure the patient appear in satisfactory and stable condition with no complications observed. Estimated blood loss 0 cc Impression: Abdominal ascites Successful ultrasound-guided paracentesis as described above
[2025-05-30 11:48] LABS: Basophils # (Auto) 0.1 Thou/mm3 (0.0-0.2); Basophils % (Auto) 1 % (0-2.5); Eosinophils # (Auto) 0.3 Thou/mm3 (0.0-0.5); Eosinophils % (Auto) 4 % (0-10); Hematocrit 36.1 % (36.0-46.0); Hemoglobin 12.3 g/dL (12.0-16.0); Immature Granulocytes Auto 0.04 Thou/mm3 (0.00-0.00); Lymphocytes # (Auto) 1.3 Thou/mm3 (1.0-4.8); Lymphocytes % (Auto) 15 % (10-50); Mean Corpuscular HGB Conc 34.1 g/dl (31.0-37.0); Mean Corpuscular Hemoglobin 30.8 pg (25.0-35.0); Mean Corpuscular Volume 90 fL (80-100); Monocytes # (Auto) 0.9 Thou/mm3 (0.0-0.8); Monocytes % (Auto) 10 % (0-12); Neutrophils # (Auto) 5.9 Thou/mm3 (1.8-7.7); Neutrophils % (Auto) 70 % (37-80); Nucleated Red Blood Cell # 0.00 Thou/mm3 (0.00-0.00); Nucleated Red Blood Cell % 0 /100 WBC (0); Platelet Count 306 Thou/mm3 (140-440); RDW Standard Deviation 49.3 fL (36.4-46.3); Red Blood Count 4.00 Miln/mm3 (4.00-5.20); White Blood Count 8.5 Thou/mm3 (3.6-11.0)
[2025-05-30 11:57] LABS: INR 1.2 (0.9-1.3); Partial Thromboplastin Time 34.5 Seconds (22.0-36.0); Prothrombin Time 12.2 Seconds (9.0-12.2)
== END | disposition home or self-care (01) ==
LOC: SIRX 09:38
PROVIDERS: PCP Registered Nurse; Referring Provider Registered Nurse; Visit Provider Radiology Diagnostic Radiology
DX: K70.31 Alcoholic cirrhosis of liver with ascites (principal)
CPT/HCPCS: 49083; 36415; 85025; 85610; 85730; C1729

== ENCOUNTER 2025-07-11 23:51 | Inpatient (IN) | payer MEDICARE, OTHER, SELFPAY ==
[2025-07-11 23:59] VITALS: PULSE 66; RESP 18; O2SAT 98; BMI 49.4
[2025-07-12] VITALS (12 sets, daily range): BP systolic 109–124; BP diastolic 72–88; PULSE 14–134; RESP 16–20; TEMP 36.3–36.9; O2SAT 93–100
--- NOTE | 2025-07-12 00:03 | XR_ITS ---
EXAMINATION: AP chest single view TECHNIQUE: AP portable upright chest single view Date and time: July 12, 2025, 12:14 a.m., comparison 05/05/2025 INDICATIONS: Chest pain shortness of breath beginning 2 days ago. FINDINGS: Normal heart size. Lungs are clear. Moderate osteopenia IMPRESSION: No active disease
--- NOTE | 2025-07-12 00:03 | XR_ITS ---
Examination: Venous duplex lower extremity sonogram, bilateral. Date and time of exam: July 12, 2025, 0120 hours INDICATIONS: Leg pain swelling shortness of breath today Technique: Multiple sonographic images of the deep venous system have been obtained. B-mode/2-D grayscale imaging of vascular structures and Doppler spectral analysis (waveforms) and color performed Both legs are examined. Findings: Deep venous systems do not demonstrate abnormal echogenicity. All visualized deep veins exhibit compressibility. All visualized deep veins exhibit augmentation. Impression: Negative for deep vein thrombosis
--- NOTE | 2025-07-12 00:03 | XR_ITS ---
Examination: CT abdomen with intravenous contrast CT pelvis with intravenous contrast 2-D coronal reconstructions 2-D sagittal reconstructions Date and time of exam: July 12, 2025, 0209 hours INDICATIONS: Onset abdominal pain today. CTDI: vol (mGy) 9.23 DLP: (mGycm) 566 Technique: Multiple axial sections of the abdomen and pelvis have been obtained. 64 slice high-resolution scanner used. 3 mm axial sections have been obtained, post intravenous injection 60 cc [id number] 2D sagittal coronal reconstructions Low dose protocols, dose reduction techniques FINDINGS: Cirrhosis, indeterminate low-density liver lesions Massive ascites Mild splenomegaly No pancreatic or adrenal mass Renal scarring Anasarca Thickening of small bowel loops which are mildly fluid distended Atrophic uterus Intact urinary bladder Impression: Cirrhosis, indeterminate liver lesions, recommend MRI abdomen liver follow-up pre and postcontrast Massive ascites Anasarca
--- NOTE | 2025-07-12 00:03 | XR_ITS ---
Examination: Abdomen sonogram, Limited Date and time of exam: July 12, 2025, 0135 hours INDICATIONS: Shortness of breath today Technique: Real-time barros scale transabdominal sonographic images of the upper abdomen obtained. Findings: Absent gallbladder Normal common bile duct 0.3 cm Pancreatic head 2.3 cm Liver 13.4 cm lobular contour fatty infiltration Prominent ascites Normal hepatopetal portal venous flow Patent IVC IMPRESSION: Normal common bile duct Cirrhosis Prominent ascites
--- NOTE | 2025-07-12 00:03 | XR_ITS ---
Examination: CTA chest with intravenous contrast 2-D reconstructions 3-D reconstructions, vascular Date and time of exam: July 12, 2025, 0209 hours INDICATIONS: Chest pain shortness of breath today CTDI: vol (mGy) 12.82 DLP: (mGycm) 335 Technique: Multiple axial sections of the thorax have been obtained. 3 mm slice thickness, from below the hemidiaphragms to above the apices of the lungs. Mediastinal and lung density settings have been obtained. 2-D sagittal and coronal reconstructions. 3-D angiographic renderings, 3-D volume renderings, 3D post processing, vascular maximum intensity projections obtained. Contrast administered is 100 cc Isovue-370. Low dose protocols were performed. One or more of the following dose reduction techniques were used; automated exposure control, adjustment of the mA and/or KV according to patient size, use of iterative reconstruction technique. Findings: AP dimension ascending thoracic aorta 4 cm No pulmonary artery emboli Moderate calcification left anterior descending coronary artery No pneumonia or pulmonary edema Mild enlargement cardiac contour Cirrhosis, poorly defined low-density liver lesions Marked ascites Moderate osteopenia Absent gallbladder IMPRESSION: Mild aneurysmal dilatation ascending thoracic aorta Negative for pulmonary artery emboli Mild enlargement cardiac contour Cirrhosis Prominent ascites
--- NOTE | 2025-07-12 00:08 | PD.EDSOB ---
ED SOB =RME/HPI General Chief Complaint: Shortness of Breath/Dyspnea Stated Complaint: SOB Time Seen by Provider: 07/11/25 23:59 Arrival date/time: 07/11/25 23:51 RME / HPI RME / HPI Narrative: See MDM for Dr. Lo's HPI Documentation. Related Data Home Medications ?Medication ?Instructions ?Recorded ?Confirmed buspirone 10 mg tablet 10 mg PO QDAY 01/12/25 05/05/25 Previous Rx's ?Medication ?Instructions ?Recorded levothyroxine 125 mcg tablet 125 mcg PO ACBR 1 month #30 tabs 05/06/25 carvedilol 3.125 mg tablet 3.125 mg PO BID 1 month #60 tabs 05/07/25 potassium chloride 20 mEq 20 meq PO QDAY #30 tabs 05/07/25 tablet,extended release Allergies Allergy/AdvReac Type Severity Reaction Status Date / Time codeine Allergy Verified 02/06/25 10:42 Review of Systems Review of Systems Systems Reviewed: All systems reviewed, normal except as documented Past Medical History Past Medical History CARDIAC: Positive Cardiac Disorders, Hypercholesterolemia, Edema, Hypertension and Hypotension RESPIRATORY: Positive Asthma GASTROINTESTINAL: Positive Gastrointestinal Disorders, Cirrhosis and Obesity REPRODUCTIVE: Positive Previous Pregnancies MUSCULOSKELETAL: Positive Musculoskeletal Disorders and Arthritis ENT: Positive Cataracts ENDOCRINE: Positive Endocrine Disorders and Hypothyroidism OTHER HISTORY: Positive Hospitalization Family History FAMILY HISTORY: Positive Family Surgery Surgical History SURGICAL: Positive Hysterectomy Social History SMOKING STATUS: Former smoker ED Exam Narrative Physical exam: See [facility] for Dr. Lo's Physical Exam Documentation. Course Quality Measures none Orders Category Date Time Status Admit to Inpatient Status Routine Admission 07/12/25 05:32 Active Patient Condition Routine Admission 07/12/25 05:[address] Screening NOW Care 07/12/25 00:03 Active EKG (ED ONLY) *Do not use* NOW Care 07/12/25 00:03 Completed Wright [Urinary Catheter] QS Care 07/12/25 05:25 Active Intake and Output Routine Care 07/12/25 05:30 Ordered Notify provider NEEDED Care 07/12/25 05:32 Active Obtain weight daily Care 07/12/25 05:32 Active Saline [Insert IV] NOW Care 07/12/25 00:02 Active Straight [In and Out Catheter] X1 Care 07/12/25 00:02 Completed Diet Low Sodium (2gm) Diet 07/12/[address] abdomen pelvis w con Stat Exams 07/12/25 00:[address] angio chest Stat Exams 07/12/25 00:03 Completed EKG (ED Only) Stat Exams 07/12/25 00:03 Ordered US abdomen limited Stat Exams 07/12/25 00:03 Completed US paracentesis abd w/image Stat Exams 07/12/25 05:31 Ordered US venous doppler LE BI Stat Exams 07/12/25 00:03 Completed XR chest 1V portable Stat Exams 07/12/25 00:03 Completed ABG [Arterial Blood Gas] Stat Lab 07/12/25 05:03 Ordered Amylase Stat Lab 07/12/25 00:16 Completed BNP [B-Type Natriuretic Peptide] Stat Lab 07/12/25 00:16 Completed Bilirubin,Direct Stat Lab 07/12/25 00:16 Completed Blood Culture (Lab) Stat Lab 07/12/25 00:16 Received CBC AM DRAW Lab 07/13/25 05:00 Ordered CBC AM DRAW Lab 07/14/25 05:00 Ordered CBC AM DRAW Lab 07/15/25 05:00 Ordered CBC Stat Lab 07/12/25 00:16 Completed CMP [Comprehensive Metabolic Panel] Stat Lab 07/12/25 00:16 Completed COVID-19 Antigen (In-House) Stat Lab 07/12/25 00:16 Completed CRP [C-Reactive Protein] Stat Lab 07/12/25 00:16 Completed Comprehensive Metabolic Panel AM DRAW Lab 07/13/25 05:00 Ordered Comprehensive Metabolic Panel AM DRAW Lab 07/14/25 05:00 Ordered Comprehensive Metabolic Panel AM DRAW Lab 07/15/25 05:00 Ordered D-Dimer Stat Lab 07/12/25 00:16 Completed ESR [Sed Rate (ESR)] Stat Lab 07/12/25 00:16 Completed Influenza A & B Rapid Panel Stat Lab 07/12/25 00:16 Completed Lactate (Lactic Acid) Routine Lab 07/12/25 05:55 Completed Lactate (Lactic Acid) Stat Lab 07/12/25 00:16 Completed Lipase Stat Lab 07/12/25 00:16 Completed Lipid Panel AM DRAW Lab 07/13/25 05:00 Ordered Magnesium AM DRAW Lab 07/13/25 05:00 Ordered Magnesium AM DRAW Lab 07/14/25 05:00 Ordered Magnesium AM DRAW Lab 07/15/25 05:00 Ordered Magnesium Stat Lab 07/12/25 00:16 Completed PT [Prothrombin Time with INR] Stat Lab 07/12/25 00:16 Completed PTT [Partial Thromboplastin Time] Stat Lab 07/12/25 00:16 Completed Phosphorous AM DRAW Lab 07/13/25 05:00 Ordered Phosphorous AM DRAW Lab 07/14/25 05:00 Ordered Phosphorous AM DRAW Lab 07/15/25 05:00 Ordered Procalcitonin Stat Lab 07/12/25 00:16 Completed Troponin I Stat Lab 07/12/25 00:16 Completed UA, C/S IF [Urinalysis, C/S if Indicated] Stat Lab 07/12/25 00:35 Completed VBG [Venous Blood Gas] Stat Lab 07/12/25 00:16 Completed ALPRazoLAM [Xanax] Med 07/12/25 00:41 Discontinued 0.75 mg PO X1 ONE Acetaminophen Supp [Tylenol Supp] Med 07/12/25 05:31 Active 650 mg ID Q6HR PRN Furosemide Inj [Lasix Inj] Med 07/12/25 00:02 Discontinued 40 mg IVP X1 ONE Heparin Inj Med 07/12/25 09:00 Active 5,000 unit SC BID Magnesium Sulfate 2 GM Ivpb [Magnesium Sulfate Ivpb] Med 07/12/25 01:53 Discontinued 2 gm in 50 ml IV X1 Magnesium Sulfate 4 GM Ivpb [Magnesium Sulfate Ivpb] Med 07/12/25 05:18 Discontinued 4 gm in 50 ml IV X1 MethylPREDNISolone.* [SoluMEDROL Inj] Med 07/12/25 00:02 Discontinued 125 mg IVP X1 ONE Morphine* Inj Med 07/12/25 00:02 Discontinued 2 mg IV X1 ONE Ondansetron Inj [Zofran Inj] Med 07/12/25 05:31 Active 4 mg IVP Q6H PRN POTASSIUM CHL 10 mEq IVPB [Kcl Ivpb] Med 07/12/25 01:04 Discontinued 10 meq in 100 ml IV X1 POTASSIUM CHL 10 mEq IVPB [Kcl Ivpb] Med 07/12/25 01:05 Discontinued 10 meq in 100 ml IV X1 POTASSIUM CHL 10% Liq 15 ML Med 07/12/25 01:04 Discontinued 40 meq PO X1 ONE Potassium Chloride [K-Dur] Med 07/12/25 05:18 Discontinued 120 meq PO X1 ONE Code Status Routine Oth 07/12/25 05:31 Ordered Vital Signs Vital signs: Vital Signs Temperature 98.1 F 07/12/25 00:14 Pulse Rate 129 H 07/12/25 00:14 Respiratory Rate 17 07/12/25 00:14 Blood Pressure 118/72 07/12/25 00:14 Pulse Oximetry (%) 97 07/12/25 00:14 Oxygen Delivery Method Room Air 07/12/25 00:14 Shortness of Breath / Dyspnea MDM Narrative MDM Narrative:: This section includes all my notes and documentations, including HPI, PE, and ED course. Cr Lo MD HPI: 69 y/o female with Hx of Asthma, Cirrhosis, and HTN BIBA presents with a couple day history of worsening cough, productive cough, purulent sputum, and dyspnea. Neb treatments given by EMS and improvement noted. No other complaints. ROS: All negative except as documented in HPI. Physical Exam: General: Alert and oriented. Severely anxious. Eyes: Conjunctivae and lids clear. ENT: No nasal congestion. Neck: Supple. Heart: RRR. Lungs: No respiratory distress. Good air movement. No severe rhonchi, wheezing, rales. Abdomen: Soft and nontender. Normal bowel sounds. Ascites noted. No rebound or guarding. Back: No CVA tenderness. Skin: Warm and dry. Neuro: Alert and oriented X 3. I reviewed EMS notes. I reviewed all diagnostic test results: My interpretation of the EKG is: Sinus rhythm (93 bpm) with nonspecific ST-T changes. My interpretation of the chest x-ray is NAD. My review of the Chest CTA report is no PE. My review of the Abdomen/Pelvis CT report is cirrhosis and ascites and anasarca and liver lesions. My review of the Abdomen US report is cirrhosis and ascites. My review of the Leg Venous Doppler US report is no DVT. Blood tests and urine tests remarkable for D-dimer 1210, Na 128, K 1.8, LA 4.5, Mg 1.3, CRP 5.4, BNP 105, Covid/Influenza are negative. At this point, diagnoses include: Anasarca Cirrhosis Ascites Liver lesions Hyponatremia Hypokalemia Hypomagnesemia Treatment here from me included: Lasix 40 mg IV SoluMedrol 125 mg IV Morphine 2 mg IV Oral KCl 40 mEq KCl 20 mEq IV Xanax 0.75 mg orally Magnesium Sulfate 2 G IV No significant improvement noted. I discussed the case with our hospitalist. About the presentation and exam and diagnostics and treatments here. And need of further care in the hospital. Will accept the patient. Cr Lo MD Patient data External records reviewed:: [facility] previous records (Reviewed prior ED records from 05/05/25. Patient was seen for Hypokalemia.) and EMS form Clinical information provided by:: patient and EMS Social determinants that could affect healthcare access:: none Patient has the following chronic illnesses:: Hypercholesterolemia, Edema, Hypertension, Hypotension, Asthma, Cirrhosis, Obesity, Arthritis, Cataracts, Hypothyroidism How is presenting disease/condition affected by chronic disease/condition?: exacerbated by Evaluation data The following diagnostics were reviewed and interpreted by me:: EKG tracing(s) (My interpretation of the EKG is: Sinus rhythm (93 bpm) with nonspecific ST-T changes. Cr Lo MD) Lab and/or radiology exams considered but not ordered:: None Interpretation Summary: I reviewed all diagnostic test results: My interpretation of the EKG is: Sinus rhythm (93 bpm) with nonspecific ST-T changes. My interpretation of the chest x-ray is NAD. My review of the Chest CTA report is no PE. My review of the Abdomen/Pelvis CT report is cirrhosis and ascites and anasarca and liver lesions. My review of the Abdomen US report is cirrhosis and ascites. My review of the Leg Venous Doppler US report is no DVT. Blood tests and urine tests remarkable for D-dimer 1210, Na 128, K 1.8, LA 4.5, Mg 1.3, CRP 5.4, BNP 105, Covid/Influenza are negative. Medications / Prescriptions Medications or Prescriptions considered but not ordered:: None Medication administrations:: Medication Administration History Acetaminophen (Acetaminophen Supp 650 Mg Supp) 650 mg ID Q6HR PRN PRN Reason: PAIN (1-3) OR FEVER > 100.4 Stop: 08/11/25 05:30 Albumin Human (Albumin Human-Kjda 25% Ivpb 25 Gm/100 Ml Btl) 25 gm IV QDAY CHASIDY Stop: 07/15/25 08:59 Last Admin: 07/12/25 08:29 Dose: 25 gm Documented By: DELLA Heparin Sodium (Porcine) (Heparin Sod Inj 5000 Unit/Ml Vial) 5,000 unit SC BID [facility] Stop: 07/26/25 08:59 Last Admin: 07/12/25 08:50 Dose: Not Given Documented By: DELLA Non-Admin Reason: Patient Refused Comments: Pt had to get a new IV and does not want poked again Levothyroxine Sodium (Levothyroxine Sodium 125 Mcg Tablet) 125 mcg PO ACBR [facility] Stop: 08/11/25 07:00 Lorazepam (Lorazepam 0.5 Mg Tablet) 0.5 mg PO Q4HR PRN PRN Reason: CIWA Score 2-6 Stop: 07/17/25 06:33 Last Admin: 07/12/25 13:45 Dose: 0.5 mg Documented By: RAYA Lorazepam (Lorazepam 0.5 Mg Tablet) 1 mg PO Q4HR PRN PRN Reason: CIWA SCORE 7-11 Stop: 07/17/25 06:33 Last Admin: 07/12/25 08:29 Dose: 1 mg Documented By: DELLA Lorazepam (Lorazepam 0.5 Mg Tablet) 2 mg PO Q4HR PRN PRN Reason: CIWA SCORE 12-15 Stop: 07/17/25 06:33 Last Admin: 07/12/25 17:08 Dose: 2 mg Documented By: RAYA Ondansetron HCl (Ondansetron Inj 2 Mg/Ml Inj 2 Ml) 4 mg IVP Q6H PRN; Protocol PRN Reason: NAUSEA OR VOMITING Stop: 08/11/25 05:30 Spironolactone (Spironolactone 25 Mg Tablet) 100 mg PO QDAY [facility] Stop: 08/12/25 08:59 Discontinued Medications Acetaminophen (Acetaminophen 325 Mg Tablet) 500 mg PO X1 ONE Stop: 07/12/25 16:24 Last Admin: 07/12/25 16:56 Dose: Not Given Documented By: MGD Non-Admin Reason: Duplicate Medication on eMAR Acetaminophen (Acetaminophen 500 Mg Tablet) 500 mg PO X1 ONE Stop: 07/12/25 16:46 Last Admin: 07/12/25 16:35 Dose: 500 mg Documented By: MGPolo Albuterol/Ipratropium (Albuterol/Ipratropium (Duoneb) Rt Elza 3 Ml Nebu) 3 ml INH X1 ONE Stop: 07/12/25 09:52 Last Admin: 07/12/25 10:06 Dose: 3 ml Documented By: YOLANDA Albuterol/Ipratropium (Albuterol/Ipratropium (Duoneb) Rt Elza 3 Ml Nebu) 3 ml INH X1 ONE Stop: 07/12/25 14:15 Last Admin: 07/12/25 14:30 Dose: 3 ml Documented By: SHAVON Albuterol/Ipratropium (Albuterol/Ipratropium (Duoneb) Rt Elza 3 Ml Nebu) 3 ml INH X1 ONE Stop: 07/12/25 16:59 Last Admin: 07/12/25 17:19 Dose: 3 ml Documented By: SHAVON Alprazolam (Alprazolam 0.25 Mg Tablet) 0.75 mg PO X1 ONE Stop: 07/12/25 00:42 Last Admin: 07/12/25 00:57 Dose: 0.75 mg Documented By: MATILDE Folic Acid (Folic Acid 1 Mg Tablet) 1 mg PO X1 ONE Stop: 07/12/25 06:35 Last Admin: 07/12/25 06:51 Dose: 1 mg Documented By: MATILDE Furosemide (Furosemide Inj 10 Mg/Ml 4ml Vial) 40 mg IVP X1 ONE Stop: 07/12/25 00:03 Last Admin: 07/12/25 00:25 Dose: 40 mg Documented By: MATILDE Furosemide (Furosemide Inj 10 Mg/Ml 4ml Vial) 40 mg IVP X1 ONE Stop: 07/12/25 09:31 Last Admin: 07/12/25 09:00 Dose: Not Given Documented By: CS Non-Admin Reason: Potassium 2.7 Potassium Chloride (Kcl Ivpb) 10 meq in 100 mls @ 100 mls/hr IV X1 ONE Stop: 07/12/25 02:03 Last Infusion: 07/12/25 03:50 Dose: Infused Documented By: Infusion: 07/12/25 03:00 Dose: 100 mls/hr Documented By: Infusion: 07/12/25 01:36 Dose: 25 mls/hr Documented By: Infusion: 07/12/25 01:33 Dose: 50 mls/hr Documented By: Admin: 07/12/25 01:32 Dose: 100 mls/hr Documented By: MATILDE Potassium Chloride (Kcl Ivpb) 10 meq in 100 mls @ 100 mls/hr IV X1 ONE Stop: 07/12/25 02:04 Last Infusion: 07/12/25 04:14 Dose: Infused Documented By: Infusion: 07/12/25 03:00 Dose: 100 mls/hr Documented By: Infusion: 07/12/25 01:34 Dose: 0 mls/hr Documented By: Admin: 07/12/25 01:32 Dose: 100 mls/hr Documented By: MATILDE Magnesium Sulfate (Magnesium Sulfate Ivpb) 2 gm in 50 mls @ 25 mls/hr IV X1 ONE Stop: 07/12/25 03:52 Last Infusion: 07/12/25 04:17 Dose: Infused Documented By: Admin: 07/12/25 02:18 Dose: 25 mls/hr Documented By: MATILDE Magnesium Sulfate (Magnesium Sulfate Ivpb) 4 gm in 50 mls @ 12.5 mls/hr IV X1 ONE Stop: 07/12/25 09:17 Last Infusion: 07/12/25 09:48 Dose: Infused Documented By: Admin: 07/12/25 05:48 Dose: 12.5 mls/hr Documented By: MATILDE Magnesium Sulfate (Magnesium Sulfate Ivpb) 4 gm in 50 mls @ 12.5 mls/hr IV X1 ONE Stop: 07/12/25 12:54 Last Admin: 07/12/25 10:00 Dose: Not Given Documented By: CS Non-Admin Reason: Discontinued Lorazepam (Lorazepam 0.5 Mg Tablet) 1 mg PO X1 ONE Stop: 07/12/25 09:53 Last Admin: 07/12/25 10:30 Dose: Not Given Documented By: CS Non-Admin Reason: Pt resting after breathing treatment Methylprednisolone Sodium Succinate (Methylprednisolone Sod Succ 62.5 Mg/Ml 2ml Vial) 125 mg IVP X1 ONE Stop: 07/12/25 00:03 Last Admin: 07/12/25 00:25 Dose: 125 mg Documented By: MATILDE Morphine Sulfate (Morphine Sulf Inj 4 Mg/Ml Vial) 2 mg IV X1 ONE Stop: 07/12/25 00:03 Last Admin: 07/12/25 00:25 Dose: 2 mg Documented By: MATILDE Potassium Chloride (Potassium Chloride 10% 20 Meq/15 Ml Udc) 40 meq PO X1 ONE Stop: 07/12/25 01:05 Last Admin: 07/12/25 01:32 Dose: 40 meq Documented By: MATILDE Potassium Chloride (Potassium Chloride 20 Meq Tabcr) 120 meq PO X1 ONE Stop: 07/12/25 05:19 Last Admin: 07/12/25 05:49 Dose: 120 meq Documented By: MATILDE Potassium Chloride (Potassium Chloride 10% 20 Meq/15 Ml Udc) 40 meq PO X1 ONE Stop: 07/12/25 08:57 Last Admin: 07/12/25 10:00 Dose: Not Given Documented By: DELLA Non-Admin Reason: Discontinued Spironolactone (Spironolactone 25 Mg Tablet) 100 mg PO X1 ONE Stop: 07/12/25 07:31 Last Admin: 07/12/25 08:11 Dose: 100 mg Documented By: DELLA Thiamine HCl (Thiamine Inj 100 Mg/Ml Vial 2 Ml) 500 mg IVP X1 ONE Stop: 07/12/25 06:35 Last Admin: 07/12/25 06:52 Dose: 500 mg Documented By: MATILDE Treatment here from [place] included: Lasix 40 mg IV SoluMedrol 125 mg IV Morphine 2 mg IV Oral KCl 40 mEq KCl 20 mEq IV Xanax 0.75 mg orally Magnesium Sulfate 2 G IV Consultations Consultation(s) initiated? (list below): Yes Consultation #1 (Physician, Specialty, Details): I discussed the case with our hospitalist. About the presentation and exam and diagnostics and treatments here. And need of further care in the hospital. Will accept the patient. Time: 03:58 Diagnosis Shortness of Breath Differential Diagnosis: acute exacerbation of chronic obstructive airways disease, congestive heart failure, community acquired pneumonia, asthma with exacerbation, pulmonary embolism and other (Cirrhosis, Pancreatitis, Cholecystitis) Most likely diagnosis given after review of the tests above:: Anasarca Cirrhosis Ascites Liver lesions Hyponatremia Hypokalemia Hypomagnesemia Admission Indicated Admission indicated?: indicated Admission Request Was there a request for admission?: Yes Admission Attestation Admission request attestation: Discussed case with Hospitalist service regarding admission. Discussed patients ED course, exam findings, labs, and radiology results. Agreed to accept the patient for admission. Disposition Plan Disposition Plan: Admit Discharge Plan Plan Patient Disposition: Admit Acute Care w/in Hospital Problem List Clinical Impression: Anasarca, Cirrhosis, Ascites, Liver lesion, Hyponatremia, Hypokalemia, Hypomagnesemia
[2025-07-12] MEDS: FUROSEMIDE INJ 10 MG/ML 4ML VIAL 40 MG IVP (00:25)
[2025-07-12] MEDS: MethylPREDNISolone SOD SUCC 62.5 MG/ML 2ML VIAL 125 MG IVP (00:25)
[2025-07-12] MEDS: MORPHINE SULF INJ 4 MG/ML VIAL 2 MG IV (00:25)
[2025-07-12 00:28] LABS: Base Excess, Venous 11 (-3-3); O2 Saturation, Venous 77 % (96-97); PCO2, Venous 40 mmHg (36-56); PO2, Venous 41 mmHg (15-58); pH, Venous 7.55 (7.33-7.66)
[2025-07-12 00:40] LABS: Lactate (Lactic Acid) 4.5 mMol/L (0.4-2.0)
[2025-07-12 00:41] LABS: Basophils # (Auto) 0.0 Thou/mm3 (0.0-0.2); Basophils % (Auto) 0 % (0-2.5); Eosinophils # (Auto) 0.1 Thou/mm3 (0.0-0.5); Eosinophils % (Auto) 1 % (0-10); Hematocrit 36.4 % (36.0-46.0); Hemoglobin 12.8 g/dL (12.0-16.0); Immature Granulocytes Auto 0.01 Thou/mm3 (0.00-0.00); Lymphocytes # (Auto) 1.3 Thou/mm3 (1.0-4.8); Lymphocytes % (Auto) 18 % (10-50); Mean Corpuscular HGB Conc 35.2 g/dl (31.0-37.0); Mean Corpuscular Hemoglobin 31.2 pg (25.0-35.0); Mean Corpuscular Volume 89 fL (80-100); Monocytes # (Auto) 0.8 Thou/mm3 (0.0-0.8); Monocytes % (Auto) 11 % (0-12); Neutrophils # (Auto) 4.9 Thou/mm3 (1.8-7.7); Neutrophils % (Auto) 70 % (37-80); Nucleated Red Blood Cell # 0.00 Thou/mm3 (0.00-0.00); Nucleated Red Blood Cell % 0 /100 WBC (0); Platelet Count 221 Thou/mm3 (140-440); RDW Standard Deviation 41.0 fL (36.4-46.3); Red Blood Count 4.10 Miln/mm3 (4.00-5.20); White Blood Count 7.0 Thou/mm3 (3.6-11.0)
[2025-07-12 00:48] LABS: INR 1.3 (0.9-1.3); Partial Thromboplastin Time 36.9 Seconds (22.0-36.0); Prothrombin Time 13.3 Seconds (9.0-12.2)
[2025-07-12 00:50] LABS: Collection Type, Urine Clean Catch
[2025-07-12 01:00] LABS: Sed Rate (ESR) 23 mm/hr (0-30)
[2025-07-12 01:03] LABS: Bilirubin,Urine Negative (Negative); Blood,Urine Trace (Negative); Clarity,Urine Clear (Clear/Hazy); Color,Urine Yellow (Lt Yel-Yel); Culture Indicated,Urine Not Indicated; Glucose, Urine Negative (Negative); Hyaline Casts,Urine < 1 /hpf (0-1); Ketones,Urine Negative (Negative); Leukocyte Esterase,Urine Positive (Negative); Nitrite,Urine Negative (Negative); PH,Urine 5.5 (5.0-7.0); Protein,Urine Negative (Neg - Trace); RBC,Urine 2 /hpf (0-3); Specific Gravity,Urine 1.016 (1.001-1.035); Squamous Epithelial Cell,Urine 2 /hpf (0-5); Urobilinogen,Urine 4.0 mg/dL (0.0-1.0); WBC,Urine 3 /hpf (0-5)
[2025-07-12 01:03] LABS: Alanine Aminotransferase 12 U/L (10-49); Albumin, Serum 2.5 gm/dL (3.4-4.8); Albumin/Globulin Ratio 0.7 (1.2-2.2); Alkaline Phosphatase 177 U/L (46-116); Amylase 43 U/L (30-118); Anion Gap 11 (7-16); Aspartate Amino Transferase 45 U/L (0-34); BUN/Creatinine Ratio 8 Ratio (12-20); Bilirubin,Direct 0.9 mg/dL (0.0-0.3); Bilirubin,Total 1.5 mg/dL (0.3-1.2); Blood Urea Nitrogen < 5 mg/dL (9-23); C-Reactive Protein 5.4 mg/dL (0.0-0.9); Calcium 7.2 mg/dL (8.3-10.6); Calcium (Corrected) 8.4 mg/dL (8.5-10.1); Carbon Dioxide 31.6 mMol/L (20.0-31.0); Chloride 85 mMol/L (98-107); Creatinine (Component) 0.6 mg/dL (0.6-1.3); Estimated Creatinine Clearance 71.4 mL/min (>60); Globulin 3.5 gm/dL (2.3-3.5); Glucose 104 mg/dL (74-106); Lipase 40 U/L (12-53); Magnesium 1.3 mg/dL (1.6-2.6); Osmolality,Calculated 254 (275-295); Procalcitonin 0.08 ng/ml (0.0-0.49); Sodium 128 mMol/L (136-145); Total Protein 6.0 gm/dL (5.7-8.2); Troponin I < 0.020 ng/mL (0.0-0.045); eGFR > 60 See Note
[2025-07-12 01:04] LABS: Potassium 1.8 mMol/L (3.4-5.1)
[2025-07-12 01:14] LABS: Influenza A Ag Negative
[2025-07-12 01:15] LABS: D-Dimer 1210 ng/mL (<600); Influenza B Ag Negative
[2025-07-12 01:16] LABS: COVID-19 Antigen (In-House) Negative (Negative)
[2025-07-12 01:17] LABS: B-Type Natriuretic Peptide 105 pg/mL (0-100)
[2025-07-12] MEDS: POTASSIUM CHLORIDE 10% 20 MEQ/15 ML UDC 40 MEQ PO (01:32)
[2025-07-12] MEDS: POTASSIUM CHL 10 mEq IVPB 10 MEQ/100 ML BAG 100 MEQ IV ×2 (01:32)
[2025-07-12] MEDS: Magnesium Sulfate 2 GM Ivpb 2 GM/50 ML BAG IV (02:18)
--- NOTE | 2025-07-12 02:36 | PRELIM_ITS ---
Bilateral lower extremity venous Doppler ultrasound with wave Doppler spectral analysis. July 12, 2025 at 0120 hours. Clinical history: Edema. High dimer. Technique: Duplex scan of the bilateral lower extremity deep venous systems was performed utilizing 2D grayscale imaging, Doppler spectral analysis and color flow Doppler and with compression. Comparison: None available at the time of this report. Findings: Paiz scale, color flow and spectral Doppler evaluation of the lower extremity deep veins was performed. Right: The common femoral, superficial femoral and popliteal veins are patent and compressible. Normal respiratory variation is noted. There is no evidence of occlusive or nonocclusive thrombus. The great saphenous vein is patent at the level of the saphenofemoral junction. The calf veins to the extent visualized are patent. Left: The common femoral, superficial femoral and popliteal veins are patent and compressible. Normal respiratory variation is noted. There is no evidence of occlusive or nonocclusive thrombus. The great saphenous vein is patent at the level of the saphenofemoral junction. The calf veins to the extent visualized are patent. Impression: No sonographic evidence of deep venous thrombosis in both lower extremities. Report Electronically Signed By: Syed Abraham 07/12/2025 2:35:45 AM [EST]
--- NOTE | 2025-07-12 03:20 | PRELIM_ITS ---
CT angiogram of the chest with intravenous contrast (axial sections with sagittal and coronal reformats) July 12, 2025 0209 hours Clinical History: Shortness of breath Technique:Helical axial sections with sagittal and coronal reformats of the chest were obtained with intravenous contrast. Iterative reconstruction technique was employed to reduce patient radiation exposure. 3D/MIP reconstructed images were also provided. Comparison: None available at the time of this report. Findings: There is no filling defect within the pulmonary artery divisions to suggest pulmonary thromboembolism. The mediastinum demonstrates no evidence of mass or lymphadenopathy. The thoracic aorta is unremarkable. There is no pericardial effusion. The lungs are clear. No evidence of pleural effusion or pneumothorax. Degenerative changes of the imaged portions of the spine. No acute fractures. Large ascites. Irregular liver margins. Hypodense liver lesions, the largest in segment 2 measures 1.4 cm. Status post cholecystectomy. Dilated left atrium. Coronary arteries calcifications. Impression: 1. No CT evidence of pulmonary thromboembolism. 2. Cirrhosis associated with large ascites. 3. Indeterminate hypodense liver lesions, further evaluation to assess for hepatocellular carcinoma is recommended. 4. Coronary arteries calcifications. If acute myocardial infarction is clinically suspected consider correlation with troponin. 5. Dilated left atrium. Report Electronically Signed By: Syed Abraham 07/12/2025 3:19:54 AM [EST]
[2025-07-12 03:23] LABS: Reflex Lactate? Y
--- NOTE | 2025-07-12 03:26 | PRELIM_ITS ---
Right upper quadrant abdominal ultrasound with Doppler and wave Doppler spectral analysis. July 12, 2025 at 0137 hours Clinical history: Assess for gallbladder pathology and ascites. Technique: Grayscale and color flow images of the right upper quadrant are provided. Hepatic and portal veins were also imaged with color flow images. Comparison: None available at the time of this report. Findings: The liver demonstrates irregular margins and echogenicity. No intrahepatic biliary ductal dilatation. S/p cholecystectomy. The common bile duct is normal in caliber at 3.1 mm. The pancreas is unremarkable to the extent visualized. The portal vein is patent with hepatopetal flow and normal with Doppler spectral analysis. Large ascites. The hepatic veins are patent with normal wave Doppler spectral analysis. The IVC is patent with normal wave Doppler spectral analysis. Impression: Cirrhosis associated with ascites. Report Electronically Signed By: Syed Abraham 07/12/2025 3:25:38 AM [EST]
--- NOTE | 2025-07-12 03:35 | PRELIM_ITS ---
CT scan of the abdomen and pelvis with intravenous contrast (axial sections with sagittal and coronal reformats). July 12, 2025 at 0209 hours Clinical History: Abdominal pain. Comparison: None available at the time of this report. Findings: Please, see separate report for description of the chest findings. The pancreas, spleen, kidneys and adrenals are unremarkable. S/p cholecystectomy. No biliary duct dilation. No evidence of bowel obstruction. No evidence of appendicitis. There is no mesenteric or retroperitoneal adenopathy. The urinary bladder is unremarkable. There is no free air. Large ascites. Irregular liver margins. Hypodense liver lesions, the largest in segment 2 measures 1.8 cm. Degenerative changes of the imaged portions of the spine. No acute fractures. Anasarca. The portal vein is patent. Mild peritoneal wall thickening. The uterus and ovaries are within normal limits. Impression: 1. Cirrhosis associated with large ascites. 2. Indeterminate hypodense liver lesions, correlation with MRI to assess for hepatocellular carcinoma is recommended. 3. Anasarca. 4. Mild peritoneal wall thickening. This is suspicious for acute peritonitis. Please, correlate clinically. Discussion Details: Results verbally communicated to : Dr. Lo at 03:31 AM 07/12/2025 Report Electronically Signed By: Syed Abraham 07/12/2025 3:34:27 AM [EST]
--- NOTE | 2025-07-12 05:36 | PD.RESHP ---
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 States she was at home day prior to admission and trying to sleep when she suddenly felt shortness of breath with associated orthopnea x2-3 days and worsening abdominal distention. She has chronic lower extremity edema that has not worsened and no assocated fever, chills, sore throat, abdominal pain, or change in bowel habits. Of note, she has been admitted on multiple occasions for similar presentation and has required paracentesis regularly. In the ED, vital signs showed pulse of 129 but otherwise unremarkable. CBC unremarkable but chem panel significant for multiple electrolyte derrangements, including Na 128, K 1.8, Cl 85, HCO3 31.6, lactate 4.5, Ca 8.4, Mg 1.3, t bili 1.5, BNP 105, AST 45, ALT wnl, ALP 177. All imaging pending official read, however prelim read for CT A/P showing cirrhosis with large assictes and indeterminate hypodense liver lesions, CTA chest negative for PE, bilateral lower extremity Doppler negative for DVT, RUQ US showing cirrhosis and ascites. Given lasix 40 mg IV x1, methylprednisolone 125 mg x1, morphine 2 mg x1, alprazolam 0.75 mg x1, 60 mEq of K, 2 g of Mg. Admitted for management of electrolyte derangements and ascites requiring paracentesis. PMHx: cirrhosis, alcohol use disorder, hypothyroidism, anxiety, chronic lymphedema Medications: cannot recall SHx: used to drink 3-4 glasses of wine per day since her 20s but recently has been drinking 1 glass per day; no smoking or illicit drug use; [place] Allergies: codeine Review of Systems Review of Systems Systems Reviewed: All systems reviewed, normal except as documented Exam Vital Signs Temp Pulse Resp BP Pulse Ox O2 Del Method 97.5 F 134 H 16 124/82 95 Room Air 07/12/25 04:16 07/12/25 04:16 07/12/25 04:16 07/12/25 04:16 07/12/25 04:16 07/12/25 00:14 Narrative Exam General: AOx3, anxious, able to speak full sentences HEENT: NC/AT, mucous membranes moist, bilateral sclera anicteric Cardiovascular: regular rate and rhythm, S1/S2 present, no murmurs appreciated Pulmonary: clear to auscultation bilaterally, no rales/rhonchi/wheezes Abdominal: distended but nontender, firm, no rebound/guarding, normal bowel sounds present Musculoskeletal: 2-3+ bilateral lower extremity edema, normal ROM Skin: warm and dry, intact, no rashes Neuro: CN II-XII intact, no focal deficits Results: Labs 07/12/25 00:16 07/12/25 09:18 Labs: Short CBC 07/12/25 Range/Units 00:16 WBC 7.0 (3.6-11.0) Thou/mm3 Hgb 12.8 (12.0-16.0) g/dL Hct 36.4 (36.0-46.0) % Plt Count 221 (140-440) Thou/mm3 BMP 07/12/25 00:16 Sodium 128 L Potassium 1.8 L* Chloride 85 L Carbon Dioxide 31.6 H BUN < 5 L Creatinine 0.6 Glucose 104 Calcium 7.2 L Cardiac Enzymes 07/12/25 Range/Units 00:16 Troponin I < 0.020 (0.0-0.045) ng/mL Liver Function 07/12/25 Range/Units 00:16 Total Bilirubin 1.5 H (0.3-1.2) mg/dL Direct Bilirubin 0.9 H (0.0-0.3) mg/dL AST 45 H (0-34) U/L ALT 12 (10-49) U/L Alkaline Phosphatase 177 H (46-116) U/L Albumin 2.5 L (3.4-4.8) gm/dL Urine 07/12/25 Range/Units 00:35 Urine Color Yellow (Lt Yel-Yel) Urine Clarity Clear (Clear/Hazy) Urine pH 5.5 (5.0-7.0) Ur Specific [place] 1.016 (1.001-1.035) Urine Protein Negative (Neg - Trace) Urine Glucose (UA) Negative (Negative) ABG Interpretation ABG results: 07/12/25 00:16 VBG pH 7.55 VBG pCO2 40 VBG pO2 41 VBG Base Excess 11 H Quality Measures Quality Measures VTE prophylaxis and none Advance care planning discussed with:: patient Medications Home Medications and Allergies Home Medications ?Medication ?Instructions ?Recorded ?Confirmed ?Type albuterol sulfate 90 mcg/actuation 2 inh inhalation Q6H PRN shortness 07/12/25 07/12/25 History aerosol inhaler (Ventolin HFA) of breath or wheezing alprazolam 2 mg tablet (Xanax) 5 mg PO QDAY 07/12/25 07/12/25 History furosemide 40 mg tablet 40 mg PO QDAY 07/12/25 07/12/25 History zolpidem 5 mg tablet 5 mg PO HS 07/12/25 07/12/25 History Allergies Allergy/AdvReac Type Severity Reaction Status Date / Time codeine Allergy Verified 02/06/25 10:42 Visit Medications Acetaminophen (Acetaminophen Supp 650 Mg Supp) 650 mg MI Q6HR PRN PRN Reason: PAIN (1-3) OR FEVER > 100.4 Stop: 08/11/25 05:30 Heparin Sodium (Porcine) (Heparin Sod Inj 5000 Unit/Ml Vial) 5,000 unit SC BID CHASIDY Stop: 07/26/25 08:59 Magnesium Sulfate (Magnesium Sulfate Ivpb) 4 gm in 50 mls @ 12.5 mls/hr IV X1 ONE Stop: 07/12/25 09:17 Ondansetron HCl (Ondansetron Inj 2 Mg/Ml Inj 2 Ml) 4 mg IVP Q6H PRN; Protocol PRN Reason: NAUSEA OR VOMITING Stop: 08/11/25 05:30 Discontinued Medications Alprazolam (Alprazolam 0.25 Mg Tablet) 0.75 mg PO X1 ONE Stop: 07/12/25 00:42 Last Admin: 07/12/25 00:57 Dose: 0.75 mg Furosemide (Furosemide Inj 10 Mg/Ml 4ml Vial) 40 mg IVP X1 ONE Stop: 07/12/25 00:03 Last Admin: 07/12/25 00:25 Dose: 40 mg Potassium Chloride (Kcl Ivpb) 10 meq in 100 mls @ 100 mls/hr IV X1 ONE Stop: 07/12/25 02:03 Last Infusion: 07/12/25 03:50 Dose: Infused Potassium Chloride (Kcl Ivpb) 10 meq in 100 mls @ 100 mls/hr IV X1 ONE Stop: 07/12/25 02:04 Last Infusion: 07/12/25 04:14 Dose: Infused Magnesium Sulfate (Magnesium Sulfate Ivpb) 2 gm in 50 mls @ 25 mls/hr IV X1 ONE Stop: 07/12/25 03:52 Last Infusion: 07/12/25 04:17 Dose: Infused Methylprednisolone Sodium Succinate (Methylprednisolone Sod Succ 62.5 Mg/Ml 2ml Vial) 125 mg IVP X1 ONE Stop: 07/12/25 00:03 Last Admin: 07/12/25 00:25 Dose: 125 mg Morphine Sulfate (Morphine Sulf Inj 4 Mg/Ml Vial) 2 mg IV X1 ONE Stop: 07/12/25 00:03 Last Admin: 07/12/25 00:25 Dose: 2 mg Potassium Chloride (Potassium Chloride 10% 20 Meq/15 Ml Udc) 40 meq PO X1 ONE Stop: 07/12/25 01:05 Last Admin: 07/12/25 01:32 Dose: 40 meq Potassium Chloride (Potassium Chloride 20 Meq Tabcr) 120 meq PO X1 ONE Stop: 07/12/25 05:19 Assessment & Plan Plan 69-year-old female with a medical history of 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 #Cirrhosis secondary to alcohol use #Ascites requiring recurrent paracentesis #Anasarca #Hyperbilirubinemia #Transaminitis History of cirrhosis and requires recurrent paracentesis. Likely experiencing shortness of breath from fluid overload state as she has significant abdominal distention and lower extremity edema, though lungs clear to auscultation. CTA and Doppler negative for PE and DVT, respectively, in evaluation of her shortness of breath. No need for antibiotics given she has no fever, leukocytosis, or abdominal pain. ? Paracentesis order placed ? Lasix ordered but only give after K correction, ideally > 3.5 mEq ? Albumin to be given prior to/with lasix ? No need to fluid studies given she has had recurrent paracentesis #Electrolyte derangements #Severe hypokalemia #Hypomagnesemia #Hypervolemic hyponatremia #Hypochloremia ? Replete as needed ? Received 60 mEq in ED and giving additional 120 mEq ? Correct K prior to diuresis #Alcohol use disorder ? CIWA placed #Lactic acidosis, type B Likely secondary to impaired liver function. ? Follow-up lactate ? No IVF given fluid overloaded state #Metabolic alkalosis Possibly secondary to diuretics vs severe hypokalemia and concurrent intracellular hydrogen shift. ? Continue to monitor #Anxiety ? Pending med rec #Hypothyroidism ? Levothyroxine 125 mcg Hospital management: Disposition: pending paracentesis, electrolyte derangements Diet: low sodium Lines: PIV DVT prophylaxis: heparin SC BID Wright: placed for strict I/O CODE STATUS: full code ----- Plan discussed with attending physician Dr. Yulisa Campos MD PGY-2 Internal Medicine Attending Provider Attestation/Addendum After examination of the patient and review of the clinical data I feel that this patient needs admission to the hospital for further treatment/evaluation. Plan of care discussed with patient and is in agreement. I Jeff Márquez MD, attest that I was physically present for mancuso portions of evaluation, and examined patient, labs and imagings and plan of care were discussed with IM residents team, and I agree with the findings and plans documented above.
[2025-07-12] MEDS: Magnesium Sulfate 4 GM Ivpb 4 GM/50 ML BAG IV (05:48)
[2025-07-12 06:09] LABS: Lactate (Lactic Acid) 4.8 mMol/L (0.4-2.0)
[2025-07-12 06:47] LABS: Thyroid Stimulating Hormone 7.96 uIU/mL (0.55-4.78)
[2025-07-12 06:51] LABS: Potassium 2.7 mMol/L (3.4-5.1)
[2025-07-12] MEDS: FOLIC ACID 1 MG TABLET PO (06:51)
[2025-07-12] MEDS: THIAMINE INJ 100 MG/ML VIAL 2 ML 500 MG IVP (06:52)
[2025-07-12 06:57] LABS: Alcohol, Urine Positive (Negative)
[2025-07-12 07:09] LABS: Urea Nitrogen, Random Urine 493.0 mg/dL (350.0-1000.0)
[2025-07-12] MEDS: SPIRONOLACTONE 25 MG TABLET 100 MG PO (08:11)
[2025-07-12] MEDS: ALBUMIN HUMAN-KJDA 25% IVPB 25 GM/100 ML BTL IV (08:29)
[2025-07-12 09:08] LABS: Reflex Lactate? Y
[2025-07-12 09:27] LABS: Lactic Acid, 3 HR 4.0 mMol/L (0.4-2.0)
[2025-07-12 09:55] LABS: Anion Gap 10 (7-16); BUN/Creatinine Ratio 8 Ratio (12-20); Blood Urea Nitrogen 5 mg/dL (9-23); Calcium 7.3 mg/dL (8.3-10.6); Carbon Dioxide 30.5 mMol/L (20.0-31.0); Chloride 87 mMol/L (98-107); Creatinine (Component) 0.6 mg/dL (0.6-1.3); Estimated Creatinine Clearance 71.4 mL/min (>60); Glucose 216 mg/dL (74-106); Magnesium 2.4 mg/dL (1.6-2.6); Osmolality,Calculated 259 (275-295); Potassium 3.8 mMol/L (3.4-5.1); Sodium 127 mMol/L (136-145); eGFR > 60 See Note
[2025-07-12] MEDS: ALBUTEROL/IPRATROPIUM (Duoneb) RT SOL 3 ML NEBU INH ×3 (10:06→17:19)
[2025-07-12 12:53] LABS: Ammonia 22 uMol/L (11-32)
--- NOTE | 2025-07-12 14:47 | ESPR_ITS ---
Documentation for date of: 07/12/25 Subjective Subjective Interval history: Overnight admit. Patient was examined at bedside; they appear A&Ox3 and are noted to be anxious-appearing and weepy in affect. Vitals/labs today significant for PT 13.3, APTT 36.9, D-Dimer 1210, sodium 128, potassium 1.8->2.7 (repleted with 120 mEq), osmolality 254, chloride 85, lactic acid 4.5->4.8->4.0, TBili 1.5, CRP 5.4, TSH 7.96. UDS positive for alcohol. Physical exam notable for pronounced wheezing auscultated on anterior lung aleman, incredibly distended and tense abdomen with positive fluid wave, and 4+ pitting edema of BLE. Current plan is to correct patient's severe hypokalemia (will correct hypomagnesemia first) before trying to remove some fluid through albumin and Lasix IV then performing a paracentesis for her severe ascites on 07/12 CTAP. Ammonia levels were ordered and came back WNL. Patient's lactic acid levels were rising but have now seemed to peak and are down-trending. Exam Vital Signs Temp Pulse Resp BP Pulse Ox O2 Del Method 97.9 F 105 H 18 110/86 H 99 Room Air 07/12/25 11:07/12/25 14:31 07/12/25 14:31 07/12/25 11:29 07/12/25 14:31 07/12/25 11:29 Narrative Exam General: AOx3, anxious, teary/weepy, morbidly obese woman able to speak full sentences HEENT: NC/AT, mucous membranes moist, bilateral sclera anicteric Cardiovascular: Tachycardic rate and rhythm, S1/S2 present, no murmurs appreciated Pulmonary: Severe wheezing auscultated on anterior lung aleman bilaterally. No crackles, rhonchi, or rales. Abdominal: Distended and tense with positive fluid wave but nontender, no rebound/guarding, normal bowel sounds present Musculoskeletal 4+ bilateral lower extremity edema, normal ROM Skin: warm and dry, intact, no rashes Neuro: CN II-XII intact, no focal deficits Objective Labs 07/13/25 05:57 07/13/25 05:57 Labs: Laboratory Results - last 24 hr 07/12/25 07/12/25 07/12/25 00:16 00:35 05:55 WBC 7.0 RBC 4.10 Hgb 12.8 Hct 36.4 MCV 89 MCH 31.2 MCHC 35.2 RDW Std Deviation 41.0 Plt Count 221 Neut % (Auto) 70 Lymph % (Auto) 18 [place] % (Auto) 11 Eos % (Auto) 1 Baso % (Auto) 0 Neut # (Auto) 4.9 Lymph # (Auto) 1.3 [place] # (Auto) 0.8 Eos # (Auto) 0.1 Baso # (Auto) 0.0 Immature Gran # (Auto) 0.01 H Absolute Nucleated RBC 0.00 Immature Gran % 0 Nucleated RBC % 0 ESR 23 PT 13.3 H INR 1.3 APTT 36.9 H D-Dimer 1210 H VBG pH 7.55 VBG pCO2 40 VBG pO2 41 VBG O2 Sat (Keanu) 77 L VBG Base Excess 11 H Sodium 128 L Potassium 1.8 L* 2.7 L* D Chloride 85 L Carbon Dioxide 31.6 H Anion Gap 11 BUN < 5 L Creatinine 0.6 Estim Creat Clear Calc 71.4 eGFR > 60 BUN/Creatinine Ratio 8 L Glucose 104 Calculated Osmolality 254 L Lactic Acid 4.5 H* 4.8 H* Calcium 7.2 L Corrected Calcium 8.4 L Magnesium 1.3 L Total Bilirubin 1.5 H Direct Bilirubin 0.9 H AST 45 H ALT 12 Alkaline Phosphatase 177 H Ammonia Troponin I < 0.020 C-Reactive Prot, Quant 5.4 H B-Natriuretic Peptide 105 H Total Protein 6.0 Albumin 2.5 L Globulin 3.5 Albumin/Globulin Ratio 0.7 L Amylase 43 Lipase 40 Procalcitonin 0.08 TSH 7.96 H Ur Collection Type Clean Catch Urine Color Yellow Urine Clarity Clear Urine pH 5.5 Ur Specific [place] 1.016 Urine Protein Negative Urine Glucose (UA) Negative Urine Ketones Negative Urine Blood Trace Urine Nitrite Negative Urine Bilirubin Negative Urine Urobilinogen (Auto) 4.0 Ur Leukocyte Esterase Positive Urine RBC 2 Urine WBC 3 Ur Squamous Epith Cells 2 Urine Bacteria None Hyaline Casts < 1 Ur Culture Indicated? Not Indicated Ur Random Urea Nitrogn 493.0 Urine Alcohol Positive A Influenza A (Rapid) Negative Influenza B (Rapid) Negative SARS-CoV-2 Ag (Rapid) Negative 07/12/25 07/12/25 09:18 12:23 WBC RBC Hgb Hct MCV MCH MCHC RDW Std Deviation Plt Count Neut % (Auto) Lymph % (Auto) [place] % (Auto) Eos % (Auto) Baso % (Auto) Neut # (Auto) Lymph # (Auto) [place] # (Auto) Eos # (Auto) Baso # (Auto) Immature Gran # (Auto) Absolute Nucleated RBC Immature Gran % Nucleated RBC % ESR PT INR APTT D-Dimer VBG pH VBG pCO2 VBG pO2 VBG O2 Sat ([place]) VBG Base Excess Sodium 127 L Potassium 3.8 D Chloride 87 L Carbon Dioxide 30.5 Anion Gap 10 BUN 5 L Creatinine 0.6 Estim Creat Clear Calc 71.4 eGFR > 60 BUN/Creatinine Ratio 8 L Glucose 216 H D Calculated Osmolality 259 L Lactic Acid 4.0 H Calcium 7.3 L Corrected Calcium Magnesium 2.4 Total Bilirubin Direct Bilirubin AST ALT Alkaline Phosphatase Ammonia 22 Troponin I C-Reactive Prot, Quant B-Natriuretic Peptide Total Protein Albumin Globulin Albumin/Globulin Ratio Amylase Lipase Procalcitonin TSH Ur Collection Type Urine Color Urine Clarity Urine pH Ur Specific [place] Urine Protein Urine Glucose (UA) Urine Ketones Urine Blood Urine Nitrite Urine Bilirubin Urine Urobilinogen (Auto) Ur Leukocyte Esterase Urine RBC Urine WBC Ur Squamous Epith Cells Urine Bacteria Hyaline Casts Ur Culture Indicated? Ur Random Urea Nitrogn Urine Alcohol Influenza A (Rapid) Influenza B (Rapid) SARS-CoV-2 Ag (Rapid) ABG Interpretation ABG results: 07/12/25 00:16 VBG pH 7.55 VBG pCO2 40 VBG pO2 41 VBG Base Excess 11 H Quality Measures Quality Measures none Advance care planning discussed with:: patient Assessment & Plan Assessment Current Active Medications: Generic Name Dose Route Start Last Admin Trade Name Freq PRN Reason Stop Dose Admin Acetaminophen 650 mg 07/12/25 05:31 Acetaminophen Supp 650 Mg Supp OK 08/11/25 05:30 Q6HR PRN PAIN (1-3) OR FEVER > 100.4 Albumin Human 25 gm 07/12/25 09:00 07/12/25 08:29 Albumin Human-Kjda 25% Ivpb 25 Gm/100 Ml Btl IV 07/15/25 08:59 25 gm QDAY CHASIDY Administration Heparin Sodium (Porcine) 5,000 unit 07/12/25 09:00 07/12/25 08:50 Heparin Sod Inj 5000 Unit/Ml Vial SC 07/26/25 08:59 Not Given BID [facility] Levothyroxine Sodium 125 mcg 07/13/25 06:00 Levothyroxine Sodium 125 Mcg Tablet PO 08/11/25 07:00 ACBR CHASIDY Lorazepam 0.5 mg 07/12/25 06:34 07/12/25 13:45 Lorazepam 0.5 Mg Tablet PO 07/17/25 06:33 0.5 mg Q4HR PRN Administration CIWA Score 2-6 Lorazepam 1 mg 07/12/25 06:34 07/12/25 08:29 Lorazepam 0.5 Mg Tablet PO 07/17/25 06:33 1 mg Q4HR PRN Administration CIWA SCORE 7-11 Lorazepam 2 mg 07/12/25 06:34 Lorazepam 0.5 Mg Tablet PO 07/17/25 06:33 Q4HR PRN CIWA SCORE 12-15 Ondansetron HCl 4 mg 07/12/25 05:31 Ondansetron Inj 2 Mg/Ml Inj 2 Ml IVP 08/11/25 05:30 Q6H PRN NAUSEA OR VOMITING Protocol Spironolactone 100 mg 07/13/25 09:00 Spironolactone 25 Mg Tablet PO 08/12/25 08:59 QDAY CHASIDY Plan 69-year-old female with a medical history of 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 #Cirrhosis secondary to alcohol use #Ascites requiring recurrent paracentesis #Anasarca #Hyperbilirubinemia #Transaminitis History of cirrhosis and requires recurrent paracentesis. Likely experiencing shortness of breath from fluid overload state as she has significant abdominal distention and lower extremity edema, though lungs clear to auscultation. CTA and Doppler negative for PE and DVT, respectively, in evaluation of her shortness of breath. No need for antibiotics given she has no fever, leukocytosis, or abdominal pain. Dx: -07/12 ammonia level ordered, WNL (22) Rx: ? Paracentesis order placed ? Lasix ordered but only give after K correction, ideally > 3.5 mEq ? Albumin to be given prior to/with lasix ? No need to fluid studies given she has had recurrent paracentesis #Electrolyte derangements #Severe hypokalemia #Hypomagnesemia #Hypervolemic hyponatremia #Hypochloremia ? Replete as needed ? Received 60 mEq in ED and giving additional 120 mEq ? Correct K prior to diuresis #Alcohol use disorder Last drink reported to be 4 days ago (1-1.5 glasses of wine) Rx: -CIWA protocol #Lactic acidosis, type B Likely secondary to impaired liver function. ? Follow-up lactate ? No IVF given fluid overloaded state #Metabolic alkalosis Possibly secondary to diuretics vs severe hypokalemia and concurrent intracellular hydrogen shift. ? Continue to monitor #Anxiety ? Pending med rec #Hypothyroidism Dx: -07/12 TSH ordered, showed 7.96 Rx: -Levothyroxine 125 mcg PO QD Hospital management: Disposition: Med Surg pending paracentesis, electrolyte derangements Diet: low sodium Lines: PIV DVT prophylaxis: heparin SC BID Wright: placed for strict I/O CODE STATUS: full code ----- Plan discussed with attending physician Dr. Monty Campa, PGY-1 Attending Provider Attestation/Addendum I have examined the patient, reviewed labs and imaging findings, discussed the case with the resident(s), and reviewed entered orders. I agree with the plan of care as outlined in this note. Dr. Monty MD
[2025-07-12] MEDS: ACETAMINOPHEN 500 MG TABLET PO (16:35)
[2025-07-12] MEDS: IBUPROFEN TAB 400 MG TABLET 200 MG PO (17:35)
[2025-07-12] MEDS: MELATONIN 3 MG TABLET 6 MG PO (20:39)
[2025-07-12] MEDS: ACETAMINOPHEN 325 MG TABLET 650 MG PO (20:39)
[2025-07-13] VITALS (13 sets, daily range): BP systolic 90–107; BP diastolic 55–83; PULSE 64–107; RESP 16–20; TEMP 36.1–36.6; O2SAT 92–97; BMI 50.1
[2025-07-13] MEDS: LEVOTHYROXINE SODIUM 125 MCG TABLET PO (05:45)
[2025-07-13 06:05] LABS: Lactate (Lactic Acid) 1.9 mMol/L (0.4-2.0)
[2025-07-13 06:16] LABS: Basophils # (Auto) 0.0 Thou/mm3 (0.0-0.2); Basophils % (Auto) 0 % (0-2.5); Eosinophils # (Auto) 0.0 Thou/mm3 (0.0-0.5); Eosinophils % (Auto) 0 % (0-10); Hematocrit 33.8 % (36.0-46.0); Hemoglobin 11.8 g/dL (12.0-16.0); Immature Granulocytes Auto 0.07 Thou/mm3 (0.00-0.00); Lymphocytes # (Auto) 1.2 Thou/mm3 (1.0-4.8); Lymphocytes % (Auto) 9 % (10-50); Mean Corpuscular HGB Conc 34.9 g/dl (31.0-37.0); Mean Corpuscular Hemoglobin 32.6 pg (25.0-35.0); Mean Corpuscular Volume 93 fL (80-100); Monocytes # (Auto) 0.8 Thou/mm3 (0.0-0.8); Monocytes % (Auto) 6 % (0-12); Neutrophils # (Auto) 11.6 Thou/mm3 (1.8-7.7); Neutrophils % (Auto) 85 % (37-80); Nucleated Red Blood Cell # 0.00 Thou/mm3 (0.00-0.00); Nucleated Red Blood Cell % 0 /100 WBC (0); Platelet Count 185 Thou/mm3 (140-440); RDW Standard Deviation 42.5 fL (36.4-46.3); Red Blood Count 3.62 Miln/mm3 (4.00-5.20); White Blood Count 13.6 Thou/mm3 (3.6-11.0)
[2025-07-13 06:49] LABS: Alanine Aminotransferase 10 U/L (10-49); Albumin, Serum 2.6 gm/dL (3.4-4.8); Albumin/Globulin Ratio 0.9 (1.2-2.2); Alkaline Phosphatase 127 U/L (46-116); Anion Gap 6 (7-16); Aspartate Amino Transferase 42 U/L (0-34); BUN/Creatinine Ratio 13 Ratio (12-20); Bilirubin,Total 1.4 mg/dL (0.3-1.2); Blood Urea Nitrogen 8 mg/dL (9-23); Calcium 7.2 mg/dL (8.3-10.6); Calcium (Corrected) 8.3 mg/dL (8.5-10.1); Carbon Dioxide 32.6 mMol/L (20.0-31.0); Cardiac Risk Estimate 2.2 RATIO (3.7-5.6); Chloride 87 mMol/L (98-107); Cholesterol 93 mg/dL (132-200); Creatinine (Component) 0.6 mg/dL (0.6-1.3); Estimated Creatinine Clearance 71.9 mL/min (>60); Globulin 2.9 gm/dL (2.3-3.5); Glucose 108 mg/dL (74-106); HDL Cholesterol 42 mg/dL (40-60); LDL Cholesterol,Calculated 42 mg/dL (0-130); Magnesium 2.0 mg/dL (1.6-2.6); Osmolality,Calculated 252 (275-295); Phosphorous 2.4 mg/dL (2.4-5.1); Potassium 3.9 mMol/L (3.4-5.1); Sodium 126 mMol/L (136-145); Total Protein 5.5 gm/dL (5.7-8.2); Triglycerides 43 mg/dL (30-150); eGFR > 60 See Note
[2025-07-13] MEDS: ALBUMIN HUMAN-KJDA 25% IVPB 25 GM/100 ML BTL IV (08:16)
[2025-07-13] MEDS: SPIRONOLACTONE 25 MG TABLET 100 MG PO (08:16)
[2025-07-13] MEDS: ACETAMIN/CAFF/BUTAL (Fioricet) 1 TAB PO (12:19)
--- NOTE | 2025-07-13 13:52 | PC.SS ---
Lynnette King is a 69-year-old female admitted to Med Surg for SOB. SS conducted bedside contact with the patient to complete initial assessment and to discuss discharge planning. Role and reason explained. Patient confirmed demographic information. Patient identifies Jorge King [phone] as her surrogate decision maker. Pt states she is able to complete all ADL?s independently, some days requires assistance by . Pt utilizes a walker at times. Pts PCP is Dr. Burnett (last visit 3? months ago). Discharge options discussed and the pt wishes to return home. Pt did inquire on caregiving options and HH, due to pt home location HH may be a barrier, community resource list given with private caregivers listed. Family will provide transportation upon DC. No further intervention required at this time, social director would be available to address any further concerns. DC Plan: Home Contact: fatemeh Patel Address: Confirmed on face sheet PCP: Lex
[2025-07-13] MEDS: ALBUTEROL INH 8 GM 2 PUFF INH ×2 (13:59→20:15)
--- NOTE | 2025-07-13 14:31 | ESPR_ITS ---
Documentation for date of: 07/13/25 Subjective Subjective Interval history: No acute events overnight.?Patient seen and examined at bedside this AM.?CIWA scores are low, 1-4. Per nursing, patient complains of?shortness of breath, getting breathing treatments. Patient was able to work with PT, who recommended walker and home health PT once ready for discharge. Labs and vitals were reviewed.?Patient had soft BP, 90s/60s. Therefore morning Lasix dose was held. Later that day, as patient was complaining further of shortness of breath Lasix was given along with starting midodrine 5 mg TID. Patient also received 25 gm albumin. Patient has significant abdominal distention secondary to the ascites but reports that the discomfort is managable at this time. Last paracentesis was 2 months ago. Scheduled IR-guided paracentesis tomorrow. If patient is short of breath prior to procedure may try another Lasix, midodrine, and albumin dose. Patient is emotionally labile and bursts into tears easily. Review of systems otherwise negative except what is mentioned above. Exam Vital Signs Temp Pulse Resp BP Pulse Ox O2 Del Method 97.0 F 105 H 20 103/55 L 97 Room Air 07/13/25 08:00 07/13/25 14:05 07/13/25 14:05 07/13/25 08:16 07/13/25 14:05 07/13/25 08:00 Narrative Exam General: AOx3, anxious, teary/weepy, morbidly obese woman able to speak full sentences HEENT: NC/AT, mucous membranes moist, bilateral sclera anicteric Cardiovascular: Tachycardic rate and rhythm, S1/S2 present, no murmurs appreciated Pulmonary: Clear to auscultation bilaterally. No crackles, rhonchi, or rales. Abdominal: Distended and tense with positive fluid wave and weeping but nontender, no rebound/guarding, normal bowel sounds present Musculoskeletal 4+ bilateral lower extremity edema, normal ROM Skin: warm and dry, intact, no rashes Neuro: CN II-XII intact, no focal deficits Objective Labs 07/14/25 04:49 07/14/25 04:49 Labs: Laboratory Results - last 24 hr 07/13/25 05:57 WBC 13.6 H D RBC 3.62 L Hgb 11.8 L Hct 33.8 L MCV 93 MCH 32.6 MCHC 34.9 RDW Std Deviation 42.5 Plt Count 185 D Neut % (Auto) 85 H Lymph % (Auto) 9 L [place] % (Auto) 6 Eos % (Auto) 0 Baso % (Auto) 0 Neut # (Auto) 11.6 H Lymph # (Auto) 1.2 [place] # (Auto) 0.8 Eos # (Auto) 0.0 Baso # (Auto) 0.0 Immature Gran # (Auto) 0.07 H Absolute Nucleated RBC 0.00 Immature Gran % 1 H Nucleated RBC % 0 Sodium 126 L Potassium 3.9 Chloride 87 L Carbon Dioxide 32.6 H Anion Gap 6 L BUN 8 L Creatinine 0.6 Estim Creat Clear Calc 71.9 eGFR > 60 BUN/Creatinine Ratio 13 Glucose 108 H D Calculated Osmolality 252 L Lactic Acid 1.9 Calcium 7.2 L Corrected Calcium 8.3 L Phosphorus 2.4 Magnesium 2.0 Total Bilirubin 1.4 H AST 42 H ALT 10 Alkaline Phosphatase 127 H D Total Protein 5.5 L Albumin 2.6 L Globulin 2.9 Albumin/Globulin Ratio 0.9 L Triglycerides 43 Cholesterol 93 L LDL Cholesterol, Calc 42 HDL Cholesterol 42 Cholesterol/HDL Ratio 2.2 L ABG Interpretation ABG results: 07/12/25 00:16 VBG pH 7.55 VBG pCO2 40 VBG pO2 41 VBG Base Excess 11 H Quality Measures Quality Measures VTE prophylaxis and none Advance care planning discussed with:: patient Assessment & Plan Assessment Current Active Medications: Generic Name Dose Route Start Last Admin Trade Name Freq PRN Reason Stop Dose Admin Acetaminophen 650 mg 07/12/25 20:06 07/12/25 20:39 Acetaminophen 325 Mg Tablet PO 08/11/25 20:05 650 mg Q6HR PRN Administration PAIN 1-3 OR FEVER > 101 Albumin Human 25 gm 07/12/25 09:00 07/13/25 08:16 Albumin Human-Kjda 25% Ivpb 25 Gm/100 Ml Btl IV 07/15/25 08:59 25 gm QDAY CHASIDY Administration Albuterol 2 puff 07/13/25 05:49 07/13/25 13:59 Albuterol Inh 8 Gm INH 08/12/25 05:48 2 puff Q6H PRN Administration SHORTNESS OF BREATH OR WHEEZE Furosemide 40 mg 07/13/25 09:00 07/13/25 09:55 Furosemide Inj 10 Mg/Ml Vial 2 Ml IVP 08/12/25 08:59 Not Given QDAY CHASIDY Heparin Sodium (Porcine) 5,000 unit 07/12/25 09:00 07/13/25 08:16 Heparin Sod Inj 5000 Unit/Ml Vial SC 07/26/25 08:59 Not Given BID CHASIDY Levothyroxine Sodium 125 mcg 07/13/25 06:00 07/13/25 05:45 Levothyroxine Sodium 125 Mcg Tablet PO 08/11/25 07:00 125 mcg ACBR CHASIDY Administration Lorazepam 0.5 mg 07/12/25 06:34 07/13/25 10:16 Lorazepam 0.5 Mg Tablet PO 07/17/25 06:33 0.5 mg Q4HR PRN Administration CIWA Score 2-6 Lorazepam 1 mg 07/12/25 06:34 07/13/25 00:27 Lorazepam 0.5 Mg Tablet PO 07/17/25 06:33 1 mg Q4HR PRN Administration CIWA SCORE 7-11 Lorazepam 2 mg 07/12/25 06:34 07/12/25 20:38 Lorazepam 0.5 Mg Tablet PO 07/17/25 06:33 2 mg Q4HR PRN Administration CIWA SCORE 12-15 Melatonin 6 mg 07/12/25 20:00 07/12/25 21:49 Melatonin 3 Mg Tablet PO 08/11/25 19:59 Not Given HS CHASIDY Ondansetron HCl 4 mg 07/12/25 05:31 Ondansetron Inj 2 Mg/Ml Inj 2 Ml IVP 08/11/25 05:30 Q6H PRN NAUSEA OR VOMITING Protocol Spironolactone 100 mg 07/13/25 09:00 07/13/25 08:16 Spironolactone 25 Mg Tablet PO 08/12/25 08:59 100 mg QDAY CHASIDY Administration Plan 69-year-old female with a medical history of 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 #Decompensated alcohol-related liver cirrhosis #Ascites requiring recurrent paracentesis #Anasarca #Hyperbilirubinemia #Transaminitis History of cirrhosis and requires recurrent paracentesis. Likely experiencing shortness of breath from fluid overload state as she has significant abdominal distention and lower extremity edema, though lungs clear to auscultation. CTA and Doppler negative for PE and DVT, respectively, in evaluation of her shortness of breath. No need for antibiotics given she has no fever, leukocytosis, or abdominal pain. Dx: -07/12 ammonia level ordered, WNL (22) Rx: ? Paracentesis order placed for 07/14 morning ? Lasix 40 mg IV qday ? Albumin to be given prior to/with Lasix ? Started midodrine 5 mg TID ? Fluid studies were not ordered given patient has had known ascites and recurrent paracentesis #Electrolyte derangements #Severe hypokalemia #Hypomagnesemia #Hypervolemic hyponatremia #Hypochloremia Patient presented with potassium of 1.8. Patient received 180 mEq in correction along with 6 g of magnesium after admission. ? Replete as needed #Alcohol use disorder Last drink reported to be 4 days prior to admission (1-1.5 glasses of wine) Rx: ? Continue CIWA protocol #Lactic acidosis, type B, normalized Likely secondary to impaired liver function. ? Stop trending lactate #Metabolic alkalosis Possibly secondary to diuretics vs severe hypokalemia and concurrent intracellular hydrogen shift. ? Continue to monitor #Anxiety ? Pending med rec #Hypothyroidism Dx: -07/12 TSH ordered, showed 7.96 Rx: -Levothyroxine 125 mcg PO QD Hospital management: Disposition: Med Surg pending paracentesis, electrolyte derangements Diet: low sodium Lines: PIV DVT prophylaxis: heparin SC BID Wright: placed for strict I/O CODE STATUS: full code ----- Patient plan of care was discussed with the attending physician, Dr. Millan. Luz Maria Bishop, PGY-3 Attending Provider Attestation/Addendum I have examined the patient, reviewed labs and imaging findings, discussed the case with the resident(s), and reviewed entered orders. I agree with the plan of care as outlined in this note, with these additional summaries/recommendations: Patient seen at bedside. Patient continues to have recurrent anxiety and emotional outburst. Patient encouraged to use coping mechanisms and continuing home Xanax. Patient admitted for decompensated cirrhosis and fluid overload. Severe ascites present and patient will go for paracentesis in AM. Patient also has anasarca secondary to cirrhosis. Continue scheduled albumin. Continue IV diuresis as tolerated. Blood pressure was noted to be soft this morning and we will initiate midodrine if needed. Outpatient follow-up for cirrhosis and vaccine series. Severe electrolyte abnormalities present and we will continue to correct as needed. Continue [facility] protocol for alcohol withdrawal. Patient updated on the plan and in agreement. All questions answered satisfaction. Please see residents note for additional details and management. Dr. Monty MD
[2025-07-13] MEDS: MIDODRINE 5 MG TABLET PO ×2 (16:11→20:13)
[2025-07-13] MEDS: FUROSEMIDE INJ 10 MG/ML 4ML VIAL 40 MG IVP (16:13)
[2025-07-13] MEDS: guaiFENesin/DM TABLET 1 EACH PO (18:08)
[2025-07-13] MEDS: MELATONIN 3 MG TABLET 6 MG PO (20:11)
[2025-07-13] MEDS: HEPARIN SOD INJ 5000 UNIT/ML VIAL SC (20:12)
[2025-07-13] MEDS: ACETAMINOPHEN 325 MG TABLET 650 MG PO (20:12)
[2025-07-14] VITALS (14 sets, daily range): BP systolic 95–113; BP diastolic 61–77; PULSE 77–108; RESP 15–20; TEMP 36.1–36.6; O2SAT 95–99; BMI 49.8
[2025-07-14] MEDS: ALBUTEROL/IPRATROPIUM (Duoneb) RT SOL 3 ML NEBU INH ×2 (01:17→11:18)
[2025-07-14] MEDS: ACETAMINOPHEN 325 MG TABLET 650 MG PO (04:57)
[2025-07-14] MEDS: MIDODRINE 5 MG TABLET PO ×2 (04:59→20:49)
[2025-07-14] MEDS: LEVOTHYROXINE SODIUM 125 MCG TABLET PO (05:00)
[2025-07-14 05:40] LABS: Basophils # (Auto) 0.1 Thou/mm3 (0.0-0.2); Basophils % (Auto) 1 % (0-2.5); Eosinophils # (Auto) 0.2 Thou/mm3 (0.0-0.5); Eosinophils % (Auto) 2 % (0-10); Hematocrit 35.1 % (36.0-46.0); Hemoglobin 12.2 g/dL (12.0-16.0); Immature Granulocytes Auto 0.04 Thou/mm3 (0.00-0.00); Lymphocytes # (Auto) 1.8 Thou/mm3 (1.0-4.8); Lymphocytes % (Auto) 19 % (10-50); Mean Corpuscular HGB Conc 34.8 g/dl (31.0-37.0); Mean Corpuscular Hemoglobin 32.3 pg (25.0-35.0); Mean Corpuscular Volume 93 fL (80-100); Monocytes # (Auto) 0.7 Thou/mm3 (0.0-0.8); Monocytes % (Auto) 7 % (0-12); Neutrophils # (Auto) 6.6 Thou/mm3 (1.8-7.7); Neutrophils % (Auto) 71 % (37-80); Nucleated Red Blood Cell # 0.00 Thou/mm3 (0.00-0.00); Nucleated Red Blood Cell % 0 /100 WBC (0); Platelet Count 178 Thou/mm3 (140-440); RDW Standard Deviation 43.0 fL (36.4-46.3); Red Blood Count 3.78 Miln/mm3 (4.00-5.20); White Blood Count 9.3 Thou/mm3 (3.6-11.0)
[2025-07-14 06:19] LABS: Alanine Aminotransferase 9 U/L (10-49); Albumin, Serum 2.8 gm/dL (3.4-4.8); Albumin/Globulin Ratio 1.0 (1.2-2.2); Alkaline Phosphatase 118 U/L (46-116); Anion Gap 8 (7-16); Aspartate Amino Transferase 36 U/L (0-34); BUN/Creatinine Ratio 13 Ratio (12-20); Bilirubin,Total 1.6 mg/dL (0.3-1.2); Blood Urea Nitrogen 8 mg/dL (9-23); Calcium 7.5 mg/dL (8.3-10.6); Calcium (Corrected) 8.5 mg/dL (8.5-10.1); Carbon Dioxide 34.0 mMol/L (20.0-31.0); Chloride 87 mMol/L (98-107); Creatinine (Component) 0.6 mg/dL (0.6-1.3); Estimated Creatinine Clearance 71.6 mL/min (>60); Globulin 2.8 gm/dL (2.3-3.5); Glucose 95 mg/dL (74-106); Magnesium 2.0 mg/dL (1.6-2.6); Osmolality,Calculated 257 (275-295); Phosphorous 2.5 mg/dL (2.4-5.1); Potassium 2.8 mMol/L (3.4-5.1); Sodium 129 mMol/L (136-145); Total Protein 5.6 gm/dL (5.7-8.2); eGFR > 60 See Note
--- NOTE | 2025-07-14 07:00 | XR_ITS ---
Examination: Ultrasound-guided paracentesis Abdominal sonogram limited Date and time of exam: July 14, 2025, 1434 hours INDICATIONS: Cirrhosis, increasing ascites abdominal distention this week Informed consent provided. A timeout was completed verifying correct patient, procedure, site, positioning, and special adequate movement if applicable. Technique: Multiple sonographic images of the abdomen have been obtained. Appropriate area for paracentesis was marked. Local anesthesia is obtained with 1% lidocaine. Yueh catheter is successfully introduced. Findings: Abdominal sonographic images demonstrate sufficient ascitic fluid for paracentesis. After placing the Yueh catheter, 5200 cc of fluid were successfully removed. During and after completion of the procedure the patient appear in satisfactory and stable condition with no complications observed. Estimated blood loss 0 cc Impression: Abdominal ascites Successful ultrasound-guided paracentesis as described above
[2025-07-14] MEDS: POTASSIUM CHL 10 mEq IVPB 10 MEQ/100 ML BAG 100 MEQ IV (09:54)
[2025-07-14] MEDS: HEPARIN SOD INJ 5000 UNIT/ML VIAL SC (09:55)
--- NOTE | 2025-07-14 10:43 | PC.SS ---
Rounding: Pending Paracenthesis, DC plan home when stable
[2025-07-14] MEDS: ALBUMIN HUMAN-KJDA 25% IVPB 25 GM/100 ML BTL IV (10:58)
--- NOTE | 2025-07-14 11:02 | PC.SS ---
Addendum entered by Priya Ribera 07/14/25 11:12: SS spoke to SHAMIR Watt [phone], who stated they can go [address] [facility] [place]. Pt home is 15 [address] passed the [facility] therefore HH is not an option for pt. Original Note: SS received a call from Charge, MY Angel who received a call from pt with concerns wit DC planning. SS contacted Jorge Christine [phone] pt , explained DC options for SNF/Rehab, Jorge does not believe pt will be agreeable. SS to have conversation with pt to discuss concerns. Per Jorge they can not afford private caregivers. HH also recommended but due to pt location far up [place] HH may be a barrier.
[2025-07-14] MEDS: FUROSEMIDE INJ 10 MG/ML VIAL 2 ML 40 MG IVP (11:51)
--- NOTE | 2025-07-14 13:00 | ESPR_ITS ---
<Statement entered by Dane Becerra MD - 07/14/25 15:54> Patient was examined and case was reviewed with team including attending physician. Note reviewed, I agree with most of its contents and agree with the patient's care. Patient seen today at the bedside found awake, alert, orientedx3. No overnight events reported. Vital signs stable at this time. is currently pending paracentesis for ascites. Will continue the rest of his medications for acute decompensated liver cirrhosis such as lasix, spironolactone and midodrine. Case discussed with my attending Dr. Monty Becerra MD PGY-2 Disclaimer: Despite multiple revisions, due to the dictation software being used, the document bellow may not be free of grammatical errors including phonetic/typographic errors. However, this does not deter from our commitment to providing health care in the patient's best interest in mind. Documentation for date of: 07/14/25 Subjective Subjective Interval history: No acute events overnight. Paracentesis was performed today, with a successful removal of 5200 cc of fluid. Furosemide was given, but spironolactone was held this morning due to a soft blood pressure reading of 103/55. Midodrine and scheduled albumin therapy continued. Potassium was repleted. Patient is on the CIWA protocol for alcohol withdrawal, with her score increased to 8-10 today. Post-paracentesis, patient noted to be more anxious and had multiple emotional outbursts. Lorazepam 1mg IV x1 was given for her anxiety. Patient initially had a Conley catheter in place but removed it herself. A PureWick was then inserted to allow for continued monitoring of intake and output. Exam Vital Signs Temp Pulse Resp BP Pulse Ox O2 Del Method O2 Flow Rate 97.4 F 99 18 112/74 95 Room Air 2 07/14/25 11:24 07/14/25 11:55 07/14/25 11:24 07/14/25 11:51 07/14/25 11:24 07/14/25 11:24 07/14/25 11:22 Narrative Exam Physical Exam General: Awake and in no acute distress. Teary/weepy. Anxious. HEENT: Normocephalic, atraumatic, mucous membranes moist. Bilateral sclera anicteric. Heart: Regular rate and rhythm, no murmurs. Non-labored respirations, symmetric chest rise, no use of accessory muscles. Lungs: Bilateral wheezing on auscultation. Abdomen: Distended and tense with positive fluid wave and weeping but nontender, no rebound/guarding, normal bowel sounds present. Neurologic: Alert and oriented x3, no gross neurological deficit, and patient able to move all 4 extremities. Extremities: 4+ bilateral lower extremity edema. Skin: No rash or ecchymoses. Psychiatric: Cooperative, appropriate mood and affect Objective Labs 07/15/25 05:15 07/15/25 05:15 Labs: Laboratory Results - last 24 hr 07/14/25 04:49 WBC 9.3 RBC 3.78 L Hgb 12.2 Hct 35.1 L MCV 93 MCH 32.3 MCHC 34.8 RDW Std Deviation 43.0 Plt Count 178 Neut % (Auto) 71 Lymph % (Auto) 19 [place] % (Auto) 7 Eos % (Auto) 2 Baso % (Auto) 1 Neut # (Auto) 6.6 Lymph # (Auto) 1.8 [place] # (Auto) 0.7 Eos # (Auto) 0.2 Baso # (Auto) 0.1 Immature Gran # (Auto) 0.04 H Absolute Nucleated RBC 0.00 Immature Gran % 0 Nucleated RBC % 0 Sodium 129 L Potassium 2.8 L D Chloride 87 L Carbon Dioxide 34.0 H Anion Gap 8 BUN 8 L Creatinine 0.6 Estim Creat Clear Calc 71.6 eGFR > 60 BUN/Creatinine Ratio 13 Glucose 95 Calculated Osmolality 257 L Calcium 7.5 L Corrected Calcium 8.5 Phosphorus 2.5 Magnesium 2.0 Total Bilirubin 1.6 H AST 36 H ALT 9 L Alkaline Phosphatase 118 H Total Protein 5.6 L Albumin 2.8 L Globulin 2.8 Albumin/Globulin Ratio 1.0 L ABG Interpretation ABG results: 07/12/25 00:16 VBG pH 7.55 VBG pCO2 40 VBG pO2 41 VBG Base Excess 11 H Quality Measures Quality Measures VTE prophylaxis and none Advance care planning discussed with:: patient Assessment & Plan Assessment Current Active Medications: Generic Name Dose Route Start Last Admin Trade Name Freq PRN Reason Stop Dose Admin Acetaminophen 650 mg 07/12/25 20:06 07/14/25 04:57 Acetaminophen 325 Mg Tablet PO 08/11/25 20:05 650 mg Q6HR PRN Administration PAIN 1-3 OR FEVER > 101 Albumin Human 25 gm 07/12/25 09:00 07/14/25 10:58 Albumin Human-Kjda 25% Ivpb 25 Gm/100 Ml Btl IV 07/15/25 08:59 25 gm QDAY CHASIDY Administration Albuterol/Ipratropium 3 ml 07/14/25 00:30 07/14/25 11:18 Albuterol/Ipratropium (Duoneb) Rt Elza 3 Ml Nebu INH 08/13/25 02:59 3 ml Q4HRRT PRN Administration shortness of breath or wheezing Guaifenesin/Dextromethorphan 1 each 07/13/25 18:02 07/13/25 18:08 Guaifenesin/Dm Tablet PO 08/12/25 18:01 1 each BID PRN Administration COUGH Heparin Sodium (Porcine) 5,000 unit 07/12/25 09:00 07/14/25 09:55 Heparin Sod Inj 5000 Unit/Ml Vial SC 07/26/25 08:59 5,000 unit BID CHASIDY Administration Levothyroxine Sodium 125 mcg 07/13/25 06:00 07/14/25 05:00 Levothyroxine Sodium 125 Mcg Tablet PO 08/11/25 07:00 125 mcg ACBR CHASIDY Administration Lorazepam 0.5 mg 07/12/25 06:34 07/14/25 09:54 Lorazepam 0.5 Mg Tablet PO 07/17/25 06:33 0.5 mg Q4HR PRN Administration CIWA Score 2-6 Lorazepam 1 mg 07/12/25 06:34 07/14/25 12:01 Lorazepam 0.5 Mg Tablet PO 07/17/25 06:33 1 mg Q4HR PRN Administration CIWA SCORE 7-11 Lorazepam 2 mg 07/12/25 06:34 07/13/25 20:13 Lorazepam 0.5 Mg Tablet PO 07/17/25 06:33 2 mg Q4HR PRN Administration CIWA SCORE 12-15 Melatonin 6 mg 07/12/25 20:00 07/13/25 20:11 Melatonin 3 Mg Tablet PO 08/11/25 19:59 6 mg HS CHASIDY Administration Midodrine 5 mg 07/13/25 16:15 07/14/25 04:59 Midodrine 5 Mg Tablet PO 08/12/25 16:14 5 mg TID CHASIDY Administration Ondansetron HCl 4 mg 07/12/25 05:31 Ondansetron Inj 2 Mg/Ml Inj 2 Ml IVP 08/11/25 05:30 Q6H PRN NAUSEA OR VOMITING Protocol Spironolactone 100 mg 07/13/25 09:00 07/14/25 09:58 Spironolactone 25 Mg Tablet PO 08/12/25 08:59 Not Given QDAY CHASIDY Plan 69-year-old female with cirrhosis secondary to alcohol use, hypothyroidism, anxiety and chronic lymphedema, admitted for management of severe electrolyte derangements and ascites requiring paracentesis. #Decompensated alcohol-related liver cirrhosis #Ascites requiring recurrent paracentesis #Anasarca #Hyperbilirubinemia #Transaminitis History of cirrhosis and requires recurrent paracentesis, every 8-10 weeks. Likely experiencing shortness of breath from fluid overload state as she has significant abdominal distention and lower extremity edema. CTA and Doppler negative for PE and DVT, respectively, in evaluation of her shortness of breath. No need for antibiotics given she has no fever, leukocytosis, or abdominal pain. Plan: * Paracentesis scheduled for today. 5200 cc of fluid were successfully removed. * Hold Lasix 40mg IV QD and Spironolactone 100mg PO QD for soft BP. * Albumin 25mg QD. * Midodrine 5 mg TID. #Electrolyte derangements #Severe hypokalemia #Hypomagnesemia (resolved) #Hypervolemic hyponatremia #Hypochloremia Plan * Replete as needed. * Continue to monitor electrolytes. #Alcohol use disorder Last drink reported to be 4 days prior to admission (1-1.5 glasses of wine). Plan: * Continue CIWA protocol. #Lactic acidosis, type B, normalized Likely secondary to impaired liver function. Lactic acid: 4.5 --> 4.8 --> 4.0 --> 1.9. #Metabolic alkalosis Possibly secondary to diuretics vs severe hypokalemia and concurrent intracellular hydrogen shift. Plan: * Continue to monitor. #Anxiety Takes alprazolam 0.5mg PO daily PRN at home Plan: * Continue Lorazepam PRN per CIWA protocol. #Hypothyroidism TSH on 07/12: 7.96. Plan: * Levothyroxine 125 mcg PO QD. Health Maintenance: Disposition: Med surg DVT prophylaxis: Heparin 5,000 U subQ BID GI prophylaxis: Pantoprazole 40 mg IV daily Diet: Low sodium Conley: Placed for strict I/O. Patient removed conley. Purewick in place. CODE STATUS: FULL Patient plan of care was discussed with the senior resident, Dr. Timmy Becerra, and attending physician, Dr. Millan. Whit Pinedo, PGY-1 Attending Provider Attestation/Addendum I have examined the patient, reviewed labs and imaging findings, discussed the case with the resident(s), and reviewed entered orders. I agree with the plan of care as outlined in this note, with these additional summaries/recommendations: Patient seen at bedside. No acute overnight events. Patient encouraged to use coping mechanisms and continuing home Xanax as needed for anxiety. Patient admitted for decompensated cirrhosis and fluid overload. Severe ascites present and patient will go for paracentesis in today. Patient also has anasarca secondary to cirrhosis. Continue scheduled albumin. Continue IV diuresis as tolerated. Now net negative approximately 2 L. Blood pressure was noted to be soft this morning and we will initiate midodrine if needed. Outpatient follow- up for cirrhosis and vaccine series. Intractable hypokalemia improving and will need to continue outpatient potassium once medically cleared for discharge. Continue CIWA protocol for alcohol withdrawal. Patient updated on the plan and in agreement. All questions answered satisfaction. Please see residents note for additional details and management. Dr. Monty MD
[2025-07-14] MEDS: LORazepam 2 MG/ML VIAL 1 MG IVP (17:30)
[2025-07-14] MEDS: MELATONIN 3 MG TABLET 6 MG PO (20:48)
[2025-07-15] VITALS (7 sets, daily range): BP systolic 97–111; BP diastolic 59–70; PULSE 60–112; RESP 16–20; TEMP 36.2–36.7; O2SAT 92–100; BMI 49.8
[2025-07-15] MEDS: MIDODRINE 5 MG TABLET PO (05:26)
[2025-07-15] MEDS: LEVOTHYROXINE SODIUM 125 MCG TABLET PO (05:26)
[2025-07-15 06:05] LABS: Basophils # (Auto) 0.1 Thou/mm3 (0.0-0.2); Basophils % (Auto) 1 % (0-2.5); Eosinophils # (Auto) 0.3 Thou/mm3 (0.0-0.5); Eosinophils % (Auto) 4 % (0-10); Hematocrit 34.7 % (36.0-46.0); Hemoglobin 12.0 g/dL (12.0-16.0); Immature Granulocytes Auto 0.03 Thou/mm3 (0.00-0.00); Lymphocytes # (Auto) 1.7 Thou/mm3 (1.0-4.8); Lymphocytes % (Auto) 19 % (10-50); Mean Corpuscular HGB Conc 34.6 g/dl (31.0-37.0); Mean Corpuscular Hemoglobin 31.5 pg (25.0-35.0); Mean Corpuscular Volume 91 fL (80-100); Monocytes # (Auto) 0.7 Thou/mm3 (0.0-0.8); Monocytes % (Auto) 8 % (0-12); Neutrophils # (Auto) 5.9 Thou/mm3 (1.8-7.7); Neutrophils % (Auto) 68 % (37-80); Nucleated Red Blood Cell # 0.00 Thou/mm3 (0.00-0.00); Nucleated Red Blood Cell % 0 /100 WBC (0); Platelet Count 182 Thou/mm3 (140-440); RDW Standard Deviation 40.7 fL (36.4-46.3); Red Blood Count 3.81 Miln/mm3 (4.00-5.20); White Blood Count 8.7 Thou/mm3 (3.6-11.0)
[2025-07-15 07:42] LABS: Alanine Aminotransferase 8 U/L (10-49); Albumin, Serum 2.7 gm/dL (3.4-4.8); Alkaline Phosphatase 104 U/L (46-116); Anion Gap 7 (7-16); Aspartate Amino Transferase 28 U/L (0-34); BUN/Creatinine Ratio 12 Ratio (12-20); Bilirubin,Total 2.1 mg/dL (0.3-1.2); Blood Urea Nitrogen 7 mg/dL (9-23); Calcium 7.9 mg/dL (8.3-10.6); Calcium (Corrected) 8.9 mg/dL (8.5-10.1); Carbon Dioxide 33.6 mMol/L (20.0-31.0); Chloride 90 mMol/L (98-107); Creatinine (Component) 0.6 mg/dL (0.6-1.3); Estimated Creatinine Clearance 71.6 mL/min (>60); Glucose 74 mg/dL (74-106); Magnesium 1.5 mg/dL (1.6-2.6); Osmolality,Calculated 259 (275-295); Phosphorous 3.3 mg/dL (2.4-5.1); Potassium 2.8 mMol/L (3.4-5.1); Sodium 131 mMol/L (136-145); eGFR > 60 See Note
[2025-07-15] MEDS: SPIRONOLACTONE 25 MG TABLET 100 MG PO (08:08)
[2025-07-15] MEDS: HEPARIN SOD INJ 5000 UNIT/ML VIAL SC (08:12)
--- NOTE | 2025-07-15 10:02 | PC.SS ---
SS met with pt at bedside to discuss DC planning and husbands concerns for pt going home. Pt is adamant on going home, SS contacted Jorge Christine [phone] pt , explained SS spoke to pt in regards to DC and pt wishes to go home. Jorge figured pt would not be in agreement and he is okay to take pt home.
[2025-07-15] MEDS: ALBUTEROL/IPRATROPIUM (Duoneb) RT SOL 3 ML NEBU INH (10:26)
--- NOTE | 2025-07-15 11:54 | ESDS_ITS ---
<Statement entered by Sara Tello MD - 07/28/25 09:16> I reviewed above note and agree with findings and plans. I have also personally examined the patient with medicine team and went over assessment and plan with medical team including internal medicine doctor and resident physician. <Statement entered by Dane Becerra MD - 07/15/25 16:46> Patient was examined and case was reviewed with team including attending physician. Note reviewed, I agree with most of its contents and agree with the patient's care as documented by Dr. Khris Becerra MD PGY-2 Planned Discharge Date 07/15/25 DS: Providers Provider Date of admission: 07/12/25 05:32 Primary care physician: Ted Burnett MD Admitting Provider: Jeff Márquez MD Attending Provider on Admission: Sara Tello MD Consults: 07/12/25 10:11 PT [Referral Physical Therapy] Routine Comment: Physician Instructions: Attending Provider on DC: Sara Tello MD Discharging Provider: Whit Pinedo DO Anticipated date of discharge: 07/15/25 DS: Diagnosis Problem List Completed Was Problem List Reviewed/Reconciled?: Yes Hospital Course Hospital Course Hospital course: 69-year-old female with a history of alcohol-related cirrhosis, hypothyroidism, anxiety, and chronic lymphedema, was admitted for electrolyte derangements and ascites. She presented with shortness of breath, orthopnea, and worsening abdominal distention, with severe hypokalemia (1.8 mEq/L), hypomagnesemia, and hypervolemic hyponatremia. Treatment included repletion of electrolytes and initiation of diuresis with Lasix 40mg BID and albumin 25 mg. Midodrine 5mg TID was started for low blood pressure. A paracentesis was performed on 07/14 to address ascites with removal of 5200 cc fluids removed. The patient's abdominal discomfort improved after the paracentesis, and her shortness of breath also lessened following fluid removal. CIWA protocol was initiated due to her alcohol use disorder, and Xanax was continued for anxiety management. Her lactate levels normalized, and ammonia levels remained stable. The patient was medically and physically stable at the time of discharge, with continued management for cirrhosis, electrolyte imbalances, and fluid overload. She was educated on the importance of follow-up care, including outpatient paracentesis, and was discharged with instructions for managing her medications and ongoing care. Diagnosis: #Cirrhosis, Alcohol-related #Ascites with Anasarca, requiring recurrent paracentesis #Severe Hypokalemia #Hypomagnesemia #Hypervolemic Hyponatremia #Hypothyroidism #Anxiety, Emotional Lability #Alcohol Use Disorder Discharge Plan: Please see your primary care doctor within x1 week of discharge. Start new medication midodrine as prescribed for blood pressure. Continue taking your home medication potassium. Complete lab work (renal panel) within x3 days of discharge with your PCP. Avoid high salt food. Case discussed with my senior resident Dr. Timmy Becerra Case discussed with my attending Dr. Elisha Pinedo DO PGY 1 Status at Discharge Overall status at discharge: patient is back to baseline Time Spent with Patient Time attestation: Total time spent providing and/or coordinating discharge services: Time spent: Greater than 30 minutes Exam Vital Signs Temp Pulse Resp BP Pulse Ox O2 Del Method O2 Flow Rate 97.5 F 100 20 108/64 100 Room Air 2 07/15/25 08:00 07/15/25 10:27 07/15/25 10:27 07/15/25 08:08 07/15/25 10:27 07/15/25 08:00 07/14/25 11:22 Narrative Exam Physical Exam General: Awake and in no acute distress. Teary/weepy. Anxious. HEENT: Normocephalic, atraumatic, mucous membranes moist. Bilateral sclera anicteric. Heart: Regular rate and rhythm, no murmurs. Non-labored respirations, symmetric chest rise, no use of accessory muscles. Lungs: Bilateral wheezing on auscultation. Abdomen: Less distended and tense, nontender, no rebound/guarding, normal bowel sounds present. Neurologic: Alert and oriented x3, no gross neurological deficit, and patient able to move all 4 extremities. Extremities: 4+ bilateral lower extremity edema. Skin: No rash or ecchymoses. Psychiatric: Cooperative, appropriate mood and affect Discharge Plan Plan Patient Disposition: HOME (Self Care) Care Plan Goals: Please see your primary care doctor within x1 week of discharge, repeat renal panel in 3 days to check electrolytes. Start new medication midodrine as prescribed for blood pressure Continue taking your home medication potassium Complete lab work (renal panel) within x3 days of discharge with your PCP Avoid high salt food Prescriptions/Referrals Prescriptions/Med Rec: New midodrine 5 mg Tablet 5 mg PO TID Qty: 90 1RF carvedilol 3.125 mg tablet 3.125 mg PO BID Qty: 60 1RF Rx Instructions: must administer with a meal/food potassium chloride 20 mEq packet 20 meq PO QDAY Qty: 30 1RF Continued levothyroxine 125 mcg Tablet 125 mcg PO ACBR 30 Days Qty: 30 1RF furosemide 40 mg tablet 40 mg PO QDAY Patient Comments: TAKE 1 TABLET BY MOUTH EVERY DAY albuterol sulfate [Ventolin HFA] 90 mcg/actuation HFA aerosol inhaler 2 inh INHALATION Q6H PRN (Reason: shortness of breath or wheezing) zolpidem 5 mg tablet 5 mg PO HS Patient Comments: TAKE 1 TABLET BY MOUTH EVERY DAY AT BEDTIME NEEDED alprazolam 0.5 mg tablet 0.5 mg PO DAILY PRN (Reason: anxiety) Discontinued carvedilol 3.125 mg tablet 3.125 mg PO BID 30 Days Qty: 60 0RF Rx Instructions: must administer with a meal/food potassium chloride 20 mEq tablet extended release 20 meq PO QDAY Qty: 30 0RF Referrals: Ted Burnett MD [Primary Care Provider, Family Practice] Patient/Caregiver Discharge Instructions Education Materials: Paracentesis Dc, Understanding Lymphedema, Treating Anxiety Disorders ... Print Language: Malagasy Stand Alone Forms: Mayuri Award Info., Patient Portal Info Letter Discharge Order Discharge Orders: Discharge (Routine); Ordered 07/15/25 Ordered By: Dane Becerra Quality Discharge Quality Measures none
[2025-07-15 13:18] LABS: Albumin/Globulin Ratio 1.1 (1.2-2.2); Globulin 2.5 gm/dL (2.3-3.5); Total Protein 5.2 gm/dL (5.7-8.2)
== END 2025-07-15 13:18 | disposition home or self-care (01) | DRG 433 ==
LOC: SERX 07-12 01:13 → SERHOLD 07-12 05:47 → S3NX 07-12 13:17
PROVIDERS: Admitting Provider Student in an Organized Health Care Education/Training Program; Emergency Provider Emergency Medicine; PCP Family Medicine; Visit Provider Internal Medicine
DX: K70.31 Alcoholic cirrhosis of liver with ascites (principal); E87.1 Hypo-osmolality and hyponatremia; E87.4 Mixed disorder of acid-base balance; F10.139 Alcohol abuse with withdrawal, unspecified; Z68.42 Body mass index [BMI] 45.0-49.9, adult; E03.9 Hypothyroidism, unspecified; I10 Essential (primary) hypertension; F41.9 Anxiety disorder, unspecified; E87.6 Hypokalemia; J45.909 Unspecified asthma, uncomplicated; E83.42 Hypomagnesemia; E87.70 Fluid overload, unspecified; Z88.5 Allergy status to narcotic agent; E87.8 Other disorders of electrolyte and fluid balance, not elsewhere classified; E66.01 Morbid (severe) obesity due to excess calories; Z87.891 Personal history of nicotine dependence; Z79.890 Hormone replacement therapy; Z79.899 Other long term (current) drug therapy
CPT/HCPCS: 36415; 36600; 51701; 51702; 71045; 71275; 74177; 76705; 80048; 80053; 80061; 80320; 81001; 82042; 82140; 82150; 82248; 82803; 82945; 83605; 83615; 83690; 83735; 83880; 84100; 84132; 84145; 84157; 84443; 84484; 84540; 85025; 85379; 85610; 85652; 85730; 86140; 87040; 87070; 87075; 87205; 87502; 87811; 89051; 93005; 93970; 94640; 94664; 96365; 96366; 96375; 97162; 99284; A4314; A4649; A9270; C1729; J1644; J1938; J2060; J2270; J2919; J3411; J3475; J3480; P9047; Q9967; G0480

== ENCOUNTER 2025-07-28 12:41 | Inpatient (IN) | payer MEDICARE, OTHER, SELFPAY ==
[2025-07-28] VITALS (7 sets, daily range): BP systolic 111–134; BP diastolic 81–93; PULSE 87–109; RESP 13–20; TEMP 36.4–36.8; O2SAT 92–99; BMI 26.4; BMI 31.5
--- NOTE | 2025-07-28 13:16 | PC.LAC ---
Patient to er via ems with c/o feeling anxious with h/o anxiety and headache/stomach upset, patient also states she drinks 2 glasses of wine every night around 07:30/08:00 last night, none today, skin is warm dry and pink, new orders received from [email or web address].
[2025-07-28 13:42] LABS: Collection Type, Urine Clean Catch
[2025-07-28 13:52] LABS: Basophils # (Auto) 0.1 Thou/mm3 (0.0-0.2); Basophils % (Auto) 1 % (0-2.5); Eosinophils # (Auto) 0.1 Thou/mm3 (0.0-0.5); Eosinophils % (Auto) 1 % (0-10); Hematocrit 37.0 % (36.0-46.0); Hemoglobin 13.3 g/dL (12.0-16.0); Immature Granulocytes Auto 0.03 Thou/mm3 (0.00-0.00); Lymphocytes # (Auto) 1.7 Thou/mm3 (1.0-4.8); Lymphocytes % (Auto) 19 % (10-50); Mean Corpuscular HGB Conc 35.9 g/dl (31.0-37.0); Mean Corpuscular Hemoglobin 31.8 pg (25.0-35.0); Mean Corpuscular Volume 89 fL (80-100); Monocytes # (Auto) 0.9 Thou/mm3 (0.0-0.8); Monocytes % (Auto) 11 % (0-12); Neutrophils # (Auto) 6.0 Thou/mm3 (1.8-7.7); Neutrophils % (Auto) 68 % (37-80); Nucleated Red Blood Cell # 0.00 Thou/mm3 (0.00-0.00); Nucleated Red Blood Cell % 0 /100 WBC (0); Platelet Count 276 Thou/mm3 (140-440); RDW Standard Deviation 41.5 fL (36.4-46.3); Red Blood Count 4.18 Miln/mm3 (4.00-5.20); White Blood Count 8.9 Thou/mm3 (3.6-11.0)
--- NOTE | 2025-07-28 14:07 | EDNOTE_ITS ---
<Statement entered by Uzma Crockett MD - 07/29/25 17:48> As co-signing physician, I was present and available for consult prn. I concur with the plan and care as documented by the midlevel provider. ED General RME/HPI General Chief complaint: Anxiety Stated complaint: ANXIETY Time Seen by Provider: 07/28/25 12:55 Arrival date/time: 07/28/25 12:41 CC: Anxiety HPI patient presents to the ER via EMS with anxiety . Patient denies any chest pain shortness of breath or difficulty breathing. Review of the medical record show the patient is an alcoholic and drinks daily. Patient admits to drinking 2+ glasses of wine last night but denies any alcohol this morning. Patient is awake alert oriented. Initial vital signs showed mild tachycardia otherwise stable. Related Data Home Medications ?Medication ?Instructions ?Recorded ?Confirmed albuterol sulfate 90 mcg/actuation 2 inh inhalation Q6 H PRN shortness 07/12/25 07/28/25 aerosol inhaler (Ventolin HFA) of breath or wheezing furosemide 40 mg tablet 40 mg PO QDAY 07/12/2507/28 zolpidem 5 mg tablet 5 mg PO HS 07/12/25 07/28/25 Held on 07/28/25. Instructions: not taking alprazolam 0.5 mg tablet 0.5 mg PO DAILY PRN anxiety 07/14/25 07/28/25 Previous Rx's ?Medication ?Instructions ?Recorded levothyroxine 125 mcg tablet 125 mcg PO ACBR 1 month # 30 tabs 05/06/25 Held on 07/28/25. Instructions: patient states shes not taking carvedilol 3.125 mg tablet 3.125 mg PO BID #60 tabs midodrine 5 mg tablet 5 mg PO TID #90 tabs 5 potassium chloride 20 mEq oral 20 meq PO QDAY #30 ea 1 09/15/24 packet Held on 07/28/25. Instructions: not taking Allergies Allergy/AdvReac Type Severity Reaction Status Date / Time codeine Allergy Verified 07/28/25 13:04 Review of Systems Review of Systems Narrative Review of Systems: GEN: No fever, no chills, no weight loss EYES: No discharge, no visual changes, no pain HEENT: No ear pain, no congestion, no sore throat PULM: No shortness of breath, no cough, no congestion CV: No chest pain, no dyspnea on exertion, no palpitations GI: No nausea, no vomiting, no diarrhea, no pain, no constipation : No frequency, no urgency, no dysuria MUSC/SKEL: No joint pain, no back pain SKIN: No rash PSYCH: No hallucinations, no depression HEME/LYMPH: No easy bleeding or bruising tendencies NEURO: No weakness, no headache Past Medical History Past Medical History NEUROLOGIC: Negative Neurological Disorders, Cerebrovascular Accident, Transient Ischemic Attacks (TIA), Dementia, Alzheimer's Disease, Parkinson's Disease, Brain Tumor, Meningitis, Seizures, Epilepsy, Multiple Sclerosis, Cerebral Palsy, Amyotrophic Lateral Sclerosis (ALS/Mara Gehrig's), Guillain-Beaverdale Syndrome, Spina Bifida, Paralysis, Peripheral Neuropathy, Sánchez's Palsy, Subdural Hematoma, Migraine, Head Trauma, Spinal Cord Injury or Traumatic Brain Injury CARDIAC: Positive Edema (lymphedema bilateral) and Hypertension; Negative Cardiac Disorders, Myocardial Infarction, Cardiac Arrhythmia, Atrial Fibrillation, Angina, Heart Murmur, Coronary Artery Disease, Atherosclerotic Heart Disease, Peripheral Vascular Disease, Hypercholesterolemia, Aneurysm, Congestive Heart Failure, Congenital Heart Disease, Valvular Heart Disease, Rheumatic Fever, Cardiomyopathy, Pericarditis, Cellulitis, Deep Vein Thrombosis, Hypotension or Varicose Veins RESPIRATORY: Positive Asthma; Negative Chronic Obstructive Pulmonary Disease (COPD), Bronchitis, Emphysema, Pneumonia, Pulmonary Fibrosis, Cystic Fibrosis, Tuberculosis, Pulmonary Embolism, Pulmonary Edema or Sleep Apnea GASTROINTESTINAL: Positive Gastrointestinal Disorders, Cirrhosis and Obesity; Negative Hepatitis, Pancreatitis, Celiac Disease, Gall Bladder Disease, Gastrointestinal Bleed, Esophageal Varices, Perkins's Esophagus, Colitis, Ulcerative Colitis, Diverticulitis, Diverticulosis, Ulcer, Colorectal Cancer, Irritable Bowel, Crohn's Disease, Obstructive Bowel, Hiatal Hernia, Hemorrhoids or Gastroesophageal Reflux Disease GENITOURINARY: Negative Genitourinary Disorders, Renal Disease, Kidney Stones, Polycystic Kidney Disease, Neurogenic Bladder, Inguinal Hernia or Dialysis REPRODUCTIVE: Positive Previous Pregnancies; Negative Breast Cancer, Endometriosis, Genital Herpes, Gonorrhea, Pelvic Inflammatory Disease, Syphilis or Uterine Prolapse MUSCULOSKELETAL: Positive Musculoskeletal Disorders and Arthritis; Negative Muscular Dystrophy, Myasthenia Gravis, Marfan's Syndrome, Bone Cancer, Rheumatoid Arthritis, Osteoporosis, Degenerative Disk Disease, Gout, Scoliosis, Carpal Tunnel Syndrome, Fibromyalgia, Fractures, Degenerative Joint Disease, Osteomyelitis or Poliovirus ENT: Positive Cataracts; Negative Glaucoma, Blind, Retinal Detachment, Macular Degeneration, Ear Infection, Deafness, Head Trauma or Eye Prosthesis ENDOCRINE: Positive Hyperthyroidism; Negative Endocrine Disorders, Diabetes Mellitus Type 1, Diabetes Mellitus Type 2, Hypoglycemia, Florina's Syndrome, Lander's Disease, Hypothyroidism, Parathyroid Disease, Pituitary Disease, Systemic Lupus Erythematosus, Syndrome of Inappropriate Antidiuretic Hormone (SIADH), Adrenal Disease or Graves' Disease HEMATOLOGIC: Negative Blood Disorders, Anemia, Leukemia, Hemophilia, Thalassemia, Sickle Cell Disease or Clotting Problems PSYCHO/SOCIAL: Positive Anxiety; Negative Psychiatric Problems, Schizophrenia, Recreational Drug Use, Bipolar Disorder, Depression, Behavior Problems, Self-Mutilation, Attention Deficit Disorder, Attention Deficit Hyperactivity Disorder, Depression, Post Traumatic Stress Disorder or Eating Disorder OTHER HISTORY: Positive Hospitalization, Mumps and Pertussis; Negative Autoimmune Disease, Down Syndrome, Autism, Developmental Delay, Shingles, Falls, Blood Transfusions, Blood Transfusion Reaction (na), Anesthesia Reactions, Organ Transplant, Chemotherapy, Radiation Therapy, Hyperbaric Therapy, MRSA, VRSA, Vancomycin-Resistant Enterococci, Human Immunodeficiency Virus (HIV), Chicken Pox, Measles, Rubella (Bulgarian Measles), Clostridium Difficile, Cancer, Breast Cancer, Cervical Cancer, Colorectal Cancer, Lung Cancer or Ovarian Cancer Family History FAMILY HISTORY: Positive Family Surgery; Negative Family Psychiatric Problems, Family Respiratory Disorders, Family Cardiac Disorders, Family Gastrointestinal Problems, Family Cancer or Family A nesthesia Reaction Surgical History SURGICAL: Positive Hysterectomy; Negative Cardiac Surgery, Open Heart Surgery, Coronary Artery Bypass Graft, Valve Replacement, Vascular Surgery, Coronary Stent, Cardiac Catheterization, Pacemaker, Angiogram, Auto Implanted Cardiovert Defib, Carotid Endarterectomy, Endocrine Surgery, Thyroidectomy, Ear Surgery, Tympanostomy Tube, Eye Surgery, Nose Surgery, Oral Surgery, Tonsillectomy, Adenoidectomy, Cochlear Implant, Corneal Transplant, Throat Surgery, Abdominal Surgery, Tracheostomy, Gastric Bypass Surgery, Gastrostomy, Bowel Surgery, Nephrectomy, Joint Replacement, Amputation, Open Reduction Internal Fixation, Arthroscopy, Neurologic Surgery, Brain Shunt, Lumpectomy, Tubal Ligation, Section or Organ Transplant Social History SMOKING STATUS: Never smoker ED Exam Narrative Physical exam: [General: Anxious but not in any acute distress Head normocephalic HEENT: Within acceptable limits Neck is supple nontender Chest equal chest rise nontender to palpation Respiratory: Clear to auscultation no wheezes crackles or rubs CV: Rate rhythm is regular no murmurs rubs or clicks Abdomen is distended secondary to body habitus soft nontender no masses positive bowel sounds all 4 quadrants Back: No CVA tenderness no spinous process tenderness from cervical spine thoracic and lumbar spine Skin: Intact no petechiae rash induration ulceration or crepitus Extremities: Moving all extremity against resistance cap refill less than 2 seconds neurosensory intact Neuro: Awake alert oriented x3 Glascow coma 15 no focal deficits] Course Quality Measures none Orders Category Date Time Status COVID-19 Screening Questionnaire NOW Care 07/28/25 15:33 Active Decision to Admit X1 Care 07/28/25 15:33 Completed EKG (ED ONLY) *Do not use* NOW Care 07/28/25 15:11 Completed Saline [Insert IV] NOW Care 07/28/25 16:04 Active Saline [Insert IV] STAT Care 07/28/25 14:55 Active EKG (ED Only) Stat Exams 07/28/25 15:11 Draft Alcohol, Blood Medical Stat Lab 07/28/25 13:37 Completed CBC Stat Lab 07/28/25 13:37 Completed CMP [Comprehensive Metabolic Panel] Stat Lab 07/28/25 13:37 Completed Mag [Magnesium] Stat Lab 07/28/25 15:22 Completed PT [Prothrombin Time with INR] Stat Lab 07/28/25 13:37 Completed PTT [Partial Thromboplastin Time] Stat Lab 07/28/25 13:37 Completed Phosphorous Stat Lab 07/28/25 15:22 Completed Urinalysis Stat Lab 07/28/25 13:25 Completed Folic Acid Inj Med 07/28/25 15:23 Discontinued 1 mg IVP X1 ONE LORazepam [Ativan] Med 07/28/25 15:23 Discontinued 1 mg PO X1 ONE Magnesium Sulfate 4 GM Ivpb [Magnesium Sulfate Ivpb] Med 07/28/25 16:05 Discontinued 4 gm in 50 ml IV X1 POTASSIUM CHL 10 mEq IVPB [Kcl Ivpb] Med 07/28/25 14:56 Discontinued 10 meq in 100 ml IV Q1H POTASSIUM CHL 10% Liq 15 ML Med 07/28/25 16:13 Discontinued 40 meq PO X1 ONE Thiamine Inj [Vitamin B-1 Inj] 250 mg Med 07/28/25 15:23 Discontinued Sodium Chloride 0.9% [Ns] 100 ml IV X1 Thiamine Inj [Vitamin B-1 Inj] 250 mg Med 07/28/25 16:20 Discontinued Sodium Chloride 0.9% [Ns] 100 ml IV X1 Vital Signs Vital signs: Vital Signs Temperature 98.2 F 07/28/25 12:43 Pulse Rate 109 H 07/28/25 12:43 Respiratory Rate 19 07/28/25 12:43 Blood Pressure 111/81 07/28/25 12:43 Pulse Oximetry (%) 98 07/28/25 12:43 Oxygen Delivery Method Room Air 07/28/25 12:43 Discharge Plan Plan Patient Disposition: Admit Acute Care w/in Hospital Problem List Clinical Impression: Hypokalemia PA/[employer] Supervising Physician PA/[employer] Supervising Physician: Roberto SMILEY Clinical Information Provided by: patient and EMS Medical Records reviewed [facility] and EMS Meds/Rx considered, not ordered None Labs/Rad/Tests considered, not ordered None Chronic Illness/Social Conditions Explain: Alcoholism EKG EKG not done EKG Interpretation EKG #1: EKG Interpretation: EKG performed at 1525 shows a ventricular rate of 81 AL interval 162 QRS of 61 QTc of 342. This is sinus rhythm with ectopic occasional ectopic complex. Poor conduction. Labs Labs: interpreted by pr Lab(s) Interpretation(s): CBC shows no acute leukocytosis anemia thrombocytopenia Medication Administration(s) Medication Administration History Acetaminophen (Acetaminophen 325 Mg Tablet) 650 mg PO Q6H PRN PRN Reason: Fever >101.5 Stop: 08/27/25 17:55 Acetaminophen (Acetaminophen Supp 650 Mg Supp) 650 mg AL Q6H PRN PRN Reason: PAIN SCALE 1-3 (mild Stop: 08/27/25 17:55 Folic Acid (Folic Acid 1 Mg Tablet) 1 mg PO BID [facility] Stop: 08/02/25 20:59 Last Admin: 07/28/25 20:21 Dose: 1 mg Documented By: HOWARD Ceftriaxone Sodium/Dextrose (Rocephin/D5w 1gm Iv Premix) 1 gm in 50 mls @ 100 mls/hr IV QDAY [facility] Stop: 08/04/25 18:29 Last Admin: 07/28/25 18:51 Dose: 100 mls/hr Documented By: JORGE A Lactulose (Lactulose Syrup 20 Gm/30 Ml Udc) 10 gm PO QDAY [facility]; Protocol Stop: 08/28/25 08:59 Lorazepam (Lorazepam 0.5 Mg Tablet) 0.5 mg PO Q4HR PRN PRN Reason: CIWA Score 2-6 Stop: 08/02/25 18:24 Lorazepam (Lorazepam 0.5 Mg Tablet) 1 mg PO Q4HR PRN PRN Reason: CIWA SCORE 7-11 Stop: 08/02/25 18:24 Last Admin: 07/28/25 20:59 Dose: 1 mg Documented By: HOWARD Lorazepam (Lorazepam 0.5 Mg Tablet) 2 mg PO Q4HR PRN PRN Reason: CIWA SCORE 12-15 Stop: 08/02/25 18:24 Ondansetron HCl (Ondansetron Inj 2 Mg/Ml Inj 2 Ml) 4 mg IVP Q6H PRN; Protocol PRN Reason: NAUSEA OR VOMITING Stop: 08/27/25 17:55 Spironolactone (Spironolactone 25 Mg Tablet) 50 mg PO BID CHASIDY Stop: 08/27/25 20:59 Last Admin: 07/28/25 20:32 Dose: 50 mg Documented By: HOWARD Thiamine HCl (Thiamine 100 Mg Tablet) 100 mg PO BID CHASIDY Stop: 08/02/25 20:59 Last Admin: 07/28/25 20:21 Dose: 100 mg Documented By: HOWARD Discontinued Medications Folic Acid (Folic Acid Inj 1 Mg/0.2 Ml) 1 mg IVP X1 ONE Stop: 07/28/25 15:24 Last Admin: 07/28/25 16:29 Dose: 1 mg Documented By: SANTY Potassium Chloride (Kcl Ivpb) 10 meq in 100 mls @ 100 mls/hr IV Q1H [facility] Stop: 07/28/25 18:55 Last Admin: 07/28/25 20:22 Dose: 50 mls/hr Documented By: Infusion: 07/28/25 20:13 Dose: Infused Documented By: Admin: 07/28/25 18:53 Dose: 75 mls/hr Documented By: JORGE A Infusion: 07/28/25 18:53 Dose: Infused Documented By: JORGE A Admin: 07/28/25 17:47 Dose: 75 mls/hr Documented By: Infusion: 07/28/25 16:50 Dose: Infused Documented By: Admin: 07/28/25 15:30 Dose: 75 mls/hr Documented By: SANTY Thiamine HCl 250 mg/ Sodium (Chloride) 102.5 mls @ 205 mls/hr IV X1 ONE Stop: 07/28/25 15:52 Last Admin: 07/28/25 16:33 Dose: Not Given Documented By: SANTY Non-Admin Reason: Discontinued Magnesium Sulfate (Magnesium Sulfate Ivpb) 4 gm in 50 mls @ 12.5 mls/hr IV X1 ONE Stop: 07/28/25 20:04 Last Admin: 07/28/25 16:57 Dose: 12.5 mls/hr Documented By: SANTY Thiamine HCl 250 mg/ Sodium (Chloride) 102.5 mls @ 205 mls/hr IV X1 ONE Stop: 07/28/25 16:49 Last Infusion: 07/28/25 17:27 Dose: Infused Documented By: Admin: 07/28/25 16:57 Dose: 205 mls/hr Documented By: SANTY Lorazepam (Lorazepam 0.5 Mg Tablet) 1 mg PO X1 ONE Stop: 07/28/25 15:24 Last Admin: 07/28/25 16:27 Dose: 1 mg Documented By: SANTY Lorazepam (Lorazepam 0.5 Mg Tablet) 1 mg PO Q4HR PRN PRN Reason: CIWA SCORE 7-11 Stop: 08/02/25 17:57 Potassium Chloride (Potassium Chloride 10% 20 Meq/15 Ml Udc) 40 meq PO X1 ONE Stop: 07/28/25 16:14 Last Admin: 07/28/25 16:46 Dose: 40 meq Documented By: SANTY Spironolactone (Spironolactone 25 Mg Tablet) 25 mg PO BID CHASIDY Stop: 08/27/25 20:59
[2025-07-28 14:25] LABS: INR 1.2 (0.9-1.3); Partial Thromboplastin Time 33.8 Seconds (22.0-36.0); Prothrombin Time 12.3 Seconds (9.0-12.2)
[2025-07-28 14:29] LABS: Bacteria,Urine Rare; Bilirubin,Urine Negative (Negative); Blood,Urine Negative (Negative); Clarity,Urine Turbid (Clear/Hazy); Color,Urine Lt-Yellow (Lt Yel-Yel); Glucose, Urine Negative (Negative); Hyaline Casts,Urine < 1 /hpf (0-1); Ketones,Urine Negative (Negative); Leukocyte Esterase,Urine Positive (Negative); Nitrite,Urine Negative (Negative); PH,Urine 7.0 (5.0-7.0); Protein,Urine Negative (Neg - Trace); RBC,Urine 5 /hpf (0-3); Specific Gravity,Urine 1.007 (1.001-1.035); Squamous Epithelial Cell,Urine 3 /hpf (0-5); Urobilinogen,Urine Negative mg/dL (0.0-1.0); WBC,Urine 95 /hpf (0-5)
[2025-07-28 14:53] LABS: Alanine Aminotransferase 8 U/L (10-49); Albumin, Serum 2.9 gm/dL (3.4-4.8); Albumin/Globulin Ratio 0.9 (1.2-2.2); Alcohol, Blood Medical < 10.0 mg/dL (0-10.0); Alkaline Phosphatase 143 U/L (46-116); Anion Gap 11 (7-16); Aspartate Amino Transferase 37 U/L (0-34); BUN/Creatinine Ratio 10 Ratio (12-20); Bilirubin,Total 2.0 mg/dL (0.3-1.2); Blood Urea Nitrogen 5 mg/dL (9-23); Calcium 7.2 mg/dL (8.3-10.6); Calcium (Corrected) 8.1 mg/dL (8.5-10.1); Carbon Dioxide 34.5 mMol/L (20.0-31.0); Chloride 87 mMol/L (98-107); Creatinine (Component) 0.5 mg/dL (0.6-1.3); Estimated Creatinine Clearance 88.1 mL/min (>60); Globulin 3.2 gm/dL (2.3-3.5); Glucose 94 mg/dL (74-106); Osmolality,Calculated 261 (275-295); Potassium 2.2 mMol/L (3.4-5.1); Sodium 132 mMol/L (136-145); Total Protein 6.1 gm/dL (5.7-8.2); eGFR > 60 See Note
--- NOTE | 2025-07-28 15:11 | EKG_ITS ---
[facility] Test Date: 2025-07-28 Pat Name: LISSETT EDWARDS Department: Room: - Gender: Female [employer]: : [id number] Requested By: Roberto Dacosta Order Number: [id number] Reading MD: Roberto Dacosta Measurements Intervals [place] Rate: 81 P: 13 [place]: 162 QRS: -21 QRSD: 61 T: -12 QT: 305 QTc: 355 Interpretive Statements SINUS RHYTHM WITH OCCASIONAL ECTOPIC PREMATURE COMPLEXES LOW QRS VOLTAGE IN PRECORDIAL LEADS [QRS DEFLECTION < 1.0 mV IN CHEST LEADS] ANTEROSEPTAL MYOCARDIAL INFARCTION , PROBABLY OLD [40+ ms Q WAVE IN V1-V4] Compared to ECG 05/05/2025 06:31:58 Ventricular premature complex(es) no longer present Myocardial infarct finding still present /store/S0/[id number]
[2025-07-28] MEDS: POTASSIUM CHL 10 mEq IVPB 10 MEQ/100 ML BAG 75 MEQ IV ×3 (15:30→18:53)
[2025-07-28 15:52] LABS: Magnesium 1.1 mg/dL (1.6-2.6); Phosphorous 2.6 mg/dL (2.4-5.1)
[2025-07-28] MEDS: FOLIC ACID INJ 1 MG/0.2 ML IVP (16:29)
[2025-07-28] MEDS: POTASSIUM CHLORIDE 10% 20 MEQ/15 ML UDC 40 MEQ PO (16:46)
[2025-07-28] MEDS: THIAMINE INJ 250 MG in SODIUM CHLORIDE 0.9% 100 ML 205 MG IV (16:57)
[2025-07-28] MEDS: Magnesium Sulfate 4 GM Ivpb 4 GM/50 ML BAG IV (16:57)
--- NOTE | 2025-07-28 18:23 | ESHP_ITS ---
<Statement entered by Samuel Campos MD - 07/28/25 20:12> 69-year-old female with a medical history of cirrhosis secondary to alcohol consumption, hypothyroidism, anxiety, and chronic lymphedema who is being admitted for hypokalemia of 2.2. She presented due to overwhelming anxiety but denies any significan tlife stressors and that home life is stable. States that she continues to drink about 2 glasses of wine per day. Of note, she was admitted from 07/12 to 07/15 for hypokalemia and ascites for which underwent paracentesis and removed 5.2 L of fluid. She was subsequently discharged with K but she states that she cannot recall being prescribed this. In the ED, vital signs show pulse of 109 but otherwise she is on room air and afebrile. On exam, she is anxious and tearful with 1-2+ bilateral lower extremity edema and distended abdomen. CBC unremarkable, CHEM panel showing electrolyte derangements, of which K 2.2 was the most severe. T. bili chronically elevated at 2.0, ammonia mildly elevated at 38. UA with 95 WBC but rare bacteria alcohol levels within normal limits. EKG significantly low voltage, flat-appearing T waves consistent with K of 2.2. Started on 40 mEq IV K in ED and given subsequent 40 mg p.o. and will recheck in the evening. Otherwise, started on CIWA protocol, ceftriaxone for UTI, and spironolactone. ----- Note reviewed and agree with care plan as documented. Please refer to the note below for further details. Plan discussed with attending physician Dr. Monty Campos MD PGY-2 Internal Medicine Documentation for date of: 07/28/25 HPI History of Present Illness History of present illness: 69 year old female w/ PMH significant for alcoholic cirrhosis, hypothyroidism, anxiety and chronic lymphedema originally came to the emergency department at [facility] for reported overwhelming axiety, found to have a potassium of 2.2 admitted for hypokalemia. Last visit 07/12 - 07/15 was significant for electrolyte derangements and ascites, to which correction was done and paracentesis performed. Patient has an extensive history of alcohol use, this afternoon she states that she drinks approx 2 glasses a day. Denies any hx of seizures or symptoms related to withdrawal. Pt history also noted to have poor follow up and health maintenance. On going over Ms. King' previous discharge and counseling regarding potassium supplementation, she denies ever having been notified nor precribed potassium pills. On presentation, Ms. King is anxious, tearful and stated that she felt the need to go to the ER today because she suffered an anxiety attack and that things felt overwhelming. When asking about what social changes or career changes had transpired in the past two weeks, she reveals that she does not work and things at home have stayed the same: [place] and goes on daily walks. She notes that she does not have any significant life stressors and states that life at home is stable. Physical exam is notable for +3 pitting edema of BL LE. Abdominal distention is noted as well without tenderness to palpation. She has not had a paracentesis since last done on previous admission. Denies blurry vision, headache, but denotes nausea without vomiting. Patient is AxOx4, GCS 15. Admission for observation, tx of hypokalemia. PMHx: cirrhosis, alcohol use disorder, hypothyroidism, anxiety, chronic lymphedema Medications: cannot recall SHx: used to drink 3-4 glasses of wine per day since her 20s but recently has been drinking 1 glass per day; no smoking or illicit drug use; [place] Allergies: codeine Review of Systems Review of Systems Systems Reviewed: All systems reviewed, normal except as documented Exam Vital Signs Temp Pulse Resp BP Pulse Ox O2 Del Method 97.8 F 95 18 125/83 96 Room Air 07/28/25 18:00 07/28/25 18:00 07/28/25 18:00 07/28/25 18:00 07/28/25 18:00 07/28/25 18:00 Narrative Exam General: alert and oriented to self/place/year, Tearful and in distress about her panic attack HEENT: NC/AT, mucous membranes moist, bilateral sclera anicteric Cardiovascular: regular rate and rhythm, S1/S2 present, no murmurs appreciated Pulmonary: clear to auscultation bilaterally, no rales/rhonchi/wheezes Abdominal: distended, nontender Musculoskeletal: +3 pitting bilateral LE edema Skin: Warm, well-perfused Results: Labs 07/30/25 05:07 07/30/25 05:07 Labs: Short CBC 07/28/25 Range/Units 13:37 WBC 8.9 (3.6-11.0) Thou/mm3 Hgb 13.3 (12.0-16.0) g/dL Hct 37.0 (36.0-46.0) % Plt Count 276 D (140-440) Thou/mm3 BMP 07/28/25 13:37 Sodium 132 L Potassium 2.2 L* Chloride 87 L Carbon Dioxide 34.5 H BUN 5 L Creatinine 0.5 L Glucose 94 Calcium 7.2 L Liver Function 07/28/25 Range/Units 13:37 Total Bilirubin 2.0 H (0.3-1.2) mg/dL AST 37 H (0-34) U/L ALT 8 L (10-49) U/L Alkaline Phosphatase 143 H (46-116) U/L Albumin 2.9 L (3.4-4.8) gm/dL Urine 07/28/25 Range/Units 13:25 Urine Color Lt-Yellow (Lt Yel-Yel) Urine Clarity Turbid A (Clear/Hazy) Urine pH 7.0 (5.0-7.0) Ur Specific Benedict 1.007 (1.001-1.035) Urine Protein Negative (Neg - Trace) Urine Glucose (UA) Negative (Negative) Quality Measures Quality Measures VTE therapy Advance care planning discussed with:: patient Medications Home Medications and Allergies Home Medications ?Medication ?Instructions ?Recorded ?Confirmed ?Type albuterol sulfate 90 mcg/actuation 2 inh inhalation Q6 H PRN shortness 07/12/25 07/28/25 History aerosol inhaler (Ventolin HFA) of breath or wheezing alprazolam 0.5 mg tablet 0.5 mg PO DAILY PRN anxiety 07/14/25 07/28/25 History Allergies Allergy/AdvReac Type Severity Reaction Status Date / Time codeine Allergy Verified 07/28/25 13:04 Visit Medications Acetaminophen (Acetaminophen 325 Mg Tablet) 650 mg PO Q6H PRN PRN Reason: Fever >101.5 Stop: 08/27/25 17:55 Acetaminophen (Acetaminophen Supp 650 Mg Supp) 650 mg IL Q6H PRN PRN Reason: PAIN SCALE 1-3 (mild Stop: 08/27/25 17:55 Folic Acid (Folic Acid 1 Mg Tablet) 1 mg PO BID CHASIDY Stop: 08/02/25 20:59 Potassium Chloride (Kcl Ivpb) 10 meq in 100 mls @ 100 mls/hr IV Q1H CHASIDY Stop: 07/28/25 18:55 Last Admin: 07/28/25 17:47 Dose: 75 mls/hr Magnesium Sulfate (Magnesium Sulfate Ivpb) 4 gm in 50 mls @ 12.5 mls/hr IV X1 ONE Stop: 07/28/25 20:04 Last Admin: 07/28/25 16:57 Dose: 12.5 mls/hr Ceftriaxone Sodium/Dextrose (Rocephin/D5w 1gm Iv Premix) 1 gm in 50 mls @ 100 mls/hr IV QDAY CHASIDY Stop: 08/04/25 18:29 Lactulose (Lactulose Syrup 20 Gm/30 Ml Udc) 10 gm PO QDAY [facility]; Protocol Stop: 08/28/25 08:59 Lorazepam (Lorazepam 0.5 Mg Tablet) 1 mg PO Q4HR PRN PRN Reason: CIWA SCORE 7-11 Stop: 08/02/25 17:57 Ondansetron HCl (Ondansetron Inj 2 Mg/Ml Inj 2 Ml) 4 mg IVP Q6H PRN; Protocol PRN Reason: NAUSEA OR VOMITING Stop: 08/27/25 17:55 Spironolactone (Spironolactone 25 Mg Tablet) 50 mg PO BID [facility] Stop: 08/27/25 20:59 Thiamine HCl (Thiamine 100 Mg Tablet) 100 mg PO BID [facility] Stop: 08/02/25 20:59 Discontinued Medications Folic Acid (Folic Acid Inj 1 Mg/0.2 Ml) 1 mg IVP X1 ONE Stop: 07/28/25 15:24 Last Admin: 07/28/25 16:29 Dose: 1 mg Thiamine HCl 250 mg/ Sodium (Chloride) 102.5 mls @ 205 mls/hr IV X1 ONE Stop: 07/28/25 15:52 Last Admin: 07/28/25 16:33 Dose: Not Given Thiamine HCl 250 mg/ Sodium (Chloride) 102.5 mls @ 205 mls/hr IV X1 ONE Stop: 07/28/25 16:49 Last Infusion: 07/28/25 17:27 Dose: Infused Lorazepam (Lorazepam 0.5 Mg Tablet) 1 mg PO X1 ONE Stop: 07/28/25 15:24 Last Admin: 07/28/25 16:27 Dose: 1 mg Potassium Chloride (Potassium Chloride 10% 20 Meq/15 Ml Udc) 40 meq PO X1 ONE Stop: 07/28/25 16:14 Last Admin: 07/28/25 16:46 Dose: 40 meq Spironolactone (Spironolactone 25 Mg Tablet) 25 mg PO BID CHASIDY Stop: 08/27/25 20:59 Assessment & Plan Plan 69-year-old female with a medical history of cirrhosis secondary to alcohol consumption, hypothyroidism, anxiety, and chronic lymphedema who is admitted for management of electrolyte derangements. #Hypokalemia #Electrolyte Imbalances ED K 2.2 Chronic hypokalemia w/ last discharge prescription for potassium chloride 20mEq q24h Extensive history of medical noncompliance Total of 80 mEq K to be given in ED 07/28 PM EKG in ED showing low voltage -Admission to observation -Repeat potassium for 2100 07/28/2025 -Daily CBC CMP Mg Phos -Spironolactone ordered 50mg PO BID -Replete as needed #Alcoholic Cirrhosis #Hx of Paracentesis #Alcohol Abuse Well known history of alcoholic cirrhosis, w/ paracentesis done last admission Reported 2 glasses of wine/day -[facility] protocol -Thiamine, Folate supplementation -Lactulose 10g daily for bowel regimen -Follow up referral to health social work professor -Deferment of paracentesis at this time in the setting of hypokalemia #Anxiety On home dose of Alprazolam 0.5 mg PO daily PRN -Holding for now, on CIWA w/ Lorazepam #Hypothyroidism Unreliable history of hypothyroidism; pt states she is not taking -TSH ordered, follow up AM 07/29/2025 Patient seen and discussed with attending physician Dr. Milo Millan and senior resident Dr. Samuel Marcus MD PGY-1 Attending Provider Attestation/Addendum I have examined the patient, reviewed labs and imaging findings, discussed the case with the resident(s), and reviewed entered orders. I agree with the plan of care as outlined in this note, with these additional summaries/recommendations: After examination of the patient and review of the clinical data, I feel that this patient needs admission to the hospital for further treatment and evaluation. Dr. Monty MD
[2025-07-28] MEDS: cefTRIAXone/D5w 1gm IV premix 1 GM/50 ML BAG IV (18:51)
[2025-07-28 19:47] LABS: Ammonia 38 uMol/L (11-32)
[2025-07-28] MEDS: FOLIC ACID 1 MG TABLET PO (20:21)
[2025-07-28] MEDS: THIAMINE 100 MG TABLET PO (20:21)
[2025-07-28] MEDS: POTASSIUM CHL 10 mEq IVPB 10 MEQ/100 ML BAG 50 MEQ IV (20:22)
[2025-07-28] MEDS: SPIRONOLACTONE 25 MG TABLET 50 MG PO (20:32)
[2025-07-28 22:16] LABS: Potassium 2.6 mMol/L (3.4-5.1)
[2025-07-29] VITALS (8 sets, daily range): BP systolic 102–118; BP diastolic 56–82; PULSE 80–110; RESP 17–18; TEMP 36.1–36.9; O2SAT 94–99
[2025-07-29 05:43] LABS: Basophils # (Auto) 0.1 Thou/mm3 (0.0-0.2); Basophils % (Auto) 1 % (0-2.5); Eosinophils # (Auto) 0.3 Thou/mm3 (0.0-0.5); Eosinophils % (Auto) 4 % (0-10); Hematocrit 33.1 % (36.0-46.0); Hemoglobin 11.6 g/dL (12.0-16.0); Immature Granulocytes Auto 0.03 Thou/mm3 (0.00-0.00); Lymphocytes # (Auto) 1.6 Thou/mm3 (1.0-4.8); Lymphocytes % (Auto) 18 % (10-50); Mean Corpuscular HGB Conc 35.0 g/dl (31.0-37.0); Mean Corpuscular Hemoglobin 31.4 pg (25.0-35.0); Mean Corpuscular Volume 90 fL (80-100); Monocytes # (Auto) 0.9 Thou/mm3 (0.0-0.8); Monocytes % (Auto) 10 % (0-12); Neutrophils # (Auto) 5.8 Thou/mm3 (1.8-7.7); Neutrophils % (Auto) 67 % (37-80); Nucleated Red Blood Cell # 0.00 Thou/mm3 (0.00-0.00); Nucleated Red Blood Cell % 0 /100 WBC (0); Platelet Count 243 Thou/mm3 (140-440); RDW Standard Deviation 41.8 fL (36.4-46.3); Red Blood Count 3.69 Miln/mm3 (4.00-5.20); White Blood Count 8.6 Thou/mm3 (3.6-11.0)
[2025-07-29 06:15] LABS: INR 1.2 (0.9-1.3); Partial Thromboplastin Time 37.3 Seconds (22.0-36.0); Prothrombin Time 12.5 Seconds (9.0-12.2)
[2025-07-29 06:48] LABS: Alanine Aminotransferase 8 U/L (10-49); Albumin, Serum 2.4 gm/dL (3.4-4.8); Albumin/Globulin Ratio 1.0 (1.2-2.2); Alkaline Phosphatase 124 U/L (46-116); Anion Gap 9 (7-16); Aspartate Amino Transferase 33 U/L (0-34); BUN/Creatinine Ratio 12 Ratio (12-20); Bilirubin,Total 2.2 mg/dL (0.3-1.2); Blood Urea Nitrogen 6 mg/dL (9-23); Calcium 7.1 mg/dL (8.3-10.6); Calcium (Corrected) 8.4 mg/dL (8.5-10.1); Carbon Dioxide 31.5 mMol/L (20.0-31.0); Chloride 92 mMol/L (98-107); Creatinine (Component) 0.5 mg/dL (0.6-1.3); Estimated Creatinine Clearance 92.2 mL/min (>60); Globulin 2.5 gm/dL (2.3-3.5); Glucose 70 mg/dL (74-106); Magnesium 1.6 mg/dL (1.6-2.6); Osmolality,Calculated 260 (275-295); Phosphorous 2.2 mg/dL (2.4-5.1); Potassium 3.2 mMol/L (3.4-5.1); Sodium 132 mMol/L (136-145); Thyroid Stimulating Hormone 18.66 uIU/mL (0.55-4.78); Total Protein 4.9 gm/dL (5.7-8.2); eGFR > 60 See Note
[2025-07-29] MEDS: cefTRIAXone/D5w 1gm IV premix 1 GM/50 ML BAG IV (08:42)
[2025-07-29] MEDS: LACTULOSE SYRUP 20 GM/30 ML UDC 10 GM PO (08:43)
[2025-07-29] MEDS: SPIRONOLACTONE 25 MG TABLET 50 MG PO ×2 (08:43→20:22)
[2025-07-29] MEDS: FOLIC ACID 1 MG TABLET PO ×2 (08:44→20:22)
[2025-07-29] MEDS: THIAMINE 100 MG TABLET PO ×2 (08:44→20:22)
[2025-07-29 10:31] LABS: Free T3 1.7 pg/mL (2.3-4.2); Free T4 (Free Thyroxine) 0.88 ng/dL (0.89-1.76)
--- NOTE | 2025-07-29 12:32 | XR_ITS ---
Examination: Ultrasound-guided paracentesis Abdominal sonogram limited Date and time of exam: July 29, 2025, 1326 hours INDICATIONS: Cirrhosis increasing ascites this week Informed consent provided. A timeout was completed verifying correct patient, procedure, site, positioning, and special adequate movement if applicable. Technique: Multiple sonographic images of the abdomen have been obtained. Appropriate area for paracentesis was marked. Local anesthesia is obtained with 1% lidocaine. Yueh catheter is successfully introduced. Findings: Abdominal sonographic images demonstrate sufficient ascitic fluid for paracentesis. After placing the Yueh catheter, 2700 cc of fluid were successfully removed. During and after completion of the procedure the patient appear in satisfactory and stable condition with no complications observed. Estimated blood loss 0 cc Impression: Abdominal ascites Successful ultrasound-guided paracentesis as described above
--- NOTE | 2025-07-29 12:48 | ESPR_ITS ---
<Statement entered by Samuel Campos MD - 07/29/25 16:50> No acute overnight events. Seen and examined at bedside and resting comfortably in bed though does endorse some anxiety. Has CIMT protocol in place but may give for anxiety as well. Thoracentesis ordered and had 2.7 L of fluid removed. Given that patient has had multiple paracentesis in the past will not send fluid for analysis/cytology. CBC unremarkable. CHEM panel showed chronic/mild hyponatremia, improving K from 2.6 to 3.2 after total of 80 mEq and given additional 80 mEqand K improved to 3.4. TSH 18 and free T4 low and patient states that she does not take her levothyroxine consistently. Will resume home dose. If hypokalemia remains stable overnight, anticipate discharge within next 24-48 hours. ----- Note reviewed and agree with care plan as documented. Please refer to the note below for further details. Plan discussed with attending physician Dr. Magnolia Campos MD PGY-2 Internal Medicine Documentation for date of: 07/29/25 Subjective Subjective Interval history: Pt is in good spirits this morning. Overnight was given 80 Meq K for potassium of 2.6. This AM is 3.4. She denies any numbness tingling or weakness. NAOE. Plan today is to perform paracentesis and continue with electrolyte management. Home dose levothyroxine started. Exam Vital Signs Temp Pulse Resp BP Pulse Ox O2 Del Method 98.4 F 95 18 107/79 95 Room Air 07/29/25 07:45 07/29/25 08:43 07/29/25 07:45 07/29/25 08:43 07/29/25 07:45 07/29/25 07:45 Narrative Exam General: alert and oriented to self/place/year, no acute distress, able to speak full sentences HEENT: NC/AT, mucous membranes moist, bilateral sclera anicteric Cardiovascular: regular rate and rhythm, S1/S2 present, no murmurs appreciated Pulmonary: clear to auscultation bilaterally, no rales/rhonchi/wheezes Abdominal: Distended, nontender Musculoskeletal: +3 peripheral edema; bilateral skin excoriations in RUE, LUE Skin: Warm, well-perfused Objective Labs 07/30/25 05:07 07/30/25 05:07 Labs: Laboratory Results - last 24 hr 07/28/25 07/28/25 07/28/25 13:25 13:37 15:22 WBC 8.9 RBC 4.18 Hgb 13.3 Hct 37.0 MCV 89 MCH 31.8 MCHC 35.9 RDW Std Deviation 41.5 Plt Count 276 D Neut % (Auto) 68 Lymph % (Auto) 19 Gillespie % (Auto) 11 Eos % (Auto) 1 Baso % (Auto) 1 Neut # (Auto) 6.0 Lymph # (Auto) 1.7 Gillespie # (Auto) 0.9 H Eos # (Auto) 0.1 Baso # (Auto) 0.1 Immature Gran # (Auto) 0.03 H Absolute Nucleated RBC 0.00 Immature Gran % 0 Nucleated RBC % 0 PT 12.3 H INR 1.2 APTT 33.8 Sodium 132 L Potassium 2.2 L* Chloride 87 L Carbon Dioxide 34.5 H Anion Gap 11 BUN 5 L Creatinine 0.5 L Estim Creat Clear Calc 88.1 eGFR > 60 BUN/Creatinine Ratio 10 L Glucose 94 Calculated Osmolality 261 L Calcium 7.2 L Corrected Calcium 8.1 L Phosphorus 2.6 Magnesium 1.1 L Total Bilirubin 2.0 H AST 37 H ALT 8 L Alkaline Phosphatase 143 H Ammonia Total Protein 6.1 Albumin 2.9 L Globulin 3.2 Albumin/Globulin Ratio 0.9 L TSH Free T4 Free T3 pg/dL Ur Collection Type Clean Catch Urine Color Lt-Yellow Urine Clarity Turbid A Urine pH 7.0 Ur Specific [place] 1.007 Urine Protein Negative Urine Glucose (UA) Negative Urine Ketones Negative Urine Blood Negative Urine Nitrite Negative Urine Bilirubin Negative Urine Urobilinogen (Auto) Negative Ur Leukocyte Esterase Positive Urine RBC 5 H Urine WBC 95 H Ur Squamous Epith Cells 3 Urine Bacteria Rare Hyaline Casts < 1 Ethyl Alcohol < 10.0 07/28/25 07/28/25 07/29/25 19:19 21:09 04:45 WBC 8.6 RBC 3.69 L Hgb 11.6 L Hct 33.1 L MCV 90 MCH 31.4 MCHC 35.0 RDW Std Deviation 41.8 Plt Count 243 D Neut % (Auto) 67 Lymph % (Auto) 18 Gillespie % (Auto) 10 Eos % (Auto) 4 Baso % (Auto) 1 Neut # (Auto) 5.8 Lymph # (Auto) 1.6 Gillespie # (Auto) 0.9 H Eos # (Auto) 0.3 Baso # (Auto) 0.1 Immature Gran # (Auto) 0.03 H Absolute Nucleated RBC 0.00 Immature Gran % 0 Nucleated RBC % 0 PT 12.5 H INR 1.2 APTT 37.3 H Sodium 132 L Potassium 2.6 L* 3.2 L D Chloride 92 L Carbon Dioxide 31.5 H Anion Gap 9 BUN 6 L Creatinine 0.5 L Estim Creat Clear Calc 92.2 eGFR > 60 BUN/Creatinine Ratio 12 Glucose 70 L Calculated Osmolality 260 L Calcium 7.1 L Corrected Calcium 8.4 L Phosphorus 2.2 L Magnesium 1.6 Total Bilirubin 2.2 H AST 33 ALT 8 L Alkaline Phosphatase 124 H Ammonia 38 H Total Protein 4.9 L Albumin 2.4 L D Globulin 2.5 Albumin/Globulin Ratio 1.0 L TSH 18.66 H D Free T4 0.88 L Free T3 pg/dL 1.7 L Ur Collection Type Urine Color Urine Clarity Urine pH Ur Specific [place] Urine Protein Urine Glucose (UA) Urine Ketones Urine Blood Urine Nitrite Urine Bilirubin Urine Urobilinogen (Auto) Ur Leukocyte Esterase Urine RBC Urine WBC Ur Squamous Epith Cells Urine Bacteria Hyaline Casts Ethyl Alcohol Quality Measures Quality Measures none Advance care planning discussed with:: patient Assessment & Plan Assessment Current Active Medications: Generic Name Dose Route Start Last Admin Trade Name Freq PRN Reason Stop Dose Admin Acetaminophen 650 mg 07/28/25 17:56 Acetaminophen 325 Mg Tablet PO 08/27/25 17:55 Q6H PRN Fever >101.5 Acetaminophen 650 mg 07/28/25 17:56 Acetaminophen Supp 650 Mg Supp MT 08/27/25 17:55 Q6H PRN PAIN SCALE 1-3 (mild Folic Acid 1 mg 07/28/25 21:00 07/29/25 08:44 Folic Acid 1 Mg Tablet PO 08/02/25 20:59 1 mg BID CHASIDY Administration Ceftriaxone Sodium/Dextrose 1 gm in 50 mls @ 100 mls/hr 07/28/25 18:30 07/29/25 08:42 Rocephin/D5w 1gm Iv Premix IV 08/04/25 18:29 100 mls/hr QDAY CHASIDY Administration Lactulose 10 gm 07/29/25 09:00 07/29/25 08:43 Lactulose Syrup 20 Gm/30 Ml Udc PO 08/28/25 08:59 10 gm QDAY CHASIDY Administration Protocol Lorazepam 0.5 mg 07/28/25 18:25 07/29/25 08:48 Lorazepam 0.5 Mg Tablet PO 08/02/25 18:24 0.5 mg Q4HR PRN Administration CIWA Score 2-6 Lorazepam 1 mg 07/28/25 18:25 07/29/25 00:31 Lorazepam 0.5 Mg Tablet PO 08/02/25 18:24 1 mg Q4HR PRN Administration CIWA SCORE 7-11 Lorazepam 2 mg 07/28/25 18:25 Lorazepam 0.5 Mg Tablet PO 08/02/25 18:24 Q4HR PRN CIWA SCORE 12-15 Ondansetron HCl 4 mg 07/28/25 17:56 Ondansetron Inj 2 Mg/Ml Inj 2 Ml IVP 08/27/25 17:55 Q6H PRN NAUSEA OR VOMITING Protocol Spironolactone 50 mg 07/28/25 21:00 07/29/25 08:43 Spironolactone 25 Mg Tablet PO 08/27/25 20:59 50 mg BID CHASIDY Administration Thiamine HCl 100 mg 07/28/25 21:00 07/29/25 08:44 Thiamine 100 Mg Tablet PO 08/02/25 20:59 100 mg BID CHASIDY Administration Plan 69-year-old female with a medical history of cirrhosis secondary to alcohol consumption, hypothyroidism, anxiety, and chronic lymphedema who is admitted for management of electrolyte derangements. #Hypokalemia #Electrolyte Imbalances ED K 2.2 Chronic hypokalemia w/ last discharge prescription for potassium chloride 20mEq q24h Extensive history of medical noncompliance Total of 80 mEq K to be given in ED 1215 PM EKG in ED showing low voltage -Admission to observation -Daily CBC CMP Mg Phos -Spironolactone 50mg PO BID -Replete as needed #Alcoholic Cirrhosis #Hx of Paracentesis #Alcohol Abuse Well known history of alcoholic cirrhosis, w/ paracentesis done last admission Reported 2 glasses of wine/day 07/29 Paracentesis = 2700ml out -CIWA protocol -Thiamine, Folate supplementation -Lactulose 10g daily for bowel regimen -Follow up referral to director of social media marketing -Follow up studies s/p paracentesis #Anxiety On home dose of Alprazolam 0.5 mg PO daily PRN -Holding for now, on CIWA w/ Lorazepam #Hypothyroidism Unreliable history of hypothyroidism; pt states she is not taking -TSH ordered, follow up AM 07/29/2025 #UTI Admission UA + for UTI -Rocephin 1g q24h 07/28 -> Hospital management: Disposition: observation, management of electrolyte imbalances, UTI tx Fluids: N/A Diet: salt restricted diet Lines: PIV DVT prophylaxis: SCD's CODE STATUS: full code/DNR Patient seen and discussed with attending physician Dr. Sue Merida and senior resident Dr. Samuel Marcus MD PGY-1 Attending Provider Attestation/Addendum I, Sue Merida, DO, attest that I was physically present for the mancuso portions of the service and evaluated the patient with the resident and I reviewed and discussed the case with the resident and agree with the resident's findings and plans of care as documented above Patient seen and evaluated this AM. Patient states she has anxiety. She states she used to drink a full bottle of wine daily, now she cut down to 2 glasses a day. Mild tremors noted on exam. She denies any tactile/auditory/verbal hallucinations. She is noted to have a distended abdomen, but no pain on palpation. Will order parascentesis. CIWA score of 7 points. Potassium remains low, replete as needed. Continue with ciwa protocol
[2025-07-29 14:33] LABS: T4 (Thyroxine) 3.3 mcg/dL (4.5-10.9)
--- NOTE | 2025-07-29 15:09 | PC.SS ---
Patient is alert/oriented. Patient states she resides with her . Patient admitted for anxiety hypokalemia. Patient states she has a long history of anxiety. Patient is independent with ADL's. Patient states she used to drink a bottle of wine a day and now she's down to 2 glasses of wine a day. Patient gets very anxious and when speaking about herself starts to cry. Patient states her p.c.p. manages her but she cannot remember if she's on any anti anxiety medication. Patient states she uses a walker as needed. PCP: Dr. Burnett @ [facility]. Discharge plan is to return home. Alt medical decision maker: , Jorge,
[2025-07-29 16:07] LABS: Potassium 3.4 mMol/L (3.4-5.1)
[2025-07-30] VITALS: BP 109/78; PULSE 104; RESP 16; TEMP 36.7; O2SAT 98
[2025-07-30 04:00] VITALS: BP 112/76; PULSE 102; RESP 17; TEMP 36.8; O2SAT 98
[2025-07-30 05:41] LABS: Basophils # (Auto) 0.1 Thou/mm3 (0.0-0.2); Basophils % (Auto) 1 % (0-2.5); Eosinophils # (Auto) 0.4 Thou/mm3 (0.0-0.5); Eosinophils % (Auto) 6 % (0-10); Hematocrit 33.5 % (36.0-46.0); Hemoglobin 11.9 g/dL (12.0-16.0); Immature Granulocytes Auto 0.03 Thou/mm3 (0.00-0.00); Lymphocytes # (Auto) 1.5 Thou/mm3 (1.0-4.8); Lymphocytes % (Auto) 22 % (10-50); Mean Corpuscular HGB Conc 35.5 g/dl (31.0-37.0); Mean Corpuscular Hemoglobin 31.7 pg (25.0-35.0); Mean Corpuscular Volume 89 fL (80-100); Monocytes # (Auto) 0.7 Thou/mm3 (0.0-0.8); Monocytes % (Auto) 10 % (0-12); Neutrophils # (Auto) 4.4 Thou/mm3 (1.8-7.7); Neutrophils % (Auto) 62 % (37-80); Nucleated Red Blood Cell # 0.00 Thou/mm3 (0.00-0.00); Nucleated Red Blood Cell % 0 /100 WBC (0); Platelet Count 215 Thou/mm3 (140-440); RDW Standard Deviation 41.3 fL (36.4-46.3); Red Blood Count 3.75 Miln/mm3 (4.00-5.20); White Blood Count 7.1 Thou/mm3 (3.6-11.0)
[2025-07-30] MEDS: LEVOTHYROXINE SODIUM 125 MCG TABLET PO (05:46)
[2025-07-30 06:08] LABS: Alanine Aminotransferase < 7 U/L (10-49); Albumin, Serum 2.4 gm/dL (3.4-4.8); Albumin/Globulin Ratio 0.9 (1.2-2.2); Alkaline Phosphatase 117 U/L (46-116); Anion Gap 8 (7-16); Aspartate Amino Transferase 31 U/L (0-34); BUN/Creatinine Ratio 10 Ratio (12-20); Bilirubin,Total 2.1 mg/dL (0.3-1.2); Blood Urea Nitrogen 5 mg/dL (9-23); Calcium 7.5 mg/dL (8.3-10.6); Calcium (Corrected) 8.8 mg/dL (8.5-10.1); Carbon Dioxide 28.6 mMol/L (20.0-31.0); Chloride 94 mMol/L (98-107); Creatinine (Component) 0.5 mg/dL (0.6-1.3); Estimated Creatinine Clearance 90.1 mL/min (>60); Globulin 2.7 gm/dL (2.3-3.5); Glucose 82 mg/dL (74-106); Magnesium 1.5 mg/dL (1.6-2.6); Osmolality,Calculated 258 (275-295); Phosphorous 2.6 mg/dL (2.4-5.1); Potassium 3.4 mMol/L (3.4-5.1); Sodium 131 mMol/L (136-145); Total Protein 5.1 gm/dL (5.7-8.2); eGFR > 60 See Note
[2025-07-30 08:00] VITALS: BP 110/79; PULSE 103; RESP 17; TEMP 36.8; O2SAT 98
[2025-07-30 08:28] VITALS: BP 110/79; PULSE 103
[2025-07-30] MEDS: THIAMINE 100 MG TABLET PO (08:28)
[2025-07-30] MEDS: SPIRONOLACTONE 25 MG TABLET 50 MG PO (08:28)
[2025-07-30] MEDS: FOLIC ACID 1 MG TABLET PO (08:28)
[2025-07-30] MEDS: LACTULOSE SYRUP 20 GM/30 ML UDC 10 GM PO (08:28)
--- NOTE | 2025-07-30 16:36 | ESDS_ITS ---
<Statement entered by Sue Merida DO - 07/30/25 18:36> I, Sue Merida DO, attest that I was physically present for the mancuso portions of the service and evaluated the patient with the resident and I reviewed and discussed the case with the resident and agree with the resident's findings and plans of care as documented above <Statement entered by Samuel Campos MD - 07/30/25 16:36> ----- Note reviewed and agree with care plan as documented. Please refer to the note below for further details. Plan discussed with attending physician Dr. Magnolia Campos MD PGY-2 Internal Medicine Planned Discharge Date 07/30/25 DS: Providers Provider Date of admission: 07/30/25 08:11 Primary care physician: Physician Angelica Primary/Family Admitting Provider: Milo Millan MD Attending Provider on Admission: Sue Merida DO Attending Provider on DC: Samuel Campos MD Discharging Provider: Samuel Campos MD DS: Diagnosis Problem List Completed Was Problem List Reviewed/Reconciled?: Yes Hospital Course Hospital Course Hospital course: 69 year old female w/ a PMH significant for alcoholic cirrhosis, chronic hypokalemia, hypothyroidism and anxiety came to [facility] for an anxiety attack. Most recent admission was two weeks ago for anxiety as well as hypokalemia. Patient was admitted to medicine for electrolyte management, admission potassium was 2.2. Ms. King complained of overwhelming anxiety but did not endorse any other physiological or mental symptoms. Denies trauma, LOC, palpitations, shortness of breath. UA positive for UTI, started on rocephin. Patient was noted to have a T SH of 18 and admitted that she often forgets to take her Synthroid at home, nor does she take it 30 minutes prior to eating in the morning. Patient was counseled on appropriate administration of Synthroid with which she stated she was not aware that there was a specific way of taking her medications. However, patient verbalized understanding after giving clear instructions. She will need a repeat TSH in 4 to 6 weeks. EKG noncontributory. Electrolytes were repleted appropriately, and on second day of admission a paracentesis was done which yielded 2700 cc of fluid, pending analysis. By third day of admission, electrolytes were repleted to normal limits and patient was stable for discharge. Ms. King returned home with strict return precautions, licensed professional counselor on adherence to medications and alcohol cessation. Discharge Diagnoses #Hypokalemia #Electrolyte Imbalances #Decompensated Alcoholic liver Cirrhosis #Chronic alcohol use disorder #Anasarca #Anxiety #Hypothyroidism #medication noncompliance #UTI Discharge instructions Please follow up with your primary care provider within two weeks of discharge Please take your medications as prescribed It is very important that you take your potassium pills that we have sent you For any headache, nausea, abdominal pain, or any other issues please return to the Emergency Department We strongly urge you to cut down and stop your alcohol use given your ongoing symptoms Please do not take your lasix if your systolic blood pressure is below 100 Status at Discharge Cognitive/behavioral status at discharge: stable at baseline Time Spent with Patient Time attestation: Total time spent providing and/or coordinating discharge services: Time spent: Greater than 30 minutes Exam Vital Signs Temp Pulse Resp BP Pulse Ox O2 Del Method 98.2 F 103 H 17 110/79 98 Room Air 07/30/25 08:00 07/30/25 08:28 07/30/25 08:00 07/30/25 08:28 07/30/25 08:00 07/30/25 08:00 Narrative Exam General: alert and oriented to self/place/year, no acute distress, able to speak full sentences HEENT: NC/AT, mucous membranes moist, bilateral sclera anicteric Cardiovascular: regular rate and rhythm, S1/S2 present, no murmurs appreciated Pulmonary: clear to auscultation bilaterally, no rales/rhonchi/wheezes Abdominal: soft, nontender, present bowel sounds Musculoskeletal: +2 peripheral edema Skin: Warm, well-perfused Discharge Plan Plan Patient Disposition: HOME (Self Care) Patient condition on transfer: Stable Care Plan Goals: Please follow up with your primary care provider within two weeks of discharge Please take your medications as prescribed It is very important that you take your potassium pills that we have sent you For any headache, nausea, abdominal pain, or any other issues please return to the Emergency Department We strongly urge you to cut down and stop your alcohol use given your ongoing symptoms Please do not take your lasix if your systolic blood pressure is below 100 Prescriptions/Referrals Prescriptions/Med Rec: New spironolactone 50 mg tablet 50 mg PO DAILY 30 Days Qty: 30 0RF furosemide [Lasix] 20 mg tablet 20 mg PO QAM 30 Days Qty: 30 0RF pantoprazole 40 mg tablet,delayed release (DR/EC) 40 mg PO QDAY 30 Days Qty: 30 0RF Continued levothyroxine 125 mcg Tablet 125 mcg PO ACBR 30 Days Qty: 30 1RF albuterol sulfate [Ventolin HFA] 90 mcg/actuation HFA aerosol inhaler 2 inh INHALATION Q6H PRN (Reason: shortness of breath or wheezing) alprazolam 0.5 mg tablet 0.5 mg PO DAILY PRN (Reason: anxiety) midodrine 5 mg Tablet 5 mg PO TID Qty: 90 1RF carvedilol 3.125 mg tablet 3.125 mg PO BID Qty: 60 1RF Rx Instructions: must administer with a meal/food potassium chloride 20 mEq packet 20 meq PO QDAY Qty: 30 1RF Discontinued furosemide 40 mg tablet 40 mg PO QDAY Patient Comments: TAKE 1 TABLET BY MOUTH EVERY DAY zolpidem 5 mg tablet 5 mg PO HS Patient Comments: TAKE 1 TABLET BY MOUTH EVERY DAY AT BEDTIME NEEDED Referrals: No Primary/Family,Physician [Primary Care Provider] Patient/Caregiver Discharge Instructions Education Materials: Paracentesis Dc Print Language: Guamanian Stand Alone Forms: Mayuri Award Info., Patient Portal Info Letter, Work/Release Restrictions Discharge Order Discharge Orders: Discharge (Routine); Ordered 07/30/25 Ordered By: Samuel Campos Quality Discharge Quality Measures none
[2025-08-05 07:01] LABS: T3,Total* 49 ng/dL (76-181)
== END 2025-07-30 11:17 | disposition home or self-care (01) | DRG 433 ==
LOC: SERX 15:47 → SERHOLD 07-29 08:02 → S3SX 07-29 08:02
PROVIDERS: Registered Nurse General Practice; Student in an Organized Health Care Education/Training Program; Admitting Provider Student in an Organized Health Care Education/Training Program; Emergency Provider Emergency Medicine; Visit Provider Internal Medicine
DX: K70.31 Alcoholic cirrhosis of liver with ascites (principal); E87.1 Hypo-osmolality and hyponatremia; N39.0 Urinary tract infection, site not specified; E03.9 Hypothyroidism, unspecified; F41.9 Anxiety disorder, unspecified; I89.0 Lymphedema, not elsewhere classified; E87.6 Hypokalemia; Z66 Do not resuscitate; Z91.148 Patient's other noncompliance with medication regimen for other reason; F10.20 Alcohol dependence, uncomplicated; Z88.5 Allergy status to narcotic agent
CPT/HCPCS: 36415; 80053; 80320; 81001; 82140; 83735; 84100; 84132; 84436; 84439; 84443; 84480; 84481; 85025; 85610; 85730; 87081; 93005; 96365; 96366; 96375; 99283; C1729; G0378; J0696; J3411; J3475; J3480; J3490; J7050; A9270; G0480